=== PATIENT | male | born 1940 | race Caucasian/White ===

== ENCOUNTER 2023-06-17 12:03 | Outpatient (AMB) | payer MEDICARE, SELFPAY ==
--- NOTE | 2023-06-17 12:30 | HO.NEPHOV ---
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 He has coronary artery disease needing stenting. In the past he also had pyelonephritis, bacteremia, prostatitis and BPH. 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 He is followed up in [facility]. He had a history of extra heartbeats and was seen in [facility]. He could not tolerate beta-dominick but was on diltiazem which was discontinued due to fluctuating blood pressure. He does not have any new skin rashes, sore throat, hematuria, abdominal pain, chest pain, dizziness, edema or orthostatic symptoms. He is tolerating ALDO inhibitor well. His recent serum creatinine has been 1.2. 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 Irritable bowel syndrome Iron deficiency anemia Hyponatremia History of recurrent urinary tract infection Hearing problem Fracture of neck of femur Fibrosarcoma of connective tissue Essential (primary) hypertension Endocarditis Dyslipidemia Disorder of cardiovascular system Diplopia Renal cyst Coronary arteriosclerosis Contrast media adverse reaction Chronic sinusitis Chronic kidney disease Skin cancer BPH (benign prostatic hyperplasia) Bacteremia Aortic valve regurgitation Acute kidney injury Surgical History (Updated 06/17/23 @ 12:25 by Mirela Suero MA) Hx of tonsillectomy History of appendectomy History of coronary artery stent placement Family History (Updated 06/17/23 @ 12:26 by Mirela Suero MA) Brother Cancer Paternal Grandmother Heart disease Paternal Grandmother Heart disease Social History (Updated 06/17/23 @ 12:27 by Mirela Suero MA) Alcohol intake: never Patient Tobacco Use Status: Never used Tobacco Vital Signs 06/17/23 12:32 Height 5 ft 8 in Weight 145 lb BMI 22.0 BP 120/70 Blood Pressure Location Rt brachial Position Sitting Pulse 60 Pulse Source Pulse Oximeter Pulse Oximetry (%) 99 Oxygen Delivery Method Room Air Physical Exam Vital Signs: Last Vital Signs Pulse 60 06/17/23 12:32 BP 120/70 06/17/23 12:32 Pulse Ox 99 06/17/23 12:32 Oxygen Delivery Method Room Air 06/17/23 12:32 BMI result Body Mass Index 22.0 Const General: comfortable and no acute distress Orientation/consciousness: patient oriented x3 HEENT Head: Yes normocephalic Mouth: Normal oral and palatal mucosa present Eyes EOM: EOMs intact bilaterally Neck Neck: Yes supple Resp Auscultation: clear to auscultation bilaterally Cardio Jugular venous distension: no JVD Rate: regular rate GI Palpation (GI): Soft to palpation Auscultation: normal bowel sounds General: Yes no CVA tenderness Back/Spine/Pelvis Back: no CVA tenderness Skin General skin exam: no rashes or lesions noted Neuro General: patient oriented x3 and moves all extremities Extrem General: Yes no pedal edema Assessment & Plan Assessment & Plan (1) Proteinuria: Code(s): R80.9 - Proteinuria, unspecified Qualifiers: Proteinuria type: unspecified Qualified Code(s): R80.9 - Proteinuria, unspecified (2) Hypertension: Code(s): I10 - Essential (primary) hypertension Qualifiers: Hypertension type: primary hypertension Qualified Code(s): I10 - Essential (primary) hypertension Plan has some proteinuria for some time. He has hypertension which is well controlled. He is tolerating current dose of ALDO inhibitor. He is on 25 mg lisinopril. He is off diltiazem. His volume status is optimal. His blood pressure is at goal. He is on a low-sodium diet and is very active. I will ordered blood work and urine studies for today. I may increase his lisinopril based on evolving data. No medication changes were made during this visit. All questions were answered. Follow-up given Orders: Orders Lipid Panel Today R80.9 - Proteinuria, unspecified Hemoglobin A1c Today R80.9 - Proteinuria, unspecified PSA,Total (Free>4and<10) Today R80.9 - Proteinuria, unspecified Complete Blood Count Auto Diff Today R80.9 - Proteinuria, unspecified Electrolytes Today R80.9 - Proteinuria, unspecified Blood Urea Nitrogen Today R80.9 - Proteinuria, unspecified Creatinine Today R80.9 - Proteinuria, unspecified Calcium Today R80.9 - Proteinuria, unspecified Protein Creatinine Ratio, Ur Today R80.9 - Proteinuria, unspecified Coding Level of Care Code Est Pt Level 3 (72194) Diagnoses Proteinuria, unspecified type R80.9 Proteinuria type: unspecified Primary hypertension I10 Hypertension type: primary hypertension Results Reviewed Nephrology Results: Hgb Pending 06/17/23 WBC Pending 06/17/23 Plt Count Pending 06/17/23 Sodium Pending 06/17/23 Potassium Pending 06/17/23 Chloride Pending 06/17/23 Carbon Dioxide Pending 06/17/23 BUN Pending 06/17/23 Creatinine Pending 06/17/23 Calcium Pending 06/17/23
[2023-06-17 12:32] VITALS: BP 120/70; PULSE 60; O2SAT 99; BMI 22.0
== END 2023-06-17 13:13 | disposition home or self-care (01) ==
PROVIDERS: PCP Internal Medicine; Visit Provider Internal Medicine Nephrology
DX: R80.9 Proteinuria, unspecified (principal); I10 Essential (primary) hypertension
CPT/HCPCS: 99213

== ENCOUNTER 2023-06-17 12:03 | Outpatient (REF) | payer MEDICARE, SELFPAY ==
[2023-06-17 13:40] LABS: MANUAL DIFF FLAG NO
[2023-06-17 14:44] LABS: Basophils Absolute Auto 0.1 X10*3/uL (0.0-0.2); Basophils Percent Auto 1.8 % (0-2); Eosinophils Absolute Auto 0.2 X10*3/uL (0.0-0.4); Eosinophils Percent Auto 2.7 % (0-4); Hematocrit 35.7 % (42.0-52.0); Imm Gran Abs Auto 0.02 X10*3/uL (0.00-0.03); Imm Gran Pct Auto 0.4 % (0.0-0.4); Lymphocytes Absolute Auto 0.8 X10*3/uL (1.2-4.9); Lymphocytes Percent Auto 14.4 % (20-40); Mean Corpuscular HGB Conc 33.6 g/dl (31.0-36.0); Mean Corpuscular Hemoglobin 31.3 pg (27.0-33.0); Mean Platelet Volume 10.6 fL (9.4-12.4); Monocytes Absolute Auto 0.7 X10*3/uL (0.1-1.2); Monocytes Percent Auto 13.1 % (2-11); Neutrophils Absolute Auto 3.7 x10*3/uL (2.0-8.3); Neutrophils Percent Auto 67.6 % (45-73); Platelet Count 234 X10*3/uL (160-400); Red Blood Count 3.84 X10*6/uL (4.60-5.80); Red Cell Distribution Width 11.9 % (11.0-16.0); White Blood Count 5.5 X10*3/uL (4.8-10.8)
[2023-06-17 14:52] LABS: Estimated Average Glucose 91 mg/dL; Hemoglobin A1c % 4.8 % (<6.0)
[2023-06-17 15:11] LABS: Creatinine Urine 106.04 mg/dL; Protein/Creatinine Ratio, Ur 0.74 (<0.2); Total Protein Urine Random 78 mg/dL (<12)
[2023-06-17 15:17] LABS: Anion Gap 11 (12-20); Blood Urea Nitrogen 11 mg/dL (9-16); Calcium 9.8 mg/dL (8.4-10.2); Carbon Dioxide 28 mmol/L (22-29); Chloride 98 mmol/L (96-108); Cholesterol 155 mg/dL (<200); Estimated Glomerular Filt Rate 60; HDL Cholesterol 58 mg/dL (>40); LDL Cholesterol Calculated 72 mg/dL (<100); Potassium 4.5 mmol/L (3.3-5.1); Sodium 132 mmol/L (135-145); Triglycerides 128 mg/dL (<150)
[2023-06-17 15:33] LABS: PSA,Total (Free>4and<10) 2.51 ng/mL (0.00-4.00)
== END 2023-06-17 12:04 | disposition home or self-care (01) ==
LOC: HO.LAB 12:03
PROVIDERS: PCP Internal Medicine; Visit Provider Internal Medicine Nephrology
DX: R80.9 Proteinuria, unspecified (principal); I10 Essential (primary) hypertension; I25.10 Atherosclerotic heart disease of native coronary artery without angina pectoris; Z12.5 Encounter for screening for malignant neoplasm of prostate
CPT/HCPCS: 36415; 80051; 80061; 82310; 82565; 82570; 83036; 84153; 84156; 84520; 85025; 99212

== ENCOUNTER 2023-10-21 12:04 | Outpatient (AMB) | payer MEDICARE, SELFPAY ==
--- NOTE | 2023-10-21 12:09 | HO.NEPHOV_ITS ---
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 He has coronary artery disease needing stenting. In the past he also had pyelonephritis, bacteremia, prostatitis and BPH. 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 He is followed up in [facility]. He had a history of extra heartbeats and was seen in [facility]. He could not tolerate beta-dominick but is on diltiazem. He does not have any new skin rashes, sore throat, hematuria, abdominal pain, chest pain, dizziness, edema or orthostatic symptoms. He is tolerating ALDO inhibitor well. His recent serum creatinine has been stable but has been having fluctuating inspite of increasing ACEI. His last serum potassium has been 5. 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 breast Irritable bowel syndrome Iron deficiency anemia Hyponatremia History of recurrent urinary tract infection Hearing problem Fracture of neck of femur Fibrosarcoma of connective tissue Essential (primary) hypertension Endocarditis Dyslipidemia Disorder of cardiovascular system Diplopia Renal cyst Coronary arteriosclerosis Contrast media adverse reaction Chronic sinusitis Chronic kidney disease Skin cancer BPH (benign prostatic hyperplasia) Bacteremia Aortic valve regurgitation Acute kidney injury Surgical History Hx of tonsillectomy History of appendectomy History of coronary artery stent placement Family History Brother Cancer Paternal Grandmother Heart disease Paternal Grandmother Heart disease Social History Alcohol intake: never Patient Tobacco Use Status: Never used Tobacco Vital Signs 10/21/23 12:11 Height 5 ft 8 in Weight 142 lb 2 oz BMI 21.6 BP 142/80 H Blood Pressure Location Lt brachial Position Sitting Pulse 59 Pulse Source Pulse Oximeter Pulse Oximetry (%) 99 Oxygen Delivery Method Room Air Physical Exam Vital Signs: Last Vital Signs Pulse 59 10/21/23 12:11 BP 142/80 H 10/21/23 12:11 Pulse Ox 99 10/21/23 12:11 Oxygen Delivery Method Room Air 10/21/23 12:11 BMI result Body Mass Index 21.6 Const General: comfortable and no acute distress Orientation/consciousness: patient oriented x3 HEENT Head: Yes normocephalic Mouth: Normal oral and palatal mucosa present Eyes EOM: EOMs intact bilaterally Neck Neck: Yes supple Resp Auscultation: clear to auscultation bilaterally Cardio Jugular venous distension: no JVD Rate: regular rate GI Palpation (GI): Soft to palpation Auscultation: normal bowel sounds General: Yes no CVA tenderness Back/Spine/Pelvis Back: no CVA tenderness Skin General skin exam: no rashes or lesions noted Neuro General: patient oriented x3 and moves all extremities Extrem General: Yes no pedal edema Assessment & Plan Assessment & Plan (1) Hypertension: Code(s): I10 - Essential (primary) hypertension Qualifiers: Hypertension type: primary hypertension Qualified Code(s): I10 - Essential (primary) hypertension (2) Proteinuria: Code(s): R80.9 - Proteinuria, unspecified Qualifiers: Proteinuria type: unspecified Qualified Code(s): R80.9 - Proteinuria, unspecified Plan has some proteinuria for some time. He has H/O sarcoid. He has no active malignancies. He is tolerating current dose of ALDO inhibitor. He is on 30 mg lisinopril. He is on diltiazem 120 mg which I increased to 240 mg daily.. His volume status is optimal. He is on a low-sodium diet and is very active. I will ordered blood work and urine studies including 24 hour collection. I may consider doing a renal biopsy based on evolving data. No other medication changes were made during this visit. All questions were answered. Follow-up given Orders: Orders Proteinase 3 PR3 Antibodies Today I10 - Essential (primary) hypertension, R80.9 - Proteinuria, unspecified Myeloperoxidase Antibody Today I10 - Essential (primary) hypertension, R80.9 - Proteinuria, unspecified Anti DNA DS Antibody Today I10 - Essential (primary) hypertension, R80.9 - Proteinuria, unspecified MEMO Reflex Titer and Pattern Today I10 - Essential (primary) hypertension, R80.9 - Proteinuria, unspecified Complement C3 Today I10 - Essential (primary) hypertension, R80.9 - Proteinuria, unspecified Complement C4 Today I10 - Essential (primary) hypertension, R80.9 - Proteinuria, unspecified Phospholipase A2 Receptor Pnl Today I10 - Essential (primary) hypertension, R80.9 - Proteinuria, unspecified Prothrombin Time INR Today I10 - Essential (primary) hypertension, R80.9 - Proteinuria, unspecified Protein, 24 Hr Urine Group Today I10 - Essential (primary) hypertension, R80.9 - Proteinuria, unspecified Anti Glomerular Basement Memb Today I10 - Essential (primary) hypertension, R80.9 - Proteinuria, unspecified Immunofixation Pnl, Serum Today I10 - Essential (primary) hypertension, R80.9 - Proteinuria, unspecified Complete Blood Count Auto Diff Today I10 - Essential (primary) hypertension, R80.9 - Proteinuria, unspecified Immunofixation, Random Urine Today I10 - Essential (primary) hypertension, R80.9 - Proteinuria, unspecified Vitamin D 1,25 dihydroxy Today R80.9 - Proteinuria, unspecified Medications: New diltiazem HCl CD 240 mg (2 x 120 mg) PO DAILY 60 caps 4RF Refilled lisinopril 30 mg (3 x 10 mg) PO DAILY 270 tabs 3RF Coding Level of Care Code Est Pt Level 4 (74819) Diagnoses Primary hypertension I10 Hypertension type: primary hypertension Proteinuria, unspecified type R80.9 Proteinuria type: unspecified
[2023-10-21 12:11] VITALS: BP 142/80; PULSE 59; O2SAT 99; BMI 21.6
== END 2023-10-21 12:58 | disposition home or self-care (01) ==
PROVIDERS: PCP Internal Medicine; Visit Provider Internal Medicine Nephrology
DX: I10 Essential (primary) hypertension (principal); R80.9 Proteinuria, unspecified
CPT/HCPCS: 99214

== ENCOUNTER → 2023-10-21 12:04 | Outpatient (BNVA) | payer MEDICARE, SELFPAY | PROVIDERS: PCP Internal Medicine; Visit Provider Internal Medicine Nephrology | DX: I10 Essential (primary) hypertension (principal); R80.9 Proteinuria, unspecified | CPT/HCPCS: 99212 ==

== ENCOUNTER 2023-11-20 10:59 | Outpatient (AMB) | payer MEDICARE, SELFPAY ==
[2023-11-20 11:00] VITALS: BP 134/68; PULSE 60; O2SAT 98; BMI 21.6
--- NOTE | 2023-11-20 11:00 | HO.NEPHOV_ITS ---
Vital Signs 11/20/23 11:00 Height 5 ft 8 in Weight 142 lb BMI 21.6 BP 134/68 Blood Pressure Location Lt brachial Position Sitting Pulse 60 Pulse Source Pulse Oximeter Pulse Oximetry (%) 98 Oxygen Delivery Method Room Air Intake Visit Reasons: 1 mo fu w/ labs CKD/ Confirmed Director Of Restaurants Required: No Accompanied by: Spouse Allergies alirocumab Allergy (Verified 11/20/23 11:00) Unknown Beta-Adrenergic Agents Allergy (Verified 11/20/23 11:00) Unknown diphenhydramine Allergy (Verified 11/20/23 11:00) Unknown Iodinated Contrast Media Allergy (Verified 11/20/23 11:00) Unknown Milk Containing Products (Dairy) Allergy (Verified 11/20/23 11:00) Unknown prednisone Allergy (Verified 11/20/23 11:00) Unknown HPI Comments Details: 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 He has coronary artery disease needing stenting. In the past he also had pyelonephritis, bacteremia, prostatitis and BPH. 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 He is followed up in [facility]. He had a history of extra heartbeats and was [facility]. He could not tolerate beta-dominick but is on diltiazem. He does not have any new skin rashes, sore throat, hematuria, a bdominal pain, chest pain, dizziness, edema or orthostatic symptoms. He is tolerating ALDO inhibitor well. His recent serum creatinine has been stable but has been having fluctuating inspite of increasing ACEI. Diltiazem dosage was increased at the last office visit. He occasionally feels dizzy and tired but continues to be active. 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 breast Irritable bowel syndrome Iron deficiency anemia Hyponatremia History of recurrent urinary tract infection Hearing problem Fracture of neck of femur Fibrosarcoma of connective tissue Essential (primary) hypertension Endocarditis Dyslipidemia Disorder of cardiovascular system Diplopia Renal cyst Coronary arteriosclerosis Contrast media adverse reaction Chronic sinusitis Chronic kidney disease Skin cancer BPH (benign prostatic hyperplasia) Bacteremia Aortic valve regurgitation Acute kidney injury Surgical History Hx of tonsillectomy History of appendectomy History of coronary artery stent placement Family History Brother Cancer Paternal Grandmother Heart disease Paternal Grandmother Heart disease Social History Alcohol intake: never Patient Tobacco Use Status: Never used Tobacco Physical Exam Vital Signs: Last Vital Signs Pulse 60 11/20/23 11:00 BP 134/68 11/20/23 11:00 Pulse Ox 98 11/20/23 11:00 Oxygen Delivery Method Room Air 11/20/23 11:00 BMI result Body Mass Index 21.6 Const General: comfortable and no acute distress Orientation/consciousness: patient oriented x3 HEENT Head: Yes normocephalic Mouth: Normal oral and palatal mucosa present Eyes EOM: EOMs intact bilaterally Neck Neck: Yes supple Resp Auscultation: clear to auscultation bilaterally Cardio Jugular venous distension: no JVD Rate: regular rate GI Palpation (GI): Soft to palpation Auscultation: normal bowel sounds General: Yes no CVA tenderness Back/Spine/Pelvis Back: no CVA tenderness Skin General skin exam: no rashes or lesions noted Neuro General: patient oriented x3 and moves all extremities Extrem General: Yes no pedal edema Results Reviewed Nephrology Results: Hgb 12.0 g/dl (14.0-18.0) L 06/17/23 WBC 5.5 X10*3/uL (4.8-10.8) 06/17/23 Plt Count 234 X10*3/uL (160-400) 06/17/23 Sodium 132 mmol/L (135-145) L 06/17/23 Potassium 4.5 mmol/L (3.3-5.1) 06/17/23 Chloride 98 mmol/L (96-108) 06/17/23 Carbon Dioxide 28 mmol/L (22-29) 06/17/23 BUN 11 mg/dL (9-16) 06/17/23 Creatinine 1.17 mg/dL (0.5-1.4) 06/17/23 Calcium 9.8 mg/dL (8.4-10.2) 06/17/23 Urine Creatinine 106.04 mg/dL 06/17/23 Protein/Creatinin Ratio 0.74 (<0.2) H 06/17/23 Assessment & Plan Assessment & Plan (1) Hypertension: Code(s): I10 - Essential (primary) hypertension Category: Medical Qualifiers: Hypertension type: primary hypertension Qualified Code(s): I10 - Essential (primary) hypertension (2) Proteinuria: Code(s): R80.9 - Proteinuria, unspecified Category: Medical Qualifiers: Proteinuria type: unspecified Qualified Code(s): R80.9 - Proteinuria, unspecified Plan has some proteinuria for some time. He has H/O sarcoid. He has no active malignancies. He is tolerating current dose of ALDO inhibitor. He is on 30 mg lisinopril. He is on diltiazem 120 mg which was increased to 240 mg daily the last visit.. His volume status is optimal. He is on a low-sodium diet and is very active. Some of his blood work and urine studies including 24 hour collection were pending. I may consider doing a renal biopsy based on evolving data. No other medication changes were made during this visit. All questions were answered. Follow-up given Orders: Orders Blood Urea Nitrogen Today I10 - Essential (primary) hypertension, R80.9 - Proteinuria, unspecified Protein Creatinine Ratio, Ur Today I10 - Essential (primary) hypertension, R80.9 - Proteinuria, unspecified Creatinine Today I10 - Essential (primary) hypertension, R80.9 - Proteinuria, unspecified Electrolytes Today I10 - Essential (primary) hypertension, R80.9 - Proteinuria, unspecified Coding Level of Care Code Est Pt Level 4 (53843) Diagnoses Primary hypertension I10 Hypertension type: primary hypertension Proteinuria, unspecified type R80.9 Proteinuria type: unspecified
== END 2023-11-20 11:45 | disposition home or self-care (01) ==
PROVIDERS: PCP Internal Medicine; Visit Provider Internal Medicine Nephrology
DX: I10 Essential (primary) hypertension (principal); R80.9 Proteinuria, unspecified
CPT/HCPCS: 99214

== ENCOUNTER → 2023-11-20 10:59 | Outpatient (BNVA) | payer MEDICARE, SELFPAY | PROVIDERS: PCP Internal Medicine; Visit Provider Internal Medicine Nephrology | DX: I10 Essential (primary) hypertension (principal); R80.9 Proteinuria, unspecified | CPT/HCPCS: 99212 ==

== ENCOUNTER 2024-05-03 12:48 | Outpatient (REF) | payer MEDICARE, SELFPAY ==
[2024-05-03 13:21] LABS: MANUAL DIFF FLAG NO
[2024-05-03 13:47] LABS: Basophils Absolute Auto 0.1 X10*3/uL (0.0-0.2); Basophils Percent Auto 1.9 % (0-2); Eosinophils Absolute Auto 0.2 X10*3/uL (0.0-0.4); Eosinophils Percent Auto 4.5 % (0-4); Hematocrit 33.4 % (42.0-52.0); Hemoglobin 11.1 g/dl (14.0-18.0); INTERNATIONAL NORM RATIO 0.9 (0.9-1.1); Imm Gran Abs Auto 0.02 X10*3/uL (0.00-0.03); Imm Gran Pct Auto 0.4 % (0.0-0.4); Lymphocytes Absolute Auto 0.7 X10*3/uL (1.2-4.9); Lymphocytes Percent Auto 13.4 % (20-40); Mean Corpuscular HGB Conc 33.2 g/dl (31.0-36.0); Mean Corpuscular Hemoglobin 31.1 pg (27.0-33.0); Mean Corpuscular Volume 93.6 fL (80.0-98.0); Mean Platelet Volume 9.6 fL (9.4-12.4); Monocytes Absolute Auto 0.6 X10*3/uL (0.1-1.2); Monocytes Percent Auto 11.4 % (2-11); Neutrophils Absolute Auto 3.3 x10*3/uL (2.0-8.3); Neutrophils Percent Auto 68.4 % (45-73); Platelet Count 266 X10*3/uL (160-400); Prothrombin Time 10.4 SEC (10.9-12.4); Red Blood Count 3.57 X10*6/uL (4.60-5.80); Red Cell Distribution Width 11.9 % (11.0-16.0); White Blood Count 4.8 X10*3/uL (4.8-10.8)
[2024-05-03 14:12] LABS: Anion Gap 13 (12-20); Blood Urea Nitrogen 22 mg/dL (9-16); Carbon Dioxide 30 mmol/L (22-29); Chloride 97 mmol/L (96-108); Estimated Glomerular Filt Rate 54; Potassium 4.4 mmol/L (3.3-5.1); Sodium 136 mmol/L (135-145)
[2024-05-03 14:26] LABS: Creatinine Urine 106.96 mg/dL; Protein/Creatinine Ratio, Ur 0.44 (<0.2); Total Protein Urine Random 47 mg/dL (<12)
[2024-05-05 19:44] LABS: Anti DNA DS Antibody <1 IU/mL; Anti Glomerular Basement Memb <1.0 AI; Myeloperoxidase Antibody <1.0 AI; Proteinase 3 PR3 Antibodies <1.0 AI
[2024-05-06 11:44] LABS: Complement C3 112 mg/dL
[2024-05-06 16:43] LABS: IgA 283 mg/dL (70-320); IgG 1168 mg/dL (600-1540); IgM 126 mg/dL (50-300)
[2024-05-08 15:23] LABS: VITAMIN D (1,25 OH) D3 64 pg/mL; Vit D (1,25-Dihydroxy) Total 64 pg/mL (18-72); Vitamin D (1,25 OH) D2 <8 pg/mL
[2024-05-10 14:09] LABS: Anti Nuclear Antibody Pattern Nuclear, Speckled; Anti Nuclear Antibody Screen POSITIVE (NEGATIVE)
[2024-05-12 23:28] LABS: Phospholipase A2 IgG ELISA <4 RU/mL; Phospholipase A2 IgG IFA NEGATIVE (NEGATIVE)
== END 2024-05-03 12:49 | disposition home or self-care (01) ==
LOC: HO.LAB 12:48
PROVIDERS: PCP Internal Medicine; Visit Provider Internal Medicine Nephrology
DX: I10 Essential (primary) hypertension (principal); R80.9 Proteinuria, unspecified; Z79.01 Long term (current) use of anticoagulants
CPT/HCPCS: 36415; 80051; 82565; 82570; 82652; 82784; 83520; 84156; 84520; 85025; 85610; 86021; 86038; 86039; 86160; 86225; 86255; 86334; 86335

== ENCOUNTER 2024-05-04 13:55 | Outpatient (AMB) | payer MEDICARE, SELFPAY ==
--- NOTE | 2024-05-04 14:15 | HO.NEPHOV_ITS ---
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 He has coronary artery disease needing stenting. In the past he also had pyelonephritis, bacteremia, prostatitis and BPH. 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 He is followed up in [facility]. He had a history of extra heartbeats and was seen in [facility] and [facility]. He could not tolerate beta-dominick but is on diltiazem. He does not have any new skin rashes, sore throat, hematuria, abdominal pain, chest pain, dizziness, edema or orthostatic symptoms. He is tolerating ALDO inhibitor well. His recent serum creatinine has been stable but had it fluctuating on increasing ACEI. His proteinuria has improved & he feels well. 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 breast Irritable bowel syndrome Iron deficiency anemia Hyponatremia History of recurrent urinary tract infection Hearing problem Fracture of neck of femur Fibrosarcoma of connective tissue Essential (primary) hypertension Endocarditis Dyslipidemia Disorder of cardiovascular system Diplopia Renal cyst Coronary arteriosclerosis Contrast media adverse reaction Chronic sinusitis Chronic kidney disease Skin cancer BPH (benign prostatic hyperplasia) Bacteremia Aortic valve regurgitation Acute kidney injury Surgical History Hx of tonsillectomy History of appendectomy History of coronary artery stent placement Family History Brother Cancer Paternal Grandmother Heart disease Paternal Grandmother Heart disease Social History Alcohol intake: never Patient Tobacco Use Status: Never used Tobacco Review of Systems Const All systems reviewed & are unremarkable except as noted in HPI and below Physical Exam Vital Signs: Last Vital Signs Pulse 60 05/04/24 14:16 BP 134/70 05/04/24 14:16 Pulse Ox 98 05/04/24 14:16 Oxygen Delivery Method Room Air 05/04/24 14:16 BMI result Body Mass Index 21.9 Const General: comfortable and no acute distress Orientation/consciousness: patient oriented x3 HEENT Head: Yes normocephalic Mouth: Normal oral and palatal mucosa present Eyes EOM: EOMs intact bilaterally Neck Neck: Yes supple Resp Auscultation: clear to auscultation bilaterally Cardio Jugular venous distension: no JVD Rate: regular rate GI Palpation (GI): Soft to palpation Auscultation: normal bowel sounds General: Yes no CVA tenderness Back/Spine/Pelvis Back: no CVA tenderness Skin General skin exam: no rashes or lesions noted Neuro General: patient oriented x3 and moves all extremities Extrem General: Yes no pedal edema Results Reviewed Nephrology Results: Hgb 11.1 g/dl (14.0-18.0) L 05/03/24 WBC 4.8 X10*3/uL (4.8-10.8) 05/03/24 Plt Count 266 X10*3/uL (160-400) 05/03/24 Sodium 136 mmol/L (135-145) 05/03/24 Potassium 4.4 mmol/L (3.3-5.1) 05/03/24 Chloride 97 mmol/L (96-108) 05/03/24 Carbon Dioxide 30 mmol/L (22-29) H 05/03/24 BUN 22 mg/dL (9-16) H 05/03/24 Creatinine 1.27 mg/dL (0.5-1.4) 05/03/24 Calcium 9.8 mg/dL (8.4-10.2) 06/17/23 Urine Creatinine 106.96 mg/dL 05/03/24 Protein/Creatinin Ratio 0.44 (<0.2) H 05/03/24 Assessment & Plan Assessment & Plan (1) Hypertension: Code(s): I10 - Essential (primary) hypertension Category: Medical Qualifiers: Hypertension type: primary hypertension Qualified Code(s): I10 - Essential (primary) hypertension (2) Proteinuria: Code(s): R80.9 - Proteinuria, unspecified Category: Medical Qualifiers: Proteinuria type: unspecified Qualified Code(s): R80.9 - Proteinuria, unspecified Plan has some proteinuria for some time. He has H/O sarcoid. He has no active malignancies. He is tolerating current dose of ALDO inhibitor. He is on lisinopril & diltiazem. His volume status is optimal. He is on a low-sodium diet and is very active. His renal functions are stable and proteinuria is better. There is no need for a renal biopsy now. No other medication changes were made during this visit. All questions were answered. Follow-up given Orders: Orders Electrolytes 6 Months I10 - Essential (primary) hypertension, R80.9 - Proteinuria, unspecified Creatinine 6 Months I10 - Essential (primary) hypertension, R80.9 - Proteinuria, unspecified Blood Urea Nitrogen 6 Months I10 - Essential (primary) hypertension, R80.9 - Proteinuria, unspecified Protein Creatinine Ratio, Ur 6 Months I10 - Essential (primary) hypertension, R80.9 - Proteinuria, unspecified Coding Level of Care Code Est Pt Level 4 (15741) Diagnoses Primary hypertension I10 Hypertension type: primary hypertension Proteinuria, unspecified type R80.9 Proteinuria type: unspecified
[2024-05-04 14:16] VITALS: BP 134/70; PULSE 60; O2SAT 98; BMI 21.9
== END 2024-05-04 14:49 | disposition home or self-care (01) ==
LOC: HO.HKA 13:55
PROVIDERS: PCP Internal Medicine; Visit Provider Internal Medicine Nephrology
DX: I10 Essential (primary) hypertension (principal); R80.9 Proteinuria, unspecified
CPT/HCPCS: 99214

== ENCOUNTER → 2024-05-04 13:55 | Outpatient (BNVA) | payer MEDICARE, SELFPAY | PROVIDERS: PCP Internal Medicine; Visit Provider Internal Medicine Nephrology | DX: I10 Essential (primary) hypertension (principal); R80.9 Proteinuria, unspecified | CPT/HCPCS: 99212 ==

== ENCOUNTER 2024-05-05 10:29 | Outpatient (REF) | payer MEDICARE, SELFPAY ==
[2024-05-05 11:52] LABS: Total Volume 24 Hour Urine 1850 mL
[2024-05-05 11:59] LABS: Creatinine, mg/dL 53.59; Protein 24 Hr Urine 315 mg/Day (<150); Protein mg/dL 17 mg/dL
== END 2024-05-05 10:30 | disposition home or self-care (01) ==
LOC: HO.LNP 10:29
PROVIDERS: Visit Provider Internal Medicine Nephrology
DX: I10 Essential (primary) hypertension (principal); R80.9 Proteinuria, unspecified
CPT/HCPCS: 84156

== ENCOUNTER 2024-10-19 11:31 | Outpatient (AMB) | payer MEDICARE, SELFPAY ==
--- NOTE | 2024-10-19 11:37 | HO.NEPHOV ---
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 He has coronary artery disease needing stenting. In the past he also had pyelonephritis, bacteremia, prostatitis and BPH. 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 He is followed up in [facility]. He had a history of extra heartbeats and was [facility]. He continues to have symptoms from it and is going to see EP to decide whether ablation will help him. He could not tolerate beta-dominick but is on diltiazem. He does not have any new skin rashes, sore throat, hematuria, abdominal pain, chest pain, dizziness, edema or orthostatic symptoms. He is tolerating ALDO inhibitor well but his serum K is marginally up. His recent serum creatinine has been stable but had it fluctuating on increasing ACEI. He has high light chains in the urine. His proteinuria has improved & he feels well. [facility] Medical History (Updated 10/19/24 @ 21:55 by Steffen Taylor MD) Valvular endocarditis Sick sinus syndrome Sepsis Sarcoidosis Pyelonephritis Prostatitis Primary myxofibrosarcoma Palpitations Osteoarthritis of right knee Malignant neoplasm of right male breast Irritable bowel syndrome Iron deficiency anemia Hyponatremia History of recurrent urinary tract infection Hearing problem Fracture of neck of femur Fibrosarcoma of connective tissue Essential (primary) hypertension Endocarditis Dyslipidemia Disorder of cardiovascular system Diplopia Renal cyst Coronary arteriosclerosis Contrast media adverse reaction Chronic sinusitis Chronic kidney disease Skin cancer BPH (benign prostatic hyperplasia) Bacteremia Aortic valve regurgitation Acute kidney injury Surgical History Hx of tonsillectomy History of appendectomy History of coronary artery stent placement Family History Brother Cancer Paternal Grandmother Heart disease Paternal Grandmother Heart disease Social History Alcohol intake: never Patient Tobacco Use Status: Never used Tobacco Review of Systems Const All systems reviewed & are unremarkable except as noted in HPI and below Physical Exam Vital Signs: Last Vital Signs Pulse 52 10/19/24 11:41 BP 134/60 10/19/24 11:41 Pulse Ox 100 10/19/24 11:41 Oxygen Delivery Method Room Air 10/19/24 11:41 BMI result Body Mass Index 21.8 Const General: comfortable and no acute distress Orientation/consciousness: patient oriented x3 HEENT Head: Yes normocephalic Mouth: Normal oral and palatal mucosa present Eyes EOM: EOMs intact bilaterally Neck Neck: Yes supple Resp Auscultation: clear to auscultation bilaterally Cardio Jugular venous distension: no JVD Rate: regular rate GI Palpation (GI): Soft to palpation Auscultation: normal bowel sounds General: Yes no CVA tenderness Back/Spine/Pelvis Back: no CVA tenderness Skin General skin exam: no rashes or lesions noted Neuro General: patient oriented x3 and moves all extremities Extrem General: Yes no pedal edema Assessment & Plan Assessment & Plan (1) Proteinuria: Code(s): R80.9 - Proteinuria, unspecified Category: Medical Qualifiers: Proteinuria type: unspecified Qualified Code(s): R80.9 - Proteinuria, unspecified (2) Hypertension: Code(s): I10 - Essential (primary) hypertension Category: Medical Qualifiers: Hypertension type: primary hypertension Qualified Code(s): I10 - Essential (primary) hypertension (3) Hyperkalemia: Code(s): E87.5 - Hyperkalemia Category: Medical (4) CKD (chronic kidney disease) stage 3, GFR 30-59 ml/min: Code(s): N18.30 - Chronic kidney disease, stage 3 unspecified Category: Medical Qualifiers: Chronic kidney disease stage 3 subtype: stage 3a (GFR 45-59) Qualified Code(s): N18.31 - Chronic kidney disease, stage 3a Plan has some proteinuria for some time. He has H/O sarcoid. He has increased light chains in the urine which is going to be repeated. He may need hematology consult and a bone marrow biopsy. He has no active malignancies. He is tolerating current dose of ALDO inhibitor. He is on lisinopril & diltiazem. He is aware of his high serum K. His volume status is optimal. He is on a low-sodium diet and is very active. His renal functions are stable and proteinuria is better. There is no need for a renal biopsy now. No other medication changes were made during this visit. All questions were answered. Follow-up given Orders: Orders Amoret/Lambda Light Chain Serum 6 Months E87.5 - Hyperkalemia, I10 - Essential (primary) hypertension, R80.9 - Proteinuria, unspecified Protein Creatinine Ratio, Ur 6 Months E87.5 - Hyperkalemia, I10 - Essential (primary) hypertension, R80.9 - Proteinuria, unspecified Complete Blood Count Auto Diff 6 Months E87.5 - Hyperkalemia, I10 - Essential (primary) hypertension, R80.9 - Proteinuria, unspecified Blood Urea Nitrogen 6 Months E87.5 - Hyperkalemia, I10 - Essential (primary) hypertension, R80.9 - Proteinuria, unspecified Blood Urea Nitrogen 3 Months E87.5 - Hyperkalemia, I10 - Essential (primary) hypertension, R80.9 - Proteinuria, unspecified Immunofixation, Random Urine 6 Months E87.5 - Hyperkalemia, I10 - Essential (primary) hypertension, R80.9 - Proteinuria, unspecified Immunofixation Pnl, Serum 6 Months E87.5 - Hyperkalemia, I10 - Essential (primary) hypertension, R80.9 - Proteinuria, unspecified Creatinine 6 Months E87.5 - Hyperkalemia, I10 - Essential (primary) hypertension, R80.9 - Proteinuria, unspecified Electrolytes 6 Months E87.5 - Hyperkalemia, I10 - Essential (primary) hypertension, R80.9 - Proteinuria, unspecified Calcium 6 Months E87.5 - Hyperkalemia, I10 - Essential (primary) hypertension, R80.9 - Proteinuria, unspecified Creatinine 3 Months E87.5 - Hyperkalemia, I10 - Essential (primary) hypertension, R80.9 - Proteinuria, unspecified Electrolytes 3 Months E87.5 - Hyperkalemia, I10 - Essential (primary) hypertension, R80.9 - Proteinuria, unspecified Coding Level of Care Code Est Pt Level 4 (52982) Diagnoses Proteinuria, unspecified type R80.9 Proteinuria type: unspecified Primary hypertension I10 Hypertension type: primary hypertension Hyperkalemia E87.5 Stage 3a chronic kidney disease N18.31 Chronic kidney disease stage 3 subtype: stage 3a (GFR 45-59)
[2024-10-19 11:41] VITALS: BP 134/60; PULSE 52; O2SAT 100; BMI 21.8
--- OUTSIDE RECORDS SUMMARY | 2024-10-19 13:58 | XMS_ITS | Patient Health Record ---
Author Organization [facility] Address [address] [place] [address] Care Team Providers Care Tube Builder Airplane Name Role Phone Qamar Garcia Primary Care Provider Uriah Dukes MD MSc, [facility] Unavailable [phone] Allergies Allergen (clinical drug ingredient) Drug/Non Drug Allergy documented on EMR Reaction Allergy Type Onset Date Status alirocumab Praluent Unknown Drug Allergy Active Contrast Allergy PreMed Pack Unknown Drug Allergy Active Substance with beta adrenergic receptor antagonist mechanism of action (substance) Beta Adrenergic Blockers Unknown Drug Allergy Active Reason For Referral No Information Medications Medication SIG (Take, Route, Frequency, Duration) Notes Start Date End Date Status Pravastatin Sodium 10 MG 1 tablet Orally Once a day for 30 day(s) Active Verapamil HCl 120 MG 1 tablet Orally Thr ee times a day for 30 day(s) Active Lisinopril 10 MG 1 tablet Orally Once a day for 30 day(s) Active Social History Alcohol screen Question Answer Notes Did you have a drink containing alcohol in the p ast year? Yes How often did you have a dri nk containing alcohol in the past year? Monthly or less How many drinks did you have on a typical day when you were drinking in the past year? 1 or 2 How often did you have six o r more drinks on one occasion in the past year? Never Problems Problem Type SNOMED Code ICD Code Onset Dates Problem Status W/U Status Risk Notes Problem [id number] Primary osteoarthritis of right knee (M17.11) Active confirmed Plan Of Treatment No Information Medical (General) History Medical History History ICD Code Diagnosed: Chest Pain,Heart Disease,High Blood Pressure,Osteoarthritis,Skin Cancer, Fibrosarcoma Cancer (spring 2019) treated with radiation and surgery Anemia Surgical History Surgery Date(Month/Year) Coronary stent 2018 left femur rods 2016 left calf sarcoma excision 2019
--- OUTSIDE RECORDS SUMMARY | 2024-10-19 13:58 | XMS_ITS | Clinical Summary ---
Author Organization [facility] Address [address] [place] [address] Phone Care Team Providers Care Wedding Decorator Name Role Phone Qamar Garcia MD Primary Care Provider [phone] Allergies Active Allergy Reactions Criticality Noted Date Comments Alirocumab Other (see comments) 06/12/2021 Beta Adrenergic Blockers Other (see comments) 1 08/13/2020 Iodinated Contrast Media 12/23/2021 Milk-Related Compounds 07/14/2021 Prednisone & Diphenhydramine Other (see comments) 06/12/2021 Medications aspirin (ST TERRY) 81 MG EC tablet Take 81 mg by mouth 1 (one) time each day Active pravastatin (PRAVACHOL) 10 MG tablet Take 10 mg by mouth 1 (one) time each day Active amoxicillin (AMOXIL) 500 MG capsule Take by mouth Prior to dental procedures Active lisinopril 10 MG tablet TAKE 1.5 TABLETS (15 MG TOTAL) BY MOUTH ONCE DAILY 135 tablet 3 3 Active Active Problems Problem Noted Date Diagnosed Date Foreign body in thumb 01/10/2022 Proteinuria 09/19/2021 Pyelonephritis 09/19/2021 Anemia of chronic disease 09/16/2021 Benign essential hypertension 09/16/2021 Chronic kidney disease stage 2 09/16/2021 Hypertensive renal disease 09/16/2021 Hyponatremia 09/16/2021 Simple renal cyst 09/16/2021 Chronic kidney disease, stage 2 (mild) 0 Iron deficiency anemia Hyponatremia Essential hypertension Acute nontraumatic kidney injury Cyst of kidney Resolved Problems Problem Noted Date Diagnosed Date Resolved Date Fibrosarcoma of connective tissue 09/19/2021 12/17/2021 Insertion of arterial stent 09/19/2021 12/17/2021 Endocarditis 09/19/2021 12/17/2021 Prostatitis 09/19/2021 12/17/2021 Aortic valve regurgitation 09/16/2021 0 09/16/2021 Bacteremia 09/16/2021 09/16/2021 Benign prostatic hyperplasia 09/16/2021 09/16/2021 Coronary arteriosclerosis 09/16/2021 Fracture of neck of femur 09/16/2021 Overview (09/16/2021): [facility] Irritable bowel syndrome 09/16/2021 Palpitations 09/16/2021 09/16/2021 Valvular endocarditis 09/16/20212021 Osteoarthritis of right knee joint 03/25/2021 09/16/2021 Contrast media adverse reaction 01/13/2020 06/12/2022 Overview (06/12/2022): Last Assessment & Plan: 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 It was explained that contrast media can directly activate mast cells despite not having a allergy to contrast. It seems like this is likely what happened yesterday. It was explained that this may not happen again, but he should make sure radiologists are aware of this reaction and he should premedicate with Benadryl. He still has some erythema on his back and chest, but this seems more like a flushing related to his fever and not related to the contrast media. Primary myxofibrosarcoma 08/25/201902/2022 Overview (06/12/2022): Last Assessment & Plan: Neoadjuvant radiation 09/2019-10/2019 with resection and wound closure 11/22/2019. He continues to follow with plastic surgery every 2 weeks for debridement. Dyslipidemia 01/03/2019 06/12/2022 Overview (06/12/2022): Last Assessment & Plan: Last lipid panel available in our system is from January,. Patient reports he sees a physician named Dr Meier that specializes in lipid management. He saw this provider in October or November of this year and were told that his lipids were phenomenal. He eats a very healthy diet and does not smoke. I offered to repeat his lipid panel today, which he declined. Continue 10 mg pravastatin daily. Disorder of cardiovascular system 11/05/2018 06/12/2022 Overview (06/12/2022): 10/2018 Patient had cardiac catheterization on 10/26 and had single-vessel coronary disease with severe 95 and stenosis of the proximal LAD and severe stenosis ostium of D1. Successful PCI of the proximal LAD with one drug-eluting stent. Last Assessment & Plan: I discussed with him that we have multiple options for his chest pain. We are obviously waiting the final results of his stress test but that if it is a high risk study, I would recommend a cardiac catheterization. I noted if it is a low risk study, I would be inclined to start with medical therapy but that if he continues to have chest pain that is limiting his symptoms, I would strongly recommend cardiac catheterization. He notes he prefers to avoid a cardiac cath if possible. He also notes that he does not seem to tolerate other medications such as metoprolol well and has not tolerated verapamil at a higher dose. I offered the option of starting Imdur but given his multiple intolerances to other medications, he would like to keep on verapamil at 120 mg XL once daily and aspirin and pravastatin and based on the stress test results as well as the recurrence of chest pain, will consider a cardiac catheterization. Malignant neoplasm of right male breast 08/26/2018 06/12/2022 Diplopia 07/01/2018 06/12/2022 Sick sinus syndrome 07/01/2018 06/12/20 Chronic sinusitis 01/24/2016 06/12/2022 Sarcoidosis 09/15/2006 06/12/2022 Overview (06/12/2022): sarcoidosis; Liver 2002 Benign prostatic hyperplasia 12/17/2021 Immunizations Immunization Administration Dates Next Due Hep A / Hep B 05/12/2013,01/19/2012,12/22/2011 Influenza Split High Dose Pr eservative Free IM 05/14/2018,04/30/2017,04/24/2016 Influenza Vaccine, Quadrivalent, Adjuvanted 07/2019 Pneumococcal Conjugate 13-Valent 03/17/2016 Pneumococcal Polysaccharide 06/30/2020 Tdap 12/22/2011 Family History Medical History Relation Comments Heart disease Paternal Grandfather Heart disease Paternal Grandmother Cancer Sibling brother Relation Status Comments Father Mother Paternal Grandfather Paternal Grandmother Sibling Social History Tobacco Use Types Packs/Day Years Used Date Smoking Tobacco: Never Smokeless Tobacco: Never Tobacco Cessation:Counseling Given: Not Answered Alcohol Use Standard Drinks/Week Comments No 0 (1 standard drink = 0.6 oz pur e alcohol) Sex and Gender Information Value Date Recorded Sex Assigned at Not on file Legal Sex Male 5:07 PM EST Gender Identity Not on file Sexual Orientation Not on file Last Filed Vital Signs Vital Sign Reading Time Taken Comments Blood Pressure 130/80 12/16/2022 1:54 PM EDT Pulse 64 12/16/2022 1:54 PM EDT Temperature - - Respiratory Rate - - Oxygen Saturation 99% 12/23/2021 2:09 PM EDT Inhaled Oxygen Concentration - - Weight 65.8 kg (145 lb) 12/16/2022 1:54 PM EDT Height 177.8 cm (5' 10 ) 01/19/2019 12:00 PM EDT Body Mass Index 20.81 01/19/2019 12:00 PM EDT Plan of Treatment Health Maintenance Due Date Last Done Comments Influenza Vaccine (Season Ended) 2025 04/05/2020, 05/14/2018, 04/30/2017, Additional history exists Hepatitis B Vaccine Completed 05/12/2013, 01/19/2012, 12/22/2011 Pneumococcal Vaccine: 50+ Years Completed , 03/17/2016 Pneumococcal Vaccine: Peds ( 0 to 5 Years) and At-Risk Patients (6 to 49 Years) Discontinued 06/30/2020, 03/17/[address] [facility] Medicare Care Teams Wedding Decorator Relationship Specialty Start Date End Date Qamar Garcia MD [address] [place] [address] PCP - General Internal Medicine 09/11/21
--- OUTSIDE RECORDS SUMMARY | 2024-10-19 13:58 | XMS_ITS | Clinical Summary ---
Author Organization [facility] Address [id number] [place] [address] Care Team Providers Care Gusset Stitcher Name Role Phone Qamar Garcia MD Primary Care Provider [phone] Surgical History Surgery Date Site/Laterality Comments OTHER SURGICAL HISTORY 06/15/2018 Right PROCEDURE: BREAST TISSUE EXCISIONAL PATHOLOGY EXAM; COMMENT: ductal carcinoma in situ OTHER SURGICAL HISTORY 07/07/2018 Right PROCEDURE: BREAST TISSUE EXCISIONAL PATHOLOGY EXAM; COMMENT: single focus-ductal carcinoma in situ, grade 2; [facility] APPENDECTOMY PROCEDURE: HISTORICAL APPENDECTOMY OTHER SURGICAL HISTORY 07/03/2015 PROCEDURE: HISTORY OTHER; COMMENT: nasal septoplasty/w/right ethmoidecotmy WISDOM TOOTH EXTRACTION PROCEDURE: HISTORICAL WISDOM TEETH EXTRACTION; COMMENT: all 4 LEG SURGERY PROCEDURE: HISTORICAL LEG SURGERY; COMMENT: femur fracture treated w/iván Medical History Medical History Date Comments History of recurrent UTIs DX:His tory of recurrent UTIs History of breast cancer 12/14/2018 DX:Hist ory of breast cancer; COMMENT: 07/07/18 S/p right excisional biopsy; single focus DCIS, grade 2, [facility]; 06/2018 S/p right excisional biopsy, DCIS; 06/2018 BRCA testing negative History of endocarditis DX:Histo ry of endocarditis; COMMENT: 2017 FH: breast cancer in first d egree relative when <50 years old 12/14/2018 DX:FH: breast cancer in fi rst degree relative when <50 years old; COMMENT: Dgt-48 Hypertension DX:Hypertension Family History Medical History Relation Name Comments Breast cancer Aunt paternal Breast cancer Daughter Relation Name Status Comments Aunt paternal Alive 40s Daughter age 46 Social History Tobacco Use Types Packs/Day Years Used Date Smoking Tobacco: Never Smokeless Tobacco: Never Alcohol Use Standard Drinks/Week Comments No 0 (1 standard drink = 0.6 oz pur e alcohol) Sex and Gender Information Value Date Recorded Sex Assigned at Not on file Legal Sex Male 7:52 AM EST Gender Identity Not on file Sexual Orientation Not on file Obstetrics History Plan of Treatment Health Maintenance Due Date Last Done Comments DTaP,Tdap,and Td Vaccines (1 - Tdap) 1961 Zoster Vaccines (1 of 2) 02/14/1992 RSV Immunization Adult Patients (1 - 1-dose 75+ series) 2017 Pneumococcal Vaccine: 50+ Years (2 of 2 - PCV) 06/30/2021 06/30/2020 Cholesterol Screening (Lipid Panel) 06/08/2022 Depression Screening 06/08/2022 Falls Risk Assessment 06/08/2022 Social Influencers of Health Screening 06/08/2022 Hypertension/CHF/CAD Annual BMP Blood Test 06/21/2022 COVID-19 Vaccine ( - season) 2024 Influenza Vaccine (Season Ended) 2025 04/15/2021, 04/05/2020, 03/23/2019, Additional history exists HIB Vaccines Aged Out No longer eligi ble based on patient's age to complete this topic HPV Vaccines Aged Out No longer eligi ble based on patient's age to complete this topic Hepatitis A Vaccines Aged Out No long er eligible based on patient's age to complete this topic Hepatitis B Vaccines Aged Out No long er eligible based on patient's age to complete this topic IPV Vaccines Aged Out No longer eligi ble based on patient's age to complete this topic MMR Vaccines Aged Out No longer eligi ble based on patient's age to complete this topic Meningococcal ACWY Vaccine Aged Out N o longer eligible based on patient's age to complete this topic Meningococcal B Vaccine Aged Out No l onger eligible based on patient's age to complete this topic RSV Immunization Patients Under 20 months Aged Out No longer eligible based on patient's age to complete this topic Varicella Vaccines Aged Out No longer eligible based on patient's age to complete this topic Care Teams Gusset Stitcher Relationship Specialty Start Date End Date Qamar Garcia MD PCP - General Internal Medicine 03/02/17
--- OUTSIDE RECORDS SUMMARY | 2024-10-19 13:58 | XMS_ITS | Continuity of Care Document ---
Author Organization [facility] Address [address] [place] [address] Phone [phone] Social History Type Date Description Comments Sex Unknown Medical Devices Description No Information Available Encounters Description No Information Available Assessments Description No Information Available Plan of Treatment No Information Available Functional Status Description No Information Available Mental Status Description No Information Available Referrals Description No Information Available
--- OUTSIDE RECORDS SUMMARY | 2024-10-19 13:58 | XMS_ITS ---
Author Organization Unknown Address [address] [place] [phone] Phone Care Team Providers Care Senior Controls Analyst Name Role Phone CHRIS CALDWELL Registered Nurse Unavailable CARLOS EDUARDO Romero Attending Unavailable SYDNEY Hernandez ER Unavailable UNLISTED PROVIDER - REQUESTED Xhandoff Un available Results XR CLAVICLE COMPLETE LEFT - Completed: 07/27/2023 18:15 LOINC: [facility] [place], [place] [address] PACS VICE PRESIDENT OF RECRUITING REPORT Patient Name: MARIE WELSH MRN: Sex: : Age: [id number] M [id number] Account: Accession: Admit: StayType: [id number] 07/27/2023 E/R Ordered: Order ID: Submitted: Ordering Provider: 07/27/2023 18:15 [id number] SEF KENDY GRIMES Completed: Technologist: Resulted: 07/27/2023 18:15 KVK 07/27/2023 18:37 Study Description: XR SHOULDER 2V OR MORE LT and XR clavicle complete left Study Reason: Trauma Technique: 2D digital imaging was performed. 6 images were obtained. COMPARISON: None. FINDINGS: Bones: There is an acute fracture at the junction of the middle and lateral thirds of the left clavicle. No significant displacement is seen. The fracture does not extend into the acromioclavicular joint. No bony destructive lesion is seen. Joints: No dislocation is present. The acromioclavicular and glenohumeral joints are well-maintained. Soft tissues: The visualized lungs are clear. IMPRESSION: Left clavicular fracture as described above. Report Digitally Signed by Shine Rodriguez on 07/27/2023 06:37 PM EST XR SHOULDER 2V OR MORE LT* - Completed: 07/27/2023 18:15 LOINC: [facility] [place], [place] [address] PACS VICE PRESIDENT OF RECRUITING REPORT Patient Name: MARIE WELSH MRN: Sex: : Age: [id number] M [id number] Account: Accession: Admit: StayType: [id number] 07/27/2023 E/R Ordered: Order ID: Submitted: Ordering Provider: 07/27/2023 17:37 [id number] KENDY CHIN Completed: Technologist: Resulted: 07/27/2023 18:15 KVK 07/27/2023 18:37 Study Description: XR SHOULDER 2V OR MORE LT and XR clavicle complete left Study Reason: Trauma Technique: 2D digital imaging was performed. 6 images were obtained. COMPARISON: None. FINDINGS: Bones: There is an acute fracture at the junction of the middle and lateral thirds of the left clavicle. No significant displacement is seen. The fracture does not extend into the acromioclavicular joint. No bony destructive lesion is seen. Joints: No dislocation is present. The acromioclavicular and glenohumeral joints are well-maintained. Soft tissues: The visualized lungs are clear. IMPRESSION: Left clavicular fracture as described above. Report Digitally Signed by Shine Rodriguez on 07/27/2023 06:37 PM EST Social History Type Status Start Date End Date Code Code Syst em Sex Male Vital Signs Vital Sign Value Unit [place] Value [place] Unit Date/Time Recent/Initial? Code Code System Body Mass Index 21.29 kg/m2 07/27/2023 17:42 Initial 35672 -5 LOINC Systolic Blood Pressure 179 mm[Hg] 07/27/2023 17:42 Initial 8480- 6 LOINC Diastolic Blood Pressure 86 mm[Hg] 07/27/2023 17:42 Initial 8462- 4 LOINC Body Surface Area 1.75 m2 07/27/2023 17:42 Initial 3140- 1 LOINC Height 172.720 0 cm 68.00 in 07/27/2023 17:42 Initial 8302- 2 LOINC O2 Saturation 100 % 2023 17:42 Initial 10023 -5 LOINC Pulse 65.0 /min 07/27/2023 17:42 Initial 8867- 4 LOINC Respiration 18 /min 07/27/19 17:42 Initial 9279- 1 LOINC Temperature 36.4 Porsche 97.5 F 07/27/19 24 17:42 Initial 8310- 5 LOINC Weight 63.50 kg 140.00 lbs 07/27/2023 17:42 Initial 06836 -7 LOINC Hospital Discharge Instructions Should you have any questions prior to discharge, please contact a member of your healthcare team. If you have left the hospital and have any questions, please contact your primary care physician. Reason For Referral No Data Found Problems Problem Start Date Resolved Date Status Code Code System DISORDER OF KIDNEY 07/27/2023 resolved 54961652 SNOMED-CT HYPERTENSION 07/27/2023 resolved 10246284 SNOMED -CT Allergies and Adverse Reactions Allergy Substance Reaction Severity Start Date Concern Status Code Code System NSAID RENAL DISEASE (SNOMED-CT: null) Active 74150957 SNOMED-CT Plan of Treatment No Data Found Encounters Encounter Diagnosis Start Date Code Code Sys tem Displaced fracture of latera l end of left clavicle, initial encounter for closed fracture 07/27/2023 SN OMED-CT Personal Care Team Section Performer Name Performer Role Active Date Inactive Da te
== END 2024-10-19 12:25 | disposition home or self-care (01) ==
LOC: HO.HKA 11:31
PROVIDERS: PCP Internal Medicine; Visit Provider Internal Medicine Nephrology
DX: R80.9 Proteinuria, unspecified (principal); I10 Essential (primary) hypertension; E87.5 Hyperkalemia; N18.31 Chronic kidney disease, stage 3a
CPT/HCPCS: 99214

== ENCOUNTER → 2024-10-19 11:31 | Outpatient (BNVA) | payer MEDICARE, SELFPAY | PROVIDERS: PCP Internal Medicine; Visit Provider Internal Medicine Nephrology | DX: I12.9 Hypertensive chronic kidney disease with stage 1 through stage 4 chronic kidney disease, or unspecified chronic kidney disease (principal); N18.31 Chronic kidney disease, stage 3a; R80.9 Proteinuria, unspecified; E87.5 Hyperkalemia | CPT/HCPCS: 99212 ==

== ENCOUNTER 2025-03-30 14:54 | Outpatient (REF) | payer MEDICARE, SELFPAY ==
--- OUTSIDE RECORDS SUMMARY | 2017-02-27 | XMS_ITS | Encounter Summary ---
Author Organization [facility] Address [address] [place] [address] [place] [address] Phone Care Team Providers Care Barista Name Role Phone Unavailable Primary Care Provider Unavailabl e Reason for Visit * MRI/CAT Scan - Closed Specialty Diagnoses / Procedures Referred By Bam t Referred To Contact Procedures CT Abdomen Outside (No Interpretation) Estela Canales MD [address] [place] [address] Phone: tel: fax: mailto:[email or web address] Referral ID Status Reason Start Date Expiration Date Visits Re quested Visits Authorized [id number] Closed 11/26/2017 11/26/2018 1 1 Encounter Details Date Type Department Care Team (Late st Contact Info) Description 02/27/2017 Hospital Encounter [facility] 55 [place] [address] Estela Canales MD [address] [address] [email or web address] [place] Social History Tobacco Use Types Packs/Day [...] Author No Risk Indicated 03/18/2025 2:16 AM EDT Hollie Redmond RN * [place] Suicide Severity Rating Scale (Screener/Recent Self-Report) Question Answer Date of Assessment Author 1. Wish to be (Past 1 Month) No 03/18/2025 2:16 AM EDHollie Collazo RN 2. Non-Specific Active Suicidal Thoughts (Past 1 Month) No 03/18/2025 2:16 AM Hollie Watts RN 6. Suicidal Behavior (Lifetime) No 03/18/2025 2:16 AM EDT Hollie Redmond RN documented as of this encounter Plan of Treatment Upcoming Encounters Date Type Department Care Team (Late st Contact Info) Description 09/07/2024 Procedure Pass [facility], [place] [address] [address] 09/07/2024 Procedure Pass [facility], [facility] [address] [address] 04/05/2025 11:00 AM EDT Office Visit [facility] [address] [place] [address], [address] [place] [address] Margarito Walker MD [address] [place] [address] [email or web address] 05/10/2025 11:05 AM EST Appointment [facility], [facility] [address] [address] Mirela Barnhart MD [address] [place] [address] [email or web address] 05/10/2025 12:10 PM EST Appointment [facility] [place] [facility] [place] [place] [address] [place] [address] Mirela Barnhart MD [address] [place] [address] [email or web address] 05/10/2025 3:00 PM EST Office Visit [facility], [address], [address] [place] [address] Mirela Barnhart MD [address] [place] [address] [email or web address] documented as of this encounter Procedures Procedure Name Priority Date/Time Associated Diagnosis Comments CT ABDOMEN OUTSIDE (NO INTERPRETATION) Routine 02/27/2017 12:00 AM EDT documented in this encounter Results * CT Abdomen Outside (No Interpretation) (02/27/2017 12:00 AM EDT) Narrative [facility]G INTER[facility]ACES - 11/26/2017 1:16 PM EDT This study is for PACS storage only and not for interpretation. us Estela Canales MD IMG OUTSIDE IMAGING W/OU T INTERPRETATION Final Result [facility] INTER[facility]AC[facility] documented in this encounter Visit [...] It is not the complete legal health record.[facility]
--- OUTSIDE RECORDS SUMMARY | 2017-10-20 | XMS_ITS | Encounter Summary ---
Author Organization [facility] Address [address] [facility] [address] [place] [phone] Phone Care Team Providers Care Sales Service Rep Name Role Phone Qamar Garcia MD Unavailable [phone] Malachi Maloney MD Unavailable [phone] Sammie Govea MD Unavailable [phone] Avinash Chong MD Unavailable [phone] Qamar Garcia MD Primary Care Provider [phone] Reason for Visit * MRI/CAT Scan - Closed Specialty Diagnoses / Procedures Referred By Contac t Referred To Contact Procedures CT Abdomen Outside With Interpretation Or Consult Estela Canales MD [address] [address] Phone: tel: fax: mailto:[email or web address] Referral ID Status Reason Start Date Expiration Date Visits Re quested Visits Authorized [id number] Closed 11/26/2017 11/26/2018 1 1 Encounter Details Date Type Department Care Team ([facility] st Contact Info) Description 10/20/2017 Hospital Encounter [facility] 55 [place] [address] Estela Canales MD [address] [place] [address] [email or web address] Social History Tobacco Use Types Packs/Day [...] 03/18/2025 2:16 AM Hollie Watts RN * [place] Suicide Severity Rating Scale (Screener/Recent Self-Report) Question Answer Date of Assessment Author 1. Wish to be (Past 1 Month) No 03/18/2025 2:16 AM Hollie Watts, ADRIANNA 2. Non-Specific Active Suicidal Thoughts (Past 1 Month) No 03/18/2025 2:16 AM Hollie Watts, ADRIANNA 6. Suicidal Behavior (Lifetime) No 03/18/2025 2:16 AM Hollie aWtts, ADRIANNA documented as of this encounter Plan of Treatment Upcoming Encounters Date Type Department Care Team (Late st Contact Info) Description 09/07/2024 Procedure Pass [facility], [place] [address] [facility] [address] [place] [address] 09/07/2024 Procedure Pass [facility], [facility] [address] [facility] [address] [place] [address] 04/05/2025 11:00 AM EDT Office Visit [facility] [address] [place] [address] 3rd [facility], [address] [place] [address] Margarito Walker MD [address] [place] [address] [address] [place] [address] 05/10/2025 11:05 AM EST Appointment [facility], MRI [address] [address] Mirela Barnhart MD [address] [place] [id number] [email or web address] 05/10/2025 12:10 PM EST Appointment [facility] [place] [place] [address] [address] Mirela Barnhart MD [address] [place] [phone] [email or web address] 05/10/2025 3:00 PM EST Office Visit [facility], [address], [address] [place] [address] Mirela Barnhart MD [address] [place] [id number] [email or web address] documented as of this encounter Procedures Procedure Name Priority Date/Time Associated Diagnosis Comments CT ABDOMEN OUTSIDE WITH INTERPRETATION OR CONSULT Routine 10/20/2017 12:00 AM EDT documented in this encounter Results * CT Abdomen Outside With Interpretation Or Consult (10/20/2017 12:00 AM EDT) 11/26/2017 3:29 PM EDT Impressions [facility] - 11/26/2017 6:54 PM EDT Compared [...] appropriate Division of the Radiology Department. Narrative [facility] - 11/26/2017 6:[address] [...] pelvis. Moderate body wall edema. Procedure Note Julius Mcallister MD, PhD - 11/26/2017 CT ABDOMEN OUTSIDE [...] OUTSIDE IMAGING W/ I NTERPRETATION Final Result [facility] [address] [facility] [place] [address] documented in this encounter Visit Diagnoses Not on filedocumented in this encounter Additional Health Concerns Infection Onset Date Last Indicated Resolved Time CoV-Risk 01/13/2020 01/13/2020 01/13/2020 4:17 PM EDT CoV-Presumed 05/27/2022 05/27/2022 06/17/2022 3:51 AM EST CoV-Risk 09/22/2023 09/22/2023 09/22/2023 4:53 PM EDT COVID-19 09/22/2023 09/22/2023 10/13/2023 1:21 AM EDT documented as of this encounter Care Teams Sales Service Rep Relationship Specialty Start Date End Date Qamar Garcia MD [address] [place] [address] PCP - General Internal Medicine 10/12/17 08/23/18 Qamar Garcia MD [address] [place] [address] Primary Care Physician 05/06/17 Malachi Maloney MD [address] [place] [address], [facility] [address] [place] [address] [email or web address] Historical LMR Provider 04/23/17 07/13/21 Sammie Govea MD [address] [place] [address] Orthopedics & Sports Medicine, [facility] [place] [address] Historical LMR Provider 04/23/17 07/13/21 Avinash Chong MD [address] [place] [phone] [email or web address] Historical LMR Provider 04/23/17 documented as of this encounter Additional Source Comments The information contained in this document represents components of the legal health record. It is not the complete legal health record.[facility]
[2025-03-30 15:08] LABS: MANUAL DIFF FLAG NO
[2025-03-30 15:26] LABS: Hematocrit 34.0 % (42.0-52.0); Hemoglobin 11.5 g/dl (14.0-18.0); Imm Gran Abs Auto 0.02 X10*3/uL (0.00-0.03); Imm Gran Pct Auto 0.4 % (0.0-0.4); Lymphocytes Absolute Auto 0.6 X10*3/uL (1.2-4.9); Mean Corpuscular HGB Conc 33.8 g/dl (31.0-36.0); Mean Corpuscular Hemoglobin 30.9 pg (27.0-33.0); Mean Corpuscular Volume 91.4 fL (80.0-98.0); NRBC Abs Auto 0.000 X10*3/uL (0.0-0.012); NRBC Pct Auto 0.0 /100WBC (0.0-0.2); Platelet Count 233 X10*3/uL (160-400); Red Blood Count 3.72 X10*6/uL (4.60-5.80); White Blood Count 4.9 X10*3/uL (4.8-10.8)
[2025-03-30 15:52] LABS: Anion Gap 11 (12-20); Blood Urea Nitrogen 19 mg/dL (9-16); Calcium 10.0 mg/dL (8.4-10.2); Carbon Dioxide 30 mmol/L (22-29); Chloride 95 mmol/L (96-108); Estimated Glomerular Filt Rate > 60; Potassium 4.5 mmol/L (3.3-5.1); Sodium 131 mmol/L (135-145)
[2025-03-30 16:37] LABS: Protein/Creatinine Ratio, Ur 0.79 (<0.2); Total Protein Urine Random 54 mg/dL (<12)
--- OUTSIDE RECORDS SUMMARY | 2025-03-30 19:10 | XMS_ITS | Encounter Summary ---
Author Organization [facility] Address [address] [place] [address] Phone Care Team Providers Care Analysis Specialist Name Role Phone Qamar Garcia MD Unavailable [phone] Malachi Maloney MD Unavailable [phone] Sammie Govea MD Unavailable [phone] Avinash Chong MD Unavailable [phone] Miguelangel Reynoso MD Primary Care Provider Qamar Garcia MD Primary Care Provider Sofia Amaya MD, MPH Unavailable [phone] Karely Ansari MD Unavailable Neal Sultana MD, MS Unavailable Tere Keita Unavailable [phone] Mirela Barnhart MD Unavailable [phone] Andrei Dixon MD Unavailable [phone] Denise Black-C Unavailable [phone] Unknown, Unknown MD Primary Care Provider Unavai lable Garcia, Qamar D MD Primary Care Provider [phone] Encounter Details Date Type Department Care Team (Late st Contact Info) Description 08/25/2018 Prep for Surgery [facility] [address] [place] [address], [address] [place] [address] Carmen Horn NP [email or web address] Social History Tobacco Use Types Packs/Day Years [...] PM EST documented as of this encounter Plan of Treatment Upcoming Encounters Date Type Department Care Team (Late st Contact Info) Description 09/07/2024 Procedure Pass [facility], [place] [address] [address] 09/07/2024 Procedure Pass [facility], [facility] [address] [address] 04/05/2025 11:00 AM EDT Office Visit [facility] [address] [place] [address], [address] [place] [address] Margarito Walker MD [address] [place] [address] [email or web address] 05/10/2025 11:05 AM EST Appointment [facility], [facility] [address] [address] Mirela Barnhart MD [address] [place] [address] [email or web address] 05/10/2025 12:10 PM EST Appointment [facility] [place] [place] 300 [facility] [address] [place] [address] Mirela Barnhart MD [address] [place] [address] [email or web address] 05/10/2025 3:00 PM EST [facility], [facility] [address], [address] [place] [address] Mirela Barnhart MD [address] [place] [address] [email or web address] documented as of this encounter Visit Diagnoses Not on filedocumented in this encounter Additional Health Concerns Infection Onset Date Last Indicated Resolved Time CoV-Risk 01/13/2020 01/13/2020 01/13/2020 4:17 PM EDT CoV-Presumed 05/27/2022 05/27/2022 06/17/2022 3:51 AM EST CoV-Risk 09/22/2023 09/22/2023 09/22/2023 4:53 PM EDT COVID-19 09/22/2023 09/22/2023 10/13/2023 1:21 AM EDT documented as of this encounter Care Teams Analysis Specialist Relationship Specialty Start Date End Date Miguelangel Reynoso MD [address] [place] [address] [address] [place] [address] [email or web address] PCP - General Cardiology 08/24/18 10/13/18 Qamar Garcia MD [address] [place] [address] PCP - General Internal Medicine 10/14/18 03/26/22 Unknown, Unknown, MD PCP - General 04/08/22 07/22/22 Qamar Garcia MD [address] [place] [address] PCP - General Internal Medicine 07/23/22 Qamar Garcia MD [address] [place] [address] Primary Care Physician 05/06/17 Malachi Maloney MD [address] [place] [address], [facility] [address] [place] [address] [email or web address] Historical LMR Provider 04/23/17 07/13/21 Sammie Govea MD [address] [place] [address] Orthopedics & Sports Medicine, [place] [address] [email or web address] Historical LMR Provider 04/23/17 07/13/21 Avinash Chong MD [address] [place] [address] [email or web address] Historical LMR Provider 04/23/17 Sofia Amaya MD, MPH [address] [place] [address] [email or web address] Primary Oncologist Radiation Oncology 08/19/19 Karely Ansari MD [address] [place] [address] Primary Oncologist Medical Oncology 08/19/19 12/04/19 Neal Sultana MD, MS [address] [place] [address] [email or web address] Primary Oncologist Surgical Oncology 08/19/19 Tere Keita, [address] [address] [email or web address] [email or web address] Circuit Board Preassembler Oncology 09/19/19 03/13/25 Mirela Barnhart MD [address] [place] [address] [email or web address] Medical Oncology 12/05/19 Andrei Dixon MD [address] [place] [address], [address] [place] [address] [email or web address] Orthopedic Surgery 03/27/22 Denise Black PA-C [address] [place] [address] [email or web address] Physician Operating Room Technician 03/27/22 documented as of this encounter Additional Source Comments The information contained in this document represents components of the legal health record. It is not the complete legal health record.[facility]
--- OUTSIDE RECORDS SUMMARY | 2025-03-30 19:10 | XMS_ITS | Encounter Summary ---
Author Organization [facility] Address [address] [place] [address] Phone Care Team Providers Care Diesel Scoop Operator Name Role Phone Qamar Garcia MD Unavailable [phone] Malachi Maloney MD Unavailable [phone] Sammie Govea MD Unavailable Avinash Chong MD Unavailable [phone] Qamar Garcia MD Primary Care Provider [phone] Sofia Amaya MD, MPH Unavailable [phone] Karely Ansari MD Unavailable Neal Sultana MD, MS Unavailable Tere Keita Unavailable Mirela Barnhart MD Unavailable Andrei Dixon MD Unavailable [phone] Densie Black PA-C Unavailable [phone] Unknown, Unknown Primary Care Provider Qamar Escamilla MD Primary Care Provider [phone] Encounter Details Date Type Department Care Team (Late st Contact Info) Description 07/21/2019 Procedure Pass [facility] Endoscopy Admitting Dept Virtual Department [address] [place] [address] Social History Tobacco Use Types Packs/Day Years [...] Encounters Date Type Department Care Team (Late Contact Info) Description 09/07/2024 Procedure Pass [address] [address] 09/07/2024 Procedure Pass [facility], [address] [address] 04/05/2025 11:00 AM EDT Office Visit [facility] [address] [place] [address], [address] [place] [address] Margarito Walker MD [address] [place] [address] 05/10/2025 11:05 AM EST Appointment [facility], [address] [address] Mirela Barnhart MD [address] [place] [address] [email or web address] 05/10/2025 12:10 PM EST Appointment [address] [address] Mirela Barnhart MD [address] [place] [address] [email or web address] 05/10/2025 3:00 PM EST Office Visit [facility], [facility] [place] [address] [place] [address], [address] [place] [address] Mirela Barnhart MD [address] [place] [address] [email or web address] documented as of this encounter Visit Diagnoses Not on filedocumented in this encounter Additional Health Concerns Infection Onset Date Last Indicated Resolved Time CoV-Risk 01/13/2020 01/13/2020 01/13/2020 4:17 PM EDT CoV-Presumed 05/27/2022 05/27/2022 06/17/2022 3:51 AM EST CoV-Risk 09/22/2023 09/22/2023 09/22/2023 4:53 PM EDT COVID-19 09/22/2023 09/22/2023 10/13/2023 1:21 AM EDT documented as of this encounter Care Teams Diesel Scoop Operator Relationship Specialty Start Date End Date Qamar Garcia MD [address] [place] [address] PCP - General Internal Medicine 10/14/18 03/26/22 Unknown, Unknown, MD PCP - General 04/08/22 07/22/22 Qamar Garcia MD [address] [place] [address] PCP - General Internal Medicine 07/23/22 Qamar Garcia MD [address] [place] [address] Primary Care Physician 05/06/17 Malachi Maloney MD [address] [place] [address], [address] [place] [address] [email or web address] Historical LMR Provider 04/23/17 07/13/21 Sammie Govea MD [address] [place] [address] Orthopedics & Sports Medicine, [place] [address] [email or web address] Historical LMR Provider 04/23/17 07/13/21 Avinash Chong MD [address] [place] [address] [email or web address] Historical LMR Provider 04/23/17 Sofia Amaya MD, MPH [address] [place] [address] [email or web address] Primary Oncologist Radiation Oncology 08/19/19 Karely Ansari MD [address] [place] [address] Primary Oncologist Medical Oncology 08/19/19 12/04/19 Neal Sultana MD, MS [address] [place] [address] [email or web address] Primary Oncologist Surgical Oncology 08/19/19 Tere Keita, [address] [address] [email or web address] Bread Wrapper Oncology 09/19/19 03/13/25 Mirela Barnhart MD [address] [place] [address] [email or web address] Medical Oncology 12/05/19 Andrei Dixon MD [address] [place] [address], [address] [place] [address] [email or web address] Orthopedic Surgery 03/27/22 Denise Black PA-C [address] [place] [address] [email or web address] Physician Quality Control Lab Tech 03/27/22 documented as of this encounter Additional Source Comments The information contained in this document represents components of the legal health record. It is not the complete legal health record.[facility]
--- OUTSIDE RECORDS SUMMARY | 2025-03-30 19:10 | XMS_ITS | Continuity of Care Document ---
Author Organization [facility] Address [address] [place] [address] Phone [phone] Social History Type Date Description Comments Sex Male Sex Unknown Medical Devices Description No Information Available Encounters Description No Information Available Assessments Description No Information Available Plan of Treatment No Information Available Functional Status Description No Information Available Mental Status Description No Information Available Referrals Description No Information Available
--- OUTSIDE RECORDS SUMMARY | 2025-03-30 19:10 | XMS_ITS | Encounter Summary ---
Author Organization Located Within [facility] Address [address] [place] [address] Phone Care Team Providers Care Market Research Worker Name Role Phone Qamar Garcia MD Unavailable Malachi Maloney MD Unavailable [phone] Sammie Govea MD Unavailable [phone] Avinash Chong MD Unavailable [phone] Qamar Garcia MD Primary Care Provider [phone] Sofia Amaya MD, MPH Unavailable [phone] Neal Sultana MD, MS Unavailable Tere Keita Unavailable Mirela Barnhart MD Unavailable [phone] Andrei Dixon MD Unavailable [phone] Denise Black PA-C Unavailable [phone] Unknown, Unknown Primary Care Provider Qamar Escamilla MD Primary Care Provider + [phone] Encounter Details Date Type Department Care Team (Late st Contact Info) Description 03/19/2021 Procedure Pass [facility] [address] [place] [address] Social History Tobacco Use Types Packs/Day Years [...] st Contact Info) Description 09/07/2024 Procedure Pass [facility], [address] [address] 09/07/2024 Procedure Pass [facility], [address] [address] 04/05/2025 11:00 AM EDT Office Visit [facility] [address] [place] [address], [address] [place] [address] Margarito Walker MD [address] [place] [address] 05/10/2025 11:05 AM EST Appointment [facility], [address] [address] Mirela Barnhart MD [address] [place] [address] [email or web address] 05/10/2025 12:10 PM EST Appointment [facility], [address] [address] Mirela Barnhart MD [address] [place] [address] [email or web address] [email or web address] 05/10/2025 3:00 PM EST Office [facility], [facility] [address] [place] [address], 6th [place] [address] Mirela Barnhart MD [address] [place] [address] [email or web address] documented as of this encounter Visit Diagnoses Not on filedocumented in this encounter Additional Health Concerns Infection Onset Date Last Indicated Resolved Time CoV-Presumed 05/27/2022 05/27/2022 06/17/2022 3:51 AM EST CoV-Risk 09/22/2023 09/22/2023 09/22/2023 4:53 PM EDT COVID-19 09/22/2023 09/22/2023 10/13/2023 1:21 AM EDT documented as of this encounter Care Teams Market Research Worker Relationship Specialty Start Date End Date Qamar Garcia MD [address] [place] [address] PCP - General Internal Medicine 10/14/18 03/26/22 Unknown, Unknown, MD PCP - General 04/08/22 07/22/22 Qamar Garcia MD [address] [place] [address] PCP - General Internal Medicine 07/23/22 Qamar Garcia MD [address] [place] [address] Primary Care Physician 05/06/17 Malachi Maloney MD [address] [place] [address], [address] [place] [address] [email or web address] Historical LMR Provider 04/23/17 07/13/21 Sammie Govea MD [address] [place] [address] Orthopedics & Sports Medicine, [place] [address] [email or web address] Historical LMR Provider 04/23/17 07/13/21 Avinash Chong MD [address] [place] [address] [email or web address] Historical LMR Provider 04/23/17 Sofia Amaya MD, MPH [address] [place] [address] [email or web address] Primary Oncologist Radiation Oncology 08/19/19 Neal Sultana MD, MS [address] [place] [address] [email or web address] Primary Oncologist Surgical Oncology 08/19/19 eTre Keita, [facility] [address] [place] [address] [email or web address] Drupal Programmer Oncology 09/19/19 03/13/25 Mirela Barnhart MD [address] [place] [address] Kati@[email or web address] Medical Oncology 12/05/19 Andrei Dixon MD [address] [place] [address], [address] [place], [place] [id number] [email or web address] Orthopedic Surgery 03/27/22 Denise Black PA-C [address] [place] [address] [address] [place] [address] [email or web address] simone Physician Supervisor Elementary Education 03/27/22 documented as of this encounter Additional Source Comments The information contained in this document represents components of the legal health record. It is not the complete legal health record.[facility]
--- OUTSIDE RECORDS SUMMARY | 2025-03-30 19:10 | XMS_ITS | Encounter Summary ---
Author Organization [facility] Address [address] [place] [address] Phone Care Team Providers Care Tip Cutter Name Role Phone Qamar Garcia MD Unavailable Malachi Maloney MD Unavailable [phone] Sammie Govea MD Unavailable Avinash Chong MD Unavailable [phone] Qamar Garcia MD Primary Care Provider [phone] Miguelangel Reynoso MD Primary Care Provider Qamar Garcia MD Primary Care Provider Sofia Amaya MD, MPH Unavailable Karely Ansari MD Unavailable Neal Sultana MD, MS Unavailable Tere Keita Unavailable [phone] Mirela Barnhart MD Unavailable [phone] Andrei Dixon MD Unavailable [phone] Denise Black PA-C Unavailable Unknown, Unknown Primary Care Provider Qamar Escamilla MD Primary Care Provider [phone] Encounter Details Date Type Department Care Team (Late st Contact Info) Description 07/23/2018 Ancillary Orders [facility] [address] [facility], [address] [place] [address] Mendez Dobson MD Social History Tobacco Use Types Packs/Day Years [...] st Contact Info) Description 09/07/2024 Procedure Pass [facility], [place] [address] [address] 09/07/2024 Procedure Pass [facility], [facility] [address] [address] 04/05/2025 11:00 AM EDT Office Visit [facility] [address] [place] [address], [address] [place] [address] Margarito Walker MD [address] [place] [address] [email or web address] 05/10/2025 11:05 AM EST Appointment [facility], [facility] [address] [address] Mirela Barnhart MD [address] [place] [address] [email or web address] 05/10/2025 12:10 PM EST Appointment [facility] [place] [facility] [place] [place] [address] [facility] 3rd [place] [address] Mirela Barnhart MD [address] [place] [address] [email or web address]@jc [email or web address] 05/10/2025 3:00 PM EST Office Visit [facility], [facility] [address], 6th [place] [address] Mirela Barnhart MD [address] [place] [address] [email or web address] documented as of this encounter Visit Diagnoses Not on filedocumented in this encounter Additional Health Concerns Infection Onset Date Last Indicated Resolved Time CoV-Risk 01/13/2020 01/13/2020 01/13/2020 4:17 PM EDT CoV-Presumed 05/27/2022 05/27/2022 06/17/2022 3:51 AM EST CoV-Risk 09/22/2023 09/22/2023 09/22/2023 4:53 PM EDT COVID-19 09/22/2023 09/22/2023 10/13/2023 1:21 AM EDT documented as of this encounter Care Teams Tip Cutter Relationship Specialty Start Date End Date Qamar Garcia MD [address] [place] [address] PCP - General Internal Medicine 10/12/17 08/23/18 Miguelangel Reynoso MD [address] [place] [address] 800 [place] [address] [email or web address] PCP - General Cardiology 08/24/18 10/13/18 Qamar Garcia MD [address] [place] [address] PCP - General Internal Medicine 10/14/18 03/26/22 Unknown, Emely, PCP - General 04/08/22 07/22/22 Qamar Garcia MD [address] [place] [address] PCP - General Internal Medicine 07/23/22 Qamar Garcia MD [address] [place] [address] Primary Care Physician 05/06/17 Malachi Maloney MD [address] [place] [address] Historical LMR Provider 04/23/17 07/13/21 Sammie Govea MD [address] [place] [address] Orthopedics & Sports Medicine, [place] [address] [email or web address] Historical LMR Provider 04/23/17 07/13/21 Avinash Chong MD [address] [place] [address] [email or web address] Historical LMR Provider 04/23/17 Sofia Amaya MD, MPH [address] [place] [address] [email or web address] Primary Oncologist Radiation Oncology 08/19/19 Karely Ansari MD [address] [place] [address] Primary Oncologist Medical Oncology 08/19/19 12/04/19 Neal Sultana MD, MS [address] [place] [address] [email or web address] Primary Oncologist Surgical Oncology 08/19/19 Tere Keita, [address] [address] [email or web address] Development Expert Oncology 09/19/19 03/13/25 Mirela Barnhart MD [address] [place] [address] [email or web address] Medical Oncology 12/05/19 Andrei Dixon MD [address] [place] [address] [email or web address] Orthopedic Surgery 03/27/22 Denise Black PA-C [address] [place] [address] [email or web address] Physician Paediatric Surgeon 03/27/22 documented as of this encounter Additional Source Comments The information contained in this document represents components of the legal health record. It is not the complete legal health record.[facility]
--- OUTSIDE RECORDS SUMMARY | 2025-03-30 19:10 | XMS_ITS | Encounter Summary ---
Author Organization [facility] Address [address] [place] [address] Phone Care Team Providers Care Watershed Tender Name Role Phone Qamar Garcia MD Unavailable Malachi Maloney MD Unavailable [phone] Sammie Govea MD Unavailable [phone] Avinash Chong MD Unavailable [phone] Qamar Garcia MD Primary Care Provider [phone] Miguelangel Reynoso MD Primary Care Provider Qamar Garcia MD Primary Care Provider Sofia Aamya MD, MPH Unavailable Karely Ansari MD Unavailable [phone] Neal Sultana MD, MS Unavailable Tere Keita Unavailable [phone] Mirela Barnhart MD Unavailable [phone] Andrei Dixon MD Unavailable [phone] Denise Black PA-C Unavailable Unknown, Unknown Primary Care Provider Qamar Escamilla MD Primary Care Provider Encounter Details Date Type Department Care Team (Late Contact Info) Description 08/10/2018 Ancillary Orders [facility] [address] [facility] [address] [place] [address] System, Provider Not In, PhD Partners [address] [address] Social History Tobacco Use Types Packs/Day Years [...] st Contact Info) Description 09/07/2024 Procedure Pass [facility], [place] 300 [facility] 3rd [place] [address] 09/07/2024 Procedure Pass [facility], [facility] [address] [facility] 4th [place] [address] 04/05/2025 11:00 AM EDT Office Visit [facility] [address] [place] [address] 3rd [facility], [address] [place] [address] Margarito Walker MD [address] [place] [address] 05/10/2025 11:05 AM EST Appointment [facility], [facility] [address] [address] Mirela Barnhart MD [address] [place] [address] [email or web address] [facility] 05/10/2025 12:10 PM EST Appointment [facility] [place] 300 [facility] 3rd [place] [address] Mirela Barnhart MD [address] [place] [address] Kati@jc [facility] 05/10/2025 3:00 PM EST Office Visit [facility], [address], [address] [place] [address] Mirela Barnhart MD [address] [place] [address] [email or web address] [facility] documented as of this encounter Results * Mammogram Outside (No Interpretation) (06/15/2018 12:30 AM EST) Narrative [facility] - 08/10/2018 3:04 PM EST This study is for PACS storage only and not for interpretation. us Provider Not In System PhD IMG OUTSIDE IMAGING W /OUT INTERPRETATION Final Result Performing Organization Address [facility]/ZIP Co de Phone Number PERCIPIO_[facility] * Mammogram Outside (No Interpretation) (05/13/2018 12:15 AM EST) Narrative [facility]BERT[facility] - 08/10/2018 3:04 PM EST This study is for PACS storage only and not for interpretation. us Provider Not In System PhD IMG OUTSIDE IMAGING W /OUT INTERPRETATION Final Result Performing Organization Address [facility]/ZIP Co de Phone Number [facility] documented in this encounter Visit Diagnoses Not on filedocumented in this encounter Additional Health Concerns Infection Onset Date Last Indicated Resolved Time CoV-Risk 01/13/2020 01/13/2020 01/13/2020 4:17 PM EDT CoV-Presumed 05/27/2022 05/27/2022 06/17/2022 3:51 AM EST CoV-Risk 09/22/2023 09/22/2023 09/22/2023 4:53 PM EDT COVID-19 09/22/2023 09/22/2023 10/13/2023 1:21 AM EDT documented as of this encounter Care Teams Watershed Tender Relationship Specialty Start Date End Date Qamar Garcia MD [address] [place] [address] PCP - General Internal Medicine 10/12/17 08/23/18 Miguelangel Reynoso MD [address] [place] [address] 800 [place] [address] [email or web address] PCP - General Cardiology 08/24/18 10/13/18 Qamar Garcia MD [address] [place] [address] PCP - General Internal Medicine 10/14/18 03/26/22 Unknown, Unknown, PCP - General 04/08/22 07/22/22 Qamar Garcia MD [address] [place] [address] PCP - General Internal Medicine 07/23/22 Qamar Garcia MD [address] [place] [address] Primary Care Physician 05/06/17 Malachi Maloney MD [address] [place] [address], [facility] 301 [place] [address] [email or web address] Historical LMR Provider 04/23/17 07/13/21 Sammie Govea MD [address] [place] [address] Orthopedics & Sports Medicine, [place] [address] [email or web address] Historical LMR Provider 04/23/17 07/13/21 Avinash Chong MD [address] [place] [address] [email or web address] Historical LMR Provider 04/23/17 Sofia Amaya MD, MPH [address] [place] [address] [email or web address] Primary Oncologist Radiation Oncology 08/19/19 Karely Ansari MD [address] [place] [address] Primary Oncologist Medical Oncology 08/19/19 12/04/19 Neal Sultana MD, MS [address] [place] [address] [email or web address] Primary Oncologist Surgical Oncology 08/19/19 Tere Keita, [address] [address] [email or web address] Trouble Locater Oncology 09/19/19 03/13/25 Mirela Barnhart MD [address] [place] [address] Kati@[email or web address] .[facility] Medical Oncology 12/05/19 Andrei Dixon MD [address] [place] [address], [address] [place] [address] [email or web address] Orthopedic Surgery 03/27/22 Denise Black PA-C [address] [place] [address] [email or web address] [facility]. simone Physician Pet Resort Concierge 03/27/22 documented as of this encounter Additional Source Comments The information contained in this document represents components of the legal health record. It is not the complete legal health record.[facility]
--- OUTSIDE RECORDS SUMMARY | 2025-03-30 19:10 | XMS_ITS | Patient Health Record ---
Author Organization [facility] Address [address] [facility] [address] [place] [address] Care Team Providers Care Contestant Coordinator Name Role Phone Qamar Garcia Primary Care Provider Uriah Dukes MD MSc, [facility] Unavailable [phone] Allergies Allergen (clinical drug ingredient) Drug/Non Drug [...] 10 MG 1 tablet Orally Once a day; Duration: 30 day(s) Active Verapamil HCl 120 MG 1 tablet Orally Thr ee times a day; Duration: 30 day(s) Activ e Lisinopril 10 MG 1 tablet Orally Once a day; Duration: 30 day(s) Active Social History Alcohol screen Question Answer Notes Did you have a drink containing alcohol in the p ast year? Yes How often did you have six o r more drinks on one occasion in the past year? Never How many drinks did you have on a typical day when you were drinking in the past year? 1 or 2 How often did you have a dri nk containing alcohol in the past year? 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
--- OUTSIDE RECORDS SUMMARY | 2025-03-30 19:10 | XMS_ITS | Encounter Summary ---
Author Organization [facility] Address [address] [place] [address] Phone Care Team Providers Care Business Intelligence Consultant Name Role Phone Qamar Garcia MD Unavailable Malachi Maloney MD Unavailable [phone] Sammie Govea MD Unavailable Avinash Chong MD Unavailable [phone] Qamar Garcia MD Primary Care Provider [phone] Sofia Amaya MD, MPH Unavailable [phone] Karely Ansari MD Unavailable Neal Sultana MD, MS Unavailable Tere Keita Unavailable [phone] Mirela Barnhart MD Unavailable Andrei Dixon MD Unavailable [phone] Denise Black PA-C Unavailable [phone] Unknown, Unknown Primary Care Provider Qamar Escamilla MD Primary Care Provider Encounter Details Date Type Department Care Team (Late Contact Info) Description 09/06/2019 Procedure Pass [facility] [address] [place] [id number] Social History Tobacco Use Types Packs/Day Years [...] (Late Contact Info) Description 09/07/2024 Procedure Pass [facility], [address] [address] 09/07/2024 Procedure Pass [facility], [address] [address] 04/05/2025 11:00 AM EDT Office Visit [facility] [address] [place] [address], [address] [place] [address] Margarito Walker MD [address] [place] [address] [email or web address] 05/10/2025 11:05 AM EST Appointment [facility], [address] [address] Mirela Barnhart MD [address] [place] [address] [email or web address] 05/10/2025 12:10 PM EST Appointment [facility], [address] [address] Mirela Barnhart MD [address] [place] [address] [email or web address] 05/10/2025 3:00 PM EST [facility], [facility] [place] [address] [place] [address], 6th [place] [address] Mirela Barnhart MD [address] [place] [address] [email or web address] [email or web address] documented as of this encounter Visit Diagnoses Not on filedocumented in this encounter Additional Health Concerns Infection Onset Date Last Indicated Resolved Time CoV-Risk 01/13/2020 01/13/2020 01/13/2020 4:17 PM EDT CoV-Presumed 05/27/2022 05/27/2022 06/17/2022 3:51 AM EST CoV-Risk 09/22/2023 09/22/2023 09/22/2023 4:53 PM EDT COVID-19 09/22/2023 09/22/2023 10/13/2023 1:21 AM EDT documented as of this encounter Care Teams Business Intelligence Consultant Relationship Specialty Start Date End Date Qamar Garcia MD [address] [place] [address] PCP - General Internal Medicine 10/14/18 03/26/22 Unknown, Unknown, MD PCP - General 04/08/22 07/22/22 Qamar Garcia MD [address] [place] [address] PCP - General Internal Medicine 07/23/22 Qamar Garcia MD [address] [place] [address] Primary Care Physician 05/06/17 Malachi Maloney MD [address] [facility], [address] [place] [address] [email or web address] Historical LMR Provider 04/23/17 07/13/21 Sammie Govea MD [address] [place] [address] Orth[facility] Sports Medicine, [place] [address] [email or web address] Historical LMR Provider 04/23/17 07/13/21 Avinash Chong MD [address] [place] [address] [email or web address] Historical LMR Provider 04/23/17 Sofia Amaya MD, MPH [address] [place] [address] [email or web address] .[facility] Primary Oncologist Radiation Oncology 08/19/19 Karely Ansari MD [address] [place] [address] Primary Oncologist Medical Oncology 08/19/19 12/04/19 Neal Sultana MD, MS [address] [place] [address] [email or web address] Primary Oncologist Surgical Oncology 08/19/19 Tere Keita, [address] [address] [email or web address] Grievance And Appeals Specialist Oncology 09/19/19 03/13/25 Mirela Barnhart MD [address] [place] [address] Kati@[email or web address] .[email or web address] Medical Oncology 12/05/19 Andrei Dixon MD [address] [place] [address], [address] [place] [address] [email or web address] Orthopedic Surgery 03/27/22 Dneise Black PA-C [address] [place] [address] [email or web address] Physician Long Term Care Social Worker 03/27/22 documented as of this encounter Additional Source Comments The information contained in this document represents components of the legal health record. It is not the complete legal health record.[facility]
--- OUTSIDE RECORDS SUMMARY | 2025-03-30 19:10 | XMS_ITS | Encounter Summary ---
Author Organization [facility] Address [address] [place] [address] Phone Care Team Providers Care Nuclear Plant Construction Worker Name Role Phone Qamar Garcia MD Unavailable [phone] Malachi Maloney MD Unavailable [phone] Sammie Govea MD Unavailable [phone] Avinash Chong MD Unavailable [phone] Qamar Garcia MD Primary Care Provider [phone] Sofia Amaya MD, MPH Unavailable [phone] Karely Ansari MD Unavailable Neal Sultana MD, MS Unavailable Tere Keita Unavailable Mirela Barnhart MD Unavailable Andrei Dixon MD Unavailable [phone] Denise Black PA-C Unavailable [phone] Unknown, Unknown Primary Care Provider Qamar Escamilla MD Primary Care Provider Encounter Details Date Type Department Care Team (Late st Contact Info) Description 08/10/2019 Procedure Pass [facility] [address] [facility], 6th [place] [address] Social History Tobacco Use Types Packs/Day Years [...] (Late Contact Info) Description 09/07/2024 Procedure Pass [place] [address] [address] 09/07/2024 Procedure Pass [facility], [facility] [address] [address] 04/05/2025 11:00 AM EDT Office Visit [facility] [address] [place] [address], [address] [place] [address] Margarito Walker MD [address] [place] [address] [email or web address] 05/10/2025 11:05 AM EST Appointment [facility], [facility] [address] [address] Mirela Barnhart MD [address] [place] [address] [email or web address] 05/10/2025 12:10 PM EST Appointment [place] [address] [address] Mirela Barnhart MD [address] [place] [address] [email or web address] 05/10/2025 3:00 PM EST [facility] [address] [place] [address], 6th [place] [address] Mirela Barnhart MD [address] [place] [address] [email or web address] documented as of this encounter Visit Diagnoses Not on filedocumented in this encounter Additional Health Concerns Infection Onset Date Last Indicated Resolved Time CoV-Risk 01/13/2020 01/13/2020 01/13/2020 4:17 PM EDT CoV-Presumed 05/27/2022 05/27/2022 06/17/2022 3:51 AM EST CoV-Risk 09/22/2023 09/22/2023 09/22/2023 4:53 PM EDT COVID-19 09/22/2023 09/22/2023 10/13/2023 1:21 AM EDT documented as of this encounter Care Teams Nuclear Plant Construction Worker Relationship Specialty Start Date End Date Qamar Garcia MD [address] [place] [address] PCP - General Internal Medicine 10/14/18 03/26/22 Unknown, Unknown, PCP - General 04/08/22 07/22/22 Qamar Garcia MD [address] [place] [address] PCP - General Internal Medicine 07/23/22 Qamar Garcia MD [address] [place] [address] Primary Care Physician 05/06/17 Malachi Maloney MD 22 [facility], [address] [place] [address] [email or web address] Historical LMR Provider 04/23/17 07/13/21 Sammie Govea MD [address] [place] [address] Orthopedics & Sports Medicine, [place] [address] [email or web address] Historical LMR Provider 04/23/17 07/13/21 Avinash Chong MD [address] [place] [address] [email or web address] Historical LMR Provider 04/23/17 Sofia Amaya MD, MPH [address] [place] [address] [email or web address] Primary Oncologist Radiation Oncology 08/19/19 Karely Ansari MD [address] [place] [address] Primary Oncologist Medical Oncology 08/19/19 12/04/19 Neal Sultana MD, MS [address] [place] [address] [email or web address] Primary Oncologist Surgical Oncology 08/19/19 Tere Keiat, [address] [address] [email or web address] Report Manager Oncology 09/19/19 03/13/25 Mirela Barnhart MD [address] [place] [address] [email or web address] Medical Oncology 12/05/19 Andrei Dixon MD [address] [place] [address] [email or web address] Orthopedic Surgery 03/27/22 Denise Black PA-C [address] [place] [address] [email or web address] Physician Review Analyst 03/27/22 documented as of this encounter Additional Source Comments The information contained in this document represents components of the legal health record. It is not the complete legal health record.[facility]
--- OUTSIDE RECORDS SUMMARY | 2025-03-30 19:10 | XMS_ITS | Encounter Summary ---
Author Organization [facility] Address [address] [place] [address] Phone Care Team Providers Care Doughnut Machine Operator Helper Name Role Phone Qamar Garcia MD Unavailable Malachi Maloney MD Unavailable [phone] Sammie Govea MD Unavailable Avinash Chong MD Unavailable [phone] Qamar Garcia MD Primary Care Provider Miguelangel Reynoso MD Primary Care Provider [phone] Qamar Garcia MD Primary Care Provider Sofia Amaya MD, MPH Unavailable Karely Ansari MD Unavailable Neal Sultana MD, MS Unavailable Tere Keita Unavailable [phone] Mirela Barnhart MD Unavailable [phone] Andrei Dixon MD Unavailable [phone] Denise Black PA-C Unavailable [phone] Unknown, Unknown Primary Care Provider Qamar Escamilla MD Primary Care Provider Encounter Details Date Type Department Care Team (Latest Contact Info) Description 07/07/2018 Ancillary Orders [facility] [address] 3rd [facility], [address] [place] [address] Brayden [place] MD 22 [facility] 301 [place] [address] Palpitations; Ventricular ectopy Social History Tobacco Use Types Packs/Day Years [...] st Contact Info) Description 09/07/2024 Procedure Pass [facility], [place] [address] [address] 09/07/2024 Procedure Pass [facility], [facility] [address] [address] 04/05/2025 11:00 AM EDT Office Visit [facility] [address] [facility], [address] [place] [address] Margarito Walker MD [address] [address] 05/10/2025 11:05 AM EST Appointment [facility], [facility] [address] [address] Mirela Barnhart MD [address] [place] [address] [email or web address] 05/10/2025 12:10 PM EST Appointment [facility] 300 [facility] [address]rd [place] [address] Mirela Barnhart MD [address] [place] [address] [email or web address] 05/10/2025 3:00 PM EST Office Visit [facility], [address], [address] [place] [address] Mirela Barnhart MD [address] [place] [address] [email or web address] documented as of this encounter Results * Holter Monitor 24 Hours (07/07/2018 9:43 AM EST) Anatomical Region Laterality Modality Heart Other Narrative 07/07/2018 10:57 AM EST Holter monitor of good quality recorded for 24 hours. Baseline rhythm is sinus with an average heart rate of 70 and a range of 50 to a maximum of 120 with a higher heart rate correlating with physical exercise. There is rare supraventricular ectopy with a maximum of two 3 beat runs. There is very rare ventricular ectopy with a total of 11 isolated PVCs and 3 ventricular couplets. Patient complaints of dizziness and palpitations all occurred during sinus rhythm without change in rate or rhythm. Impression: Holter monitor demonstrating sinus rhythm with rare supraventricular and ventricular ectopy as described. Patient symptoms occurred during sinus rhythm without change in rate, rhythm or finding of ectopy. Procedure Note Avinash Chong MD - 07/07/2018 Holter monitor of good quality recorded for 24 hours. Baseline rhythm issinus with an average heart rate of 70 and a range of 50 to a maximum of120 with a higher heart rate correlating with physical exercise. There israre supraventricular ectopy with a maximum of two 3 beat runs. There isvery rare ventricular ectopy with a total of 11 isolated PVCs and 3ventricular couplets. Patient complaints of dizziness and palpitationsall occurred during sinus rhythm without change in rate or rhythm. Impression: Holter monitor demonstrating sinus rhythm with raresupraventricular and ventricular ectopy as described. Patient symptomsoccurred during sinus rhythm without change in rate, rhythm or finding ofectopy. us Brayden [place] MD [facility] Final Result documented in this encounter Visit Diagnoses Diagnosis Palpitations Ventricular ectopy Other premature beats Palpitations Ventricular ectopy Other premature beats documented in this encounter Additional Health Concerns Infection Onset Date Last Indicated Resolved Time CoV-Risk 01/13/2020 01/13/2020 01/13/2020 4:17 PM EDT CoV-Presumed 05/27/2022 05/27/2022 06/17/2022 3:51 AM EST CoV-Risk 09/22/2023 09/22/2023 09/22/2023 4:53 PM EDT COVID-19 09/22/2023 09/22/2023 10/13/2023 1:21 AM EDT documented as of this encounter Care Teams Doughnut Machine Operator Helper Relationship Specialty Start Date End Date Qamar Garcia MD [address] [place] [address] PCP - General Internal Medicine 10/12/17 08/23/18 Miguelangel Reynoso MD [address] [place] [address] [email or web address] PCP - General Cardiology 08/24/18 10/13/18 Qamar Garcia MD [address] [place] [address] PCP - General Internal Medicine 10/14/18 03/26/22 Unknown, Unknown, MD PCP - General 04/08/22 07/22/22 Qamar Garcia MD [address] [place] [address] PCP - General Internal Medicine 07/23/22 Qamar Garcia MD [address] [place] [address] Primary Care Physician 05/06/17 Malachi Maloney MD [address] [place] [address] [email or web address] Historical LMR Provider 04/23/17 07/13/21 Sammie Govea MD [address] [place] [address] Orthopedics & Sports Medicine, [place] [address] [email or web address] Historical LMR Provider 04/23/17 07/13/21 Avinash Chong MD [address] [place] [address] [email or web address] Historical LMR Provider 04/23/17 Sofia Amaya MD, MPH [address] [place] [address] [email or web address] Primary Oncologist Radiation Oncology 08/19/19 Karely Ansari MD [address] [place] [address] Primary Oncologist Medical Oncology 08/19/19 12/04/19 Neal Sultana MD, MS [address] [place] [address] [email or web address] Primary Oncologist Surgical Oncology 08/19/19 Tere Keita, [facility] [address] [place] [address] [email or web address] Lasting Machine Operator Hand Method Oncology 09/19/19 03/13/25 Mirela Barnhart MD [address] [place] [address] [email or web address] Medical Oncology 12/05/19 Andrei Dixon MD [address] [place] [address], [address] [address] [email or web address] Orthopedic Surgery 03/27/22 Denise Black PA-C [address] [place] [address] [email or web address] Physician Stummel Selector 03/27/22 documented as of this encounter Additional Source Comments The information contained in this document represents components of the legal health record. It is not the complete legal health record.[facility]
--- OUTSIDE RECORDS SUMMARY | 2025-03-30 19:10 | XMS_ITS | Encounter Summary ---
Author Organization [facility] Address [address] [place] [address] Phone Care Team Providers Care Supervisor Chlorine Liquefaction Name Role Phone Qamar Garcia MD Unavailable Malachi Maloney MD Unavailable [phone] Sammie Govea MD Unavailable Avinash Chong MD Unavailable [phone] Qamar Garcia MD Primary Care Provider [phone] Unknown, Unknown Primary Care Provider Unavai Qamar Freeman MD Primary Care Provider Miguelangel Reynoso MD Primary Care Provider Qamar Garcia MD Primary Care Provider [phone] Sofia Amaya MD, MPH Unavailable [phone] Karely Ansari MD Unavailable Neal Sultana MD, MS Unavailable Tere Keita Unavailable [phone] Mirela Barnhart MD Unavailable [phone] Andrei Dixon MD Unavailable [phone] Denise Black PA-C Unavailable [phone] Unknown, Unknown Primary Care Provider Qamar Escamilla MD Primary Care Provider [phone] Encounter Details Date Type Department Care Team (Latest Contact Info) Description 05/06/2017 Transcribe Orders [address] [place] [address] Avinash Chong MD [address] [place] [address] [email or web address] Essential hypertension, benign (Primary Dx) Social History Tobacco Use Types Packs/Day Years Used Date Smoking Tobacco: Never Assessed Sex and Gender Information Value Date Recorded Sex Assigned at Male 07/23/2018 7:24 PM EST Legal Sex Male 5:48 PM EST Gender Identity Male 07/23/2018 7:24 PM EST Sexual Orientation Choose not to disclose 2019 9:17 PM EST documented as of this encounter Plan of Treatment Upcoming Encounters Date Type Department Care Team (Late st Contact Info) Description 09/07/2024 Procedure Pass [facility], [place] [address] [address] 09/07/2024 Procedure Pass [facility], [facility] [address] [address] 04/05/2025 11:00 AM EDT Office Visit [facility] [address] [place] [address] 3rd [facility], [address] [place] [address] Margarito Walker MD 22 [facility], [facility] 301 [place] [address] 05/10/2025 11:05 AM EST Appointment [facility], [facility] [address] [address] Mirela Barnhart MD [address] [place] [address] [email or web address] 05/10/2025 12:10 PM EST Appointment [facility] [place] [place] 300 [facility] 3rd [place] [address] Mirela Barnhart MD [address] [place] [address] [email or web address] 05/10/2025 3:00 PM EST Office Visit [facility], [address] [place] [address] Mirela Barnhart MD [address] [place] [address] [email or web address] documented as of this encounter Results * (ABNORMAL) Comprehensive metabolic panel (05/06/2017 10:20 AM EDT) SODIUM 133 133 - 146 mmol/L [facility] POTASSIUM 3.8 3.3 - 5.1 mmol/L [facility] CHLORIDE 94(L) 96 - 108 mmol/L [facility] CO2 29 21 - 35 mmol/L [facility] BUN 7 6 - 19 mg/dL [facility] CREATININE 1.10 0.5 - 1.5 mg/dL [facility] GLUCOSE 112(H) 70 - 99 mg/dL [facility] ALBUMIN 4.1 3.9 - 4.8 g/dL [facility] TOTAL PROTEIN 6.7 6.5 - 8.0 g/dL [facility] CALCIUM 9.5 8.4 - 10.3 mg/dL [facility] ALKALINE PHOSPHATASE 86 39 - 117 U/L [facility] TOTAL BILIRUBIN 0.4 0 - 1.2 mg/dL [facility] AST 21 0 - 37 U/L [facility] ALT 19 0 - 40 U/L [facility] GLOBULIN 2.6 1 - 4.8 g/dL [facility] EGFR >60 mL/min/1.7 3m2 [facility] Comment:Abnormal if <60. If patient is -Samoan, multiply the result by 1.21. ANION GAP 14 10 - 20 mmol/L [facility] Blood 05/06/2017 10:2 0 AM EDT 05/06/2017 10:23 AM EDT us Avinash Chong MD LAB BLOOD ORDERABLES Final Resu lt [facility] [address] [place] [address] documented in this encounter Visit Diagnoses Diagnosis Essential hypertension, benign- Primary documented in this encounter Additional Health Concerns Infection Onset Date Last Indicated Resolved Time CoV-Risk 01/13/2020 01/13/2020 01/13/2020 4:17 PM EDT CoV-Presumed 05/27/2022 05/27/2022 06/17/2022 3:51 AM EST CoV-Risk 09/22/2023 09/22/2023 09/22/2023 4:53 PM EDT COVID-19 09/22/2023 09/22/2023 10/13/2023 1:21 AM EDT documented as of this encounter Care Teams Supervisor Chlorine Liquefaction Relationship Specialty Start Date End Date Qamar Garcia MD [address] [place] [address] PCP - General Internal Medicine 05/06/17 07/20/17 Unknown, Unknown, [address] [address] PCP - General 07/21/17 10/11/17 Qamar Garcia MD [address] [place] [address] PCP - General Internal Medicine 10/12/17 08/23/18 Miguelangel Reynoso MD [address] [place] [address] [address] [place] [address] [email or web address] PCP - General Cardiology 08/24/18 10/13/18 Qamar Garcia MD [address] [place] [address] PCP - General Internal Medicine 10/14/18 03/26/22 Unknown, mEely, PCP - General 04/08/22 07/22/22 Qamar Garcia MD [address] [place] [address] PCP - General Internal Medicine 07/23/22 Qamar Garcia MD [address] [place] [address] Primary Care Physician 05/06/17 Malachi Maloney MD [address] [place] [address] Historical LMR Provider 04/23/17 07/13/21 Sammie Govea MD [address] [place] [address] Orthopedics & Sports Medicine, [facility] [place] [address] Historical LMR Provider 04/23/17 07/13/21 Avinash Chong MD [address] [place] [address] [email or web address] Historical LMR Provider 04/23/17 Sofia Amaya MD, MPH [address] [place] [address] [email or web address] Primary Oncologist Radiation Oncology 08/19/19 Karely Ansari MD [address] [place] [address] Primary Oncologist Medical Oncology 08/19/19 12/04/19 Neal Sultana MD, MS [address] [place] [address] [email or web address] Primary Oncologist Surgical Oncology 08/19/19 Tere Keita, [address] [address] [email or web address] Hand Oncology 09/19/19 03/13/25 Mirela Barnhart MD [address] [place] [address] [email or web address] Medical Oncology 12/05/19 Andrei Dixon MD [address] [place] [address] [email or web address] Orthopedic Surgery 03/27/22 Denise Black PA-C [address] [place] [address] [email or web address] Physician Missile Control Pilot 03/27/22 documented as of this encounter Additional Source Comments The information contained in this document represents components of the legal health record. It is not the complete legal health record.[facility]
--- OUTSIDE RECORDS SUMMARY | 2025-03-30 19:10 | XMS_ITS | Encounter Summary ---
Author Organization [facility] Address [address] [place] [address] Phone Care Team Providers Care New Accounts Banking Representative Name Role Phone Qamar Garcia MD Unavailable Malachi Maloney MD Unavailable [phone] Sammie Govea MD Unavailable [phone] Avinash Chong MD Unavailable [phone] Qamar Garcia MD Primary Care Provider [phone] Unknown, Unknown Primary Care Provider Unavai Qamar Freeman MD Primary Care Provider Miguelangel Reynoso MD Primary Care Provider Qamar Garcia MD Primary Care Provider Sofia Amaya MD, MPH Unavailable + [phone] Karely Ansari MD Unavailable Neal Sultana MD, MS Unavailable Tere Keita Unavailable [phone] Mirela Barnhart MD Unavailable [phone] Andrei Dixon MD Unavailable [phone] Denise Black PA-C Unavailable [phone] Unknown, Unknown Primary Care Provider Qamar Escamilla MD Primary Care Provider + [phone] Reason for Referral * MRI/CAT Scan - Closed Specialty Diagnoses / Procedures Referred By Contac t Referred To Contact Radiology Diagnoses Frequent PVCs Procedures NC Myocardial Perfusion Stress Single NC Myocardial Perfusion Exercise Multiple Avinash Chong MD Phone: tel: fax: mailto:[email or web address] Referral ID Status Reason Start Date Expiration Date Visits Re quested Visits Authorized [id number] Closed 05/13/2017 05/13/2018 1 1 Encounter Details Date Type Department Care Team (Late Contact Info) Description 05/18/2017 Ancillary Orders [facility] [address] [facility] 3rd Floor, [address] [place] [address] Avinash Chong MD [address] [place] [address] [email or web address] [facility] Frequent PVCs Social History Tobacco Use Types Packs/Day Years [...] Contact Info) Description 09/07/2024 Procedure Pass [facility] [place] 300 [facility] 3rd [place] [address] 09/07/2024 Procedure Pass [facility], [facility] [address] [address] 04/05/2025 11:00 AM EDT Office Visit [facility] [address] [place] [address] 3rd [facility], [address] [place] [address] Margarito Walker MD [address] [facility], [address] [place] [address] 05/10/2025 11:05 AM EST Appointment [facility], [facility] [address] [address] Mirela Barnhart MD [address] [place] [address] [email or web address] 05/10/2025 12:10 PM EST Appointment [facility] [place] [address] [address] Mirela Barnhart MD [address] [place] [address] [email or web address] 05/10/2025 3:00 PM EST Office Visit [facility], [address], [address] [place] [address] Mirela Barnhart MD [address] [place] [address] [email or web address] documented as of this encounter Results * NC Myocardial Perfusion Stress Single (05/15/2017 2:48 PM EST) Anatomical Region Laterality Modality Heart Ultrasound Narrative 05/19/2017 5:10 PM EST Normal study. There is no evidence of myocardial infarction or ischemia. Normal LV size and function with nor regional wall motion abnormalities. Very low likelihood of hemodynamically significant coronary artery disease. Low risk study for myocardial events or cardiac in the next two years. Study Quality Overall image quality is good. There are no artifacts present. NC Study Impression Left ventricular perfusion is normal. Interpretation of the study indicates that it is normal. This is a low risk study. There is no prior study for comparison. Stress Test Result NUCLEAR Exercise Stress Test Report: Reason for termination: Fatigue Summary: Resting ECG:SR HR 69 Functional capacity: Above Average (>20%) Heart rate response to exercise:Appropriate Blood pressure response to exercise: Resting hypertensive-exaggerated response Chest pain:None Arrhythmias:Frequent PVC's ST-T changes:None Overall impression: Normal Stress test Conclusion: Jabier Gaspar exercised for 6:40 minutes on a standard Yaya protocol achieving 108 % MPHR and 7.00 METS. Test terminated due to fatigue. Summary: 1. EKG: No EKG changes suggestive of ischemia 2. Symptoms: No chest pain or symptoms concerning for angina 3. Exercise physiology: Normal heart rate and elevated resting blood pressure 2/2 anxiety with normal response to exercise. O2 sat 96-99% and stable during the procedure. Above average (>20%) functional capacity for age noted. 4. Arrhythmia: Frequent PVC's Conclusion: Normal EKG portion of stress test without ischemic EKG changes. No exertional symptoms concerning for angina. Vital signs stable and at baseline at time of discharge from the lab. Nuclear images to follow. EKG reviewed with Dr. Walker. Lisbeth Lara NP Nuclear Cardiology Measurements End systolic (mL): 46 End diastolic (mL): 89 Ejection Fraction (%): 49 Ejection Fraction: Mild (40-49%) The left ventrical is functioning with normal perfusion quality. Patient was injected Lt AC IV during stress with 12.1mCi Tc99m Sestamibi NC Conclusion Normal study. There is no evidence of myocardial infarction or ischemia. Normal LV size and function with nor regional wall motion abnormalities. Very low likelihood of hemodynamically significant coronary artery disease. Low risk study for myocardial events or cardiac in the next two years. Perfusion Scoring Stress Summed Score: 0 Percent Normal: 0.00% The left ventricular perfusion is normal. us Avinash Chong MD CV NM CARDIAC Final Result documented in this encounter Visit Diagnoses Diagnosis Frequent PVCs Frequent PVCs documented in this encounter Additional Health Concerns Infection Onset Date Last Indicated Resolved Time CoV-Risk 01/13/2020 01/13/2020 01/13/2020 4:17 PM EDT CoV-Presumed 05/27/2022 05/27/2022 06/17/2022 3:51 AM EST CoV-Risk 09/22/2023 09/22/2023 09/22/2023 4:53 PM EDT COVID-19 09/22/2023 09/22/2023 10/13/2023 1:21 AM EDT documented as of this encounter Care Teams New Accounts Banking Representative Relationship Specialty Start Date End Date Qamar Garcia MD [address] [place] [address] PCP - General Internal Medicine 05/06/17 07/20/17 Unknown, Unknown, [address] [place] [address] PCP - General 07/21/17 10/11/17 Qamar Garcia MD [address] [place] [address] PCP - General Internal Medicine 10/12/17 08/23/18 Miguelangel Reynoso MD [address] [place] [address] [address] [place] [address] [email or web address] PCP - General Cardiology 08/24/18 10/13/18 Qamar Garcia MD [address] [place] [address] PCP - General Internal Medicine 10/14/18 03/26/22 Unknown, MD Emely PCP - General 04/08/22 07/22/22 Qamar Garcia MD [address] [place] [address] PCP - General Internal Medicine 07/23/22 Qamar Garcia MD [address] [place] [address] Primary Care Physician 05/06/17 Malachi Maloney MD [address] [place] [address] [email or web address] Historical LMR Provider 04/23/17 07/13/21 Sammie Govea MD [address] [place] [address] Orthoped[facility] Sports Medicine, [place] [address] [email or web address] Historical LMR Provider 04/23/17 07/13/21 Avinash Chong MD [address] [place] [address] [email or web address] Historical LMR Provider 04/23/17 Sofia Amaya MD, MPH [address] [place] [address] [email or web address] Primary Oncologist Radiation Oncology 08/19/19 Karely Ansari MD [address] [place] [address] Primary Oncologist Medical Oncology 08/19/19 12/04/19 Neal Sultana MD, MS [address] [place] [address] [email or web address] Primary Oncologist Surgical Oncology 08/19/19 Tere Keita [facility] [address] [place] [address] [email or web address] Scale Tester Oncology 09/19/19 03/13/25 Mirela Barnhart MD [address] [place] [address] [email or web address] Medical Oncology 12/05/19 Andrei Dixon MD [address] [place] [address], [address] [address] [email or web address] Surgery 03/27/22 Denise Black PA-C [address] [place] [address] [email or web address] Physician [employer] Mvc Developer 03/27/22 documented as of this encounter Additional Source Comments The information contained in this document represents components of the legal health record. It is not the complete legal health record.[facility]
--- OUTSIDE RECORDS SUMMARY | 2025-03-30 19:10 | XMS_ITS | Encounter Summary ---
Author Organization [facility] Address [address] [place] [address] Phone Care Team Providers Care Lip And Gate Builder Name Role Phone Qamar Garcia MD Unavailable Malachi Maloney MD Unavailable [phone] Sammie Govea MD Unavailable [phone] Avinash Chong MD Unavailable [phone] aQmar Garcia MD Primary Care Provider + [phone] Sofia Amaya MD, MPH Unavailable [phone] Neal Sultana MD, MS Unavailable Tere Keita Unavailable Mirela Barnhart MD Unavailable [phone] Andrei Dixon MD Unavailable [phone] Denise Black PA-C Unavailable [phone] Unknown, Unknown Primary Care Provider Qamar Escamilla MD Primary Care Provider + [phone] Encounter Details Date Type Department Care Team (Late st Contact Info) Description 03/19/2021 Procedure Pass [facility], [place] [address] [place] [address] Social History Tobacco Use Types Packs/Day Years [...] st Contact Info) Description 09/07/2024 Procedure Pass [facility], [address] [address] 09/07/2024 Procedure Pass [facility], [address] [address] 04/05/2025 11:00 AM EDT Office Visit [facility] [address] [place] [address], [address] [place] [address] Margarito Walker MD [address] [place] [address] 05/10/2025 11:05 AM EST Appointment [facility], [address] [address] Mirela Barnhart MD [address] [place] [address] [email or web address] 05/10/2025 12:10 PM EST Appointment [facility], [address] [address] Mirela Barnhart MD [address] [place] [address] [email or web address] 05/10/2025 3:00 PM EST Office Visit [facility], [facility] [place] [address] [place] [address], 6th [place] [address] Mirela Barnhart MD [address] [place] [address] [email or web address] documented as of this encounter Visit Diagnoses Not on filedocumented in this encounter Additional Health Concerns Infection Onset Date Last Indicated Resolved Time CoV-Presumed 05/27/2022 05/27/2022 06/17/2022 3:51 AM EST CoV-Risk 09/22/2023 09/22/2023 09/22/2023 4:53 PM EDT COVID-19 09/22/2023 09/22/2023 10/13/2023 1:21 AM EDT documented as of this encounter Care Teams Lip And Gate Builder Relationship Specialty Start Date End Date Qamar Garcia MD [address] [place] [address] PCP - General Internal Medicine 10/14/18 03/26/22 Unknown, Unknown, MD PCP - General 04/08/22 07/22/22 Qamar Garcia MD [address] [place] [address] PCP - General Internal Medicine 07/23/22 Qamar Garcia MD [address] [place] [address] Primary Care Physician 05/06/17 Malachi Maloney MD [address] [place] [address], [address] [place] [address] [email or web address] Historical LMR Provider 04/23/17 07/13/21 Sammie Govea MD [address] [place] [address] Orthopedics & Sports Medicine, [place] [address] [email or web address] Historical LMR Provider 04/23/17 07/13/21 Avinash Chong MD [address] [place] [address] [email or web address] Historical LMR Provider 04/23/17 Sofia Amaya MD, MPH [address] [place] [address] [email or web address] Primary Oncologist Radiation Oncology 08/19/19 Neal Sultana MD, MS [address] [place] [address] [email or web address] Primary Oncologist Surgical Oncology 08/19/19 Tere Keita, [facility] 35 [place] [address] [email or web address] Foxing Closer Oncology 09/19/19 03/13/25 Mirela Barnhart MD [address] [place] [address] [email or web address] Medical Oncology 12/05/19 Andrei Dixon MD [address] [place] [address], [address] [place], [place] [id number] [email or web address] Orthopedic Surgery 03/27/22 Denise Black PA-C [address] [place] [address] [address] [place] [address] [email or web address] Physician Textile Stylist 03/27/22 documented as of this encounter Additional Source Comments The information contained in this document represents components of the legal health record. It is not the complete legal health record.[facility]
--- OUTSIDE RECORDS SUMMARY | 2025-03-30 19:10 | XMS_ITS | Encounter Summary ---
Author Organization [facility] Address [address] [place] [address] Phone Care Team Providers Care Infection Control Specialist Name Role Phone Qamar Garcia MD Unavailable Malachi Maloney MD Unavailable [phone] Sammie Govea MD Unavailable [phone] Avinash Chong MD Unavailable [phone] Qamar Garcia MD Primary Care Provider + [phone] Sofia Amaya MD, MPH Unavailable + [phone] Neal Sultana MD, MS Unavailable Tere Keita Unavailable [phone] Mirela Barnhart MD Unavailable [phone] Andrei Dixon MD Unavailable [phone] Denise Black PA-C Unavailable [phone] Unknown, Unknown Primary Care Provider Qamar Escamilla MD Primary Care Provider + [phone] Encounter Details Date Type Department Care Team (Late st Contact Info) Description 12/12/2019 Procedure Pass [facility] [address] [place] [address] Social History Tobacco Use Types Packs/Day Years [...] Upcoming Encounters Date Type Department Care Team ([facility] st Contact Info) Description 09/07/2024 Procedure Pass [facility], [address] [address] 09/07/2024 Procedure Pass [facility], [address] [address] 04/05/2025 11:00 AM EDT Office Visit [facility] [address] [place] [address], [address] [place] [address] Margarito Walker MD [address] [place] [address] 05/10/2025 11:05 AM EST Appointment [facility], [address] [address] Mirela Barnhart MD [address] [place] [address] [email or web address] 05/10/2025 12:10 PM EST Appointment [facility], [address] [address] Mirela Barnhart MD [address] [place] [address] [email or web address] 05/10/2025 3:00 PM EST Office Visit [facility], [facility] [place] [address] [place] [address], 6th [place] [address] Mirela Barnhart MD [address] [place] [address] [email or web address] documented as of this encounter Visit Diagnoses Not on filedocumented in this encounter Additional Health Concerns Infection Onset Date Last Indicated Resolved Time CoV-Risk 01/13/2020 01/13/2020 01/13/2020 4:17 PM EDT CoV-Presumed 05/27/2022 05/27/2022 06/17/2022 3:51 AM EST CoV-Risk 09/22/2023 09/22/2023 09/22/2023 4:53 PM EDT COVID-19 09/22/2023 09/22/2023 10/13/2023 1:21 AM EDT documented as of this encounter Care Teams Infection Control Specialist Relationship Specialty Start Date End Date Qamar Garcia MD [address] [place] [address] PCP - General Internal Medicine 10/14/18 03/26/22 Unknown, Unknown, MD PCP - General 04/08/22 07/22/22 Qamar Garcia MD [address] [place] [address] PCP - General Internal Medicine 07/23/22 Qamar Garcia MD [address] [place] [address] Primary Care Physician 05/06/17 Malachi Maloney MD [address] [place] [address], [address] [address] [email or web address] Historical LMR Provider 04/23/17 07/13/21 Sammie Govea MD [address] [place] [address] Orthopedics & Sports Medicine, [facility] [place] [address] [email or web address] Historical LMR Provider 04/23/17 07/13/21 Avinash Chong MD [address] [place] [address] [email or web address] Historical LMR Provider 04/23/17 Sofia Amaya MD, MPH [address] [place] [address] [email or web address] Primary Oncologist Radiation Oncology 08/19/19 Neal Sultana MD, MS [address] [place] [address] [email or web address] Primary Oncologist Surgical Oncology 08/19/19 Tere Keita, [facility] [address] [place] [address] [email or web address] Applications Support Analyst Oncology 09/19/19 03/13/25 Mirela Barnhart MD [address] [place] [address] [email or web address] Medical Oncology 12/05/19 Andrei Dixon MD [address] [place] [address], [address] [place] [address] [email or web address] Orthopedic Surgery 03/27/22 Denise Black PA-C [address] [place] [address] [address] [place] [address] [email or web address] Physician Lease Out Man 03/27/22 documented as of this encounter Additional Source Comments The information contained in this document represents components of the legal health record. It is not the complete legal health record.[facility]
--- OUTSIDE RECORDS SUMMARY | 2025-03-30 19:10 | XMS_ITS | Encounter Summary ---
Author Organization [facility] Address [address] [place] [address] Phone Care Team Providers Care Noodle Maker Name Role Phone Qamar Garcia MD Unavailable [phone] Malachi Maloney MD Unavailable [phone] Sammie Govea MD Unavailable Avinash Chong MD Unavailable [phone] Qamar Garcia MD Primary Care Provider Miguelangel Reynoso MD Primary Care Provider Qamar Garcia MD Primary Care Provider [phone] Sofia Amaya MD, MPH Unavailable Karely Ansari MD Unavailable Neal Sultana MD, MS Unavailable Tere Keita Unavailable [phone] Mirela Barnhart MD Unavailable [phone] Andrei Dixon MD Unavailable [phone] Denise Black PA-C Unavailable Unknown, Unknown Primary Care Provider Qamar Escamilla MD Primary Care Provider [phone] Encounter Details Date Type Department Care Team (Late Contact Info) Description 07/23/2018 Ancillary Orders [facility] [address] [place] [address] Mendez Dobson MD [email or web address] Malignant neoplasm of right female breast, unspecified estrogen receptor status, unspecified site of breast Social History Tobacco Use Types Packs/Day Years [...] (Late Contact Info) Description 09/07/2024 Procedure Pass [facility] [place] [address] [address] 09/07/2024 Procedure Pass [facility], [facility] [address] [address] 04/05/2025 11:00 AM EDT Office Visit [facility] [address] [place] [address], [address] [place] [address] Margarito Walker MD [address] [place] [address] 05/10/2025 11:05 AM EST Appointment [facility], [facility] [address] [address] Mirela Barnhart MD [address] [place] [address] [email or web address] 05/10/2025 12:10 PM EST Appointment [facility] [place] [place] 300 [facility] 3rd [place] [address] Mirela Barnhart MD [address] [place] [address] [email or web address] 05/10/2025 3:00 PM EST [facility], [address], 6th [place] [address] Mirela Barnhart MD [address] [place] [address] [email or web address] documented as of this encounter Results * Mammogram Outside With Interpretation Or Consult (07/23/2018 2:57 PM EST) 07/23/2018 Impressions [facility] - 07/29/2018 11:23 AM EST (1) 5-mm span of calcifications in the RIGHT breast are a known malignancy. Appropriate action is being taken. If clinically indicated, consider magnification views of the area of concern in the right breast to evaluate for residual calcifications. (2) No specific mammographic evidence of malignancy in the LEFT breast. 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 He is now status post excision with report of severe atypia within 0.1 cm of the superior margin. OUTSIDE IMAGING: The following imaging exams from an outside facility, [facility], have been provided for our review: - Bilateral Diagnostic Mammogram 2D, 05/13/2018 - Right Specimen Radiograph, 06/15/2018 BILATERAL DIAGNOSTIC MAMMOGRAM (05/13/2018): There is bilateral gyneocomastia. There are suspicious calcifications in the sub-areolar region of the right breast. The calcifications span 5 mm. No obvious mass is identified in the right breast. No suspicious masses, calcifications or other abnormalities are seen in the left breast. SPECIMEN RADIOGRAPH (06/15/2018): The specimen radiograph shows the presence of some calcifications in the specimen. PATHOLOGY (Reviewed by [facility]): FINAL PATHOLOGIC DIAGNOSIS: A. 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 - Focus of severe atypical ductal hyperplasia, located 0.1 cm from the superior margin. - Few microscopic calcifications associated with benign ducts. Procedure Note Carl Freeman MD, PhD - 07/29/2018 OUTSIDE INTERPRETATION HISTORY: 78-year-old man with a family history of breast cancer (daughter,age 46) recently diagnosed right breast cancer (DCIS) found incidentallyat an outside facility when he presented for evaluation of contralateralleft breast swelling and pain. He is now status post excision with reportof severe atypia within 0.1 cm of the superior margin. OUTSIDE IMAGING: The following imaging exams from an outside facility, [facility], have been provided for our review: - Bilateral Diagnostic Mammogram 2D, 05/13/2018 - Right Specimen Radiograph, 06/15/2018 BILATERAL DIAGNOSTIC MAMMOGRAM (05/13/2018): There is bilateral gyneocomastia. There are suspicious calcifications in the sub-areolar region of the rightbreast. The calcifications span 5 mm. No obvious mass is identified in theright breast. No suspicious masses, calcifications or other abnormalities are seen inthe left breast. SPECIMEN RADIOGRAPH (06/15/2018): The specimen radiograph shows the presence of some calcifications in thespecimen. PATHOLOGY (Reviewed by [facility]): FINAL PATHOLOGIC DIAGNOSIS: A. 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 - Focus of severe atypical ductal hyperplasia, located 0.1 cm from thesuperior margin. - Few microscopic calcifications associated with benign ducts. IMPRESSION: (1) 5-mm span of calcifications in the RIGHT breast are a knownmalignancy. Appropriate action is being taken. If clinically indicated,consider magnification views of the area of concern in the right breast toevaluate for residual calcifications. (2) No specific mammographic evidence of malignancy in the LEFT breast. BI-RADS Category 6: Known Biopsy - Proven Malignancy - Appropriate ActionShould Be Taken us Mendez Dobson MD IMG OUTSIDE IMAGING W/ IN TERPRETATION Final Result [facility] [address] [facility] [place] [address] documented in this encounter Visit Diagnoses Diagnosis Malignant neoplasm of right female breast, unspecified estrogen receptor status, unspecified site of breast Malignant neoplasm of right female breast, unspecified estrogen receptor status, unspecified site of breast documented in this encounter Additional Health Concerns Infection Onset Date Last Indicated Resolved Time CoV-Risk 01/13/2020 01/13/2020 01/13/2020 4:17 PM EDT CoV-Presumed 05/27/2022 05/27/2022 06/17/2022 3:51 AM EST CoV-Risk 09/22/2023 09/22/2023 09/22/2023 4:53 PM EDT COVID-19 09/22/2023 09/22/2023 10/13/2023 1:21 AM EDT documented as of this encounter Care Teams Noodle Maker Relationship Specialty Start Date End Date Qamar Garcia MD [address] [place] [address] PCP - General Internal Medicine 10/12/17 08/23/18 Miguelangel Reynoso MD [address] [place] [address] 800 [place] [address] [email or web address] PCP - General Cardiology 08/24/18 10/13/18 Qamar Garcia MD [address] [place] [address] PCP - General Internal Medicine 10/14/18 03/26/22 Unknown, Emely, PCP - General 04/08/22 07/22/22 Qamar Garcia MD [address] [place] [address] PCP - General Internal Medicine 07/23/22 Qamar Garcia MD [address] [place] [address] Primary Care Physician 05/06/17 Malachi Maloney MD [address] [place] [address] Historical LMR Provider 04/23/17 07/13/21 Sammie Govea MD [address] [place] [address] [facility], [place] [address] [email or web address] Historical LMR Provider 04/23/17 07/13/21 Avinash Chong MD [address] [place] [address] [email or web address] Historical LMR Provider 04/23/17 Sofia Amaya MD, MPH [address] [place] [address] [email or web address] Primary Oncologist Radiation Oncology 08/19/19 Karely Ansari MD [address] [place] [address] Primary Oncologist Medical Oncology 08/19/19 12/04/19 Neal Sultana MD, MS [address] [place] [address] [email or web address] Primary Oncologist Surgical Oncology 08/19/19 Tere Keita, [address] [address] [email or web address] Electrical Systems Engineer Oncology 09/19/19 03/13/25 Mirela Barnhart MD [address] [place] [address] [email or web address] Medical Oncology 12/05/19 Andrei Dixon MD [address] [place] [address] [email or web address] Orthopedic Surgery 03/27/22 Denise Black PA-C [address] [place] [address] [email or web address] Physician Log Buncher 03/27/22 documented as of this encounter Additional Source Comments The information contained in this document represents components of the legal health record. It is not the complete legal health record.[facility]
--- OUTSIDE RECORDS SUMMARY | 2025-03-30 19:10 | XMS_ITS | Encounter Summary ---
Author Organization [facility] Address [address] [place] [address] Phone Care Team Providers Care Fiberglass Grinder Name Role Phone Qamar Garcia MD Unavailable [phone] Avinash Chong MD Unavailable [phone] Qamar Garcia MD Primary Care Provider [phone] Sofia Amaya MD, MPH Unavailable + [phone] Neal Sultana MD, MS Unavailable Tere Keita Unavailable [phone] Mirela Barnhart MD Unavailable [phone] Andrei Dixon MD Unavailable [phone] Denise Black PA-C Unavailable [phone] Unknown, Unknown Primary Care Provider Qamar Escamilla MD Primary Care Provider [phone] Encounter Details Date Type Department Care Team (Late st Contact Info) Description 09/27/2021 Ancillary Orders [facility], X-Ray - [address] [address] Qamar Garcia MD [address] [place] [address] Fracture Social History Tobacco Use Types Packs/Day Years [...] st Contact Info) Description 09/07/2024 Procedure Pass [address] [address] 09/07/2024 Procedure Pass [address] [address] 04/05/2025 11:00 AM EDT Office Visit [facility] [address] [place] [address], [address] [place] [address] Margarito Walker MD [address] [place] [address] 05/10/2025 11:05 AM EST Appointment [facility], [address] [address] Mirela Barnhart MD [address] [place] [address] [email or web address] 05/10/2025 12:10 PM EST Appointment [address] [address] Mirela Barnhart MD [address] [place] [address] Kati@[email or web address] [facility] 05/10/2025 3:00 PM EST [facility] [address] [place] [address], 6th [place] [address] Mirela Barnhart MD [address] [place] [address] Kati@[email or web address] [facility] documented as of this encounter Results * XR RIBS 2 VIEWS (LEFT) (09/27/2021 4:04 PM EDT) Anatomical Region Laterality Modality Chest Computed Radiogr aphy 09/27/2021 5:05 PM EDT Impressions 09/27/2021 5:06 PM EDT FINDINGS/IMPRESSION: Minimally displaced fracture of the left lateral 11th rib. No evidence of pneumothorax. Coronary stent again seen. Narrative 09/27/2021 5:06 PM EDT XR RIBS 2 VIEWS (LEFT) COMPARISON: XR CHEST PORTABLE Procedure Note Roman Styles MD - 09/27/2021 XR RIBS 2 VIEWS (LEFT) COMPARISON: XR CHEST PORTABLE IMPRESSION: FINDINGS/IMPRESSION: Minimally displaced fracture of the left lateral 11th rib. No evidence ofpneumothorax. Coronary stent again seen. us Qamar Garcia MD IMG XR CHEST Final Result documented in this encounter Visit Diagnoses Diagnosis Fracture Closed fracture of unspecified bone Fracture Closed fracture of unspecified bone documented in this encounter Additional Health Concerns Infection Onset Date Last Indicated Resolved Time CoV-Presumed 05/27/2022 05/27/2022 06/17/2022 3:51 AM EST CoV-Risk 09/22/2023 09/22/2023 09/22/2023 4:53 PM EDT COVID-19 09/22/2023 09/22/2023 10/13/2023 1:21 AM EDT documented as of this encounter Care Teams Fiberglass Grinder Relationship Specialty Start Date End Date Qamar Garcia MD [address] [place] [address] PCP - General Internal Medicine 10/14/18 03/26/22 Unknown, Unknown, MD PCP - General 04/08/22 07/22/22 Qamar Garcia MD [address] [place] [address] PCP - General Internal Medicine 07/23/22 Qamar Garcia MD [address] [place] [address] Primary Care Physician 05/06/17 Avinash Chong MD [address] [place] [address] [email or web address] Historical LMR Provider 04/23/17 Sofia Amaya MD, MPH [address] [place] [address] [email or web address] Primary Oncologist Radiation Oncology 08/19/19 Neal Sultana MD, MS [address] [place] [address] [email or web address] Primary Oncologist Surgical Oncology 08/19/19 Tere Keita, [address] [address] [email or web address] Senior Category Manager Oncology 09/19/19 03/13/25 Mirela Barnhart MD [address] [place] [address] [email or web address] Medical Oncology 12/05/19 Andrei Dixon MD [address] [place] [address] [email or web address] Orthopedic Surgery 03/27/22 Denise Black PA-C [address] [place] [address] [email or web address] simone Physician Pollution Control Technician 03/27/22 documented as of this encounter Additional Source Comments The information contained in this document represents components of the legal health record. It is not the complete legal health record.[facility]
--- OUTSIDE RECORDS SUMMARY | 2025-03-30 19:10 | XMS_ITS | Encounter Summary ---
Author Organization [facility] Address [address] [place] [address] Phone Care Team Providers Care Technology Methodology Consultant Name Role Phone Qamar Garcia MD Unavailable Malachi Maloney MD Unavailable [phone] Sammie Govea MD Unavailable Avinash Chong MD Unavailable [phone] Miguelangel Reynoso MD Primary Care Provider Qamar Garcia MD Primary Care Provider Sofia Amaya MD, MPH Unavailable + [phone] Karely Ansari MD Unavailable Neal Sultana MD, MS Unavailable Tere Keita Unavailable [phone] Mirela Barnhart MD Unavailable [phone] Andrei Dixon MD Unavailable [phone] Denise Black-C Unavailable [phone] Unknown, Unknown MD Primary Care Provider Unavai lable Garcia, Qamar D MD Primary Care Provider Encounter Details Date Type Department Care Team (Late Contact Info) Description 08/26/2018 Procedure Pass [facility] [address] [place] [address] Social History Tobacco Use Types Packs/Day Years [...] (Late Contact Info) Description 09/07/2024 Procedure Pass [address] [address] 09/07/2024 Procedure Pass [facility], [address] [address] 04/05/2025 11:00 AM EDT Office Visit [facility] [address] [place] [address], [address] [place] [address] Margarito Walker MD [address] [place] [address] [email or web address] 05/10/2025 11:05 AM EST Appointment [facility], [facility] [address] [address] Mirela Barnhart MD [address] [place] [address] [email or web address] 05/10/2025 12:10 PM EST Appointment [facility], [address] [place] [address] Mirela Barnhart MD [address] [place] [address] [email or web address] 05/10/2025 3:00 PM EST [facility] Visit [facility], [facility] [address] [facility] [place] [facility], 6th [place] [address] Mirela Barnhart MD [address] [place] [address] [email or web address] documented as of this encounter Visit Diagnoses Not on filedocumented in this encounter Additional Health Concerns Infection Onset Date Last Indicated Resolved Time CoV-Risk 01/13/2020 01/13/2020 01/13/2020 4:17 PM EDT CoV-Presumed 05/27/2022 05/27/2022 06/17/2022 3:51 AM EST CoV-Risk 09/22/2023 09/22/2023 09/22/2023 4:53 PM EDT COVID-19 09/22/2023 09/22/2023 10/13/2023 1:21 AM EDT documented as of this encounter Care Teams Technology Methodology Consultant Relationship Specialty Start Date End Date Miguelangel Reynoso MD [address] [place] [address] 800 [place] [address] [email or web address] PCP - General Cardiology 08/24/18 10/13/18 Qamar Garcia MD [address] [place] [address] PCP - General Internal Medicine 10/14/18 03/26/22 Unknown, Emely, MD PCP - General 04/08/22 07/22/22 Qamar Garcia MD [address] [place] [address] PCP - General Internal Medicine 07/23/22 Qamar Garcia MD [address] [place] [address] Primary Care Physician 05/06/17 Malachi Maloney MD [address] [place] [address] 301 [place] [address] Historical LMR Provider 04/23/17 07/13/21 Sammie Govea MD [address] [place] [address] [facility] Sports Medicine, [place] [address] [email or web address] Historical LMR Provider 04/23/17 07/13/21 Avinash Chong MD [address] [place] [address] [email or web address] Historical LMR Provider 04/23/17 Sofia Amaya MD, MPH [address] [place] [address] [email or web address] .[email or web address] Primary Oncologist Radiation Oncology 08/19/19 Karely Ansari MD [address] [place] [address] Primary Oncologist Medical Oncology 08/19/19 12/04/19 Neal Sultana MD, MS [address] [place] [address] [email or web address] Primary Oncologist Surgical Oncology 08/19/19 Tere Keita, [address] [address] [email or web address] Balling Head Tender Oncology 09/19/19 03/13/25 Mirela Barnhart MD [address] [place] [address] [email or web address] .[email or web address] Medical Oncology 12/05/19 Andrei Dixon MD [address] [place] [address] [email or web address] Orthopedic Surgery 03/27/22 Denise Black PA-C [address] [place] [address] [email or web address] Physician Canvas Baster Jumpbasting 03/27/22 documented as of this encounter Additional Source Comments The information contained in this document represents components of the legal health record. It is not the complete legal health record.[facility]
--- OUTSIDE RECORDS SUMMARY | 2025-03-30 19:11 | XMS_ITS | Encounter Summary ---
Author Organization [facility] Address [address] [place] [address] Phone Care Team Providers Care Cell Phone Repair Technician Name Role Phone Qamar Garcia MD Unavailable Malachi Maloney MD Unavailable [phone] Sammie Govea MD Unavailable [phone] Avinash Chong MD Unavailable [phone] Qamar Garcia MD Primary Care Provider [phone] Sofia Amaya MD, MPH Unavailable [phone] Karely Ansari MD Unavailable Neal Sultana MD, MS Unavailable Tere Keita Unavailable Mirela Barnhart MD Unavailable Andrei Dixon MD Unavailable [phone] Denise Black PA-C Unavailable [phone] Unknown, Unknown Primary Care Provider Qamar Escamilla MD Primary Care Provider Encounter Details Date Type Department Care Team (Late st Contact Info) Description 01/31/2019 Ancillary Orders Virtual Department [address] [place] [address] Qamar Garcia MD [address] [place] [address] Social History Tobacco Use Types Packs/Day Years [...] st Contact Info) Description 09/07/2024 Procedure Pass [facility], [place] [address] [address] 09/07/2024 Procedure Pass [facility], [facility] [address] [address] 04/05/2025 11:00 AM EDT Office Visit [facility] [address] [place] [address], [address] [place] [address] Margarito Walker MD [address] [place] [address] 05/10/2025 11:05 AM EST Appointment [facility], [facility] [address] [address] Mirela Barnhart MD [address] [place] [address] [email or web address] 05/10/2025 12:10 PM EST Appointment [facility] [place] [facility] [place] [address] [facility] [address] [place] [address] Mirela Barnhart MD [address] [place] [address] [email or web address] 05/10/2025 3:00 PM EST Office Visit [facility], [facility] [address], 6th [place] [address] Mirela Barnhart MD [address] [place] [address] [email or web address] documented as of this encounter Visit Diagnoses Not on filedocumented in this encounter Additional Health Concerns Infection Onset Date Last Indicated Resolved Time CoV-Risk 01/13/2020 01/13/2020 01/13/2020 4:17 PM EDT CoV-Presumed 05/27/2022 05/27/2022 06/17/2022 3:51 AM EST CoV-Risk 09/22/2023 09/22/2023 09/22/2023 4:53 PM EDT COVID-19 09/22/2023 09/22/2023 10/13/2023 1:21 AM EDT documented as of this encounter Care Teams Cell Phone Repair Technician Relationship Specialty Start Date End Date Qamar Garcia MD [address] [place] [address] PCP - General Internal Medicine 10/14/18 03/26/22 Unknown, Unknown, MD PCP - General 04/08/22 07/22/22 Qamar Garcia MD [address] [place] [address] PCP - General Internal Medicine 07/23/22 Qamar Garcia MD [address] [place] [address] [place] [address] Primary Care Physician 05/06/17 Malachi Maloney MD [address] [place] [address], [facility] 301 [place] [address] Historical LMR Provider 04/23/17 07/13/21 Sammie Govea MD [address] [place] [address] Orthopedics & Sports Medicine, [place] [address] [email or web address] Historical LMR Provider 04/23/17 07/13/21 Avinash Chong MD [address] [place] [address] [email or web address] Historical LMR Provider 04/23/17 Sofia Amaya MD, MPH [address] [place] [address] [email or web address] .[email or web address] Primary Oncologist Radiation Oncology 08/19/19 Karely Ansari MD [address] [place] [address] Primary Oncologist Medical Oncology 08/19/19 12/04/19 Neal Sultana MD, MS [address] [place] [address] [email or web address] Primary Oncologist Surgical Oncology 08/19/19 Tere Keiat, [address] [address] [email or web address]@[email or web address] Agricultural Lender Oncology 09/19/19 03/13/25 Mirela Barnhart MD [address] [place] [address] [email or web address] .[facility] Medical Oncology 12/05/19 Andrei Dixon MD [address] [place] [address] [email or web address] Orthopedic Surgery 03/27/22 Denise Black PA-C [address] [place] [address] [email or web address] simone Physician Parachute Crown Sewer 03/27/22 documented as of this encounter Additional Source Comments The information contained in this document represents components of the legal health record. It is not the complete legal health record.[facility]
--- OUTSIDE RECORDS SUMMARY | 2025-03-30 19:11 | XMS_ITS | Encounter Summary ---
Author Organization [facility] Address [address] [place] [address] Phone Care Team Providers Care Bar Tacker Name Role Phone Qamar Garcia MD Unavailable [phone] Avinash Chong MD Unavailable [phone] Sofia Amaya MD, MPH Unavailable [phone] Neal Sultana MD, MS Unavailable Tere Keita SUSTAINABILITY EXECUTIVE DIRECTOR Unavailable [phone] Mirela Barnhart MD Unavailable [phone] Andrei Dixon MD Unavailable [phone] Denise BlackC Unavailable [phone] Qamar Garcia MD Primary Care Provider [phone] Encounter Details Date Type Department Care Team (Late st Contact Info) Description 07/23/2022 Transcribe Orders Virtual Department 30 [place] [address] Unknown, Unknown, Social History Tobacco Use Types Packs/Day Years [...] st Contact Info) Description 09/07/2024 Procedure Pass [facility], [place] [address] [address] 09/07/2024 Procedure Pass [facility], [facility] [address] [address] 04/05/2025 11:00 AM EDT Office Visit [facility] [address] [place] [address], [address] [address] Margarito Walker MD [address] [place] [address] 05/10/2025 11:05 AM EST Appointment [facility], [address] [address] Mirela Barnhart MD [address] [place] [address] [email or web address] 05/10/2025 12:10 PM EST Appointment [facility], [place] [address] [address] Mirela Barnhart MD [address] [place] [address] [email or web address] 05/10/2025 3:00 PM EST Office Visit [facility], [address] [facility], 6th [place] [address] Mirela Barnhart MD [address] [place] [address] [email or web address] [email or web address] documented as of this encounter Visit Diagnoses Not on filedocumented in this encounter Additional Health Concerns Infection Onset Date Last Indicated Resolved Time CoV-Risk 09/22/2023 09/22/2023 09/22/2023 4:53 PM EDT COVID-19 09/22/2023 09/22/2023 10/13/2023 1:21 AM EDT documented as of this encounter Care Teams Bar Tacker Relationship Specialty Start Date End Date Qamar Garcia MD [address] [place] [address] PCP - General Internal Medicine 07/23/22 Qamar Garcia MD [address] [place] [address] Primary Care Physician 05/06/17 Avinash Chong MD [address] [place] [address] [email or web address] Historical LMR Provider 04/23/17 Sofia Amaya MD, MPH [address] [place] [address] [email or web address] Primary Oncologist Radiation Oncology 08/19/19 Neal Sultana MD, MS [address] [place] [address] [email or web address] Primary Oncologist Surgical Oncology 08/19/19 Tere Keita, [facility] [address] [place] [address] [email or web address] Supervisor Rod Placing Oncology 09/19/19 03/13/25 Mirela Barnhart MD [address] [place] [address] [email or web address] Medical Oncology 12/05/19 Andrei Dixon MD [address] [place] [address], [address] [address] [email or web address] Orthopedic Surgery 03/27/22 Denise Black PA-C [address] [place] [address] [email or web address] simone Physician Financial Secretary 03/27/22 documented as of this encounter Additional Source Comments The information contained in this document represents components of the legal health record. It is not the complete legal health record.[facility]
--- OUTSIDE RECORDS SUMMARY | 2025-03-30 19:11 | XMS_ITS | Encounter Summary ---
Author Organization [facility] Address [address] [place] [address] Phone Care Team Providers Care Ram Press Operator Name Role Phone Qamar Garcia MD Unavailable [phone] Malachi Maloney MD Unavailable [phone] Sammie Govea MD Unavailable [phone] Avinash Chong MD Unavailable [phone] Qamar Garcia MD Primary Care Provider [phone] Sofia Amaya MD, MPH Unavailable [phone] Karely Ansari MD Unavailable Neal Sultana MD, MS Unavailable Tere Keita Unavailable Mirela Barnhart MD Unavailable Andrei Dixon MD Unavailable [phone] Denise Black PA-C Unavailable [phone] Unknown, Unknown Primary Care Provider Qamar Escamilla MD Primary Care Provider Encounter Details Date Type Department Care Team (Latest Contact Info) Description 01/31/2019 Transcribe Orders Virtual Department 30 [place] [address] Qamar Garcia MD [address] [place] [address] Thyroid nodule (Primary Dx) Social History Tobacco Use Types [...] st Contact Info) Description 09/07/2024 Procedure Pass [facility], [place] [address] [place] [address] [address] 09/07/2024 Procedure Pass [facility], [facility] [address] [address] 04/05/2025 11:00 AM EDT Office Visit [facility] [address] [place] [address], [address] [address] Margarito Walker MD [address] [place] [address] 05/10/2025 11:05 AM EST Appointment [facility], [facility] [address] [address] Mirela Barnhart MD [address] [place] [address] [email or web address] 05/10/2025 12:10 PM EST Appointment [facility] [place] 300 [facility] 3rd [place] [address] Mirela Barnhart MD [address] [place] [address] [email or web address] 05/10/2025 3:00 PM EST Office Visit [facility], [address], 6th [place] [address] Mirela Barnhart MD [address] [place] [address] [email or web address] documented as of this encounter Results * US Thyroid Gland (02/03/2019 11:42 AM EDT) Anatomical Region Laterality Modality Neck, Head, Chest Ultrasound 02/03/2019 12:1 0 PM EDT Impressions 02/03/2019 12:17 PM EDT Bilateral hypoechoic nodules. The largest nodule in the inferior left thyroid lobe and the slightly smaller nodule in the upper left thyroid lobe are both of sufficient size that biopsy could be considered. The hypoechoic solid thyroid nodules corresponding to a TR level 4. S/S: Palpable left thyroid nodule POS - [id number] Narrative 02/03/2019 12:17 PM EDT COMPARISON: None FINDINGS: The right thyroid lobe measures 1.7 x 3.9 x 2.8 cm in size while the left thyroid lobe measures 1.9 x 4.7 x 2.5 cm. On the right there are 2 solid nodules noted. In the upper pole there is a 6 x 5 x 5 mm mildly hypoechoic nodule and in the mid right thyroid lobe there is a 1.0 x 1.2 x 1.1 cm hypoechoic nodule. 3 small 2 to 3 mm hypoechoic nodules are also noted on the right in the lower pole. On the left there are 2 solid predominantly hypoechoic nodules. In the upper pole is 1.4 x 1.8 x 1.3 cm nodule with some cystic spaces in the lower pole there is a 2.2 x 1.8 x 1.8 cm hypoechoic nodule. A mid left thyroid 5 x 7 x 6 mm cystic nodule is also seen. Procedure Note Kobe Lay MD - 02/03/2019 COMPARISON: None FINDINGS: The right thyroid lobe measures 1.7 x 3.9 x 2.8 cm in size while the leftthyroid lobe measures 1.9 x 4.7 x 2.5 cm. On the right there are 2 solid nodules noted. In the upper pole there is a6 x 5 x 5 mm mildly hypoechoic nodule and in the mid right thyroid lobethere is a 1.0 x 1.2 x 1.1 cm hypoechoic nodule. 3 small 2 to 3 mmhypoechoic nodules are also noted on the right in the lower pole. On the left there are 2 solid predominantly hypoechoic nodules. In theupper pole is 1.4 x 1.8 x 1.3 cm nodule with some cystic spaces in thelower pole there is a 2.2 x 1.8 x 1.8 cm hypoechoic nodule. A mid leftthyroid 5 x 7 x 6 mm cystic nodule is also seen. IMPRESSION: Bilateral hypoechoic nodules. The largest nodule in the inferior leftthyroid lobe and the slightly smaller nodule in the upper left thyroidlobe are both of sufficient size that biopsy could be considered. Thehypoechoic solid thyroid nodules corresponding to a TR level 4. S/S: Palpable left thyroid nodule POS - [id number] Qamar Garcia MD [facility] THYROID Final Result documented in this encounter Visit Diagnoses Diagnosis Thyroid nodule- Primary Nontoxic uninodular goiter Thyroid nodule Nontoxic uninodular goiter documented in this encounter Additional Health Concerns Infection Onset Date Last Indicated Resolved Time CoV-Risk 01/13/2020 01/13/2020 01/13/2020 4:17 PM EDT CoV-Presumed 05/27/2022 05/27/2022 06/17/2022 3:51 AM EST CoV-Risk 09/22/2023 09/22/2023 09/22/2023 4:53 PM EDT COVID-19 09/22/2023 09/22/2023 10/13/2023 1:2 1 AM EDT documented as of this encounter Care Teams Ram Press Operator Relationship Specialty Start Date End Date Qamar Garcia MD [address] [place] [address] PCP - General Internal Medicine 10/14/18 03/26/22 Unknown, Unknown, MD PCP - General 04/08/22 07/22/22 Qamar Garcia MD [address] [place] [address] PCP - General Internal Medicine 07/23/22 Qamar Garcia MD [address] [place] [address] Primary Care Physician 05/06/17 Malachi Maloney MD [address] [place] [address], [facility] 301 [place] [address] [email or web address] Historical LMR Provider 04/23/17 07/13/21 Sammie Govea MD [address] [place] [address] Orthopedics & Sports Medicine, [facility] [place] [address] [email or web address] Historical LMR Provider 04/23/17 07/13/21 Avinash Chong MD [address] [place] [address] [email or web address] Historical LMR Provider 04/23/17 Sofia Amaya MD, MPH [address] [place] [address] [email or web address] .[facility] Primary Oncologist Radiation Oncology 08/19/19 Karely Ansari MD [address] [place] [address] Primary Oncologist Medical Oncology 08/19/19 12/04/19 Neal Sultana MD, MS [address] [place] [address] [email or web address] Primary Oncologist Surgical Oncology 08/19/19 Tere Keita, [address] [address] [email or web address] Ethnology Teacher Oncology 09/19/19 03/13/25 Mirela Barnhart MD [address] [place] [address] [email or web address] Medical Oncology 12/05/19 Andrei Dixon MD [address] [place] [address] [email or web address] Orthopedic Surgery 03/27/22 Denise Black PA-C [address] [place] [address] [email or web address] Physician Beauty Culturist Apprentice 03/27/22 documented as of this encounter Additional Source Comments The information contained in this document represents components of the legal health record. It is not the complete legal health record.[facility]
--- OUTSIDE RECORDS SUMMARY | 2025-03-30 19:11 | XMS_ITS | Encounter Summary ---
Author Organization [facility] Address [address] [place] [address] [place] [address] Phone Care Team Providers Care Bagger And Stock Handler Helper Name Role Phone Qamar Garcia MD Unavailable [phone] Avinash Chong MD Unavailable [phone] Sofia Amaya MD, MPH Unavailable [phone] Neal Sultana MD, MS Unavailable Tere Keita [facility] Unavailable [phone] Mirela Barnhart MD Unavailable [phone] Andrei Dixon MD Unavailable [phone] Denise Black-C Unavailable [phone] Qamar Garcia MD Primary Care Provider [phone] Encounter Details Date Type Department Care Team (Late st Contact Info) Description 08/06/2022 Procedure Pass [facility], [place] [address] [address] Social History Tobacco Use Types Packs/Day Years [...] st Contact Info) Description 09/07/2024 Procedure Pass [facility], [place] [address] [address] 09/07/2024 Procedure Pass [address] [address] 04/05/2025 11:00 AM EDT Office Visit [facility] [address] [place] [address], [address] [address] Margarito Walker MD [address] [place] [address] 05/10/2025 11:05 AM EST Appointment [facility], [address] [address] Mirela Barnhart MD [address] [place] [address] [email or web address] 05/10/2025 12:10 PM EST Appointment [facility], [place] [address] [address] Mirela Barnhart MD [address] [place] [address] [email or web address] 05/10/2025 3:00 PM EST Office Visit [facility], [place] [address] [facility], 6th [place] [address] Mirela Barnhart MD [address] [place] [address] [email or web address] documented as of this encounter Visit Diagnoses Not on filedocumented in this encounter Additional Health Concerns Infection Onset Date Last Indicated Resolved Time CoV-Risk 09/22/2023 09/22/2023 09/22/2023 4:53 PM EDT COVID-19 09/22/2023 09/22/2023 10/13/2023 1:21 AM EDT documented as of this encounter Care Teams Bagger And Stock Handler Helper Relationship Specialty Start Date End Date Qamar Garcia MD [address] [place] [address] PCP - General Internal Medicine 07/23/22 Qamar Garcia MD [address] [place] [address] Primary Care Physician 05/06/17 Avinash Chong MD [address] [place] [address] [email or web address] Historical LMR Provider 04/23/17 Sofia Amaya MD, MPH [address] [place] [address] [email or web address] Primary Oncologist Radiation Oncology 08/19/19 Neal Sultana MD, MS [address] [place] [address] [email or web address] Primary Oncologist Surgical Oncology 08/19/19 Tere Keita, [facility] [address] [place] [address] [email or web address]@[facility] Salesperson Men'S Furnishings Oncology 09/19/19 03/13/25 Mirela Barnhart MD [address] [place] [address] [email or web address] Medical Oncology 12/05/19 Andrei Dixon MD [address] [place] [address], [address] [place] [address] [email or web address] Orthopedic Surgery 03/27/22 Denise Black PA-C [address] [place] [address] [email or web address]. simone Physician Remote Sensing Advisor 03/27/22 documented as of this encounter Additional Source Comments The information contained in this document represents components of the legal health record. It is not the complete legal health record.[facility]
--- OUTSIDE RECORDS SUMMARY | 2025-03-30 19:11 | XMS_ITS | Encounter Summary ---
Author Organization [facility] Address [address] [place] [address] Phone Care Team Providers Care Health Information Director Name Role Phone Qamar Garcia MD Unavailable Malachi Maloney MD Unavailable [phone] Sammie Govea MD Unavailable Avinash Chong MD Unavailable [phone] Qamar Garcia MD Primary Care Provider Miguelangel Reynoso MD Primary Care Provider Qamar Garcia MD Primary Care Provider Sofia Amaya MD, MPH Unavailable Karely Ansari MD Unavailable [phone] Neal Sultana MD, MS Unavailable Tere Keita Unavailable [phone] Mirela Barnhart MD Unavailable [phone] Andrei Dixon MD Unavailable [phone] Denise Black PA-C Unavailable [phone] Unknown, Unknown Primary Care Provider Qamar Escamilla MD Primary Care Provider [phone] Encounter Details Date Type Department Care Team (Late Contact Info) Description 11/26/2017 Procedure Pass [facility] [address] [place] [address] Social History Tobacco Use Types Packs/Day Years [...] (Late Contact Info) Description 09/07/2024 Procedure Pass [facility] [place] [address] [address] 09/07/2024 Procedure Pass [facility], [facility] [address] [address] 04/05/2025 11:00 AM EDT Office Visit [facility] [address] [place] [address], [address] [place] [address] Margarito Walker MD [address] [place] [address] 05/10/2025 11:05 AM EST Appointment [facility], [facility] [address] [address] Mirela Barnhart MD [address] [place] [address] [email or web address] 05/10/2025 12:10 PM EST Appointment [facility] [place], [place] 300 [facility] 3rd [place] [address] Mirela Barnhart MD [address] [place] [address] [email or web address] 05/10/2025 3:00 PM EST Office Visit [facility], [facility] [address], 6th [place] [address] Mirela Barnhart MD [address] [place] [address] [email or web address] documented as of this encounter Visit Diagnoses Not on filedocumented in this encounter Additional Health Concerns Infection Onset Date Last Indicated Resolved Time CoV-Risk 01/13/2020 01/13/2020 01/13/2020 4:17 PM EDT CoV-Presumed 05/27/2022 05/27/2022 06/17/2022 3:51 AM EST CoV-Risk 09/22/2023 09/22/2023 09/22/2023 4:53 PM EDT COVID-19 09/22/2023 09/22/2023 10/13/2023 1:21 AM EDT documented as of this encounter Care Teams Health Information Director Relationship Specialty Start Date End Date Qamar Garcia MD [address] [place] [address] PCP - General Internal Medicine 10/12/17 08/23/18 Miguelangel Reynoso MD [address] [place] [address] 800 [place] [address] [email or web address] PCP - General Cardiology 08/24/18 10/13/18 Qamar Garcia MD [address] [place] [address] PCP - General Internal Medicine 10/14/18 03/26/22 Unknown, Unknown, MD PCP - General 04/08/22 07/22/22 Qamar Garcia MD [address] [place] [address] PCP - General Internal Medicine 07/23/22 Qamar Garcia MD [address] [place] [address] Primary Care Physician 05/06/17 Malachi Maloney MD [address] [place] [address] Historical LMR Provider 04/23/17 07/13/21 Sammie Govea MD [address] [place] [address] [facility], [place] [address] [email or web address] Historical LMR Provider 04/23/17 07/13/21 Avinash Chong MD [address] [place] [address] [email or web address] Historical LMR Provider 04/23/17 Sofia Amaya MD, MPH [address] [place] [address] [email or web address] .[email or web address] Primary Oncologist Radiation Oncology 08/19/19 Karely Ansari MD [address] [place] [address] Primary Oncologist Medical Oncology 08/19/19 12/04/19 Neal Sultana MD, MS [address] [place] [address] [email or web address] Primary Oncologist Surgical Oncology 08/19/19 Tere Keita, [address] [address] [email or web address] Retail Pos Specialist Oncology 09/19/19 03/13/25 Mirela Barnhart MD [address] [place] [address] [email or web address] .[facility] Medical Oncology 12/05/19 Andrei Dixon MD [address] [place] [address] [email or web address] Orthopedic Surgery 03/27/22 Denise Black PA-C [address] [place] [address] [email or web address] Physician Field Handyman 03/27/22 documented as of this encounter Additional Source Comments The information contained in this document represents components of the legal health record. It is not the complete legal health record.[facility]
--- OUTSIDE RECORDS SUMMARY | 2025-03-30 19:11 | XMS_ITS | Encounter Summary ---
Author Organization [facility] Address [address] [place] [address] Phone Care Team Providers Care Cook Pickled Meat Name Role Phone Qamar Garcia MD Unavailable Malachi Maloney MD Unavailable [phone] Sammie Govea MD Unavailable [phone] Avinash Chong MD Unavailable Qamar Garcia MD Primary Care Provider [phone] Miguelangel Reynoso MD Primary Care Provider Qamar Garcia MD Primary Care Provider Sofia Amaya MD, MPH Unavailable Karely Ansari MD Unavailable Neal Sultana MD, MS Unavailable Tere Keita Unavailable [phone] Mirela Barnhart MD Unavailable [phone] Andrei Dixon MD Unavailable [phone] Denise Black PA-C Unavailable [phone] Unknown, Unknown Primary Care Provider Qamar Escamilla MD Primary Care Provider [phone] Encounter Details Date Type Department Care Team (Late Contact Info) Description 08/06/2018 Ancillary Orders [facility] [address] [facility] [address] [place] [address] System, Provider Not In, PhD Partners [address] [address] Social History Tobacco Use Types Packs/Day Years [...] st Contact Info) Description 09/07/2024 Procedure Pass [facility], [place] 300 [facility] 3rd [place] [address] 09/07/2024 Procedure Pass [facility], [facility] 300 [facility] 4th [place] [address] 04/05/2025 11:00 AM EDT Office Visit [facility] [address] [place] [address] 3rd [facility], [address] [place] [address] Margarito Walker MD [address] [place] [address] 05/10/2025 11:05 AM EST Appointment [facility], [facility] [address] [address] Mirela Barnhart MD [address] [place] [address] [email or web address] 05/10/2025 12:10 PM EST Appointment [facility] [place] [place] 300 [facility] 3rd [place] [address] Mirela Barnhart MD [address] [place] [address] Kati@[email or web address] 05/10/2025 3:00 PM EST Office Visit [facility], [address], 6th [place] [address] Mirela Barnhart MD [address] [place] [address] [email or web address] documented as of this encounter Results * Mammogram Outside (No Interpretation) (06/15/2018 12:15 AM EST) 08/12/2018 4:23 PM EST Narrative [facility] - 08/06/2018 9:38 AM EST This study is for PACS storage only and not for interpretation. Procedure Note 08/06/2018 This study is for PACS storage only and not for interpretation. us Provider Not In System PhD IMG OUTSIDE IMAGING W /OUT INTERPRETATION Final Result [facility] [address] [facility] [place] [address] documented in this encounter Visit Diagnoses Not on filedocumented in this encounter Additional Health Concerns Infection Onset Date Last Indicated Resolved Time CoV-Risk 01/13/2020 01/13/2020 01/13/2020 4:17 PM EDT CoV-Presumed 05/27/2022 05/27/2022 06/17/2022 3:51 AM EST CoV-Risk 09/22/2023 09/22/2023 09/22/2023 4:53 PM EDT COVID-19 09/22/2023 09/22/2023 10/13/2023 1:21 AM EDT documented as of this encounter Care Teams Cook Pickled Meat Relationship Specialty Start Date End Date Qamar Garcia MD [address] [place] [address] PCP - General Internal Medicine 10/12/17 08/23/18 Miguelangel Reynoso MD [address] [place] [address] 800 [place] [address] [email or web address] PCP - General Cardiology 08/24/18 10/13/18 Qamar Garcia MD [address] [place] [address] PCP - General Internal Medicine 10/14/18 03/26/22 Unknown, Unknown, MD PCP - General 04/08/22 07/22/22 Qamar Garcia MD [address] [place] [address] PCP - General Internal Medicine 07/23/22 Qamar Garcia MD [address] [place] [address] Primary Care Physician 05/06/17 Malachi Maloney MD [address] [place] [address], [address] [place] [address] Historical LMR Provider 04/23/17 07/13/21 Sammie Govea MD [address] [place] [address] [facility] [place] [address] [email or web address] Historical LMR Provider 04/23/17 07/13/21 Avinash Chong MD [address] [place] [address] [email or web address] Historical LMR Provider 04/23/17 Sofia Amaya MD, MPH [address] [place] [address] [email or web address] Primary Oncologist Radiation Oncology 08/19/19 Karely Ansari MD [address] [place] [address] Primary Oncologist Medical Oncology 08/19/19 12/04/19 Neal Sultana MD, MS [address] [place] [address] [email or web address] Primary Oncologist Surgical Oncology 08/19/19 Tere Keita, [address] [address] [email or web address] Ibm Mainframe Developer Oncology 09/19/19 03/13/25 Mirela Barnhart MD [address] [place] [address] [email or web address] Medical Oncology 12/05/19 Andrei Dixon MD [address] [place] [address], [address] [place] [address] [email or web address] Orthopedic Surgery 03/27/22 Denise Black PA-C [address] [place] [address] [address] [place] [phone] [email or web address] Physician Bus Transportation Manager 03/27/22 documented as of this encounter Additional Source Comments The information contained in this document represents components of the legal health record. It is not the complete legal health record.[facility]
--- OUTSIDE RECORDS SUMMARY | 2025-03-30 19:11 | XMS_ITS | Encounter Summary ---
Author Organization [facility] Address [address] [place] [address] [place] [address] Phone Care Team Providers Care Horse Racing Analyst Name Role Phone Qamar Garcia MD Unavailable [phone] Avinash Chong MD Unavailable [phone] Sofia Amaya MD, MPH Unavailable [phone] Neal Sultana MD, MS Unavailable Tere Keita [facility] Unavailable [phone] Mirela Barnhart MD Unavailable [phone] Andrei Dixon MD Unavailable [phone] Denise Black-C Unavailable [phone] Qamar Garcia MD Primary Care Provider [phone] Encounter Details Date Type Department Care Team (Late st Contact Info) Description 08/06/2022 Procedure Pass [facility] [place] [address] [address] Social History Tobacco Use Types [...] st Contact Info) Description 09/07/2024 Procedure Pass [facility], [place] [address] [address] 09/07/2024 Procedure Pass [address] [address] 04/05/2025 11:00 AM EDT Office Visit [facility] [address] [place] [address], [address] [address] Margarito Walker MD [address] [place] [address] 05/10/2025 11:05 AM EST Appointment [facility], [address] [address] Mirela Barnhart MD [address] [place] [address] [email or web address] 05/10/2025 12:10 PM EST Appointment [facility], [place] [address] [address] Mirela Barnhart MD [address] [place] [address] [email or web address] 05/10/2025 3:00 PM EST Office Visit [facility], [place] [address] [facility], 6th [place] [address] Mirela Barnhart MD [address] [place] [address] [email or web address] documented as of this encounter Visit Diagnoses Not on filedocumented in this encounter Additional Health Concerns Infection Onset Date Last Indicated Resolved Time CoV-Risk 09/22/2023 09/22/2023 09/22/2023 4:53 PM EDT COVID-19 09/22/2023 09/22/2023 10/13/2023 1:21 AM EDT documented as of this encounter Care Teams Horse Racing Analyst Relationship Specialty Start Date End Date Qamar Garcia MD [address] [place] [address] PCP - General Internal Medicine 07/23/22 Qamar Garcia MD [address] [place] [address] Primary Care Physician 05/06/17 Avinash Chong MD [address] [place] [address] [email or web address] Historical LMR Provider 04/23/17 Sofia Amaya MD, MPH [address] [place] [address] [email or web address] Primary Oncologist Radiation Oncology 08/19/19 Neal Sultana MD, MS [address] [place] [address] [email or web address] Primary Oncologist Surgical Oncology 08/19/19 Tere Keita, [facility] 35 [place] [address] [email or web address]@[email or web address] Tailings Man Oncology 09/19/19 03/13/25 Mirela Barnhart MD [address] [place] [address] [email or web address] Medical Oncology 12/05/19 Andrei Dixon MD [address] [place] [address], [address] [place] [address] [email or web address] Orthopedic Surgery 03/27/22 Denise Black PA-C [address] [place] [address] [email or web address] Physician Loom Inspector 03/27/22 documented as of this encounter Additional Source Comments The information contained in this document represents components of the legal health record. It is not the complete legal health record.[facility]
--- OUTSIDE RECORDS SUMMARY | 2025-03-30 19:11 | XMS_ITS | Encounter Summary ---
Author Organization [facility] Address [address] [place] [address] Phone Care Team Providers Care Laboratory Helper Name Role Phone Qamar Garcia MD Unavailable Malachi Maloney MD Unavailable [phone] Sammie Govea MD Unavailable Avinash Chong MD Unavailable Qamar Garcia MD Primary Care Provider [phone] Sofia Amaya MD, MPH Unavailable [phone] Karely Ansari MD Unavailable Neal Sultana MD, MS Unavailable Tere Keita Unavailable [phone] Mirela Barnhart MD Unavailable [phone] Andrei Dixon MD Unavailable [phone] Denise Black PA-C Unavailable [phone] Unknown, Unknown Primary Care Provider Qamar Escamilla MD Primary Care Provider [phone] Encounter Details Date Type Department Care Team (Late st Contact Info) Description 12/24/2018 Transcribe Orders Virtual Department 30 [place] [address] Qamar Garcia MD [address] [place] [address] Bruit (Primary Dx) Social History Tobacco Use Types [...] (Late Contact Info) Description 09/07/2024 Procedure Pass [facility] [address] [address] 09/07/2024 Procedure Pass [facility], [facility] [address] [address] 04/05/2025 11:00 AM EDT Office Visit [facility] [address] [place] [address], [address] [address] Maragrito Walker MD [address] [place] [address] 05/10/2025 11:05 AM EST Appointment [facility], [facility] [address] [address] Mirela Barnhart MD [address] [place] [address] [email or web address] 05/10/2025 12:10 PM EST Appointment [facility] [place] [place] 300 [facility] 3rd [place] [address] Mirela Barnhart MD [address] [place] [address] [email or web address]@[email or web address] 05/10/2025 3:00 PM EST Office Visit [facility], [facility] [address] [facility], 6th [place] [address] Mirela Barnhart MD [address] [place] [address] [email or web address] documented as of this encounter Results * US Carotid Duplex (Bilateral) (12/28/2018 4:30 PM EDT) Anatomical Region Laterality Modality Heart, Thoracic Vasculature, Neck Ultrasound 12/28/2018 4:32 PM EDT Impressions 12/28/2018 4:35 PM EDT No evidence of carotid artery stenosis. Incidental thyroid nodules. Some of these are large enough to warrant formal evaluation via dedicated ultrasound. POS - [id number] Narrative 12/28/2018 4:35 PM EDT COMPARISON:None CAROTID ULTRASOUND FINDINGS: RIGHT: Peak external carotid artery: 82 cm/sec Peak vertebral: 40 cm/sec and antegrade Peak common carotid artery: 94 cm/sec Peak internal carotid artery: 87 cm/sec Carotid artery morphology: Tortuous ICAs with posterior course proximally. There may be some intimal thickening but no evidence of stenosis. Peak systolic ratio is normal LEFT: Peak external carotid artery: 87 cm/sec Peak vertebral: 56 cm/sec and antegrade Peak common carotid artery: 82 cm/sec Peak internal carotid artery: 83 cm/sec Carotid artery morphology: Posterior course. No evidence of stenosis. Peak systolic ratio is normal. Any stenosis measurement is relative to the distal ICA diameters. Note is made of a multinodular thyroid gland. No calcifications seen within the nodules. Formal thyroid ultrasound is suggested as the largest lesion here measures up to 2.3 cm. Procedure Note Elyse Strauss MD - 12/28/2018 COMPARISON:None CAROTID ULTRASOUND FINDINGS: RIGHT: Peak external carotid artery: 82 cm/sec Peak vertebral: 40 cm/sec and antegrade Peak common carotid artery: 94 cm/sec Peak internal carotid artery: 87 cm/sec Carotid artery morphology: Tortuous ICAs with posterior course proximally.There may be some intimal thickening but no evidence of stenosis. Peak systolic ratio is normal LEFT: Peak external carotid artery: 87 cm/sec Peak vertebral: 56 cm/sec and antegrade Peak common carotid artery: 82 cm/sec Peak internal carotid artery: 83 cm/sec Carotid artery morphology: Posterior course. No evidence of stenosis. Peak systolic ratio is normal. Any stenosis measurement is relative to the distal ICA diameters. Note is made of a multinodular thyroid gland. No calcifications seenwithin the nodules. Formal thyroid ultrasound is suggested as the largestlesion here measures up to 2.3 cm. IMPRESSION: No evidence of carotid artery stenosis. Incidental thyroid nodules. Someof these are large enough to warrant formal evaluation via dedicatedultrasound. POS - [id number] us Qamar Garcia MD US NEUROVASCULAR Final Re sult documented in this encounter Visit Diagnoses Diagnosis Bruit- Primary Other symptoms involving cardiovascular system Bruit Other symptoms involving cardiovascular system documented in this encounter Additional Health Concerns Infection Onset Date Last Indicated Resolved Time CoV-Risk 01/13/2020 01/13/2020 01/13/2020 4:17 PM EDT CoV-Presumed 05/27/2022 05/27/2022 06/17/2022 3:51 AM EST CoV-Risk 09/22/2023 09/22/2023 09/22/2023 4:53 PM EDT COVID-19 09/22/2023 09/22/2023 10/13/2023 1:21 AM EDT documented as of this encounter Care Teams Laboratory Helper Relationship Specialty Start Date End Date Qamar Garcia MD [address] [place] [address] PCP - General Internal Medicine 10/14/18 03/26/22 Unknown, Unknown, MD PCP - General 04/08/22 07/22/22 Qamar Garcia MD [address] [place] [address] PCP - General Internal Medicine 07/23/22 Qamar Garcia MD [address] [place] [address] Primary Care Physician 05/06/17 Malachi Maloney MD [address] [place] [address] Historical LMR Provider 04/23/17 07/13/21 Sammie Govea MD [address] [place] [address] [facility] [place], [place] [address] [email or web address] Historical LMR Provider 04/23/17 07/13/21 Avinash Chong MD [address] [place] [address] [email or web address] Historical LMR Provider 04/23/17 Sofia Amaya MD, MPH [address] [place] [address] [email or web address] .[facility] Primary Oncologist Radiation Oncology 08/19/19 Karely Anasri MD [address] [place] [address] Primary Oncologist Medical Oncology 08/19/19 12/04/19 Neal Sultana MD, MS [address] [place] [address] [email or web address] Primary Oncologist Surgical Oncology 08/19/19 Tere Keita, [address] [address] [email or web address]@[email or web address] Butter Maker Oncology 09/19/19 03/13/25 Mirela Barnhart MD [address] [place] [address] [email or web address] Medical Oncology 12/05/19 Andrei Dixon MD [address] [place] [address] [email or web address] Orthopedic Surgery 03/27/22 Denise Black PA-C [address] [place] [address] [email or web address] Physician Brake Repairer Railroad 03/27/22 documented as of this encounter Additional Source Comments The information contained in this document represents components of the legal health record. It is not the complete legal health record.[facility]
--- OUTSIDE RECORDS SUMMARY | 2025-03-30 19:11 | XMS_ITS | Encounter Summary ---
Author Organization [facility] Address [address] [place] [address] Phone Care Team Providers Care Desk Operator Name Role Phone Qamar Garcia MD Unavailable [phone] Malachi Maloney MD Unavailable [phone] Sammie Govea MD Unavailable [phone] Avinash Chong MD Unavailable [phone] Qamar Garcia MD Primary Care Provider [phone] Sofia Amaya MD, MPH Unavailable [phone] Neal Sultana MD, MS Unavailable Tere Keita Unavailable Mirela Barnhart MD Unavailable [phone] Andrei Dixon MD Unavailable [phone] Denise Black PA-C Unavailable [phone] Unknown, Unknown Primary Care Provider Qamar Escamilla MD Primary Care Provider [phone] Reason for Referral * MRI/CAT Scan - Closed Specialty Diagnoses / Procedures Referred By Bam arellano Referred To Contact Radiology Diagnoses Right knee pain, unspecified chronicity Procedures MRI Knee (Right) Qamar Garcia MD Phone: tel: fax: Referral ID Status Reason Start Date Expiration Date Visits Re quested Visits Authorized [id number] Closed 02/01/2021 02/01/2022 1 1 Encounter Details Date Type Department Care Team (Latest Contact Info) Description 02/01/2021 Transcribe Orders Virtual Department 30 [place] [address] Qamar Garcia MD [address] [place] [address] Right knee pain, unspecified chronicity (Primary Dx) Social History Tobacco Use Types [...] st Contact Info) Description 09/07/2024 Procedure Pass [facility], [place] [address] [facility] 3rd [place] [address] 09/07/2024 Procedure Pass [facility], [facility] [address] [facility] [address]th [place] [address] 04/05/2025 11:00 AM EDT Office Visit [facility] [address] [place] [address] 3rd [facility], [address] [place] [address] Margarito Walker MD [address] [place] [address] 05/10/2025 11:05 AM EST Appointment [facility], MRI [address] [facility] [address]th [place] [address] Mirela Barnhart MD [address] [place] [address] [email or web address] 05/10/2025 12:10 PM EST Appointment [facility], [place] [address] [facility] [address] [place] [address] Mirela Barnhart MD [address] [place] [address] [email or web address] 05/10/2025 3:00 PM EST [facility], [address], [address]th [place] [address] Mirela Barnhart MD [address] [place] [address] [email or web address] documented as of this encounter Results * MRI KNEE WITHOUT CONTRAST (RIGHT) (02/18/2021 5:56 PM EDT) Anatomical Region Laterality Modality Knee Right Magnetic Resonan ce 02/18/2021 6:23 PM EDT Impressions 02/18/2021 6:33 PM EDT 1. Moderate-severe degenerative changes laterally. More mild degenerative changes medially at the patellofemoral compartment. 2. Severe trifurcation of the lateral meniscus likely due to degeneration and chronic tear. Complex tear of the body of the medial meniscus extending to the posterior horn. 3. Findings consistent with a grade 1 sprain of the MCL in the correct clinical setting. POS - [id number] Narrative 02/18/2021 6:33 PM EDT HISTORY: New lateral knee pain. COMPARISON: None. TECHNIQUE: Exam performed on a 1.5 Rabia high-field MRI scanner. Axial proton density with fat suppression, coronal proton density and proton density with fat suppression, sagittal T1, oblique sagittal proton density and proton density with fat suppression parallel to the plane of the ACL sequences were obtained. FINDINGS: Ligaments: The cruciate ligaments are intact. The MCL is intact. There is edema medial and lateral to the MCL. The lateral collateral ligamentous complex is intact. Menisci: Severe trifurcation of the lateral meniscus, particularly the body. Complex tear of the body of the medial meniscus extending to the posterior horn. Tendons: The extensor tendon is intact. Cartilage: Very severe loss of articular cartilage the lateral compartment. Moderate loss of articular cartilage at the medial compartment. Mild diffuse loss of the patella cartilage. Bones: Mild T2 hyperintense signal within the subchondral bone of the lateral femoral condyle and lateral tibial plateau. No evidence of fractures. Soft tissues: No evidence of soft tissue masses. Joint: Moderate size joint effusion. Evidence of severe joint space narrowing laterally and, to a lesser degree medially. Marginal spurring, most prominent laterally. Spurring of the tibial spines. Procedure Note Estevan Carlos MD - 02/18/2021 HISTORY: New lateral knee pain. COMPARISON: None. TECHNIQUE: Exam performed on a 1.5 Rabia high-field MRI scanner. Axialproton density with fat suppression, coronal proton density and protondensity with fat suppression, sagittal T1, oblique sagittal proton densityand proton density with fat suppression parallel to the plane of the ACLsequences were obtained. FINDINGS: Ligaments: The cruciate ligaments are intact. The MCL is intact. There isedema medial and lateral to the MCL. The lateral collateral ligamentouscomplex is intact. Menisci: Severe trifurcation of the lateral meniscus, particularly thebody. Complex tear of the body of the medial meniscus extending to theposterior horn. Tendons: The extensor tendon is intact. Cartilage: Very severe loss of articular cartilage the lateralcompartment. Moderate loss of articular cartilage at the medialcompartment. Mild diffuse loss of the patella cartilage. Bones: Mild T2 hyperintense signal within the subchondral bone of thelateral femoral condyle and lateral tibial plateau. No evidence offractures. Soft tissues: No evidence of soft tissue masses. Joint: Moderate size joint effusion. Evidence of severe joint spacenarrowing laterally and, to a lesser degree medially. Marginal spurring,most prominent laterally. Spurring of the tibial spines. IMPRESSION: 1. Moderate-severe degenerative changes laterally. More mild degenerativechanges medially at the patellofemoral compartment. 2. Severe trifurcation of the lateral meniscus likely due to degenerationand chronic tear. Complex tear of the body of the medial meniscusextending to the posterior horn. 3. Findings consistent with a grade 1 sprain of the MCL in the correctclinical setting. POS - [id number] Qamar Garcia MD IMG MR EXTREMITY Final Resul t documented in this encounter Visit Diagnoses Diagnosis Right knee pain, unspecified chronicity- Primary Right knee pain, unspecified chronicity documented in this encounter Additional Health Concerns Infection Onset Date Last Indicated Resolved Time CoV-Presumed 05/27/2022 05/27/2022 06/17/2022 3:51 AM EST CoV-Risk 09/22/2023 09/22/2023 09/22/2023 4:53 PM EDT COVID-19 09/22/2023 09/22/2023 10/13/2023 1:21 AM EDT documented as of this encounter Care Teams Desk Operator Relationship Specialty Start Date End Date Qamar Garcia MD [address] [place] [address] PCP - General Internal Medicine 10/14/18 03/26/22 Unknown, Unknown, PCP - General 04/08/22 07/22/22 Qamar Garcia MD [address] [place] [address] PCP - General Internal Medicine 07/23/22 Qamar Garcia MD [address] [place] [address] Primary Care Physician 05/06/17 Malachi Maloney MD [address] [place] [address], [address] [place] [address] [email or web address] Historical LMR Provider 04/23/17 07/13/21 Sammie Govea MD [address] [place] [address] Orthopedics & Sports Medicine, [place] [address] [email or web address] Historical LMR Provider 04/23/17 07/13/21 Avinash Chong MD [address] [place] [address] [email or web address] Historical LMR Provider 04/23/17 Sofia Amaya MD, MPH [address] [place] [address] [email or web address] Primary Oncologist Radiation Oncology 08/19/19 Neal Sultana MD, MS [address] [place] [address] [email or web address] Primary Oncologist Surgical Oncology 08/19/19 Tere Keita, [facility] [address] [place] [address] [email or web address] Associate Store Leader Oncology 09/19/19 03/13/25 Mirela Barnhart MD [address] [place] [address] [email or web address] Medical Oncology 12/05/19 Andrei Dixon MD [address] [place] [address], [address] [place] [address] [email or web address] Orthopedic Surgery 03/27/22 Denise Black PA-C [address] [place] [address] [email or web address] Physician Floor Layer Helper 03/27/22 documented as of this encounter Additional Source Comments The information contained in this document represents components of the legal health record. It is not the complete legal health record.[facility]
--- OUTSIDE RECORDS SUMMARY | 2025-03-30 19:11 | XMS_ITS | Encounter Summary ---
Author Organization [facility] Address [address] [place] [address] Phone Care Team Providers Care Dry Roller Name Role Phone Qamar Garcia MD Unavailable Avinash Chong MD Unavailable [phone] Sofia Amaya MD, MPH Unavailable [phone] Neal Sultana MD, MS Unavailable Tere Keita [facility] Unavailable [phone] Mirela Barnhart MD Unavailable [phone] Andrei Dixon MD Unavailable [phone] Denise Black-C Unavailable [phone] Qamar Garcia MD Primary Care Provider [phone] Encounter Details Date Type Department Care Team (Latest Contact Info) Description 08/07/2022 Transcribe Orders Virtual Department 30 [place] [address] Carol Ramos PA [address] [place] [address] [id number] Epigastric abdominal pain (Primary Dx); RUQ abdominal pain Social History Tobacco Use Types Packs/Day Years [...] st Contact Info) Description 09/07/2024 Procedure Pass [address] [address] 09/07/2024 Procedure Pass [facility], [address] [address] 04/05/2025 11:00 AM EDT Office Visit [facility] [address] [place] [address], [address] [place] [address] Margarito Walker MD [address] [place] [address] 05/10/2025 11:05 AM EST Appointment [facility], [address] [address] Mirela Barnhart MD [address] [place] [address] [email or web address] 05/10/2025 12:10 PM EST Appointment [facility], [address] [address] Mirela Barnhart MD [address] [place] [address] [email or web address] 05/10/2025 3:00 PM EST [facility] Visit [facility], [facility] [address] [place] [address], 6th [place] [address] Mirela Barnhart MD [address] [place] [address] [email or web address] documented as of this encounter Results * US ABDOMEN LIMITED RIGHT UPPER QUADRANT (08/12/2022 8:57 AM EST) Anatomical Region Laterality Modality Abdomen Ultrasound 08/12/2022 7:01 PM EST Impressions 08/12/2022 7:04 PM EST Two small gallstones versus small amount of sludge. No gallbladder wall thickening or pericholecystic fluid. Narrative 08/12/2022 7:04 PM EST US ABDOMEN LIMITED RIGHT UPPER QUADRANT TECHNIQUE: US Abdominal limited right upper quadrant. COMPARISON: Abdominal CT dated 10/20/2017 FINDINGS: Liver: Normal. No focal lesions. Main Portal Vein: Patent with normal direction of flow. Gallbladder: Two dependent echogenic foci are noted measuring up to 5 mm, most likely representing non-shadowing calculi versus small amount of sludge. No significant gallbladder wall thickening. No pericholecystic fluid. Biliary: Normal. No intrahepatic or extrahepatic biliary ductal dilatation. The common bile duct measures 3 mm. The visualized portions of the pancreas are unremarkable. No hydronephrosis in the right kidney Procedure Note April Jiang MD - 08/12/2022 US ABDOMEN LIMITED RIGHT UPPER QUADRANT TECHNIQUE: US Abdominal limited right upper quadrant. COMPARISON: Abdominal CT dated 10/20/2017 FINDINGS: Liver: Normal. No focal lesions. Main Portal Vein: Patent with normal direction of flow. Gallbladder: Two dependent echogenic foci are noted measuring up to 5 mm,most likely representing non-shadowing calculi versus small amount ofsludge. No significant gallbladder wall thickening. No pericholecysticfluid. Biliary: Normal. No intrahepatic or extrahepatic biliary ductaldilatation. The common bile duct measures 3 mm. The visualized portions of the pancreas are unremarkable. No hydronephrosis in the right kidney IMPRESSION: Two small gallstones versus small amount of sludge. No gallbladder wallthickening or pericholecystic fluid. us Carol MOTA IMG US ABDOMEN Final Resul t documented in this encounter Visit Diagnoses Diagnosis Epigastric abdominal pain- Primary Abdominal pain, epigastric RUQ abdominal pain Abdominal pain, right upper quadrant Epigastric abdominal pain Abdominal pain, epigastric RUQ abdominal pain Abdominal pain, right upper quadrant documented in this encounter Additional Health Concerns Infection Onset Date Last Indicated Resolved Time CoV-Risk 09/22/2023 09/22/2023 09/22/2023 4:53 PM EDT COVID-19 09/22/2023 09/22/2023 10/13/2023 1:21 AM EDT documented as of this encounter Care Teams Dry Roller Relationship Specialty Start Date End Date Qamar Garcia MD [address] [place] [address] PCP - General Internal Medicine 07/23/22 Qamar Garcia MD [address] [place] [address] Primary Care Physician 05/06/17 Avinash Chong MD [address] [place] [address] [email or web address] Historical LMR Provider 04/23/17 Sofia Amaya MD, MPH [address] [place] [address] [email or web address] Primary Oncologist Radiation Oncology 08/19/19 Neal Sultana MD, MS [address] [place] [address] [email or web address] Primary Oncologist Surgical Oncology 08/19/19 Tere Keita, [address] [address] [email or web address] Exceptional Needs Teacher Oncology 09/19/19 03/13/25 Mirela Barnhart MD [address] [place] [address] [email or web address] Medical Oncology 12/05/19 Andrei Dixon MD [address] [place] [address] [email or web address] Orthopedic Surgery 03/27/22 Denise Black PA-C [address] [place] [address] [email or web address] Physician Sales Representative [employer] 03/27/22 documented as of this encounter Additional Source Comments The information contained in this document represents components of the legal health record. It is not the complete legal health record.[facility]
--- OUTSIDE RECORDS SUMMARY | 2025-03-30 19:11 | XMS_ITS | Encounter Summary ---
Author Organization [facility] Address [address] [place] [address] Phone Care Team Providers Care Java Xml Developer Name Role Phone Qamar Garcia MD Unavailable Malachi Maloney MD Unavailable [phone] Sammie Govea MD Unavailable [phone] Avinash Chong MD Unavailable [phone] Qamar Garcia MD Primary Care Provider [phone] Sofia Amaya MD, MPH Unavailable [phone] Neal Sultana MD, MS Unavailable Tere Keita Unavailable Mirela Barnhart MD Unavailable [phone] Andrei Dixon MD Unavailable [phone] Denise Black PA-C Unavailable [phone] Unknown, Unknown Primary Care Provider Qamar Escamilla MD Primary Care Provider [phone] Encounter Details Date Type Department Care Team (Late st Contact Info) Description 05/15/2020 Procedure Pass [facility], [facility], MRI [address] [address] Social History Tobacco Use Types Packs/Day Years [...] st Contact Info) Description 09/07/2024 Procedure Pass [facility], [address] [address] 09/07/2024 Procedure Pass [facility], [address] [address] 04/05/2025 11:00 AM EDT Office Visit [facility] [address] [place] [address], [address] [place] [address] Margarito Walker MD [address] [place] [address] 05/10/2025 11:05 AM EST Appointment [facility], [address] [address] Mirela Barnhart MD [address] [place] [address] [email or web address] 05/10/2025 12:10 PM EST Appointment [address] [address] Mirela Barnhart MD [address] [place] [address] [email or web address] 05/10/2025 3:00 PM EST [facility], [facility] [address] [place] [address], 6th [place] [address] Mirela Barnhart MD [address] [place] [address] [email or web address] documented as of this encounter Visit Diagnoses Not on filedocumented in this encounter Additional Health Concerns Infection Onset Date Last Indicated Resolved Time CoV-Presumed 05/27/2022 05/27/2022 06/17/2022 3:51 AM EST CoV-Risk 09/22/2023 09/22/2023 09/22/2023 4:53 PM EDT COVID-19 09/22/2023 09/22/2023 10/13/2023 1:21 AM EDT documented as of this encounter Care Teams Java Xml Developer Relationship Specialty Start Date End Date Qamar Garcia MD [address] [place] [address] PCP - General Internal Medicine 10/14/18 03/26/22 Unknown, Unknown, MD PCP - General 04/08/22 07/22/22 Qamar Garcia MD [address] [place] [address] PCP - General Internal Medicine 07/23/22 Qamar Garcia MD [address] [place] [address] Primary Care Physician 05/06/17 Malachi Maloney MD [address] [place] [address], [facility] [address] [place] [address] [email or web address] Historical LMR Provider 04/23/17 07/13/21 Sammie Govea MD [address] [place] [address] Orthopedics & Sports Medicine, [facility] [place] [address] [email or web address] Historical LMR Provider 04/23/17 07/13/21 Avinash Chong MD [address] [place] [address] [email or web address] Historical LMR Provider 04/23/17 Sofia Amaya MD, MPH [address] [place] [address] [email or web address] Primary Oncologist Radiation Oncology 08/19/19 Neal Sultana MD, MS [address] [place] [address] [email or web address] Primary Oncologist Surgical Oncology 08/19/19 Tere Keita, [address] [address] [email or web address] Battery Assembler Dry Cell Oncology 09/19/19 03/13/25 Mirela Barnhart MD [address] [place] [address] [email or web address] Medical Oncology 12/05/19 Andrei Dixon MD [address] [place] [address], [address] [place] [address] [email or web address] Orthopedic Surgery 03/27/22 Denise Black PA-C [address] [place] [address] [address] [place] [address] [email or web address] Physician Search Specialist 03/27/22 documented as of this encounter Additional Source Comments The information contained in this document represents components of the legal health record. It is not the complete legal health record.[facility]
--- OUTSIDE RECORDS SUMMARY | 2025-03-30 19:11 | XMS_ITS | Encounter Summary ---
Author Organization [facility] Address [address] [place] [address] Phone Care Team Providers Care Manager Nuclear Name Role Phone Qamar Garcia MD Unavailable Malachi Maloney MD Unavailable [phone] Sammie Govea MD Unavailable Avinash Chong MD Unavailable [phone] Qamar Garcia MD Primary Care Provider Miguelangel Reynoso MD Primary Care Provider Qamar aGrcia MD Primary Care Provider [phone] Sofia Amaya MD, MPH Unavailable Karely Ansari MD Unavailable Neal Sultana MD, MS Unavailable Tere Keita Unavailable [phone] Mirela Barnhart MD Unavailable [phone] Andrei Dixon MD Unavailable [phone] Denise Black PA-C Unavailable [phone] Unknown, Unknown Primary Care Provider Qamar Escamilla MD Primary Care Provider [phone] Encounter Details Date Type Department Care Team (Late Contact Info) Description 11/26/2017 Procedure Pass [facility] [address] [place] [address] Social History Tobacco Use Types Packs/Day Years [...] (Late Contact Info) Description 09/07/2024 Procedure Pass [facility] [place] [address] [address] 09/07/2024 Procedure Pass [facility], [facility] [address] [address] 04/05/2025 11:00 AM EDT Office Visit [facility] [address] [place] [address], [address] [place] [address] Margarito Walker MD [address] [place] [address] 05/10/2025 11:05 AM EST Appointment [facility], [facility] [address] [address] Mirela Barnhart MD [address] [place] [address] [email or web address] 05/10/2025 12:10 PM EST Appointment [facility] [place] 300 [facility] 3rd [place] [address] Mirela Barnhart MD [address] [place] [address] [email or web address]@d [email or web address] 05/10/2025 3:00 PM EST Office Visit [facility], [facility] [address], 6th [place] [address] Mirela Barnhart MD 450 [place] [address] [email or web address] documented as of this encounter Visit Diagnoses Not on filedocumented in this encounter Additional Health Concerns Infection Onset Date Last Indicated Resolved Time CoV-Risk 01/13/2020 01/13/2020 01/13/2020 4:17 PM EDT CoV-Presumed 05/27/2022 05/27/2022 06/17/2022 3:51 AM EST CoV-Risk 09/22/2023 09/22/2023 09/22/2023 4:53 PM EDT COVID-19 09/22/2023 09/22/2023 10/13/2023 1:21 AM EDT documented as of this encounter Care Teams Manager Nuclear Relationship Specialty Start Date End Date Qamar Garcia MD [address] [place] [address] PCP - General Internal Medicine 10/12/17 08/23/18 Miguelangel Reynoso MD [address] [place] [address] 800 [place] [address] [email or web address] PCP - General Cardiology 08/24/18 10/13/18 Qamar Garcia MD [address] [place] [address] PCP - General Internal Medicine 10/14/18 03/26/22 Unknown, Unknown, MD PCP - General 04/08/22 07/22/22 Qamar Garcia MD [address] [place] [address] PCP - General Internal Medicine 07/23/22 Qamar Garcia MD [address] [place] [address] Primary Care Physician 05/06/17 Malachi Maloney MD [address] [place] [address] Historical LMR Provider 04/23/17 07/13/21 Sammie Govea MD [address] [place] [address] Orthopedics & Sports Medicine, [place] [address] [email or web address] Historical LMR Provider 04/23/17 07/13/21 Avinash Chong MD [address] [place] [address] [email or web address] Historical LMR Provider 04/23/17 Sofia Amaya MD, MPH [address] [place] [address] [email or web address] .[facility] Primary Oncologist Radiation Oncology 08/19/19 Karely Ansari MD [address] [place] [address] Primary Oncologist Medical Oncology 08/19/19 12/04/19 Neal Sultana MD, MS [address] [place] [address] [email or web address] Primary Oncologist Surgical Oncology 08/19/19 Tere Keita, [address] [address] [email or web address]@[email or web address] Director Independent Oncology 09/19/19 03/13/25 Mirela Barnhart MD [address] [place] [address] [email or web address] .[email or web address] Medical Oncology 12/05/19 Andrei Dixon MD [address] [place] [address] [email or web address] Orthopedic Surgery 03/27/22 Denise Black PA-C [address] [place] [address] [email or web address]. [email or web address] Physician Cnc Machine Setter 03/27/22 documented as of this encounter Additional Source Comments The information contained in this document represents components of the legal health record. It is not the complete legal health record.[facility]
--- OUTSIDE RECORDS SUMMARY | 2025-03-30 19:11 | XMS_ITS | Encounter Summary ---
Author Organization [facility] Address [address] [place] [address] Phone Care Team Providers Care Employment Specialist Name Role Phone Qamar Garcia MD Unavailable [phone] Malachi Maloney MD Unavailable [phone] Sammie Govea MD Unavailable Avinash Chong MD Unavailable Qamar Garcia MD Primary Care Provider [phone] Sofia Amaya MD, MPH Unavailable [phone] Neal Sultana MD, MS Unavailable Tere Keita Unavailable [phone] Mirela Barnhart MD Unavailable [phone] Andrei Dixon MD Unavailable [phone] Denise Black PA-C Unavailable [phone] Unknown, Unknown Primary Care Provider Qamar Escamilla MD Primary Care Provider + [phone] Encounter Details Date Type Department Care Team (Late st Contact Info) Description 07/19/2020 Ancillary Orders Virtual Department 30 [place] [address] Qamar Garcia MD [address] [place] [address] Abdominal pain, unspecified abdominal location Social History Tobacco Use Types Packs/Day Years [...] st Contact Info) Description 09/07/2024 Procedure Pass [facility] [address] [address] 09/07/2024 Procedure Pass [facility], [facility] [address] [address] 04/05/2025 11:00 AM EDT Office Visit [facility] [address] [place] [address], [address] [place] [address] Margarito Walker MD [address] [place] [address] 05/10/2025 11:05 AM EST Appointment [facility], [facility] [address] [address] Mirela Barnhart MD [address] [place] [address] [email or web address] 05/10/2025 12:10 PM EST Appointment [facility], [place] 300 [facility] 3rd [place] [address] Mirela Barnhart MD [address] [place] [address] [email or web address] [email or web address] 05/10/2025 3:00 PM EST Office [facility] [place] 450 [facility], 6th [place] [address] Mirela Barnhart MD [address] [place] [address] [email or web address] [email or web address] documented as of this encounter Visit Diagnoses Diagnosis Abdominal pain, unspecified abdominal location documented in this encounter Additional Health Concerns Infection Onset Date Last Indicated Resolved Time CoV-Presumed 05/27/2022 05/27/2022 06/17/2022 3:51 AM EST CoV-Risk 09/22/2023 09/22/2023 09/22/2023 4:53 PM EDT COVID-19 09/22/2023 09/22/2023 10/13/2023 1:21 AM EDT documented as of this encounter Care Teams Employment Specialist Relationship Specialty Start Date End Date Qamar Garcia MD [address] [place] [address] PCP - General Internal Medicine 10/14/18 03/26/22 Unknown, Unknown, MD PCP - General 04/08/22 07/22/22 Qamar Garcia MD [address] [place] [address] PCP - General Internal Medicine 07/23/22 Qamar Garcia MD [address] [place] [address] Primary Care Physician 05/06/17 Malachi Maloney MD [address] [place] [address], [address] [place] [address] [email or web address] Historical LMR Provider 04/23/17 07/13/21 Sammie Govea MD [address] [place] [address] Orthopedics & Sports Medicine, [place] [address] [email or web address] Historical LMR Provider 04/23/17 07/13/21 Avinash Chong MD [address] [place] [address] [email or web address] Historical LMR Provider 04/23/17 Sofia Amaya MD, MPH [address] [place] [address] [email or web address] Primary Oncologist Radiation Oncology 08/19/19 Neal Sultana MD, MS [address] [place] [address] [email or web address] Primary Oncologist Surgical Oncology 08/19/19 Tere Keita, [address] [address] [email or web address]@[email or web address] Goods Layer Oncology 09/19/19 03/13/25 Mirela Barnhart MD [address] [place] [address] [email or web address] .[facility] Medical Oncology 12/05/19 Andrei Dixon MD [address] [place] [address], [address] [place] [address] [email or web address] Orthopedic Surgery 03/27/22 Denise Black PA-C [address] [place] [address] [place] [address] [email or web address] Physician Adjunct Political Science Instructor 03/27/22 documented as of this encounter Additional Source Comments The information contained in this document represents components of the legal health record. It is not the complete legal health record.[facility]
--- OUTSIDE RECORDS SUMMARY | 2025-03-30 19:11 | XMS_ITS | Encounter Summary ---
Author Organization [facility] Address [address] [place] [address] Phone Care Team Providers Care Editor Managing Director Name Role Phone Qamar Garcia MD Unavailable [phone] Avinash Chong MD Unavailable [phone] Sofia Amaya MD, MPH Unavailable + [phone] Neal Sultana MD, MS Unavailable Tere KeitaSW Unavailable [phone] Mirela Barnhart MD Unavailable [phone] Andrei Dixon MD Unavailable [phone] Denise Black PA-C Unavailable [phone] Unknown, Unknown Primary Care Provider Qamar Escamilla MD Primary Care Provider [phone] Encounter Details Date Type Department Care Team (Late st Contact Info) Description 06/26/2022 Procedure Pass [address] [id number] Social History Tobacco Use Types Packs/Day Years [...] Contact Info) Description 09/07/2024 Procedure Pass [facility] [place] [address] [address] 09/07/2024 Procedure Pass [facility], [address] [address] 04/05/2025 11:00 AM EDT Office Visit [facility] [address] [place] [address], [address] [place] [address] Margarito Walker MD [address] [place] [address] 05/10/2025 11:05 AM EST Appointment [facility], [address] [address] Mirela Barnhart MD [address] [place] [address] [email or web address] 05/10/2025 12:10 PM EST Appointment [facility], [address] [address] Mirela Barnhart MD [address] [place] [address] [email or web address] 05/10/2025 3:00 PM EST Office Visit [facility], [facility] 450 [facility], 6th [place] [address] Mirela Barnhart MD [address] [place] [address] [email or web address] [email or web address] documented as of this encounter Visit Diagnoses Not on filedocumented in this encounter Additional Health Concerns Infection Onset Date Last Indicated Resolved Time CoV-Risk 09/22/2023 09/22/2023 09/22/2023 4:53 PM EDT COVID-19 09/22/2023 09/22/2023 10/13/2023 1:21 AM EDT documented as of this encounter Care Teams Editor Managing Director Relationship Specialty Start Date End Date Unknown, Unknown, MD PCP - General 04/08/22 07/22/22 Qamar Garcia MD [address] [place] [address] PCP - General Internal Medicine 07/23/22 Qamar Garcia MD [address] [place] [address] Primary Care Physician 05/06/17 Avinash Chong MD [address] [place] [address] [email or web address] Historical LMR Provider 04/23/17 Sofia Amaya MD, MPH [address] [address] [email or web address] .[email or web address] Primary Oncologist Radiation Oncology 08/19/19 Neal Sultana MD, MS [address] [place] [address] [email or web address] Primary Oncologist Surgical Oncology 08/19/19 Tere Keita, [address] [address] [email or web address]@[email or web address] Museum Educator Oncology 09/19/19 03/13/25 Mirela Barnhart MD [address] [place] [address] [email or web address] .[email or web address] Medical Oncology 12/05/19 Andrei Dixon MD [address] [place] [address], [address] [place] [address] [email or web address] Orthopedic Surgery 03/27/22 Denise Black PA-C [address] [place] [address] [email or web address] Physician Coding Analyst 03/27/22 documented as of this encounter Additional Source Comments The information contained in this document represents components of the legal health record. It is not the complete legal health record.[facility]
--- OUTSIDE RECORDS SUMMARY | 2025-03-30 19:11 | XMS_ITS | Encounter Summary ---
Author Organization [facility] Address [address] [place] [address] Phone Care Team Providers Care Car Wrecker Name Role Phone Qamar Garcia MD Unavailable Malachi Maloney MD Unavailable [phone] Sammie Govea MD Unavailable Avinash Chong MD Unavailable [phone] Qamar Garcia MD Primary Care Provider [phone] Sofia Amaya MD, MPH Unavailable + [phone] Neal Sultana MD, MS Unavailable Tere Keita Unavailable [phone] Mirela Barnhart MD Unavailable [phone] Andrei Dixon MD Unavailable [phone] Denise Black PA-C Unavailable [phone] Unknown, Unknown Primary Care Provider Qmaar Escamilla MD Primary Care Provider + [phone] Encounter Details Date Type Department Care Team (Late st Contact Info) Description 02/01/2021 Procedure Pass [facility], [facility] 30 [place] [address] Social History Tobacco Use Types Packs/Day Years [...] st Contact Info) Description 09/07/2024 Procedure Pass [address] [address] 09/07/2024 Procedure Pass [address] [address] 04/05/2025 11:00 AM EDT Office Visit [facility] [address] [place] [address], [address] [place] [address] Margarito Walker MD [address] [place] [address] [email or web address] 05/10/2025 11:05 AM EST Appointment [facility], [address] [address] Mirela Barnhart MD [address] [place] [address] [email or web address] 05/10/2025 12:10 PM EST Appointment [address] [address] Mirela Barnhart MD [address] [place] [address] [email or web address] 05/10/2025 3:00 PM EST Office Visit [facility], [facility] 450 [facility], 6th [place] [address] Mirela Barnhart MD [address] [place] [address] [email or web address] documented as of this encounter Visit Diagnoses Not on filedocumented in this encounter Additional Health Concerns Infection Onset Date Last Indicated Resolved Time CoV-Presumed 05/27/2022 05/27/2022 06/17/2022 3:51 AM EST CoV-Risk 09/22/2023 09/22/2023 09/22/2023 4:53 PM EDT COVID-19 09/22/2023 09/22/2023 10/13/2023 1:21 AM EDT documented as of this encounter Care Teams Car Wrecker Relationship Specialty Start Date End Date Qamar Garcia MD [address] [place] [address] PCP - General Internal Medicine 10/14/18 03/26/22 Unknown, Unknown, MD PCP - General 04/08/22 07/22/22 Qamar Garcia MD [address] [place] [address] PCP - General Internal Medicine 07/23/22 Qamar Garcia MD [address] [place] [address] Primary Care Physician 05/06/17 Malachi Maloney MD [address] [place] [address], [address] [place] [address] [email or web address] Historical LMR Provider 04/23/17 07/13/21 Sammie Govea MD [address] [place] [address] Orthopedics & Sports Medicine, [facility] [place] [address] [email or web address] Historical LMR Provider 04/23/17 07/13/21 Avinash Chong MD [address] [place] [address] [email or web address] Historical LMR Provider 04/23/17 Sofia Amaya MD, MPH [address] [place] [address] [email or web address] .[facility] Primary Oncologist Radiation Oncology 08/19/19 Neal Sultana MD, MS [address] [place] [address] [email or web address]@[facility] Primary Oncologist Surgical Oncology 08/19/19 Tere Keita, [address] [address] [email or web address] Residential Child Care Counselor Oncology 09/19/19 03/13/25 Mirela Barnhart MD [address] [place] [address] [email or web address] Medical Oncology 12/05/19 Andrei Dixon MD [address] [place] [address], [address] [place] [address] [email or web address] Orthopedic Surgery 03/27/22 Denise Black PA-C [address] [place] [address] [address] [place] [phone] [email or web address] Physician Psychologist Counseling 03/27/22 documented as of this encounter Additional Source Comments The information contained in this document represents components of the legal health record. It is not the complete legal health record.[facility]
--- OUTSIDE RECORDS SUMMARY | 2025-03-30 19:11 | XMS_ITS | Encounter Summary ---
Author Organization [facility] Address [address] [place] [address] [place] [address] Phone Care Team Providers Care Truck Dispatcher Name Role Phone Qamar Garcia MD Unavailable [phone] Avinash Chong MD Unavailable [phone] Sofia Amaya MD, MPH Unavailable [phone] Neal Sultana MD, MS Unavailable Tere KeitaSW Unavailable [phone] Mirela Barnhart MD Unavailable [phone] Andrei Dixon MD Unavailable [phone] Denise Black PA-C Unavailable [phone] Qamar Garcia MD Primary Care Provider [phone] Encounter Details Date Type Department Care Team (Late st Contact Info) Description 02/25/2023 Procedure Pass [facility], [facility] [place], [place] 450 [facility], Floor [address]1 [place] [address] Social History Tobacco Use Types Packs/Day Years [...] on file 11/13/2022 No 11/13/2022 No 11/13/2022 Digital Access Answer Date Recorded No 11/26/2022 No 11/26/2022 Reliable internet access at home? Not on file 11/26/2022 Device with a working camera? Not on file Intimate Partner Violence Answer Date R ecorded Are you denied basic needs s uch as food, clothing, or medical care? No 12/02/2022 In the past 12 months have y ou been in a relationship with a person who hurts, threatens, or tries to control you? No 12/02/2022 Are you denied basic needs s uch as food, clothing, or medical care? No 12/02/2022 In the past 12 months have y ou been in a relationship with a person who hurts, threatens, or tries to control you? No 12/02/2022 Sex and Gender Information Value Date Recorded Sex Assigned at Male 07/23/2018 7:24 PM EST Legal Sex Male 5:48 PM EST Gender Identity Male 07/23/2018 7:24 PM EST Sexual Orientation Choose not to disclose 2019 9:17 PM EST documented as of this encounter Plan of Treatment Upcoming Encounters Date Type Department Care Team (Late st Contact Info) Description 09/07/2024 Procedure Pass [facility] [place] 300 [facility] 3rd [place] [address] 09/07/2024 Procedure Pass [facility], [facility] 300 [facility] 4th [place] [address] 04/05/2025 11:00 AM EDT Office Visit [facility] [address] [place] [address] 3rd Floor, [address] [place] [address] Margarito Walker MD [address] [place] [address], [address] [place] [address] [email or web address] 05/10/2025 11:05 AM EST Appointment [facility], [facility] 300 [facility] 4th [place] [address] Mirela Barnhart MD [address] [place] [address] [email or web address] 05/10/2025 12:10 PM EST Appointment [facility] [place] [address] [address] Mirela Barnhart MD [address] [place] [address] [email or web address] 05/10/2025 3:00 PM EST Office Visit [facility], [address], [address]th [place] [address] Mirela Barnhart MD [address] [place] [address] [email or web address] documented as of this encounter Visit Diagnoses Not on filedocumented in this encounter Additional Health Concerns Infection Onset Date Last Indicated Resolved Time CoV-Risk 09/22/2023 09/22/2023 09/22/2023 4:53 PM EDT COVID-19 09/22/2023 09/22/2023 10/13/2023 1:21 AM EDT documented as of this encounter Care Teams Truck Dispatcher Relationship Specialty Start Date End Date Qamar Garcia MD [address] [place] [address] PCP - General Internal Medicine 07/23/22 Qamar Garcia MD [address] [place] [address] Primary Care Physician 05/06/17 Avinash Chong MD [address] [place] [address] [email or web address] Historical LMR Provider 04/23/17 Sofia Amaya MD, MPH [address] [place] [address] [email or web address] .[facility] Primary Oncologist Radiation Oncology 08/19/19 Neal Sultana MD, MS [address] [place] [address] [email or web address] Primary Oncologist Surgical Oncology 08/19/19 Tere Keita, [address] [address] [email or web address] Billing And Quality Technician Oncology 09/19/19 03/13/25 Mirela Barnhart MD [address] [place] [address] [email or web address] Medical Oncology 12/05/19 Andrei Dixon MD [address] [place] [address], [address] [place] [address] [email or web address] Orthopedic Surgery 03/27/22 Denise Black PA-C [address] [facility] [address] [place] [address] [email or web address] Physician Associate Professor Of Church Music 03/27/22 documented as of this encounter Additional Source Comments The information contained in this document represents components of the legal health record. It is not the complete legal health record.[facility]
--- OUTSIDE RECORDS SUMMARY | 2025-03-30 19:11 | XMS_ITS | Encounter Summary ---
Author Organization [facility] Address [address] [place] [address] Phone Care Team Providers Care Warehouse Associate Driver Name Role Phone Qamar Garcia MD Unavailable [phone] Malachi Maloney MD Unavailable [phone] Sammie Govea MD Unavailable [phone] Avinash Chong MD Unavailable [phone] Qamar Garcia MD Primary Care Provider [phone] Sofia Amaya MD, MPH Unavailable [phone] Karely Ansari MD Unavailable [phone] Neal Sultana MD, MS Unavailable Tere Keita Unavailable Mirela Barnhart MD Unavailable Andrei Dixon MD Unavailable [phone] Denise Black PA-C Unavailable [phone] Unknown, Unknown Primary Care Provider Qamar Escamilla MD Primary Care Provider Encounter Details Date Type Department Care Team (Late st Contact Info) Description 11/22/2019 Procedure Pass [facility] [address] [place] [address] Social History Tobacco Use Types Packs/Day Years [...] st Contact Info) Description 09/07/2024 Procedure Pass [facility], [address] [address] 09/07/2024 Procedure Pass [facility], [address] [address] 04/05/2025 11:00 AM EDT Office Visit [facility] [address] [place] [address], [address] [place] [address] Margarito Walker MD [address] [place] [address] 05/10/2025 11:05 AM EST Appointment [facility], [address] [address] Mirela Barnhart MD [address] [place] [address] [email or web address] [email or web address] 05/10/2025 12:10 PM EST Appointment [facility], [address] [address] Mirela Barnhart MD [address] [place] [address] [email or web address] 05/10/2025 3:00 PM EST Office [facility], [facility] [address] [place] [address], 6th [place] [address] Mirela Barnhart MD [address] [place] [address] [email or web address] documented as of this encounter Visit Diagnoses Not on filedocumented in this encounter Additional Health Concerns Infection Onset Date Last Indicated Resolved Time CoV-Risk 01/13/2020 01/13/2020 01/13/2020 4:17 PM EDT CoV-Presumed 05/27/2022 05/27/2022 06/17/2022 3:51 AM EST CoV-Risk 09/22/2023 09/22/2023 09/22/2023 4:53 PM EDT COVID-19 09/22/2023 09/22/2023 10/13/2023 1:21 AM EDT documented as of this encounter Care Teams Warehouse Associate Driver Relationship Specialty Start Date End Date Qamar Garcia MD [address] [place] [address] PCP - General Internal Medicine 10/14/18 03/26/22 Unknown, Unknown, PCP - General 04/08/22 07/22/22 Qamar Garcia MD [address] [place] [address] PCP - General Internal Medicine 07/23/22 Qamar Garica MD [address] [place] [address] Primary Care Physician 05/06/17 Malachi Maloney MD [address] [facility], [address] [place] [address] [email or web address] Historical LMR Provider 04/23/17 07/13/21 Sammie Govea MD [address] [place] [address] Orthopedics & Sports Medicine, [place] [address] [email or web address] Historical LMR Provider 04/23/17 07/13/21 Avinash Chong MD [address] [place] [address] [email or web address] Historical LMR Provider 04/23/17 Sofia Amaya MD, MPH [address] [place] [address] [email or web address]@[email or web address] Primary Oncologist Radiation Oncology 08/19/19 Karely Ansari MD [address] [place] [address] Primary Oncologist Medical Oncology 08/19/19 12/04/19 Neal Sultana MD, MS [address] [place] [address] [email or web address] Primary Oncologist Surgical Oncology 08/19/19 Tere Keita, [address] [address] [email or web address] Plush Finisher Oncology 09/19/19 03/13/25 Mirela Barnhart MD [address] [place] [address] Kati@[email or web address] Medical Oncology 12/05/19 Andrei Dixon MD [address] [place] [address], [address] [place] [address] [email or web address] Orthopedic Surgery 03/27/22 Denise Black PA-C [address] [place] [address] [email or web address]. [email or web address] Physician Heart Coordinator 03/27/22 documented as of this encounter Additional Source Comments The information contained in this document represents components of the legal health record. It is not the complete legal health record.[facility]
--- OUTSIDE RECORDS SUMMARY | 2025-03-30 19:11 | XMS_ITS | Encounter Summary ---
Author Organization [facility] Address [address] [place] [address] Phone Care Team Providers Care Chimney Construction Supervisor Name Role Phone Qamar Garcia MD Unavailable Malachi Maloney MD Unavailable [phone] Sammie Govea MD Unavailable Avinash Chong MD Unavailable [phone] Qamar Garcia MD Primary Care Provider + [phone] Sofia Amaya MD, MPH Unavailable [phone] Neal Sultana MD, MS Unavailable Tere Keita Unavailable [phone] Mirela Barnhart MD Unavailable [phone] Andrei Dixon MD Unavailable [phone] Denise Black PA-C Unavailable [phone] Unknown, Unknown Primary Care Provider Qamar Escamilla MD Primary Care Provider + [phone] Encounter Details Date Type Department Care Team (Late st Contact Info) Description 10/04/2020 Procedure Pass [facility] [address] [facility] [address] [place] [address] Social History Tobacco Use Types Packs/Day Years [...] st Contact Info) Description 09/07/2024 Procedure Pass [facility], [address] [address] 09/07/2024 Procedure Pass [facility], [address] [address] 04/05/2025 11:00 AM EDT Office Visit [facility] [address] [place] [address], [address] [place] [address] Margarito Walker MD [address] [place] [address] 05/10/2025 11:05 AM EST Appointment [facility], [address] [address] Mirela Barnhart MD [address] [place] [address] [email or web address] 05/10/2025 12:10 PM EST Appointment [facility], [address] [address] Mirela Barnhart MD [address] [place] [address] Kati@[email or web address] [facility] 05/10/2025 3:00 PM EST Office Visit [facility], [facility] [address] [facility], 6th [place] [address] Mirela Barnhart MD [address] [place] [address] [email or web address]@d [email or web address] documented as of this encounter Visit Diagnoses Not on filedocumented in this encounter Additional Health Concerns Infection Onset Date Last Indicated Resolved Time CoV-Presumed 05/27/2022 05/27/2022 06/17/2022 3:51 AM EST CoV-Risk 09/22/2023 09/22/2023 09/22/2023 4:53 PM EDT COVID-19 09/22/2023 09/22/2023 10/13/2023 1:21 AM EDT documented as of this encounter Care Teams Chimney Construction Supervisor Relationship Specialty Start Date End Date Qamar Garcia MD [address] [place] [address] PCP - General Internal Medicine 10/14/18 03/26/22 Unknown, Unknown, MD PCP - General 04/08/22 07/22/22 Qamar Garcia MD [address] [place] [address] PCP - General Internal Medicine 07/23/22 Qamar Garcia MD [address] [place] [address] Primary Care Physician 05/06/17 Malachi Maloney MD [address] [place] [address], [address] [place] [address] [email or web address] Historical LMR Provider 04/23/17 07/13/21 Sammie Govea MD [address] [place] [address] Orthopedics & Sports Medicine, [facility] [place] [place] [address] [email or web address] Historical LMR Provider 04/23/17 07/13/21 Avinash Chong MD [address] [place] [address] [email or web address] Historical LMR Provider 04/23/17 Sofia Amaya MD, MPH [address] [place] [address] [email or web address] .[facility] Primary Oncologist Radiation Oncology 08/19/19 Neal Sultana MD, MS [address] [place] [address] [email or web address] Primary Oncologist Surgical Oncology 08/19/19 Tere Keita, [address] [address] [email or web address]@[email or web address] Aviation Tactical Readiness Officer Oncology 09/19/19 03/13/25 Mirela Barnhart MD [address] [place] [address] Kati@[facility] .[facility] Medical Oncology 12/05/19 Andrei Dixon MD [address] [place] [address], [address] [place] [address] [email or web address] Orthopedic Surgery 03/27/22 Denise Black PA-C [address] [place] [address] [address] [place] [phone] [email or web address]. simone Physician Label Printing Machinist 03/27/22 documented as of this encounter Additional Source Comments The information contained in this document represents components of the legal health record. It is not the complete legal health record.[facility]
--- OUTSIDE RECORDS SUMMARY | 2025-03-30 19:11 | XMS_ITS | Encounter Summary ---
Author Organization [facility] Address [address] [place] [address] Phone Care Team Providers Care Tennis Desk Team Member Name Role Phone Qamar Garcia MD Unavailable [phone] Avinash Chong MD Unavailable [phone] Sofia Amaya MD, MPH Unavailable + [phone] Neal Sultana MD, MS Unavailable Tere Keita SKEET OPERATOR Unavailable [phone] Mirela Barnhart MD Unavailable [phone] Andrei Dixon MD Unavailable [phone] Denise Black PA-C Unavailable [phone] Unknown, Unknown Primary Care Provider Qamar Escamilla MD Primary Care Provider [phone] Encounter Details Date Type Department Care Team (Latest Contact Info) Description 07/22/2022 Transcribe Orders [facility] Department [address] [place] [address] Qamar Garcia MD [address] [place] [address] Abdominal pain, unspecified abdominal location (Primary Dx) Social History Tobacco Use Types [...] st Contact Info) Description 09/07/2024 Procedure Pass [address] [address] 09/07/2024 Procedure Pass [address] [address] 04/05/2025 11:00 AM EDT Office Visit [facility] [address] [place] [address], [address] [place] [address] Margarito Walker MD [address] [place] [address] 05/10/2025 11:05 AM EST Appointment [facility], [address] [address] Mirela Barnhart MD [address] [place] [address] [email or web address] 05/10/2025 12:10 PM EST Appointment [facility], [address] [address] Mirela Barnhart MD [address] [place] [address] Kati@[email or web address] [facility] 05/10/2025 3:00 PM EST Office Visit [facility], [facility] [address] [place] [address], 6th [place] [address] Mirela Barnhart MD [address] [place] [address] [email or web address] [email or web address] documented as of this encounter Visit Diagnoses Diagnosis Abdominal pain, unspecified abdominal location- Primary documented in this encounter Additional Health Concerns Infection Onset Date Last Indicated Resolved Time CoV-Risk 09/22/2023 09/22/2023 09/22/2023 4:53 PM EDT COVID-19 09/22/2023 09/22/2023 10/13/2023 1:21 AM EDT documented as of this encounter Care Teams Tennis Desk Team Member Relationship Specialty Start Date End Date Unknown, Unknown, MD PCP - General 04/08/22 07/22/22 Qamar Garcia MD [address] [place] [address] PCP - General Internal Medicine 07/23/22 Qamar Garcia MD [address] [place] [address] Primary Care Physician 05/06/17 Avinash Chong MD [address] [place] [address] [email or web address] Historical LMR Provider 04/23/17 Sofia Amaya MD, MPH [address] [place] [address] [email or web address] .[facility] Primary Oncologist Radiation Oncology 08/19/19 Neal Sultana MD, MS [address] [place] [address] [email or web address]@[email or web address] Primary Oncologist Surgical Oncology 08/19/19 Tere Keita, [address] [address] [email or web address]@[email or web address] Monument Setter Helper Oncology 09/19/19 03/13/25 Mirela Barnhart MD [address] [place] [address] Kati@[facility] Medical Oncology 12/05/19 Andrei Dixon MD [address] [place] [address] [email or web address] Orthopedic Surgery 03/27/22 Denise Black PA-C [address] [place] [address] [email or web address]. simone Physician Attending Pathologist 03/27/22 documented as of this encounter Additional Source Comments The information contained in this document represents components of the legal health record. It is not the complete legal health record.[facility]
--- OUTSIDE RECORDS SUMMARY | 2025-03-30 19:11 | XMS_ITS | Encounter Summary ---
Author Organization [facility] Address [address] [place] [address] Phone Care Team Providers Care Time Clerk Name Role Phone Qamar Garcia MD Unavailable Malachi Maloney MD Unavailable [phone] Sammie Govea MD Unavailable [phone] Avinash Chong MD Unavailable [phone] Qamar Garcia MD Primary Care Provider + [phone] Sofia Amaya MD, MPH Unavailable + [phone] Neal Sultana MD, MS Unavailable Tere Kieta Unavailable [phone] Mirela Barnhart MD Unavailable [phone] Andrei Dixon MD Unavailable [phone] Denise Black PA-C Unavailable [phone] Unknown, Unknown Primary Care Provider Qamar Escamilla MD Primary Care Provider + [phone] Encounter Details Date Type Department Care Team (Late st Contact Info) Description 12/13/2019 Procedure Pass [facility], [facility] [place] [address] [facility], Floor [address] [place] [address] Social History Tobacco Use Types Packs/Day Years [...] Description 09/07/2024 Procedure Pass [facility], [place] [address] [address] 09/07/2024 Procedure Pass [facility], [facility] [address] [address] 04/05/2025 11:00 AM EDT Office Visit [facility] [address] [place] [address], [address] [place] [address] Margarito Walker MD [address] [place] [address] 05/10/2025 11:05 AM EST Appointment [facility], [facility] [address] [address] Mirela Barnhart MD [address] [place] [address] [email or web address] [email or web address].[email or web address].[facility] 05/10/2025 12:10 PM EST Appointment [facility], [place] [address] [address] Mirela Barnhart MD 450 [place] [address] Kati@[email or web address] [facility] 05/10/2025 3:00 PM EST Office Visit [facility], [facility] [place] [address] [place] [address], 6th [place] [address] Mirela Barnhart MD [address] [place] [address] [email or web address] [facility] documented as of this encounter Visit Diagnoses Not on filedocumented in this encounter Additional Health Concerns Infection Onset Date Last Indicated Resolved Time CoV-Risk 01/13/2020 01/13/2020 01/13/2020 4:17 PM EDT CoV-Presumed 05/27/2022 05/27/2022 06/17/2022 3:51 AM EST CoV-Risk 09/22/2023 09/22/2023 09/22/2023 4:53 PM EDT COVID-19 09/22/2023 09/22/2023 10/13/2023 1:21 AM EDT documented as of this encounter Care Teams Time Clerk Relationship Specialty Start Date End Date Qamar Garcia MD [address] [place] [address] PCP - General Internal Medicine 10/14/18 03/26/22 Unknown, Unknown, PCP - General 04/08/22 07/22/22 Qamar Garcia MD [address] [place] [address] PCP - General Internal Medicine 07/23/22 Qamar Garcia MD [address] [place] [address] Primary Care Physician 05/06/17 Malachi Maloney MD [address] [facility], [address] [place] [address] [email or web address] Historical LMR Provider 04/23/17 07/13/21 Sammie Govea MD [address] [place] [address] Orthopedics & Sports Medicine, [place] [address] [email or web address] Historical LMR Provider 04/23/17 07/13/21 Avinash Chong MD [address] [place] [address] [email or web address] Historical LMR Provider 04/23/17 Sofia Amaya MD, MPH [address] [place] [address] [email or web address] Primary Oncologist Radiation Oncology 08/19/19 Neal Sultana MD, MS [address] [place] [address] FAIZAN@[facility] Primary Oncologist Surgical Oncology 08/19/19 Tere Keita, [address] [address] [email or web address]@[email or web address] Certified Retinal Angiographer Oncology 09/19/19 03/13/25 Mirela Barnhart MD [address] [place] [address] Kati@[email or web address] .[facility] Medical Oncology 12/05/19 Andrei Dixon MD [address] [place] [address] [address] [place] [address] [email or web address] Orthopedic Surgery 03/27/22 Denise Black PA-C [address] [place] [address] [email or web address] simone Physician Child Nurse 03/27/22 documented as of this encounter Additional Source Comments The information contained in this document represents components of the legal health record. It is not the complete legal health record.[facility]
--- OUTSIDE RECORDS SUMMARY | 2025-03-30 19:11 | XMS_ITS | Encounter Summary ---
Author Organization [facility] Address [address] [place] [address] Phone Care Team Providers Care Documentation Nurse Name Role Phone Qamar Garcia MD Unavailable Malachi Maloney MD Unavailable [phone] Sammie Govea MD Unavailable Avinash Chong MD Unavailable [phone] Qamar Garcia MD Primary Care Provider + [phone] Sofia Amaya MD, MPH Unavailable + [phone] Neal Sultana MD, MS Unavailable Tere Keita Unavailable [phone] Mirela Barnhart MD Unavailable [phone] Andrei Dixon MD Unavailable [phone] Denise Black PA-C Unavailable [phone] Unknown, Unknown Primary Care Provider Qamar Escamilla MD Primary Care Provider + [phone] Encounter Details Date Type Department Care Team (Late st Contact Info) Description 12/13/2019 Procedure Pass Madalyn Trinidad Imaging Department, [facility], MRI [address] [facility], Floor [address] [place] [address] Social History Tobacco Use Types Packs/Day Years [...] st Contact Info) Description 09/07/2024 Procedure Pass [facility], [address] [address] 09/07/2024 Procedure Pass [facility], [facility] [address] [address] 04/05/2025 11:00 AM EDT Office Visit [facility] [address] [place] [address], [address] [place] [address] Margarito Walker MD [address] [place] [address] 05/10/2025 11:05 AM EST Appointment [facility], [facility] [address] [address] Mirela Barnhart MD [address] [place] [address] [email or web address].[place].[facility] 05/10/2025 12:10 PM EST Appointment [facility], [address] [address] Mirela Barnhart MD 450 [place] [address] Kati@[email or web address] 05/10/2025 3:00 PM EST Office [facility] [place] [address] [place] [address], 6th [place] [address] Mirela Barnhart MD [address] [place] [address] [email or web address] [email or web address] documented as of this encounter Visit Diagnoses Not on filedocumented in this encounter Additional Health Concerns Infection Onset Date Last Indicated Resolved Time CoV-Risk 01/13/2020 01/13/2020 01/13/2020 4:17 PM EDT CoV-Presumed 05/27/2022 05/27/2022 06/17/2022 3:51 AM EST CoV-Risk 09/22/2023 09/22/2023 09/22/2023 4:53 PM EDT COVID-19 09/22/2023 09/22/2023 10/13/2023 1:21 AM EDT documented as of this encounter Care Teams Documentation Nurse Relationship Specialty Start Date End Date Qamar Garcia MD [address] [place] [address] PCP - General Internal Medicine 10/14/18 03/26/22 Unknown, Unknown, PCP - General 04/08/22 07/22/22 Qamar Garcia MD [address] [place] [address] PCP - General Internal Medicine 07/23/22 Qamar Garcia MD [address] [place] [address] Primary Care Physician 05/06/17 Malachi Maloney MD [address] [facility], [address] [place] [address] [email or web address] Historical LMR Provider 04/23/17 07/13/21 Sammie Govea MD [address] [place] [address] Orthopedics & Sports Medicine, [place] [address] [email or web address] Historical LMR Provider 04/23/17 07/13/21 Avinash Chong MD [address] [place] [address] [email or web address] Historical LMR Provider 04/23/17 Sofia Amaya MD, MPH [address] [place] [address] [email or web address]@[email or web address] Primary Oncologist Radiation Oncology 08/19/19 Neal Sultana MD, MS [address] [place] [address] [email or web address]@[email or web address] Primary Oncologist Surgical Oncology 08/19/19 Tere Keita, [address] [address] [email or web address]@[email or web address] Water Jet Loom Fixer Oncology 09/19/19 03/13/25 Mirela Barnhart MD [address] [place] [address] Kati@[email or web address] .[email or web address] Medical Oncology 12/05/19 Andrei Dixon MD [address] [place] [address] [address] [place] [address] [email or web address] Orthopedic Surgery 03/27/22 Denise Black PA-C [address] [place] [address] [email or web address] Physician Manufacturing [employer] 03/27/22 documented as of this encounter Additional Source Comments The information contained in this document represents components of the legal health record. It is not the complete legal health record.[facility]
--- OUTSIDE RECORDS SUMMARY | 2025-03-30 19:11 | XMS_ITS | Encounter Summary ---
Author Organization [facility] Address [address] [place] [address] Phone Care Team Providers Care Rn Birthing Name Role Phone Qamar Garcia MD Unavailable [phone] Avinash Chong MD Unavailable [phone] Sofia Amaya MD, MPH Unavailable +- [phone] Neal Sultana MD, MS Unavailable Tere Keita CORN MILLER Unavailable [phone] Mirela Barnhart MD Unavailable [phone] Andrei Dixon MD Unavailable [phone] Denise BlackC Unavailable [phone] Qamar Garcia MD Primary Care Provider [phone] Encounter Details Date Type Department Care Team (Late st Contact Info) Description 12/09/2022 Procedure Pass [facility], Ct Scan - [address] [address] Social History Tobacco Use Types Packs/Day Years [...] st Contact Info) Description 09/07/2024 Procedure Pass [facility], [place] [address] [facility] 3rd [place] [address] 09/07/2024 Procedure Pass [facility], [facility] [address] [facility] [address] [place] [address] 04/05/2025 11:00 AM EDT Office Visit [facility] [address] [facility] 3rd Floor, [address] [place] [address] Margarito Walker MD [address] [facility], [address] [place] [address] [email or web address] 05/10/2025 11:05 AM EST Appointment [facility], [facility] [address] [facility] [address] [place] [address] Mirela Barnhart MD [address] [place] [address] [email or web address] 05/10/2025 12:10 PM EST Appointment [facility], [place] [address] [address] Mirela Barnhart MD [address] [place] [address] [email or web address] 05/10/2025 3:00 PM EST Office [facility], [address], [address]th [place] [address] Mirela Barnhart MD [address] [place] [address] [email or web address] documented as of this encounter Visit Diagnoses Not on filedocumented in this encounter Additional Health Concerns Infection Onset Date Last Indicated Resolved Time CoV-Risk 09/22/2023 09/22/2023 09/22/2023 4:53 PM EDT COVID-19 09/22/2023 09/22/2023 10/13/2023 1:21 AM EDT documented as of this encounter Care Teams Rn Birthing Relationship Specialty Start Date End Date Qamar Garcia MD [address] [place] [address] PCP - General Internal Medicine 07/23/22 Qamar Garcia MD [address] [place] [address] Primary Care Physician 05/06/17 Avinash Chong MD [address] [place] [address] [email or web address] Historical LMR Provider 04/23/17 Sofia Amaya MD, MPH [address] [place] [address] [email or web address] Primary Oncologist Radiation Oncology 08/19/19 Neal Sultana MD, MS [address] [place] [address] [email or web address] Primary Oncologist Surgical Oncology 08/19/19 Tere Keita, [address] [address] [email or web address] Cotton Dispatcher Oncology 09/19/19 03/13/25 Mirela Barnhart MD [address] [place] [address] [email or web address] Medical Oncology 12/05/19 Andrei Dixon MD [address] [place] [address] [email or web address] Orthopedic Surgery 03/27/22 Denise Black PA-C [address] [place] [address] [place] [address] [email or web address]. simone Physician It Support Engineer 03/27/22 documented as of this encounter Additional Source Comments The information contained in this document represents components of the legal health record. It is not the complete legal health record.[facility]
--- OUTSIDE RECORDS SUMMARY | 2025-03-30 19:11 | XMS_ITS | Encounter Summary ---
Author Organization [facility] Address [address] [place] [address] Phone Care Team Providers Care Data Center Consultant Name Role Phone Qamar Garcia MD Unavailable [phone] Malachi Maloney MD Unavailable [phone] Sammie Govea MD Unavailable Avinash Chong MD Unavailable [phone] Qamar Garcia MD Primary Care Provider [phone] Sofia Amaya MD, MPH Unavailable +- [phone] Neal Sultana MD, MS Unavailable Tere Keita Unavailable [phone] Mirela Barnhart MD Unavailable [phone] Andrei Dixon MD Unavailable [phone] Denise Black PA-C Unavailable [phone] Unknown, Unknown Primary Care Provider Qamar Escamilla MD Primary Care Provider + [phone] Encounter Details Date Type Department Care Team (Late st Contact Info) Description 05/15/2020 Procedure Pass [facility], [facility], [place] 450 [facility], Floor L1 [place] [address] Social History Tobacco Use Types Packs/Day Years [...] st Contact Info) Description 09/07/2024 Procedure Pass [facility], [place] [address] [address] 09/07/2024 Procedure Pass [facility], [facility] [address] [address] 04/05/2025 11:00 AM EDT Office Visit [facility] [address] [place] [address], [address] [place] [address] Margarito Walker MD [address] [place] [address] 05/10/2025 11:05 AM EST Appointment [facility], [facility] [address] [address] Mirela Barnhart MD [address] [place] [address] [email or web address] [email or web address] 05/10/2025 12:10 PM EST Appointment [facility], [place] [address] [address] Mirela Barnhart MD 450 [place] [address] Kati@[email or web address] 05/10/2025 3:00 PM EST Office [facility], [facility] [address] [place] [address], 6th [place] [address] Mirela Barnhart MD 450 [place] [address] [email or web address] [email or web address] documented as of this encounter Visit Diagnoses Not on filedocumented in this encounter Additional Health Concerns Infection Onset Date Last Indicated Resolved Time CoV-Presumed 05/27/2022 05/27/2022 06/17/2022 3:51 AM EST CoV-Risk 09/22/2023 09/22/2023 09/22/2023 4:53 PM EDT COVID-19 09/22/2023 09/22/2023 10/13/2023 1:21 AM EDT documented as of this encounter Care Teams Data Center Consultant Relationship Specialty Start Date End Date Qamar Garcia MD [address] [place] [address] PCP - General Internal Medicine 10/14/18 03/26/22 Unknown, Unknown, MD PCP - General 04/08/22 07/22/22 Qamar Garcia MD [address] [place] [address] PCP - General Internal Medicine 07/23/22 Qamar Garcia MD [address] [place] [address] Primary Care Physician 05/06/17 Malachi Maloney MD [address] [place] [address] Historical LMR Provider 04/23/17 07/13/21 Sammie Govea MD [address] [place] [address] Orthopedics & Sports Medicine, [facility] [place] [address] [email or web address] Historical LMR Provider 04/23/17 07/13/21 Avinash Chong MD [address] [place] [address] [email or web address] Historical LMR Provider 04/23/17 Sofia Amaya MD, MPH [address] [place] [address] [email or web address] Primary Oncologist Radiation Oncology 08/19/19 Neal Sultana MD, MS [address] [place] [address] [email or web address] Primary Oncologist Surgical Oncology 08/19/19 Tere Keita, [address] [address] [email or web address] Alternative Medicine Practitioner Oncology 09/19/19 03/13/25 Mirela Barnhart MD [address] [place] [address] Kati@[email or web address] .[email or web address] Medical Oncology 12/05/19 Andrei Dixon MD [address] [place] [address], [address] [place], [place] [phone] [email or web address] Orthopedic Surgery 03/27/22 Denise Black PA-C [address] [place] [address] [address] [place] [address] [email or web address] Physician Patient Care Specialist 03/27/22 documented as of this encounter Additional Source Comments The information contained in this document represents components of the legal health record. It is not the complete legal health record.[facility]
--- OUTSIDE RECORDS SUMMARY | 2025-03-30 19:11 | XMS_ITS | Encounter Summary ---
Author Organization [facility] Address [address] [place] [address] Phone Care Team Providers Care Crop Nutrition Scientist Name Role Phone Qamar Garcia MD Unavailable Malachi Maloney MD Unavailable [phone] Sammie Govea MD Unavailable Avinash Chong MD Unavailable [phone] Qamar Garcia MD Primary Care Provider [phone] Sofia Amaya MD, MPH Unavailable [phone]- [phone] Neal Sultana MD, MS Unavailable Tere Keita Unavailable [phone] Mirela Barnhart MD Unavailable [phone] Andrei Dixon MD Unavailable [phone] Denise Black PA-C Unavailable [phone] Unknown, Unknown Primary Care Provider Qamar Escamilla MD Primary Care Provider + [phone] Encounter Details Date Type Department Care Team (Late st Contact Info) Description 03/25/2021 Procedure Pass [facility]-Invasive Cardiology [address] [place] [address] Social History Tobacco Use Types Packs/Day Years [...] st Contact Info) Description 09/07/2024 Procedure Pass [facility], [address] [address] 09/07/2024 Procedure Pass [address] [address] 04/05/2025 11:00 AM EDT Office Visit [facility] [address] [place] [address], [address] [place] [address] Margarito Walker MD [address] [place] [address] 05/10/2025 11:05 AM EST Appointment [facility], [address] [address] Mirela Barnhart MD [address] [place] [address] [email or web address] 05/10/2025 12:10 PM EST Appointment [facility], [address] [address] Mirela Barnhart MD [address] [place] [address] [email or web address] 05/10/2025 3:00 PM EST Office Visit [facility], [facility] [address] [place] [address], 6th [place] [address] Mirela Barnhart MD [address] [place] [address] [email or web address] [email or web address] documented as of this encounter Visit Diagnoses Not on filedocumented in this encounter Additional Health Concerns Infection Onset Date Last Indicated Resolved Time CoV-Presumed 05/27/2022 05/27/2022 06/17/2022 3:51 AM EST CoV-Risk 09/22/2023 09/22/2023 09/22/2023 4:53 PM EDT COVID-19 09/22/2023 09/22/2023 10/13/2023 1:21 AM EDT documented as of this encounter Care Teams Crop Nutrition Scientist Relationship Specialty Start Date End Date Qamar Garcia MD [address] [place] [address] PCP - General Internal Medicine 10/14/18 03/26/22 Unknown, Unknown, PCP - General 04/08/22 07/22/22 Qamar Garcia MD [address] [place] [address] PCP - General Internal Medicine 07/23/22 Qamar Garcia MD [address] [place] [address] Primary Care Physician 05/06/17 Malachi Maloney MD [address] [place] [address], [address] [place] [address] [email or web address] Historical LMR Provider 04/23/17 07/13/21 Sammie Govea MD [address] [place] [address] Orthopedics & Sports Medicine, [place] [address] [email or web address] Historical LMR Provider 04/23/17 07/13/21 Avinash Chong MD [address] [place] [address] [email or web address] Historical LMR Provider 04/23/17 Sofia Amaya MD, MPH [address] [place] [address] [email or web address] Primary Oncologist Radiation Oncology 08/19/19 Neal Sultana MD, MS [address] [place] [address] [email or web address] Primary Oncologist Surgical Oncology 08/19/19 Tere Keita, [address] [address] Tanya@[facility] Servomechanism Assembler Oncology 09/19/19 03/13/25 Mirela Barnhart MD [address] [place] [address] Kati@[email or web address] .[facility] Medical Oncology 12/05/19 Andrei Dixon MD [address] [place] [address], [address] [place], [place] [id number] [email or web address] Orthopedic Surgery 03/27/22 Denise Black PA-C [address] [place] [address] [place] [address] [email or web address] simone Physician Cricket Coach 03/27/22 documented as of this encounter Additional Source Comments The information contained in this document represents components of the legal health record. It is not the complete legal health record.[facility]
--- OUTSIDE RECORDS SUMMARY | 2025-03-30 19:11 | XMS_ITS | Encounter Summary ---
Author Organization [facility] Address [address] [place] [address] Phone Care Team Providers Care Seed Cone Picker Name Role Phone Qamar Garcia MD Unavailable [phone] Avinash Chong MD Unavailable [phone] Qamar Garcia MD Primary Care Provider [phone] Sofia Amaya MD, MPH Unavailable + [phone] Neal Sultana MD, MS Unavailable Tere Keita Unavailable [phone] Mirela Barnhart MD Unavailable [phone] Andrei Dixon MD Unavailable [phone] Denise Black PA-C Unavailable [phone] Unknown, Unknown Primary Care Provider Qamar Escamilla MD Primary Care Provider + [phone] Encounter Details Date Type Department Care Team (Late st Contact Info) Description 01/22/2022 Procedure Pass [facility] [place] [facility] [place] [place] [address] [address] Social History Tobacco Use Types [...] st Contact Info) Description 09/07/2024 Procedure Pass [address] [address] 09/07/2024 Procedure Pass [facility], [address] [address] 04/05/2025 11:00 AM EDT Office Visit [facility] [address] [place] [address], [address] [address] Margarito Walker MD [address] [place] [address] 05/10/2025 11:05 AM EST Appointment [facility], [address] [address] Mirela Barnhart MD [address] [place] [address] [email or web address] 05/10/2025 12:10 PM EST Appointment [facility], [address] [address] Mirela Barnhart MD [address] [place] [address] Kati@jc [email or web address] 05/10/2025 3:00 PM EST Office Visit [facility], [facility] [place] [address] [place] [address], 6th [place] [address] Mirela Barnhart MD 450 [place] [address] [email or web address] [email or web address] documented as of this encounter Visit Diagnoses Not on filedocumented in this encounter Additional Health Concerns Infection Onset Date Last Indicated Resolved Time CoV-Presumed 05/27/2022 05/27/2022 06/17/2022 3:51 AM EST CoV-Risk 09/22/2023 09/22/2023 09/22/2023 4:53 PM EDT COVID-19 09/22/2023 09/22/2023 10/13/2023 1:21 AM EDT documented as of this encounter Care Teams Seed Cone Picker Relationship Specialty Start Date End Date Qamar Garcia MD [address] [place] [address] PCP - General Internal Medicine 10/14/18 03/26/22 Unknown, Unknown, MD PCP - General 04/08/22 07/22/22 Qamar Garcia MD [address] [place] [address] PCP - General Internal Medicine 07/23/22 Qamar Garcia MD [address] [place] [address] Primary Care Physician 05/06/17 Avinash Chong MD [address] [place] [address] [email or web address] Historical LMR Provider 04/23/17 Sofia Amaya MD, MPH [address] [place] [address] [email or web address] .[email or web address] Primary Oncologist Radiation Oncology 08/19/19 Neal Sultana MD, MS [address] [place] [address] FAIZAN@[facility] Primary Oncologist Surgical Oncology 08/19/19 Tere Keita, [address] [address] Tanya@[email or web address] Mumps Developer Oncology 09/19/19 03/13/25 Mirela Barnhart MD [address] [place] [address] [email or web address] Medical Oncology 12/05/19 Andrei Dixon MD [address] [place] [address] [email or web address] Orthopedic Surgery 03/27/22 Denise Black PA-C [address] [place] [address] [email or web address]. simone Physician Prepress Supervisor 03/27/22 documented as of this encounter Additional Source Comments The information contained in this document represents components of the legal health record. It is not the complete legal health record.[facility]
--- OUTSIDE RECORDS SUMMARY | 2025-03-30 19:11 | XMS_ITS | Encounter Summary ---
Author Organization [facility] Address [address] [place] [address] [place] [address] Phone Care Team Providers Care Processing Tech Name Role Phone Qamar Garcia MD Unavailable [phone] Avinash Chong MD Unavailable [phone] Sofia Amaya MD, MPH Unavailable +- [phone] Neal Sultana MD, MS Unavailable Tere Keita [facility] Unavailable [phone] Mirela Barnhart MD Unavailable [phone] Andrei Dixon MD Unavailable [phone] Denise BlackC Unavailable [phone] Qamar Garcia MD Primary Care Provider [phone] Encounter Details Date Type Department Care Team (Late st Contact Info) Description 09/09/2022 Procedure Pass [facility] 6th floor [address] [place] [address] Social History Tobacco Use Types Packs/Day Years [...] Date of Assessment Author No Risk Indicated 09/10/2022 10:00 AM Salud Garcia RN * [place] Suicide Severity Rating Scale (Screener/Recent Self-Report) Question Answer Date of Assessment Author 1. Wish to be (Past 1 Month) No 023 10:00 AM Salud Gracia RN 2. Non-Specific Active Suici jessy Thoughts (Past 1 Month) No 09/10/2022 10:00 AM Gina Gacria RN 6. Suicidal Behavior (Lifetime) No 10:00 AM Salud Garcia RN documented as of this encounter Plan of Treatment Upcoming Encounters Date Type Department Care Team (Late st Contact Info) Description 09/07/2024 Procedure Pass [facility], [place] [address] [address] 09/07/2024 Procedure Pass [facility], [facility] [address] [address] 04/05/2025 11:00 AM EDT Office Visit [facility] [address] [place] [address] 3rd [facility], [address] [place] [address] Margarito Walker MD [address] [place] [address] [email or web address] 05/10/2025 11:05 AM EST Appointment [facility], [facility] [address] [address] Mirela Barnhart MD [address] [place] [address] [email or web address] 05/10/2025 12:10 PM EST Appointment [facility] [place] [facility] [place] 300 [facility] 3rd [place] [address] Mirela Barnhart MD [address] [place] [address] [email or web address] 05/10/2025 3:00 PM EST Office Visit [facility], [address], [address]th [place] [address] Mirela Barnhart MD [address] [place] [address] [email or web address] documented as of this encounter Visit Diagnoses Not on filedocumented in this encounter Additional Health Concerns Infection Onset Date Last Indicated Resolved Time CoV-Risk 09/22/2023 09/22/2023 09/22/2023 4:53 PM EDT COVID-19 09/22/2023 09/22/2023 10/13/2023 1:21 AM EDT documented as of this encounter Care Teams Processing Tech Relationship Specialty Start Date End Date Qamar Garcia MD [address] [place] [address] PCP - General Internal Medicine 07/23/22 Qamar Garcia MD [address] [place] [address] Primary Care Physician 05/06/17 Avinash Chong MD [address] [place] [address] [email or web address] Historical LMR Provider 04/23/17 Sofia Amaya MD, MPH [address] [place] [address] [email or web address] Primary Oncologist Radiation Oncology 08/19/19 Neal Sultana MD, MS [address] [place] [address] FAIZAN@[facility] Primary Oncologist Surgical Oncology 08/19/[address] [address] Tanya@[facility] Speech Language Therapist Oncology 09/19/19 03/13/25 Mirela Barnhart MD [address] [place] [address] Kati@[email or web address] Medical Oncology 12/05/19 Andrei Dixon MD [address] [place] [address] [email or web address] Orthopedic Surgery 03/27/22 Denise Black PA-C [address] [place] [address] [email or web address]. [email or web address] Physician Hydraulic Press Servicer 03/27/22 documented as of this encounter Additional Source Comments The information contained in this document represents components of the legal health record. It is not the complete legal health record.[facility]
--- OUTSIDE RECORDS SUMMARY | 2025-03-30 19:11 | XMS_ITS | Encounter Summary ---
Author Organization [facility] Address [address] [place] [address] [place] [address] Phone Care Team Providers Care Cipher Expert Name Role Phone Qamar Garcia MD Unavailable [phone] Avinash Chong MD Unavailable [phone] Sofia Amaya MD, MPH Unavailable +- [phone] Neal Sultana MD, MS Unavailable Tere KeitaSW Unavailable +[phone] Mirela Barnhart MD Unavailable [phone] Andrei Dixon MD Unavailable [phone] Denise BlackC Unavailable [phone] Qamar Garcia MD Primary Care Provider [phone] Encounter Details Date Type Department Care Team (Late st Contact Info) Description 02/25/2023 Procedure Pass [facility] Imaging Department, [facility] [place], [place] 450 [facility], Floor L1 [place] [address] Social History Tobacco Use Types Packs/Day Years [...] st Contact Info) Description 09/07/2024 Procedure Pass [facility] [place] 300 [facility] 3rd [place] [address] 09/07/2024 Procedure Pass [facility], [facility] 300 [facility] [address] [place] [address] 04/05/2025 11:00 AM EDT Office Visit [facility] [address] [place] [address] 3rd Floor, [address] [place] [address] Margarito Walker MD [address] [place] [address], [address] [place] [address] [email or web address] 05/10/2025 11:05 AM EST Appointment [facility], [facility] 300 [facility] [address] [place] [address] Mirela Barnhart MD [address] [place] [address] [email or web address] [email or web address] 05/10/2025 12:10 PM EST Appointment [facility], [place] [address] [address] Mirela Barnhart MD [address] [place] [address] [email or web address] [email or web address] 05/10/2025 3:00 PM EST [facility] Visit [facility], [address], [address]th [place] [address] Mirela Barnhart MD [address] [place] [address] [email or web address] documented as of this encounter Visit Diagnoses Not on filedocumented in this encounter Additional Health Concerns Infection Onset Date Last Indicated Resolved Time CoV-Risk 09/22/2023 09/22/2023 09/22/2023 4:53 PM EDT COVID-19 09/22/2023 09/22/2023 10/13/2023 1:21 AM EDT documented as of this encounter Care Teams Cipher Expert Relationship Specialty Start Date End Date Qamar Garcia MD [address] [place] [address] PCP - General Internal Medicine 07/23/22 Qamar Garcia MD [address] [place] [address] Primary Care Physician 05/06/17 Avinash Chong MD [address] [place] [address] [email or web address] Historical LMR Provider 04/23/17 Sofia Amaya MD, MPH [address] [place] [address] [email or web address] Primary Oncologist Radiation Oncology 08/19/19 Neal Sultana MD, MS [address] [place] [address] [email or web address] Primary Oncologist Surgical Oncology 08/19/19 Tere Keita, [address] [address] [email or web address]@[email or web address] Material Control Specialist Oncology 09/19/19 03/13/25 Mirela Barnhart MD [address] [place] [address] [email or web address] .[facility] Medical Oncology 12/05/19 Andrei Dixon MD [address] [place] [address], [address] [place] [address] [email or web address] Orthopedic Surgery 03/27/22 Denise Black PA-C 850 [facility] 130 [place] [address] [email or web address]. [email or web address] Physician Emblem Maker 03/27/22 documented as of this encounter Additional Source Comments The information contained in this document represents components of the legal health record. It is not the complete legal health record.[facility]
--- OUTSIDE RECORDS SUMMARY | 2025-03-30 19:11 | XMS_ITS | Encounter Summary ---
Author Organization [facility] Address [address] [place] [address] Phone Care Team Providers Care Massage Coordinator Name Role Phone Qamar Garcia MD Unavailable [phone] Avinash Chong MD Unavailable [phone] Qamar Garcia MD Primary Care Provider + [phone] Sofia Amaya MD, MPH Unavailable + [phone] Neal Sultana MD, MS Unavailable Tere Keita Unavailable [phone] Mirela Barnhart MD Unavailable [phone] Andrei Dixon MD Unavailable [phone] Denise Black PA-C Unavailable [phone] Unknown, Unknown Primary Care Provider Qamar Escamilla MD Primary Care Provider + [phone] Encounter Details Date Type Department Care Team (Late st Contact Info) Description 01/22/2022 Procedure Pass [facility] [place] [place] [address] [address] Social History Tobacco Use Types [...] st Contact Info) Description 09/07/2024 Procedure Pass [address] [address] 09/07/2024 Procedure Pass [facility], [address] [address] 04/05/2025 11:00 AM EDT Office Visit [facility] [address] [place] [address], [address] [address] Margarito Walker MD [address] [place] [address] 05/10/2025 11:05 AM EST Appointment [facility], [address] [address] Mirela Barnhart MD [address] [place] [address] [email or web address] 05/10/2025 12:10 PM EST Appointment [facility], [address] [address] Mirela Barnhart MD [address] [place] [address] Kati@[email or web address] [facility] 05/10/2025 3:00 PM EST Office Visit [facility], [facility] [address] [place] [address], 6th [place] [address] Mirela Barnhart MD 450 [place] [address] Kati@[email or web address] [facility] documented as of this encounter Visit Diagnoses Not on filedocumented in this encounter Additional Health Concerns Infection Onset Date Last Indicated Resolved Time CoV-Presumed 05/27/2022 05/27/2022 06/17/2022 3:51 AM EST CoV-Risk 09/22/2023 09/22/2023 09/22/2023 4:53 PM EDT COVID-19 09/22/2023 09/22/2023 10/13/2023 1:21 AM EDT documented as of this encounter Care Teams Massage Coordinator Relationship Specialty Start Date End Date Qamar Garcia MD [address] [place] [address] PCP - General Internal Medicine 10/14/18 03/26/22 Unknown, Unknown, MD PCP - General 04/08/22 07/22/22 Qamar Garcia MD [address] [place] [address] PCP - General Internal Medicine 07/23/22 Qamar Garcia MD [address] [place] [address] Primary Care Physician 05/06/17 Avinash Chong MD [address] [place] [address] [email or web address] Historical LMR Provider 04/23/17 Sofia Amaya MD, MPH [address] [place] [address] [email or web address] .[facility] Primary Oncologist Radiation Oncology 08/19/19 Neal Sultana MD, MS [address] [place] [address] [email or web address] Primary Oncologist Surgical Oncology 08/19/19 Tere Keita, [address] [address] [email or web address] String Studies Director Oncology 09/19/19 03/13/25 Mirela Barnhart MD [address] [place] [address] Kati@[email or web address] Medical Oncology 12/05/19 Andrei Dixon MD [address] [place] [address] [email or web address] Orthopedic Surgery 03/27/22 Denise Black PA-C [address] [place] [address] [email or web address]. [email or web address] Physician Marketing Campaign Analyst 03/27/22 documented as of this encounter Additional Source Comments The information contained in this document represents components of the legal health record. It is not the complete legal health record.[facility]
--- OUTSIDE RECORDS SUMMARY | 2025-03-30 19:12 | XMS_ITS | Encounter Summary ---
Author Organization [facility] Address [address] [place] [address] Phone Care Team Providers Care Interventional Cardiologist Name Role Phone Qamar Garcia MD Unavailable Malachi Maloney MD Unavailable [phone] Sammie Govea MD Unavailable [phone] Avinash Chong MD Unavailable Qamar Garcia MD Primary Care Provider + [phone] Sofia Amaya MD, MPH Unavailable + [phone] Neal Sultana MD, MS Unavailable Tere Keita Unavailable [phone] Mirela Barnhart MD Unavailable [phone] Andrei Dixon MD Unavailable [phone] Denise Black PA-C Unavailable [phone] Unknown, Unknown Primary Care Provider Qamar Escamilla MD Primary Care Provider + [phone] Encounter Details Date Type Department Care Team (Late st Contact Info) Description 11/13/2020 Procedure Pass Madalyn [place] Imaging Department, [facility], [place] [address] [facility], Floor [address]1 [place] [address] Social History Tobacco Use Types Packs/Day Years [...] st Contact Info) Description 09/07/2024 Procedure Pass [facility] [place], [place] [address] [address] 09/07/2024 Procedure Pass [facility], [facility] [address] [address] 04/05/2025 11:00 AM EDT Office Visit [facility] [address] [place] [address], [address] [place] [address] Margarito Walker MD [address] [place] [address] 05/10/2025 11:05 AM EST Appointment [facility], [facility] [address] [address] Mirela Barnhart MD [address] [place] [address] [email or web address] [email or web address] 05/10/2025 12:10 PM EST Appointment [facility] [place], [place] [address] [address] Mirela Barnhart MD [facility] [place] [address] [email or web address] 05/10/2025 3:00 PM EST Office [facility], [facility] [place] [address] [place] [address], 6th [place] [address] Mirela Barnhart MD 450 [place] [address] [email or web address] documented as of this encounter Visit Diagnoses Not on filedocumented in this encounter Additional Health Concerns Infection Onset Date Last Indicated Resolved Time CoV-Presumed 05/27/2022 05/27/2022 06/17/2022 3:51 AM EST CoV-Risk 09/22/2023 09/22/2023 09/22/2023 4:53 PM EDT COVID-19 09/22/2023 09/22/2023 10/13/2023 1:21 AM EDT documented as of this encounter Care Teams Interventional Cardiologist Relationship Specialty Start Date End Date Qamar Garcia MD [address] [place] [address] PCP - General Internal Medicine 10/14/18 03/26/22 Unknown, Unknown, MD PCP - General 04/08/22 07/22/22 Qamar Garcia MD [address] [place] [address] PCP - General Internal Medicine 07/23/22 Qamar Garcia MD [address] [place] [address] Primary Care Physician 05/06/17 Malachi Maloney MD [address] [place] [address] [email or web address] Historical LMR Provider 04/23/17 07/13/21 Sammie Govea MD [address] [place] [address] Orthopedics & Sports Medicine, [facility] [place] [address] [email or web address] Historical LMR Provider 04/23/17 07/13/21 Avinash Chong MD [address] [place] [address] [email or web address] Historical LMR Provider 04/23/17 Sofia Amaya MD, MPH [address] [place] [address] [email or web address] Primary Oncologist Radiation Oncology 08/19/19 Neal Sultana MD, MS [address] [place] [address] [email or web address] Primary Oncologist Surgical Oncology 08/19/19 Tere Keita, [facility] 35 [place] [address] [email or web address]@[facility] Poultry Inspector Oncology 09/19/19 03/13/25 Mirela Barnhart MD [address] [place] [address] Kati@[email or web address] .[facility] Medical Oncology 12/05/19 Andrei Dixon MD [address] [place] [address], [address] [place] [address] [email or web address] Orthopedic Surgery 03/27/22 Denise Black PA-C [address] [place] [address] [address] [place] [address] [email or web address]. simone Physician Restaurant Inspector 03/27/22 documented as of this encounter Additional Source Comments The information contained in this document represents components of the legal health record. It is not the complete legal health record.[facility]
--- OUTSIDE RECORDS SUMMARY | 2025-03-30 19:12 | XMS_ITS | Encounter Summary ---
Author Organization [facility] Address [address] [place] [address] Phone Care Team Providers Care Laboratory Machinist Name Role Phone Qamar Garcia MD Unavailable [phone] Malachi Maloney MD Unavailable [phone] Sammie Govea MD Unavailable Avinash Chong MD Unavailable [phone] Qamar Garcia MD Primary Care Provider + [phone] Sofia Amaya MD, MPH Unavailable + [phone] Neal Sultana MD, MS Unavailable Tere Keita Unavailable [phone] Mirela Barnhart MD Unavailable [phone] Andrei Dixon MD Unavailable [phone] Denise Black PA-C Unavailable [phone] Unknown, Unknown Primary Care Provider Qamar Escamilla MD Primary Care Provider + [phone] Encounter Details Date Type Department Care Team (Late st Contact Info) Description 11/13/2020 Procedure Pass Madalyn Vivi Imaging Department, [facility], [place] [address] [address] Social History Tobacco Use Types Packs/Day Years [...] st Contact Info) Description 09/07/2024 Procedure Pass [facility], [address] [address] 09/07/2024 Procedure Pass [facility], [address] [address] 04/05/2025 11:00 AM EDT Office Visit [facility] [address] [place] [address], [address] [place] [address] Margarito Walker MD [address] [place] [address] 05/10/2025 11:05 AM EST Appointment [facility], [address] [address] Mirela Barnhart MD [address] [place] [address] [email or web address] 05/10/2025 12:10 PM EST Appointment [address] [address] Mirela Barnhart MD [address] [place] [address] [email or web address] [facility] 05/10/2025 3:00 PM EST [facility], [facility] [place] [address] [place] [address], 6th [place] [address] Mirela Barnhart MD 450 [place] [address] [email or web address] [email or web address] documented as of this encounter Visit Diagnoses Not on filedocumented in this encounter Additional Health Concerns Infection Onset Date Last Indicated Resolved Time CoV-Presumed 05/27/2022 05/27/2022 06/17/2022 3:51 AM EST CoV-Risk 09/22/2023 09/22/2023 09/22/2023 4:53 PM EDT COVID-19 09/22/2023 09/22/2023 10/13/2023 1:21 AM EDT documented as of this encounter Care Teams Laboratory Machinist Relationship Specialty Start Date End Date Qamar Garcia MD [address] [place] [address] PCP - General Internal Medicine 10/14/18 03/26/22 Unknown, Unknown, MD PCP - General 04/08/22 07/22/22 Qamar Garcia MD [address] [place] [address] PCP - General Internal Medicine 07/23/22 Qamar Garcia MD [address] [place] [address] Primary Care Physician 05/06/17 Malachi Maloney MD [address] [place] [address], [facility] 301 [place] [address] [email or web address] Historical LMR Provider 04/23/17 07/13/21 Sammie Govea MD [address] [place] [address] Orthopedics & Sports Medicine, [facility] [place] [address] [email or web address] Historical LMR Provider 04/23/17 07/13/21 Avinash Chong MD [address] [place] [address] [email or web address] Historical LMR Provider 04/23/17 Sofia Amaya MD, MPH [address] [place] [address] [email or web address] Primary Oncologist Radiation Oncology 08/19/19 Neal Sultana MD, MS [address] [place] [address] [email or web address] Primary Oncologist Surgical Oncology 08/19/19 Tere Keita, [address] [address] Tanya@[facility] County Judge Oncology 09/19/19 03/13/25 Mirela Barnhart MD [address] [place] [address] [email or web address] .[facility] Medical Oncology 12/05/19 Andrei Dixon MD [address] [place] [address], [address] [place] [address] [email or web address] Orthopedic Surgery 03/27/22 Denise Black PA-C [address] [place] [address] 130 [place] [address] [email or web address] Physician Associate Application Developer 03/27/22 documented as of this encounter Additional Source Comments The information contained in this document represents components of the legal health record. It is not the complete legal health record.[facility]
--- OUTSIDE RECORDS SUMMARY | 2025-03-30 19:12 | XMS_ITS | Encounter Summary ---
Author Organization [facility] Address [address] [place] [address] Phone Care Team Providers Care Chief Librarian Branch Name Role Phone Qamar Garcia MD Unavailable Malachi Maloney MD Unavailable [phone] Sammie Govea MD Unavailable Avinash Chong MD Unavailable [phone] Qamar Garcia MD Primary Care Provider + [phone] Sofia Amaya MD, MPH Unavailable + [phone] Neal Sultana MD, MS Unavailable Tere Keita Unavailable [phone] Mirela Barnhart MD Unavailable [phone] Andrei Dixon MD Unavailable [phone] Denise Black PA-C Unavailable [phone] Unknown, Unknown Primary Care Provider Qamar Escamilla MD Primary Care Provider + [phone] Encounter Details Date Type Department Care Team (Latest Contact Info) Description 02/20/2021 Transcribe Orders Virtual Department 30 [place] [address] Qamar Garcia MD [address] [place] [address] Right knee pain, unspecified chronicity (Primary Dx) [...] Upcoming Encounters Date Type Department Care Team ([facility] st Contact Info) Description 09/07/2024 Procedure Pass [facility] [place] [address] [address] 09/07/2024 Procedure Pass [facility], [facility] [address] [address] 04/05/2025 11:00 AM EDT Office Visit [facility] [address] [place] [address], [address] [place] [address] Margarito Walker MD [address] [place] [address] 05/10/2025 11:05 AM EST Appointment [facility], [facility] [address] [address] Mirela Barnhart MD [address] [place] [address] [email or web address] [email or web address] 05/10/2025 12:10 PM EST Appointment [facility] [place] 300 [facility] 3rd [place] [address] Mirela Barnhart MD [address] [place] [address] Kati@d [email or web address] 05/10/2025 3:00 PM EST Office Visit [facility], [facility] 450 [facility], 6th [place] [address] Mirela Barnhart MD 450 [place] [address] [email or web address] [email or web address] documented as of this encounter Results * XR KNEE 4 OR MORE VIEWS (RIGHT) (02/28/2021 10:31 AM EDT) Anatomical Region Laterality Modality Knee Right Computed Radiogr aphy 02/28/2021 10:3 9 AM EDT Impressions 02/28/2021 10:41 AM EDT Early xmfo-fj-swqd contact consistent with advanced medial compartment osteoarthritis right knee. Narrative 02/28/2021 10:41 AM EDT Weightbearing view of both knees as well as lateral, tunnel and sunrise views of the right knee. Comparison made to MRI from February 18. The weightbearing views of the knees demonstrates some early hhwx-xs-ximt contact with sclerosis and medial compartment the right knee. No chondrocalcinosis. Minor joint space loss medial compartment left knee. A few vascular clips noted over the left tibia. Right knee: No definite effusion. Minimal enthesopathy upper pole the patella. Patellofemoral joint space preserved. No bony lesions. Minor demineralization. Procedure Note Yfn Nixon MD - 02/28/2021 Weightbearing view of both knees as well as lateral, tunnel and sunriseviews of the right knee. Comparison made to MRI from February 18. The weightbearing views of the knees demonstrates some early thwc-zk-genjwfopqwy with sclerosis and medial compartment the right knee. Nochondrocalcinosis. Minor joint space loss medial compartment left knee. Afew vascular clips noted over the left tibia. Right knee: No definite effusion. Minimal enthesopathy upper pole thepatella. Patellofemoral joint space preserved. No bony lesions. Minordemineralization. IMPRESSION: Early swoj-fj-owjy contact consistent with advanced medial compartmentosteoarthritis right knee. Qamar Garcia MD IMG XR LOWER EXTREMITY Final Result documented in this encounter Visit Diagnoses Diagnosis Right knee pain, unspecified chronicity- Primary Right knee pain, unspecified chronicity documented in this encounter Additional Health Concerns Infection Onset Date Last Indicated Resolved Time CoV-Presumed 05/27/2022 05/27/2022 06/17/2022 3:51 AM EST CoV-Risk 09/22/2023 09/22/2023 09/22/2023 4:53 PM EDT COVID-19 09/22/2023 09/22/2023 10/13/2023 1:21 AM EDT documented as of this encounter Care Teams Chief Librarian Branch Relationship Specialty Start Date End Date Qamar Garcia MD [address] [place] [address] PCP - General Internal Medicine 10/14/18 03/26/22 Unknown, Unknown, MD PCP - General 04/08/22 07/22/22 Qamar Garcia MD [address] [place] [address] PCP - General Internal Medicine 07/23/22 Qamar Garcia MD [address] [place] [address] Primary Care Physician 05/06/17 Malachi Maloney MD [address] [place] [address] [place] [address] [email or web address] Historical LMR Provider 04/23/17 07/13/21 Sammie Govea MD [address] [place] [address] Orthopedics & Sports Medicine, [facility] [place] [address] [email or web address] Historical LMR Provider 04/23/17 07/13/21 Avinash Chong MD [address] [place] [address] [email or web address] Historical LMR Provider 04/23/17 Sofia Amaya MD, MPH [address] [place] [address] [email or web address] Primary Oncologist Radiation Oncology 08/19/19 Neal Sultana MD, MS [address] [place] [address] [email or web address]@[email or web address] Primary Oncologist Surgical Oncology 08/19/19 Tere Keita, [address] [address] [email or web address]@[email or web address] Accounts Receivable Associate Oncology 09/19/19 03/13/25 Mirela Barnhart MD [address] [place] [address] Kati@[email or web address] .[facility] Medical Oncology 12/05/19 Andrei Dixon MD [address] [place] [address], [address] [place] [address] [email or web address] Orthopedic Surgery 03/27/22 Denise Black PA-C [address] [place] [address] [address] [place] [address] [email or web address]. [email or web address] Physician Carbon Sequestration Plant Manager 03/27/22 documented as of this encounter Additional Source Comments The information contained in this document represents components of the legal health record. It is not the complete legal health record.[facility]
--- OUTSIDE RECORDS SUMMARY | 2025-03-30 19:13 | XMS_ITS | Encounter Summary ---
Author Organization [facility] Address [address] [place] [address] Phone Care Team Providers Care Microwave Radio Technician Name Role Phone Qamra Garcia MD Unavailable [phone] Avinash Chong MD Unavailable [phone] Sofia Amaya MD, MPH Unavailable [phone] Neal Sultana MD, MS Unavailable Tere Keita [facility] Unavailable [phone] Mirela Barnhart MD Unavailable [phone] Andrei Dixon MD Unavailable [phone] Denise Black-C Unavailable [phone] Qamar Garcia MD Primary Care Provider [phone] Reason for Referral * MRI/CAT Scan - Closed Specialty Diagnoses / Procedures Referred By Bam t Referred To Contact Radiology Diagnoses Chest pain, unspecified type Procedures NC Myocardial Perfusion Exercise Multiple NC Myocardial Perfusion Pharmacologic Stress Multiple Perfecto Cosme MD Phone: tel: fax: [email or web address] Referral ID Status Reason Start Date Expiration Date Visits Re quested Visits Authorized [id number] Closed 03/20/2023 1 1 Encounter Details Date Type Department Care Team (Latest Contact Info) Description 04/02/2023 Ancillary Orders [facility] [address] 3rd Floor, [address] [place] [address] Perfecto Cosme MD [address] [place] [address] [email or web address] Chest pain, unspecified type Social History Tobacco Use Types Packs/Day Years [...] st Contact Info) Description 09/07/2024 Procedure Pass [facility], [place] [address] [address] 09/07/2024 Procedure Pass [facility], [facility] [address] [address] 04/05/2025 11:00 AM EDT Office Visit [facility] [address] [place] [address], [address] [place] [address] Margarito Walker MD [address] [place] [address] 05/10/2025 11:05 AM EST Appointment [facility], [facility] [address] [address] Mirela Barnhart MD [address] [place] [address] [email or web address] 05/10/2025 12:10 PM EST Appointment [facility], [place] [address] [address] Mirela Barnhart MD [address] [place] [address] [email or web address] 05/10/2025 3:00 PM EST Office Visit [facility], [address], [address]th [place] [address] Mirela Barnhart MD [address] [place] [address] [email or web address] documented as of this encounter Results * NC Myocardial Perfusion Exercise Multiple (04/02/2023 10:26 AM EDT) Nuc Stress EF 55 % LV Systolic Volume 43 mL LV Diastolic Volume 95 mL EF 55 % LV Systolic Volume Index 46 mL/m2 LV Diastolic Volume Index 103 mL/m2 Anatomical Region Laterality Modality Heart, Vascular Ultrasound Narrative 04/02/2023 2:31 PM EDT Date of prior study: 04/11/2021 Myocardial perfusion stress test imaging report- normal No significant myocardial perfusion defects were seen at stress and at rest images Normal left ventricular systolic function. LV EF is 55% Conclusion; No ischemia or infarction seen Normal left ventricular systolic function. Nuclear Study Quality TYPE OF STUDY: Myocardial Perfusion Imaging after exercise utilizing a standard Yaya protocol with gated SPECT. PROTOCOL USED: One day rest- stress protocol in the supine and prone position. Images were obtained in gated tomographic technique. Images were processed in SPECT format, reconstructed tomographically and compared [id number] in short axis, horizontal long axis and vertical long axis. DOSE: Technetium 99m Sestamibi 7.4 mCi injected intravenously in the right antecubital vein at rest on 04/02/2023 with post injection scan time of 60 minutes. Technetium 99m Sestamibi 22.1 mCi injected intravenously in the right arm antecubital vein during stress on 04/02/2023 with post injection scan time of 20 minutes. Overall image quality is good. Study was gated successfully. Response to Stress REPORT: WEIGHT: 144 LB BMI: 21.90 Jabier Magana exercised for 7:00 min on a YAYA protocol achieving 8.0 METS. Test terminated due to fatigue. Baseline resting HR was 51bpm. Max heart rate achieved was 133 bpm (95% MPHR). 1. EKG - Baseline EKG showed sinus bradycardia with nonspecific ST-T wave abnormalities. During exercise there were no ischemic EKG changes that met criteria. 2. SYMPTOMS -No chest pain 3. EXERCISE PHYSIOLOGY -Good functional capacity for age. BP 134/86 at rest, BP 200/98 during exercise, BP 132/86 on discharge from stress lab. 4. ARRHYTHMIAS -Rare isolated PVCs, 1 ventricular pair, 1 ventricular triplet Conclusion -There were no EKG changes suggestive for ischemia or symptoms concerning for angina.. Nuclear images pending and will be reported separately. See attached stress report for full details. Elizabeth Mckeon NP . Perfusion Comments Stress LV cavity volume was 62 mL. Resting LV cavity volume was 54 mL. The stress/rest perfusion ratio is 1.15. There is no evidence of transient ischemic dilation (TID). The TID ratio was 1.1. Stress Function Comments Left ventricular function post-stress was normal. Post-stress ejection fraction was 55%. The stress end diastolic cavity size is normal. Stress end diastolic index: 103 mL/m2. The stress end systolic cavity size is normal. Stress end systolic index: 46 mL/m2. Nuclear Prior Study There is a prior study available for comparison that was performed on 04/11/2021. Rest Function Comments Left ventricular function at rest was normal. Resting ejection fraction was 55%. The rest end diastolic cavity size is normal. Rest end diastolic index: 95 mL. The rest end systolic cavity size is normal. Rest end systolic index: 43 mL. Perfusion Scoring Stress Summed Score: 1 Percent Normal: 1.47% Mild count reduction in the following segments: mid inferoseptal. All other segments are normal. Perfusion Scoring Resting Summed Score: 1 Percent Normal: 1.47% Mild count reduction in the following segments: mid inferoseptal. All other segments are normal. Procedure Note Saqib Rodriguez MD - 04/02/2023 Date of prior study: 04/11/2021 Myocardial perfusion stress test imaging report- normal No significant myocardial perfusion defects were seen at stress and atrest images Normal left ventricular systolic function. LV EF is 55% Conclusion; No ischemia or infarction seen Normal left ventricular systolic function. Perfecto Cosme MD CV NM CARDIAC Final Result documented in this encounter Visit Diagnoses Diagnosis Chest pain, unspecified type- Primary Chest pain, unspecified type documented in this encounter Additional Health Concerns Infection Onset Date Last Indicated Resolved Time CoV-Risk 09/22/2023 09/22/2023 09/22/2023 4:53 PM EDT COVID-19 09/22/2023 09/22/2023 10/13/2023 1:21 AM EDT documented as of this encounter Care Teams Microwave Radio Technician Relationship Specialty Start Date End Date Qamar Garcia MD [address] [place] [address] PCP - General Internal Medicine 07/23/22 Qamar Garcia MD [address] [place] [address] Primary Care Physician 05/06/17 Avinash Chong MD [address] [place] [address] [email or web address] Historical LMR Provider 04/23/17 Sofia Amaya MD, MPH [address] [place] [address] [email or web address] Primary Oncologist Radiation Oncology 08/19/19 Neal Sultana MD, MS [address] [place] [address] [email or web address] Primary Oncologist Surgical Oncology 08/19/19 Tere Keita, [address] [address] [email or web address] Silk Worker Oncology 09/19/19 03/13/25 Mirela Barnhart MD [address] [place] [address] [email or web address] Medical Oncology 12/05/19 Andrei Dixon MD [address] [place] [address] [place] [address] [email or web address] Orthopedic Surgery 03/27/22 Denise Black PA-C [address] [place] [address] [email or web address] Physician Reactor Operator 03/27/22 documented as of this encounter Additional Source Comments The information contained in this document represents components of the legal health record. It is not the complete legal health record.[facility]
--- OUTSIDE RECORDS SUMMARY | 2025-03-30 19:13 | XMS_ITS | Encounter Summary ---
Author Organization [facility] Address [address] [place] [address] Phone Care Team Providers Care Differential Tester Name Role Phone Qamar Garcia MD Unavailable Malachi Maloney MD Unavailable [phone] Sammie Govea MD Unavailable Avinash Chong MD Unavailable [phone] Qamar Garcia MD Primary Care Provider [phone] Miguelangel Reynoso MD Primary Care Provider Qamar Garcia MD Primary Care Provider Sofia Amaya MD, MPH Unavailable Karely Ansari MD Unavailable Neal Sultana MD, MS Unavailable Tere Keita Unavailable [phone] Mirela Barnhart MD Unavailable [phone] Andrei Dixon MD Unavailable [phone] Denise Black PA-C Unavailable Unknown, Unknown Primary Care Provider Qamar Escamilla MD Primary Care Provider Encounter Details Date Type Department Care Team (Late st Contact Info) Description 11/25/2017 Procedure Pass [facility], [place] [facility] [address] [facility], 2nd [place] [address] Social History Tobacco Use Types Packs/Day Years [...] st Contact Info) Description 09/07/2024 Procedure Pass [facility], [place] [address] [address] 09/07/2024 Procedure Pass [facility] [address] [address] 04/05/2025 11:00 AM EDT Office Visit [facility] [address] [place] [address], [address] [place] [address] Margarito Walker MD [address] [place] [address] [email or web address] 05/10/2025 11:05 AM EST Appointment [facility], [facility] [address] [address] Mirela Barnhart MD [address] [place] [address] [email or web address] 05/10/2025 12:10 PM EST Appointment [facility] [place] [place] 300 [facility] 3rd [place] [address] Mirela Barnhart MD [address] [place] [address] [email or web address] the [facility] 05/10/2025 3:00 PM EST Office Visit [facility], [facility] [address] [facility], 6th [place] [address] Mirela Barnhart MD [address] [place] [address] [email or web address] the [facility] [...] documented as of this encounter Care Teams Differential Tester Relationship Specialty Start Date End Date Qamar Garcia MD [address] [place] [address] PCP - General Internal Medicine 10/12/17 08/23/18 Miguelangel Reynoso MD [address] [place] [address] 800 [place] [address] [email or web address] PCP - General Cardiology 08/24/18 10/13/18 Qamar Garcia MD [address] [place] [address] PCP - General Internal Medicine 10/14/18 03/26/22 Unknown, Emely, PCP - General 04/08/22 07/22/22 Qamar Garcia MD [address] [place] [address] PCP - General Internal Medicine 07/23/22 Qamar Garcia MD [address] [place] [address] Primary Care Physician 05/06/17 Malachi Maloney MD [address] [place] [address] [email or web address] Historical LMR Provider 04/23/17 07/13/21 Sammie Govea MD [address] [place] [address] Orthopedics & Sports Medicine, [place] [address] [email or web address] Historical LMR Provider 04/23/17 07/13/21 Avinash Chong MD [address] [place] [address] [email or web address] Historical LMR Provider 04/23/17 Sofia Amaya MD, MPH [address] [place] [address] [email or web address] Primary Oncologist Radiation Oncology 08/19/19 Karely Ansari MD [address] [place] [address] Primary Oncologist Medical Oncology 08/19/19 12/04/19 Neal Sultana MD, MS [address] [place] [address] [email or web address] Primary Oncologist Surgical Oncology 08/19/19 Tere Keita, [address] [address] [email or web address] Diesel Mechanic Helper Oncology 09/19/19 03/13/25 Mirela Barnhart MD [address] [place] [address] [email or web address] Medical Oncology 12/05/19 Andrei Dixon MD [address] [place] [address] [email or web address] Orthopedic Surgery 03/27/22 Denise Black PA-C [address] [place] [address] [email or web address] Physician Professor Of Early Childhood Education 03/27/22 documented as of this encounter Additional Source Comments The information contained in this document represents components of the legal health record. It is not the complete legal health record.[facility]
--- OUTSIDE RECORDS SUMMARY | 2025-03-30 19:14 | XMS_ITS | Encounter Summary ---
Author Organization [facility] Address [address] [place] [address] [place] [address] Phone Care Team Providers Care Global Clinical Leader Name Role Phone Qamar Garcia MD Unavailable [phone] Avinash Chong MD Unavailable [phone] Sofia Amaya MD, MPH Unavailable [phone] Neal Sultana MD, MS Unavailable Tere KeitaSW Unavailable [phone] Mirela Barnhart MD Unavailable [phone] Andrei Dixon MD Unavailable [phone] Denise Black PA-C Unavailable [phone] Qamar Garcia MD Primary Care Provider [phone] Encounter Details Date Type Department Care Team (Late st Contact Info) Description 03/09/2024 Procedure Pass [facility], [facility] [place], [place] [address] [facility], Floor [address]1 [place] [address] Social History Tobacco Use Types Packs/Day Years [...] st Contact Info) Description 09/07/2024 Procedure Pass [facility], [place] 300 [facility] 3rd [place] [address] 09/07/2024 Procedure Pass [facility], [facility] 300 [facility] 4th [place] [address] 04/05/2025 11:00 AM EDT Office Visit [facility] [address] [place] [address] 3rd Floor, [address] [place] [address] Margarito Walker MD [address] [place] [address], [address] [place] [address] [email or web address] 05/10/2025 11:05 AM EST Appointment [facility], [facility] 300 [facility] 4th [place] [address] Mirela Barnhart MD [address] [place] [address] [email or web address] 05/10/2025 12:10 PM EST Appointment [facility], [place] [address] [address] Mirela Barnhart MD [address] [place] [address] [email or web address] 05/10/2025 3:00 PM EST Office Visit [facility], [address], [address]th [place] [address] Mirela Barnhart MD [address] [place] [address] [email or web address] documented as of this encounter Visit Diagnoses Not on filedocumented in this encounter Care Teams Global Clinical Leader Relationship Specialty Start Date End Date Qamar Garcia MD [address] [place] [address] PCP - General Internal Medicine 07/23/22 Qamar Garcia MD [address] [place] [address] Primary Care Physician 05/06/17 Avinash Chong MD [address] [place] [address] [email or web address] Historical LMR Provider 04/23/17 Sofia Amaya MD, MPH [address] [place] [address] [email or web address] Primary Oncologist Radiation Oncology 08/19/19 Neal Sultana MD, MS [address] [place] [address] [email or web address] Primary Oncologist Surgical Oncology 08/19/[address] [address] [email or web address] Mine Safety Director Oncology 09/19/19 03/13/25 Mirela Barnhart MD [address] [place] [address] [email or web address] Medical Oncology 12/05/19 Andrei Dixon MD [address] [place] [address] [email or web address] Orthopedic Surgery 03/27/22 Denise Black PA-C [address] [place] [address] [email or web address] Physician Well Surveying Engineer 03/27/22 documented as of this encounter Additional Source Comments The information contained in this document represents components of the legal health record. It is not the complete legal health record.[facility]
--- OUTSIDE RECORDS SUMMARY | 2025-03-30 19:14 | XMS_ITS | Encounter Summary ---
Author Organization [facility] Address [address] [place] [address] Phone Care Team Providers Care Histopathology Technician Name Role Phone Qamar Garcia MD Unavailable [phone] Malachi Maloney MD Unavailable [phone] Sammie Govea MD Unavailable Avinash Chong MD Unavailable [phone] Qamar Garcia MD Primary Care Provider Miguelangel Reynoso MD Primary Care Provider [phone] Qamar Garcia MD Primary Care Provider Sofia Amaya MD, MPH Unavailable Karely Ansari MD Unavailable Neal Sultana MD, MS Unavailable Tere Keita Unavailable [phone] Mirela Barnhart MD Unavailable [phone] Andrei Dixon MD Unavailable [phone] Denise Black PA-C Unavailable Unknown, Unknown Primary Care Provider Qamar Escamilla MD Primary Care Provider Encounter Details Date Type Department Care Team (Late Contact Info) Description 11/26/2017 Procedure Pass [facility] [address] [place] [address] Social History Tobacco Use Types Packs/Day Years [...] (Late Contact Info) Description 09/07/2024 Procedure Pass [facility] [place] [address] [address] 09/07/2024 Procedure Pass [facility], [facility] [address] [address] 04/05/2025 11:00 AM EDT Office Visit [facility] [address] [place] [address], [address] [place] [address] Margarito Walker MD [address] [place] [address] 05/10/2025 11:05 AM EST Appointment [facility], [facility] [address] [address] Mirela Barnhart MD [address] [place] [address] [email or web address] 05/10/2025 12:10 PM EST Appointment [facility] [place] [place] 300 [facility] 3rd [place] [address] Mirela Barnhart MD [address] [place] [address] [email or web address] 05/10/2025 3:00 PM EST Office Visit [facility], [facility] [address], 6th [place] [address] Mirela Barnhart MD 450 [place] [address] [email or web address] documented as of this encounter Visit Diagnoses Not on filedocumented in this encounter Additional Health Concerns Infection Onset Date Last Indicated Resolved Time CoV-Risk 01/13/2020 01/13/2020 01/13/2020 4:17 PM EDT CoV-Presumed 05/27/2022 05/27/2022 06/17/2022 3:51 AM EST CoV-Risk 09/22/2023 09/22/2023 09/22/2023 4:53 PM EDT COVID-19 09/22/2023 09/22/2023 10/13/2023 1:21 AM EDT documented as of this encounter Care Teams Histopathology Technician Relationship Specialty Start Date End Date Qamar Garcia MD [address] [place] [address] PCP - General Internal Medicine 10/12/17 08/23/18 Miguelangel Reynoso MD [address] [place] [address] 800 [place] [address] [email or web address] PCP - General Cardiology 08/24/18 10/13/18 Qamar Garcia MD [address] [place] [address] PCP - General Internal Medicine 10/14/18 03/26/22 Unknown, Unknown, MD PCP - General 04/08/22 07/22/22 Qamar Garcia MD [address] [place] [address] PCP - General Internal Medicine 07/23/22 Qamar Garcia MD [address] [place] [address] Primary Care Physician 05/06/17 Malachi Maloney MD [address] [place] [address] Historical LMR Provider 04/23/17 07/13/21 Sammie Govea MD [address] [place] [address] [facility] Sports Medicine, [place] [address] [email or web address] Historical LMR Provider 04/23/17 07/13/21 Avinash Chong MD [address] [place] [address] [email or web address] Historical LMR Provider 04/23/17 Sofia Amaya MD, MPH [address] [place] [address] [email or web address] Primary Oncologist Radiation Oncology 08/19/19 Karely Ansari MD [address] [place] [address] Primary Oncologist Medical Oncology 08/19/19 12/04/19 Neal Sultana MD, MS [address] [place] [address] [email or web address] Primary Oncologist Surgical Oncology 08/19/19 Tere Keita, [address] [address] [email or web address] [employer]ura Technical Lead Senior Developer Oncology 09/19/19 03/13/25 Mirela Barnhart MD [address] [place] [address] [email or web address] Medical Oncology 12/05/19 Andrei Dixon MD [address] [place] [address] [email or web address] Orthopedic Surgery 03/27/22 Denise Black PA-C [address] [place] [address] [email or web address] Physician Hair Spinner 03/27/22 documented as of this encounter Additional Source Comments The information contained in this document represents components of the legal health record. It is not the complete legal health record.[facility]
--- OUTSIDE RECORDS SUMMARY | 2025-03-30 19:14 | XMS_ITS | Encounter Summary ---
Author Organization [facility] Address [address] [place] [address] Phone Care Team Providers Care Loader Operator Name Role Phone Qamar Garcia MD Unavailable [phone] Avinash Chong MD Unavailable [phone] Sofia Amaya MD, MPH Unavailable + [phone] Neal Sultana MD, MS Unavailable Tere Keita SHIM PLUG CUTTER Unavailable [phone] Mirela Barnhart MD Unavailable [phone] Andrei Dixon MD Unavailable [phone] Denise Black PA-C Unavailable [phone] Qamar Garcia MD Primary Care Provider [phone] Encounter Details Date Type Department Care Team (Late st Contact Info) Description 03/05/2025 Ancillary Orders [facility], X-Ray [address] [address] Qamar Garcia MD [address] [place] [address] Buttock pain (Primary Dx) Social History Tobacco Use Types [...] st Contact Info) Description 09/07/2024 Procedure Pass [facility] [place] [address] [address] 09/07/2024 Procedure Pass [facility], [facility] [address] [address] 04/05/2025 11:00 AM EDT Office Visit [facility] [address] [place] [address] 3rd Floor, [address] [place] [address] Margarito Walker MD [address] [place] [address], [address] [place] [address] 05/10/2025 11:05 AM EST Appointment [facility], [facility] 300 [facility] 4th [place] [address] Mirela Barnhart MD [address] [place] [address] [email or web address] 05/10/2025 12:10 PM EST Appointment [facility] [place] [address] [address] Mirela Barnhart MD [address] [place] [address] [email or web address] 05/10/2025 3:00 PM EST Office Visit [facility], [address], [address]th [place] [address] Mirela Barnhart MD [address] [place] [address] [email or web address] documented as of this encounter Results * XR LUMBOSACRAL SPINE 2-3 VIEWS (03/05/2025 11:50 AM EDT) Anatomical Region Laterality Modality L-spine Computed Radiogr aphy 03/06/2025 10:1 2 AM EDT Impressions 03/06/2025 10:13 AM EDT Degenerative changes. No acute osseous abnormality. Narrative 03/06/2025 10:13 AM EDT XR LUMBOSACRAL SPINE 2-3 VIEWS Referring clinician's provided indication for this examination in Epic: Pain COMPARISON: None FINDINGS: No acute fracture or compression fracture. Right convex lumbar spinal curvature. Multilevel disc height loss greatest at L1-2. 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 Osteopenia. Procedure Note Jennifer Her MD - 03/06/2025 XR LUMBOSACRAL SPINE 2-3 VIEWS Referring clinician's provided indication for this examination in Epic:Pain COMPARISON: None FINDINGS: No acute fracture or compression fracture. Right convex lumbar spinalcurvature. Multilevel disc height loss greatest at L1-2. Facetosteoarthrosis at L4-5 and L5-S1. Osteopenia. IMPRESSION: Degenerative changes. No acute osseous abnormality. Qamar Garcia MD IMG XR SPINE Final Result documented in this encounter Visit Diagnoses Diagnosis Buttock pain- Primary Unspecified myalgia and myositis Buttock pain Unspecified myalgia and myositis documented in this encounter Care Teams Loader Operator Relationship Specialty Start Date End Date Qamar Garcia MD [address] [place] [address] PCP - General Internal Medicine 07/23/22 Qamar Garcia MD [address] [place] [address] Primary Care Physician 05/06/17 Avinash Chong MD [address] [place] [address] [email or web address] Historical LMR Provider 04/23/17 Sofia Amaya MD, MPH [address] [place] [address] [email or web address] Primary Oncologist Radiation Oncology 08/19/19 Neal Sultana MD, MS [address] [place] [address] [email or web address] Primary Oncologist Surgical Oncology 08/19/19 Tere Keita, [address] [address] [email or web address] Php Magento Developer Oncology 09/19/19 03/13/25 Mirela Barnhart MD [address] [place] [address] [email or web address] Medical Oncology 12/05/19 Andrei Dixon MD [address] [place] [address] [email or web address] Orthopedic Surgery 03/27/22 Denise Black PA-C [address] [place] [address] [email or web address] Physician Blacking Wheel Tender 03/27/22 documented as of this encounter Additional Source Comments The information contained in this document represents components of the legal health record. It is not the complete legal health record.[facility]
--- OUTSIDE RECORDS SUMMARY | 2025-03-30 19:14 | XMS_ITS | Encounter Summary ---
Author Organization [facility] Address [address] [place] [address] Phone Care Team Providers Care Ski Patrol Officer Name Role Phone Qamar Garcia MD Unavailable [phone] Avinash Chong MD Unavailable [phone] Sofia Amaya MD, MPH Unavailable + [phone] Neal Sultana MD, MS Unavailable Tere Keita MARKETING ANALYST Unavailable [phone] Mirela Barnhart MD Unavailable [phone] Andrei Dixon MD Unavailable [phone] Denise Black PA-C Unavailable [phone] Qamar Garcia MD Primary Care Provider [phone] Encounter Details Date Type Department Care Team (Late st Contact Info) Description 03/05/2025 Ancillary Orders [facility], X-Ray [address] [address] Qamar Garcia MD [address] [place] [address] Pain in buttock (Primary Dx) Social History Tobacco Use Types [...] [facility], [place] [address] [address] 09/07/2024 Procedure Pass [facility], [facility] [address] [address] 04/05/2025 11:00 AM EDT Office Visit [facility] [address] [place] [address] [address]rd Floor, [address] [place] [address] Margarito Walker MD [address] [place] [address], [address] [place] [address] 05/10/2025 11:05 AM EST Appointment [facility], [facility] 300 [facility] 4th [place] [address] Mirela Barnhart MD [address] [place] [address] [email or web address] 05/10/2025 12:10 PM EST Appointment [facility], [place] [address] [address] Mirela Barnhart MD [address] [place] [address] [email or web address] 05/10/2025 3:00 PM EST Office Visit [facility], [address], [address]th [place] [address] Mirela Barnhart MD [address] [place] [address] [email or web address] documented as of this encounter Results * XR HIP 2 VW RIGHT PLUS PELVIS (03/05/2025 11:49 AM EDT) Anatomical Region Laterality Modality Hip Right Computed Radiogr aphy 03/06/2025 10:1 0 AM EDT Impressions 03/06/2025 10:12 AM EDT Mild hip degenerative changes. Narrative 03/06/2025 10:12 AM EDT XR HIP 2 VW RIGHT PLUS PELVIS Referring clinician's provided indication for this examination in [facility]: Pain COMPARISON: XR PELVIS 1-2 VIEW FINDINGS: No acute fracture or dislocation. Mild hip degenerative changes. Frontal evaluation of the opposite hip demonstrates normal hip joint space and postoperative changes of the femur. Degenerative changes of the lower lumbar spine. Procedure Note Jennifer Her MD - 03/06/2025 XR HIP 2 VW RIGHT PLUS PELVIS Referring clinician's provided indication for this examination in [facility]:Pain COMPARISON: XR PELVIS 1-2 VIEW FINDINGS: No acute fracture or dislocation. Mild hip degenerative changes. Frontal evaluation of the opposite hip demonstrates normal hip joint spaceand postoperative changes of the femur. Degenerative changes of the lowerlumbar spine. IMPRESSION: Mild hip degenerative changes. Qamar Garcia MD IMG XR PELVIS Final Result documented in this encounter Visit Diagnoses Diagnosis Pain in buttock- Primary Unspecified myalgia and myositis Pain in buttock Unspecified myalgia and myositis documented in this encounter Care Teams Ski Patrol Officer Relationship Specialty Start Date End Date Qamar Garcia MD [address] [place] [address] PCP - General Internal Medicine 07/23/22 Qamar Garcia MD [address] [place] [address] Primary Care Physician 05/06/17 Avinash Chong MD [address] [place] [address] [email or web address] Historical LMR Provider 04/23/17 Soifa Amaya MD, MPH [address] [place] [address] [email or web address] Primary Oncologist Radiation Oncology 08/19/19 Neal Sultana MD, MS [address] [place] [address] [email or web address] Primary Oncologist Surgical Oncology 08/19/19 Tere Keita, [address] [address] [email or web address] Talent Assistant Oncology 09/19/19 03/13/25 Mirela Barnhart MD [address] [place] [address] [email or web address] Medical Oncology 12/05/19 Andrei Dixon MD [address] [place] [address] [email or web address] Orthopedic Surgery 03/27/22 Denise Black PA-C [address] [place] [address] [email or web address]. simone Physician Nursing Information Systems Coordinator 03/27/22 documented as of this encounter Additional Source Comments The information contained in this document represents components of the legal health record. It is not the complete legal health record.[facility]
--- OUTSIDE RECORDS SUMMARY | 2025-03-30 19:14 | XMS_ITS | Encounter Summary ---
Author Organization [facility] Address [address] [place] [address] Phone Care Team Providers Care Lumber Checker Name Role Phone Qamar Cook MD Unavailable [phone] Avinash Chong MD Unavailable [phone] Sofia Amaya MD, MPH Unavailable [phone] Neal Sultana MD, MS Unavailable Tere Keita AUTOMATIC BOW MAKER MACHINE TENDER Unavailable [phone] Mirela Barnhart MD Unavailable [phone] Andrei Dixon MD Unavailable [phone] Denise Black-C Unavailable [phone] Qamar Cook MD Primary Care Provider [phone] Encounter Details Date Type Department Care Team (Latest Contact Info) Description 03/24/2024 Transcribe Orders [facility] Department [address] [place] [address] Qamar Cook MD [address] [place] [address] Screening for osteoporosis (Primary Dx) Social History Tobacco Use Types [...] st Contact Info) Description 09/07/2024 Procedure Pass [facility], [place] [address] [address] 09/07/2024 Procedure Pass [facility], [facility] 300 [facility] 4th [place] [address] 04/05/2025 11:00 AM EDT Office Visit [facility] [address] [place] [address] [address]rd [facility], [address] [place] [address] Margarito Walker MD [address] [place] [address] 05/10/2025 11:05 AM EST Appointment [facility], [facility] 300 [facility] 4th [place] [address] Mirela Barnhart MD [address] [place] [address] [email or web address] 05/10/2025 12:10 PM EST Appointment [facility], [place] [address] [address] Mirela Barnhart MD [address] [place] [address] [email or web address] 05/10/2025 3:00 PM EST Office Visit [facility], [address], [address] [place] [address] Mirela Barnhart MD [address] [place] [address] [email or web address] documented as of this encounter Results * BD DXA AXIAL (SPINE) WITH HIP (09/13/2024 9:00 AM EDT) Anatomical Region Laterality Modality Bone Density Bone Density 09/13/2024 8:56 AM EDT Impressions 09/14/2024 8:17 AM EDT Interpretation: Osteoporosis. Narrative 09/14/2024 8:17 AM EDT Referred By: QAMAR COOK Indications: Osteoporosis Scanner: Hologic Horizon A with serial# of [id number] located at [facility] Bone Density Scan (DXA) 09/13/24 Details of prior DXA scans are available by clicking View Full Report BMD T- Z- Skeletal Site gm/cm2 score score BMD Change Since Prior Scan ------ ----- ----- PA Spine (L1-L4) 0.632 -4.20 -2.90 N/A Total Hip (Right) 0.507 -3.50 -2.30 N/A Femoral Neck (Right) 0.471 -3.40 -1.80 N/A ------ ----- ----- * Denotes significant change when >= 0.022 g/cm2 for the spine, 0.027 g/cm2 for the total hip, 0.029 g/cm2 for the femoral neck. Interpretation: Osteoporosis. Technical Quality: Imaging of all sites was of adequate quality. FRAX: A FRAX(r) score was not calculated because the patient indicated they had a fragility fracture of spine or hip, which is generally an indication for osteoporosis treatment. Reviewed By: Jennifer Her MD on 09/14/2024 08:17:13 Additional Information: -World Health Organization criteria classify adults based on lowest T-score at PA spine, hip or forearm: Normal (T-score >= -1.0), Osteopenia (T-score between -1 and -2.5), or Osteoporosis (T-score <= -2.5). At [facility], T-scores are compared to peak bone density of a young white gender matched reference population. - For premenopausal women and men under the age of 50, Z-scores (comparison to age, gender, and ethnicity matched reference population) are used: Above expected range for age (Z-score >= 2.0), Within expected range of age (Z-score 1.9 to -1.9), or Below expected range for age (Z-score <= -2.0). - The Bone Health and Osteoporosis Foundation recommends that treatment be considered in men aged more than 50 years and in postmenopausal women with ANY of the following: Prior hip or vertebral fractures; T-score of <= -2.5 at the PA spine or hip; or 10 year fracture probability by FRAX of >= 3% for the hip or >= 20% for major osteoporotic fracture. - The FRAX algorithm (https://www.clark.ac.uk/FRAX/tool.aspx) is designed to predict 10-year fracture risk in treatment-naive adults between the ages of 40 and 90. It is not intended to be used in those receiving pharmacologic osteoporosis treatment. - The TBS is derived from the texture of the DXA spine image and has been shown to be related to bone microarchitecture and fracture risk. This data provides information independent of BMD value. It adds to fracture risk assessment with a FRAX adjusted for TBS score. If your patient had a TBS and qualified for a FRAX score, the reported FRAX score has been adjusted for TBS. TBS Score Interpretation 1.350 and greater Normal bone microarchitecture 1.200 to 1.350 Partially degraded bone microarchitecture 1.200 and less Degraded bone microarchitecture - Including race/ethnicity in the generation of T- or Z-scores or in the FRAX calculation is complicated, and currently undergoing active review to ensure that we can give patients the best information on their risk of fracture. -Click on View Full Report to see subsequent pages with images and prior bone density results. Procedure Note Jennifer Her MD - 09/14/2024 Referred By: QAMAR COOK Indications: Osteoporosis Scanner: Barosense A with serial# of [id number] located at [facility] Bone Density Scan (DXA) 09/13/24 Details of prior DXA scans are available by clicking View Full Report BMD T- Z- Skeletal Site gm/cm2 score score BMD Change Since Prior Scan ------ ----- PA Spine (L1-L4) 0.632 -4.20 -2.90 N/A Total Hip (Right) 0.507 -3.50 -2.30 N/A Femoral Neck (Right) 0.471 -3.40 -1.80 N/A ------ ----- * Denotes significant change when >= 0.022 g/cm2 for the spine, 0.027g/cm2 for the total hip, 0.029 g/cm2 for the femoral neck. Interpretation: Osteoporosis. Technical Quality: Imaging of all sites was of adequate quality. FRAX: A FRAX(r) score was not calculated because the patient indicatedthey had a fragility fracture of spine or hip, which is generally an indication for osteoporosis treatment. Reviewed By: Jennifer Her MD on 09/14/2024 08:17:13 Additional Information: -World Health Organization criteria classify adults based on lowestT-score at PA spine, hip or forearm: Normal (T-score >= -1.0), Osteopenia (T-score between -1 and -2.5), or Osteoporosis (T-score <= -2.5). At [facility], T-scores are compared to peak bone density of a young white gender matched reference population. - For premenopausal women and men under the age of 50, Z-scores(comparison to age, gender, and ethnicity matched reference population) are used:Above expected range for age (Z-score >= 2.0), Within expected range of age (Z-score 1.9 to -1.9), or Below expected range for age (Z-score <= -2.0). - The Bone Health and Osteoporosis Foundation recommends that treatment be considered in men aged more than 50 years and in postmenopausal women with ANY of the following: Prior hip or vertebral fractures; T-score of <= -2.5 at the PA spine or hip; or 10 year fracture probability by FRAX of >= 3%for the hip or >= 20% for major osteoporotic fracture. - The FRAX algorithm (https://www.clark.ac.uk/FRAX/tool.aspx) is designed to predict 10-year fracture risk in treatment-naive adultsbetween the ages of 40 and 90. It is not intended to be used in those receiving pharmacologic osteoporosis treatment. - The TBS is derived from the texture of the DXA spine image and has been shown to be related to bone microarchitecture and fracture risk. This data provides information independent of BMD value. It adds to fracture risk assessment with a FRAX adjusted for TBS score. If your patient had a TBSand qualified for a FRAX score, the reported FRAX score has been adjusted for TBS. TBS Score Interpretation 1.350 and greater Normal bone microarchitecture 1.200 to 1.350 Partially degraded bone microarchitecture 1.200 and less Degraded bone microarchitecture - Including race/ethnicity in the generation of T- or Z-scores or in the FRAX calculation is complicated, and currently undergoing active review to ensure that we can give patients the best information on their risk of fracture. -Click on View Full Report to see subsequent pages with images and prior bone density results. IMPRESSION: Interpretation: Osteoporosis. Qamar BARNARD BD BONE DENSITY DEXA Fin al Result documented in this encounter Visit Diagnoses Diagnosis Screening for osteoporosis- Primary Special screening for osteoporosis Screening for osteoporosis Special screening for osteoporosis documented in this encounter Care Teams Lumber Checker Relationship Specialty Start Date End Date Qamar Cook MD [address] [place] [address] [phone] (work) PCP - General Internal Medicine 07/23/22 Qamar Cook MD [address] [place] [address] Primary Care Physician 05/06/17 Avinash Chong MD [address] [place] [address] [email or web address] Historical LMR Provider 04/23/17 Sofia Amaya MD, MPH [address] [place] [address] [email or web address] Primary Oncologist Radiation Oncology 08/19/19 Neal Sultana MD, MS [address] [place] [place] [address] [email or web address] Primary Oncologist Surgical Oncology 08/19/19 Tere Keita, [address] [address] [email or web address] Maintenance Technician 3Rd Shift Oncology 09/19/19 03/13/25 Mirela Barnhart MD [address] [place] [address] [email or web address] Medical Oncology 12/05/19 Andrei Dixon MD [address] [place] [address], [address] [place] [address] [email or web address] Orthopedic Surgery 03/27/22 Denise Black PA-C [address] [place] [address] [address] [place] [address] [email or web address] Physician Pinion Polisher 03/27/22 documented as of this encounter Additional Source Comments The information contained in this document represents components of the legal health record. It is not the complete legal health record.[facility]
--- OUTSIDE RECORDS SUMMARY | 2025-03-30 19:14 | XMS_ITS | Clinical Summary ---
Author Organization [facility] Address [address] [facility] [address] [place] [address] Phone Care Team Providers Care Last Waxer Name Role Phone Qamar Garcia MD Primary Care Provider Allergies Active Allergy Reactions Criticality Noted Date [...] of neck of femur 09/16/2021 Overview (09/16/2021): [facility] Irritable bowel syndrome 09/16/2021 Palpitations 09/16/2021 09/16/2021 [...] Due Date Last Done Comments Influenza Vaccine (#1) 2025 0, 05/14/2018, 04/30/2017, Additional history exists Hepatitis B Vaccine Completed 05/12/2013, 01/19/2012, 12/22/2011 Pneumococcal Vaccine: 50+ Years Completed 0, 03/17/2016 Pneumococcal Vaccine: Peds ( 0 to 5 Years) and At-Risk Patients (6 to 49 Years) Discontinued 06/30/2020, 03/17/2016 Insurance * Guarantor: Jabier Gaspar Account Type Relation to Patient Date of Phone Billing Address Personal/Family Self 1940 [phone] (Home) [address] [place] [address] Medicare [facility] Medicare Care Teams Last Waxer Relationship Specialty Start Date End Date Qamar Garcia MD [address] [place] [address] PCP - General Internal Medicine 09/11/21
--- OUTSIDE RECORDS SUMMARY | 2025-03-30 19:14 | XMS_ITS | Encounter Summary ---
Author Organization [facility] Address [address] [place] [address] Phone Care Team Providers Care Spa Manager/Esthetician Name Role Phone Qamar Garcia MD Unavailable [phone] Avinash Chong MD Unavailable [phone] Qamar Garcia MD Primary Care Provider [phone] Sofia Amaya MD, MPH Unavailable + [phone] Neal Sultana MD, MS Unavailable Tere Keita Unavailable [phone] Mirela Barnhart MD Unavailable [phone] Andrei Dixon MD Unavailable [phone] Denise Black PA-C Unavailable [phone] Unknown, Unknown Primary Care Provider Qamar Escamilla MD Primary Care Provider + [phone] Encounter Details Date Type Department Care Team (Late st Contact Info) Description 12/18/2021 Procedure Pass [facility], [address] [id number] Social History Tobacco Use Types Packs/Day Years [...] st Contact Info) Description 09/07/2024 Procedure Pass [address] [address] 09/07/2024 Procedure Pass [facility], [address] [address] 04/05/2025 11:00 AM EDT Office Visit [facility] [address] [place] [address], [address] [place] [address] Margarito Walker MD [address] [place] [address] [email or web address] 05/10/2025 11:05 AM EST Appointment [facility], [address] [address] Mirela Barnhart MD [address] [place] [address] [email or web address] 05/10/2025 12:10 PM EST Appointment [address] [address] Mirela Barnhart MD [address] [place] [phone] [email or web address] 05/10/2025 3:00 PM EST Office Visit [facility], [facility] [address] [place] [address], 6th [place] [address] Mirela Barnhart MD [address] [place] [address] [email or web address] documented as of this encounter Visit Diagnoses Not on filedocumented in this encounter Additional Health Concerns Infection Onset Date Last Indicated Resolved Time CoV-Presumed 05/27/2022 05/27/2022 06/17/2022 3:51 AM EST CoV-Risk 09/22/2023 09/22/2023 09/22/2023 4:53 PM EDT COVID-19 09/22/2023 09/22/2023 10/13/2023 1:21 AM EDT documented as of this encounter Care Teams Spa Manager/Esthetician Relationship Specialty Start Date End Date Qamar Garcia MD [address] [place] [address] PCP - General Internal Medicine 10/14/18 03/26/22 Unknown, Unknown, MD PCP - General 04/08/22 07/22/22 Qamar Garcia MD [address] [place] [address] PCP - General Internal Medicine 07/23/22 Qamar Garcia MD [address] [place] [address] Primary Care Physician 05/06/17 Avinash Chong MD [address] [place] [address] [email or web address] Historical LMR Provider 04/23/17 Sofia Amaya MD, MPH [address] [place] [address] [email or web address] Primary Oncologist Radiation Oncology 08/19/19 Neal Sultana MD, MS [address] [place] [address] [email or web address] Primary Oncologist Surgical Oncology 08/19/19 Tere Keita, [address] [address] [email or web address] Big Data Lead Oncology 09/19/19 03/13/25 Mirela Barnhart MD [address] [place] [address] [email or web address] Medical Oncology 12/05/19 Andrei Dixon MD [address] [place] [address] [email or web address] [email or web address] Surgery 03/27/22 Denise Black PA-C [address] [place] [address] [email or web address] Physician Poultry Husbandry Teacher 03/27/22 documented as of this encounter Additional Source Comments The information contained in this document represents components of the legal health record. It is not the complete legal health record.[facility]
--- OUTSIDE RECORDS SUMMARY | 2025-03-30 19:14 | XMS_ITS | Encounter Summary ---
Author Organization [facility] Address [address] [place] [address] [place] [address] Phone Care Team Providers Care Substance Abuse Counselor Name Role Phone Qamar Garcia MD Unavailable [phone] Avinash Chong MD Unavailable [phone] Sofia Amaya MD, MPH Unavailable +[phone] Neal Sultana MD, MS Unavailable Tere KeitaSW Unavailable [phone] Mirela Barnhart MD Unavailable [phone] Andrei Dixon MD Unavailable [phone] Denise BlackC Unavailable [phone] Qamar Garcia MD Primary Care Provider [phone] Encounter Details Date Type Department Care Team (Late st Contact Info) Description 03/09/2024 Procedure Pass [facility], [facility] [employer] [facility] [place], [place] [address] [facility], Floor [address] [place] [address] Social History Tobacco Use Types Packs/Day Years [...] st Contact Info) Description 09/07/2024 Procedure Pass [facility], [place] [address] [facility] [address] [place] [address] 09/07/2024 Procedure Pass [facility], [facility] [address] [facility] [address] [place] [address] 04/05/2025 11:00 AM EDT Office Visit [facility] [address] [place] [address] 3rd Floor, [address] [place] [address] Margarito Walker MD [address] [place] [address], [address] [place] [address] [email or web address] 05/10/2025 11:05 AM EST Appointment [facility], [facility] [address] [facility] [address] [place] [address] Mirela Barnhart MD [address] [place] [phone] [email or web address] 05/10/2025 12:10 PM EST Appointment [facility], [place] [address] [address] Mirela Barnhart MD [address] [place] [phone] [email or web address] 05/10/2025 3:00 PM EST Office Visit [facility], [address], [address] [place] [address] Mirela Barnhart MD [address] [place] [phone] [email or web address] documented as of this encounter Visit Diagnoses Not on filedocumented in this encounter Care Teams Substance Abuse Counselor Relationship Specialty Start Date End Date Qamar Garcia MD [address] [place] [address] PCP - General Internal Medicine 07/23/22 Qamar Garcia MD [address] [place] [address] Primary Care Physician 05/06/17 Avinash Chong MD [address] [place] [phone] [email or web address] Historical LMR Provider 04/23/17 Sofia Amaya MD, MPH [address] [place] [address] [email or web address] Primary Oncologist Radiation Oncology 08/19/19 Neal Sultana MD, MS [address] [place] [phone] [email or web address] Primary Oncologist Surgical Oncology 08/19/[address] [address] [email or web address] Employment And Claims Aide Oncology 09/19/19 03/13/25 Mirela Barnhart MD [address] [place] [address] [email or web address] Medical Oncology 12/05/19 Andrei Dixon MD [address] [place] [address] [email or web address] 03/27/22 Denise Black PA-C [address] [place] [address] [email or web address] Physician Seasonal Package Handler 03/27/22 documented as of this encounter Additional Source Comments The information contained in this document represents components of the legal health record. It is not the complete legal health record.[facility]
--- OUTSIDE RECORDS SUMMARY | 2025-03-30 19:14 | XMS_ITS | Clinical Summary ---
Author Organization [facility] Address [address] [place] [id number] Phone Care Team Providers Care Psychology Teacher Name Role Phone Qamar Garcia MD Unavailable Avinash Chong MD Unavailable [phone] Sofia Amaya MD, MPH Unavailable [phone] Neal Sultana MD, MS Unavailable Mirela Barnhart MD Unavailable [phone] Andrei Dixon MD Unavailable [phone] Denise Black PA-C Unavailable [phone] Qamar Garcia MD Primary Care Provider Allergies Active Allergy Reactions Criticality Noted Date Comments Finasteride 10/14/2018 gynecomastia Gluten Protein 07/14/2021 Iodinated Contrast Media Erythema Multiforme 01/13/2020 Metoprolol Succinate 07/21/2017 Insomnia, fog, depression Milk Containing Products (Dairy) 07/14/2021 Alirocumab Rash High 08/24/2019 Medications LORazepam (ATIVAN) 0.5 MG tablet Take 0.5 mg by mouth 2 (two) times a day as needed. 0 Active pravastatin (PRAVACHOL) 10 MG tablet Take 10 mg by mouth daily. Active ascorbic acid (VITAMIN C ORAL) Take by mouth. Activ e cholecalciferol , vitamin D3, (VITAMIN D3 ORAL) Take by mouth. Activ e LUTEIN ORAL Take by mouth daily. Active aspirin 81 MG EC tablet Take 1 tablet (81 mg total) by mouth 2 (two) times a day for 41 doses. 41 tablet 3 Active Additional Information Patient taking differently:81 mg OralDaily, Reported on 03/20/2023 lisinopril (PRINIVIL,ZESTR IL) 10 MG tablet Take 12.5 mg by mouth daily. 12.5mg in the morning and 20mg at night 3 Active coenzyme Q10 (CO Q-10) 100 mg capsule Take 100 mg by mouth daily. Active polyethylene glycol (MIRALAX) 17 gram packet Take 17 g by mouth 2 (two) times a day for 7 days. 14 packet 5 03/21/20 25 senna (SENOKOT) 8.6 mg tablet Take 1 tablet by mouth 2 (two) times a day for 7 days. 14 tablet 5 03/21/20 25 docusate sodium (COLACE) 100 MG capsule Take 1 capsule (100 mg total) by mouth 2 (two) times a day for 7 days. 14 capsule 5 03/21/20 25 Active Problems Problem Noted Date Diagnosed Date Osteoarthritis of right knee , unspecified osteoarthritis type 09/09/2022 Gastroesophageal reflux disease 08/21/2022 Overview (08/21/2022): well controlled on omeprazole Irritable bowel syndrome 08/21/2022 Arteriosclerosis of coronary artery 08/21/2022 Aortic valve regurgitation 08/21/2022 Anemia of chronic disease 09/16/2021 Hypertensive renal disease 09/16/2021 Stage 2 chronic kidney disease 09/16/2021 Hyponatremia 01/13/2020 Assessment & Plan (05/03/2021 3:33 PM EDT): Serum osmolality and BMP reordered. Assessment & Plan (01/13/2020 6:18 AM EDT): I suspect a hypovolemic hyponatremia as he looks dry clinically at this time. This is likely secondary to insensible water loss from his fever and probable poor oral intake yesterday. Iron deficiency anemia 01/13/2020 Contrast media adverse reaction 01/13/2020 Assessment & Plan (01/13/2020 6:24 AM EDT): He has a history of mast cell [...] related to the contrast media. 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 He continues to follow with plastic surgery every 2 weeks for debridement. Dyslipidemia 01/03/2019 Assessment & Plan (05/03/2021 3:33 PM EDT): Last lipid panel available in our system [...] he declined. Continue 10 mg pravastatin daily. 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 We will continue this dose. He notes he had lipids drawn recently at [facility] on 06/2020 that I reviewed that showed LDL of 94. Would continue pravastatin Assessment & Plan (04/17/2020 3:06 PM EDT): Good profile with LDL in the 70s with good renal function. No changes. Assessment & Plan (01/03/2019 3:33 PM EDT): With persistently high CK I cannot restart a statin agent. I believe he should be on a PC SK 9 and I will submit paperwork. Atherosclerotic cardiovascular disease 9 Overview (04/05/2019): 10/2018 Patient had cardiac catheterization on 10/26 and had single-vessel coronary disease with severe 95 and stenosis of the proximal LAD and severe stenosis ostium of D1. Successful PCI of the proximal LAD with one drug-eluting stent. Assessment & Plan (03/06/2022 9:22 AM EDT): Patient denies any chest pain with bike riding. We will continue on aspirin and pravastatin Assessment & Plan (01/09/2022 5:28 PM EDT): He has no chest pain with activity and has a nuclear stress test within the last year that was completely normal. We will continue on aspirin and pravastatin. I note if he has exertional chest pain, he should let me know and we can repeat the stress test Assessment & Plan (04/11/2021 1:49 PM EDT): I discussed with him that we have [...] chest pain, will consider a cardiac catheterization. Assessment & Plan (10/18/2020 9:02 AM EDT): 05-15-17 Yaya 6'40 , 7 METS, HR 108%, BP not indicated, no CP, + VPBs, no ST shift, EF nl, perf nl. 05-21-17 Holter SR 47-122, mean 70, 10 beat SVT @ 120, 7 vent couplets, palp with APBs or VPBs or nothing at all, dizziness with nothing at all. 10-26-18 cath my rev codom cors, 90 prox LAD involving S1, 80 ostial medium-sized D1, mild RCA...LAD JESSIE [uploaded to [employer]]. 03-19-20 Yaya 9'26 , 11 METS, HR 63=>160, SBP 150=>194, no CP, no RICKY, no perf defect. 04-03-20 Holter HR 47-125, men 64, 5 beat SVT @ 129, occ VPBs. Assessment & Plan (10/05/2020 2:39 PM EDT): He has been active without any discomfort. He had a negative stress test recently. We will continue aspirin Assessment & Plan (04/17/2020 3:05 PM EDT): Doing well. No symptoms. Negative nuclear stress test several weeks ago. Assessment & Plan (01/04/2020 2:36 PM EDT): Asymptomatic and now over a year out. Brilinta was appropriately discontinued. Assessment & Plan (08/31/2019 4:04 PM EST): No evidence of recurrence and he is due to stop his Brilinta at the end of September. His aspirin will need to be continued through the operative period. Assessment & Plan (04/05/2019 12:33 PM EDT): Doing well. Very active and asymptomatic. Remains on dual antiplatelet therapy. He can discontinue his Brilinta next spring. Assessment & Plan (01/03/2019 3:31 PM EDT): Fortunately doing well. I have encouraged him to remain active. He is participating in cardiac rehab and interestingly they have seen very little ventricular ectopy which she had fairly frequently before his event. Assessment & Plan (11/05/2018 11:49 AM EDT): Patient had drug-eluting stent to the LAD placed on 10/26. He will be on aspirin 81 mg indefinitely. He is on Brilinta 90 mg 3 times daily as well as atorvastatin 40 mg daily. He continues to report some chest discomfort but this sounds to be more musculoskeletal in origin, does not sound like angina. ECG in the office showing sinus rhythm at a rate of 60 bpm, no evidence of acute ischemia. I have placed a referral for him to begin cardiac rehab. Diplopia 07/01/2018 Essential hypertension 05/13/2017 Assessment & Plan (03/06/2022 9:21 AM EDT): Continue lisinopril and diltiazem Assessment & Plan (05/03/2021 3:27 PM EDT): Patient's BP slightly elevated in office today, though he reports he is currently undergoing some stress and working through in-depth self awareness sessions. He states that his blood pressure at a recent visit to PCP office was 118 systolic, and that he is normally in the 110-120 range. He has not tolerated increased doses of verapamil, or beta blockers, in the past. Will continue 120 mg daily verapamil. Assessment & Plan (04/11/2021 1:49 PM EDT): Continue lisinopril and verapamil Assessment & Plan (10/18/2020 10:45 AM EDT): 05-07-17 ELLIOT 0.5 cm AoV echodensity, mild USH, EF 0.63, no RVSP, STEVEN, ASA. Assessment & Plan (10/05/2020 2:40 PM EDT): He notes he has lightheadedness soon after eating and I suspect this is due to variation in blood pressure which is common as patients get older. His blood pressure he says at home is always in the 120s when he checks it we will continue on lisinopril and verapamil Assessment & Plan (04/17/2020 3:06 PM EDT): Well-controlled on present therapy. No changes for now. Assessment & Plan (01/13/2020 6:17 AM EDT): We will continue his home medications. He states that his blood pressure has been running on the lower end and he was considering going back on his verapamil to 90 mg nightly. Assessment & Plan (01/04/2020 2:36 PM EDT): Controlled on present therapy but that may relate to his recent surgery will continue to monitor and adjust as needed. Assessment & Plan (08/31/2019 4:05 PM EST): His blood pressure is up but only a little bit now that the lisinopril was discontinued but he is on an increased dose of verapamil that he increased to about 120. Systolic today is 138. Can is uncomfortable with this so I am going to give him losartan 25 mg to replace the lisinopril just in case it was a contributor to his rash. His Praluent obviously will need to be stopped. Assessment & Plan (01/03/2019 3:32 PM EDT): Well-controlled on present therapy. No changes. Assessment & Plan (11/05/2018 11:49 AM EDT): Blood pressure well controlled in the office. Continue lisinopril 20 mg daily. He is currently taking verapamil 120 mg mostly for suppression of his PVCs, he has mentioned possibly wanting to down titrate this in the future. Assessment & Plan (08/18/2018 3:23 PM EST): Well-controlled on present therapy. He has increase his lisinopril to 20 mg and may try to decrease his verapamil but I have told him that the verapamil is there primarily to suppress his ectopy. His underlying issue is benign so I do not see any harm if this makes him feel better. He apparently has become constipated on the verapamil. Assessment & Plan (05/11/2018 10:40 AM EST): I have suggested to cannot that I like to see his blood pressure at least a tad lower and would like to push his lisinopril to 20 and if there is no significant change I would go to 40 mg a day. We can always reinstitute the amlodipine. Can make a lot of his own decisions and he will let me know and once we have his blood pressure under better control he will have a metabolic profile drawn. Assessment & Plan (12/21/2017 4:16 PM EDT): Controlled. I've given him to consent to decrease or even stop his amlodipine and increase his lisinopril or verapamil should his pressure rise. Assessment & Plan (08/27/2017 11:23 AM EST): Controlled on present therapy. On occasion he has noted systolics in the low 100s and can get a little lightheaded so we have decided to decrease his amlodipine to 2.5. I will have a metabolic profile drawn prior to his next visit in about 3 months. Assessment & Plan (07/21/2017 3:35 PM EST): 05-15-17 Yaya 6'40 , 7 METS, HR 108%, BP not indicated, no CP, + VPBs, no ST shift, EF nl, perf nl. Assessment & Plan (06/23/2017 8:51 AM EST): Well-controlled for now. He will be on 2 calcium blockers but for different reasons and at some point we may want to discontinue his amlodipine depending on his blood pressure response. Assessment & Plan (05/27/2017 8:53 AM EST): Controlled on present therapy. He monitors this at home. Assessment & Plan (05/13/2017 12:20 PM EST): Well-controlled on present therapy. Palpitations 05/13/2017 Assessment & Plan (03/06/2022 9:21 AM EDT): I noted it does appear that his symptoms are from PACs and a very commonly are more common with exercise. I noted continuing on diltiazem 120 mg XL once daily and as needed diltiazem immediate release at either 15 mg or 30 mg as an option to give him baseline relief and then also have additional benefit on days that are especially bothersome. I noted that PACs are not harmful to the heart and we are working to really minimize symptoms. I noted we could always increase a standing dose diltiazem but given issues with side effects in the past, adding an as needed medications that may be better. 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 I noted we could increase his magnesium to 400 twice daily. I also noted that diltiazem is sometimes better tolerated than verapamil we may build to get to higher doses of diltiazem. 2 weeks after he changes the magnesium doses, he will stop the verapamil and change to diltiazem 120 mg XL once daily. If he notes consistent palpitations despite this, we can increase the dose. I will perform a Holter monitor to document that she has burden of PACs and PVCs and see if it is more PVCs than PACs as a suspect. Assessment & Plan (05/03/2021 3:35 PM EDT): Patient had a Holter monitor completed last month that revealed an approximate 1% PVC/PAC burden. Though he does feel the ectopy, his PVCs/PACs do not cause any overly problematic symptoms at this time. Continue current medications. 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 We will continue on verapamil 120 mg XL once daily Assessment & Plan (10/05/2020 2:41 PM EDT): He has PACs and PVCs that seem to be well managed on verapamil. We will continue this for now. He did not tolerate metoprolol well in the past Assessment & Plan (04/17/2020 3:06 PM EDT): Improving. Recent Holter monitor did not reveal a correlation between ectopy and palpitations. Assessment & Plan (01/04/2020 2:36 PM EDT): Largely resolved at least for now. Assessment & Plan (06/23/2017 8:50 AM EST): As above. Sinusitis, chronic 01/24/2016 Sarcoidosis 09/15/2006 Overview (08/26/2014): sarcoidosis; Liver 2002 Resolved Problems Problem Noted Date Diagnosed Date Resolved Date Bacteremia 08/21/2022 08/21/2022 Acute febrile illness 01/13/20202019 Assessment & Plan (01/13/2020 6:17 AM EDT): No clear source. He does have a slight petechial rash on his left forearm. No signs of cellulitis. I did not remove his left leg dressings, but his plastic surgeon stated that it looked beautiful yesterday and the emergency department physician indicated that it was not infected. He was empirically given IV ceftriaxone by the emergency department physician. I will not continue empiric antibiotics. I will check a DVT ultrasound as a DVT could potentially be a cause of his fever. He had significant itching after his CT chest yesterday, but an allergic reaction to contrast dye should not cause a fever. Precordial pain 10/14/2018 01/13/2020 Assessment & Plan (10/14/2018 10:42 AM EDT): ECG today reveals a sinus bradycardia at 53 and is otherwise entirely normal and unchanged. The EKG portion of his stress test in 2016 was normal so I am just going to repeat a routine treadmill exercise test to evaluate ectopy and his chest discomfort. If this is benign I do not believe that further workup is indicated. I will have him return once that has been completed. I will not hold any medications. 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 Diagnosis is now somewhat in doubt. Fortunately he is doing well. Assessment & Plan (12/21/2017 4:16 PM EDT): No evidence of recurrence. Valve is slightly thickened but no evidence for endocarditis. Assessment & Plan (07/21/2017 3:31 PM EST): Assessment & Plan (06/23/2017 8:51 AM EST): Will need predental work antibiotic prophylaxis. Assessment & Plan (05/27/2017 8:53 AM EST): No clinical evidence of recurrence. Valve continues to function as well as it did prior to his endocarditis. Left ventricular function appears normal. His nuclear scan shows no evidence for ischemia or infarction and a confirms a normal ejection fraction. Assessment & Plan (05/13/2017 12:19 PM EST): Echocardiography both transthoracic and transesophageal in March are benign without evidence of ongoing endocarditis. Left ventricular function appeared preserved. Ventricular ectopy 05/13/2017 0 Assessment & Plan (04/05/2019 12:33 PM EDT): Essentially resolved on present therapy. Assessment & Plan (01/03/2019 3:32 PM EDT): Minimal on lower dose of verapamil. Assessment & Plan (08/18/2018 3:23 PM EST): Markedly reduced and well tolerated. Assessment & Plan (12/21/2017 4:16 PM EDT): Well-tolerated and intermittent. Some response to verapamil. Assessment & Plan (08/27/2017 11:22 AM EST): I made no further changes in his verapamil which is probably primarily responsible for the decrease in his ectopy. I again emphasized the fact that the ectopy and an of itself other than it's palpitations is not of any significant consequence. He has mentioned that if this continues for several months at this level he may want to try to decrease verapamil which is okay with me as long as he lets me know what's happening. Assessment & Plan (07/21/2017 3:35 PM EST): 05-21-17 Holter SR 47-122, mean 70, 10 beat SVT @ 120, 7 vent couplets, palp with APBs or VPBs or nothing at all, dizziness with nothing at all. Assessment & Plan (06/23/2017 8:50 AM EST): Number to try him on a relatively small dose of verapamil at 180 mg of long- acting a day and discontinue his metoprolol. I've told him if this seems to be helping to let me know and I'll place a Holter monitor before his next visit in about 6-8 weeks. He will also need amoxicillin 2 g prior to dental procedures and I have arranged that as well. Assessment & Plan (05/27/2017 8:54 AM EST): He's had a decrease in the number and sensation of his PVCs. He is somewhat more fatigued when he exercises but no symptoms at rest. No underlying ischemia leading me to believe that these are benign. I've given consent to hold the medication for exercise and to increase or decrease the dose as he sees fit as long as he keeps me informed. He will return in 4 months and I will have a metabolic profile drawn then. Assessment & Plan (05/13/2017 12:21 PM EST): This is clearly the reason for his palpitations. I'm going to have him undergo a nuclear stress test to exclude underlying ischemia and to see the response of his ectopy to exercise. I'm going to start him on a small dose of beta dominick I.e. Metoprolol XL 25 and I will hold it for 48 hours before his stress. Encounters Date Type Department Care Team Description 03/18/2025 2:30 AM EDT Ancillary Procedure [address] [id number] Madyson Bloom MD 03/18/2025 2:03 AM EDT - 03/18/2025 5:56 AM EDT Emergency [facility] Emergency [address] [place] [id number] Madyson Bloom MD Discharge Disposition: Home or Self Care 03/14/2025 3:04 AM EDT - 03/14/2025 6:15 AM EDT Emergency [facility] Emergency [address] [place] [id number] Madyson Bloom MD Savage, Justin G, DO Discharge Disposition: Home or Self Care 03/07/2025 5:19 PM EDT - 03/07/2025 11:59 PM EDT Hospital Encounter [address] [address] Qamar Garcia MD Discharge Disposition: Home or Self Care 03/05/2025 11:18 AM EDT - 03/05/2025 11:59 PM EDT Hospital Encounter [address] [address] Qamar Garcia MD Discharge Disposition: Home or Self Care 03/05/2025 11:17 AM EDT Hospital Encounter [address] [address] Qamar Garcia MD Discharge Disposition: Home or Self Care 03/05/2025 Ancillary Orders [address] [address] Qamar Garcia MD Pain in buttock (Primary Dx) 03/05/2025 Ancillary Orders [address] [address] Qamar Garcia MD Buttock pain (Primary Dx) 03/03/2025 Transcribe Orders Virtual Department [address] [place] [id number] Qamar Garcia MD Right buttock pain (Primary Dx) 01/18/2025 1:[address] [facility] Plastic Surgery [address] [address] Primo Siegel PA-C Primary myxofibrosarcoma (Primary Dx) 01/10/2025 8:30 AM EDT Office Visit [facility] [address] [place] [phone] Qamar Garcia MD Sayles, Jennifer, OT Primary osteoarthritis of right hand (Primary Dx) 01/10/2025 Plan of Care Documentation [facility] [address] [place] [address] from Last 3 Months Immunizations Immunization Administration Dates Next Due COVID-19 (Pre-04/27) Moderna Vaccine, mRNA, PF 10/08/2021 Hep A-Hep B 05/12/2013,01/19/2012,12/22/2011 Influenza High-Dose Trivalen t Preservative Free IM 05/14/2018,04/30/2017,04/24/2016 Influenza Quadrivalent Adjuv anted Preservative Free IM 04/05/2020 Pneumococcal conjugate PCV13 03/17/2016 Pneumococcal polysaccharide PPSV23 06/30/2020 Tdap 12/22/2011 Family History Medical History Relation Comments Heart disease Brother Lung cancer Brother smoker Breast cancer Daughter treated Breast cancer Maternal Cousin treated Stroke Mother Breast cancer Paternal Aunt of old age around 102 not breast cancer Relation Status Comments Brother Daughter Father Maternal Cousin Mother Paternal Aunt Social History Tobacco Use Types Packs/Day Years [...] not to disclose 2019 9:17 PM EST Last Filed Vital Signs Vital Sign Reading Time Taken Comments Blood Pressure 138/73 03/18/2025 5:45 AM EDT Pulse 56 03/18/2025 5:45 AM EDT Temperature 36.7 C (98 F) 03/18/2025 5:45 AM EDT Respiratory Rate 16 03/18/2025 5:45 AM EDT Oxygen Saturation 100% 03/18/2025 5:45 AM EDT Inhaled Oxygen Concentration - - Weight 63 kg (139 lb) 03/14/2025 1:43 AM EDT Height 167.6 cm (5' 6 ) 03/14/2025 1:43 AM EDT Body Mass Index 22.44 03/14/2025 1:43 AM EDT Plan of Treatment Upcoming Encounters Date Type Department Care Team (Late st Contact Info) Description 09/07/2024 Procedure [facility] [place] [address] [address] 09/07/2024 Procedure Pass [facility], [facility] [address] [address] 04/05/2025 11:00 AM EDT Office Visit [facility] [address] [place] [address], [address] [place] [address] Margarito Walker MD [address] [place] [phone] 05/10/2025 11:05 AM EST Appointment [facility], [facility] [address] [address] Mirela Barnhart MD [address] [place] [phone] [email or web address] 05/10/2025 12:10 PM EST Appointment [facility] [place] [place] 300 [facility] 3rd [place] [address] Mirela Barnhart MD [address] [place] [id number] [email or web address] 05/10/2025 3:00 PM EST Office Visit [facility], [address] [place] [address] Mirela Barnhart MD [address] [place] [phone] [email or web address] Health Maintenance Due Date Last Done Comments RSV VACCINE (1 - 1-dose 75+ series) 2017 Adult Td,Tdap Booster 12/21/2021 12/22/2011 DEPRESSION SCREENING 08/06/2023 08/06/2022 INFLUENZA VACCINE (#1) 2025 , 03/31/2023, 04/28/2022, Additional history exists COVID-19 VACCINE ( season) 2025 03/16/2024, 03/31/2023, 11/26/2022, Additional history exists BLOOD PRESSURE 04/02/2025 09/30/2024 LIPID PANEL 10/03/2025 10/03/2024, 07/0 07/2019, 08/15/2019, Additional history exists CREATININE LEVEL 03/18/2026 03/18/2025, , 10/03/2024, Additional history exists POTASSIUM LEVEL 03/18/2026 03/18/2025, 09/05, 09/22/2023, Additional history exists HEPATITIS A VACCINES Aged Out 05/12/2013, 01/19/2012, 12/22/2011 No longer eligible based on patient's age to complete this topic PNEUMOCOCCAL VACCINES (50+ years) Completed 06/30/2020, 03/17/2016 ZOSTER VACCINES Completed 08/11/2022, 09/30/2021 HIB VACCINES Aged Out No longer eligi ble based on patient's age to complete this topic MENINGOCOCCAL VACCINES (ACWY) Aged Out No longer eligible based on patient's age to complete this topic MENINGOCOCCAL VACCINES (B) Aged Out N o longer eligible based on patient's age to complete this topic Medical Devices Implanted Type Area Transportation Inspector Device Identifier Shelf Expiration Date Model / Serial / Lot Left Hip Hardware Cardiac Stent Knee Insert Itotal Identity Cr 2pc Ipoly - [id number] Implanted:Qty: 1 on 09/09/2022 by Andrei Dixon MD at [facility] Right: Knee CONFORMIS 09/03/2023 ITCR-STD-2P C / [id number] / Palacos Mv Pro80 - [id number] Implanted:Qty: 1 on 09/09/2022 by Andrei Dixon MD at [facility] Right: Knee Hyperformix 09/02/2024 [id number] / / [id number] Knee Implant 38mmx8.5 Patella Itotal Ipoly 06 - [id number] Implanted:Qty: 1 on 09/09/2022 by Andrei Dixon MD at [facility] Right: Knee CONFORMIS 07/05/2024 [id number] / / [id number] Procedures Procedure Name Priority Date/Time Associated Diagnosis Comments OSMOLALITY (URINE, RANDOM) STAT 03/18/2025 5:00 AM EDT UREA NITROGEN, RANDOM URINE STAT 03/18/2025 5:00 AM EDT CHLORIDE, RANDOM URINE STAT 03/18/2025 5:00 AM EDT CREATININE (RANDOM URINE) STAT 03/18/2025 5:00 AM EDT SODIUM, RANDOM URINE STAT 03/18/2025 5:00 AM EDT URINALYSIS W/REFLEX URINE CULTURE STAT 03/18/2025 5:00 AM EDT TROPONIN STAT 03/18/2025 4:00 AM EDT TROPONIN STAT 03/18/2025 2:50 AM EDT BASIC METABOLIC PANEL STAT 03/18/2025 2:50 AM EDT CBC AND DIFFERENTIAL STAT 03/18/2025 2:50 AM EDT US BEDSIDE Routine 03/18/2025 2:28 AM EDT ECG 12-LEAD STAT 03/18/2025 2:12 AM EDT XR ABDOMEN 1 VIEW Routine 03/14/2025 3:0 7 AM EDT US LOWER EXTREMITY NON-VASCULAR LIMITED (RIGHT) Routine 03/07/2025 5:47 PM EDT Right buttock pain XR LUMBOSACRAL SPINE 2-3 VIEWS Routine 03/05/2025 11:50 AM EDT Buttock pain XR HIP 2 VW RIGHT PLUS PELVIS Routine 03/05/2025 11:49 AM EDT Pain in buttock LIPID PANEL Routine 10/03/2024 9:06 AM EDT Essential hypertension Palpitations Atherosclerotic cardiovascular disease from Last 3 Months or Most Recently Relevant to Health Maintenance Results * (ABNORMAL) Urinalysis w/reflex Urine Culture (03/18/2025 5:00 AM EDT) COLOR Yellow Yellow [facility] CLARITY Clear [facility] GLUCOSE Negative Negative [facility] BILI Negative Negative [facility] KETONES Negative Negative [facility] SPECIFIC GRAVITY 1.010 1.005 - 1.030 [facility] BLOOD Negative Negative [facility] PH 7.0 5.0 - 8.0 [facility] Protein-UA Trace(A) Negative [facility] NITRITE Negative Negative [facility] Leukocyte esterase, ur Negative Negative [facility] Urine (Urine) 03/18/2025 5:0 0 AM EDT 03/18/2025 5:34 AM EDT us Madyson Bloom MD URINE ORDERABLES Final Resul t Performing Organization Address City/[facility] Co de Phone Number [address] [address] * Urea nitrogen, random urine (03/18/2025 5:00 AM EDT) URINE UREA NITROGEN 268 mg/dL [facility] Urine (Urine) 03/18/2025 5:0 0 AM EDT 03/18/2025 5:35 AM EDT us Madyson Bloom MD URINE ORDERABLES Final Resul t Performing Organization Address [facility] Co de Phone Number [address] [address] * Sodium, random urine (03/18/2025 5:00 AM EDT) URINE SODIUM 34 mmol/L [facility] Urine (Urine) 03/18/2025 5:0 0 AM EDT 03/18/2025 5:35 AM EDT us Madyson Bloom MD URINE ORDERABLES Final Resul t Performing Organization Address [facility] de Phone Number [address] [address] * Osmolality, Random Urine (03/18/2025 5:00 AM EDT) URINE OSMOLALITY 261 mOsm/kg water [facility] Urine (Urine) 03/18/2025 5:0 0 AM EDT 03/18/2025 5:35 AM EDT us Madyson Bloom MD URINE ORDERABLES Final Resul t Performing Organization Address [facility] Co de Phone Number [address] [address] * Creatinine, random urine (03/18/2025 5:00 AM EDT) URINE CREATININE 36 mg/dL [facility] Urine (Urine) 03/18/2025 5:0 0 AM EDT 03/18/2025 5:35 AM EDT us Madyson Bloom MD URINE ORDERABLES Final Resul t Performing Organization Address [facility] de Phone Number [address] [address] * Chloride, random urine (03/18/2025 5:00 AM EDT) URINE CHLORIDE 34 mmol/L [facility] Urine (Urine) 03/18/2025 5:0 0 AM EDT 03/18/2025 5:35 AM EDT Madyson Bloom MD URINE ORDERABLES Final Resul t Performing Organization Address [facility] de Phone Number [address] [address] * (ABNORMAL) Troponin (03/18/2025 4:00 AM EDT) Only the most recent of2 resultswithin the time period is included. Troponin-T, HS Gen5 24(H) 0 - 14 ng/L [facility] Blood 03/18/2025 4:00 AM EDT 03/18/2025 4:04 AM EDT us Madyson Bloom MD LAB BLOOD ORDERABLES Final R esult Performing Organization Address [facility] Co de Phone Number [address] [address] * (ABNORMAL) CBC and differential (03/18/2025 2:50 AM EDT) WBC 6.18 4.00 - 11.00 K/uL [facility] RBC 3.32(L) 4.50 - 5.90 M/uL [facility] HGB 10.3(L) 13.5 - 17.5 g/dL [facility] HCT 29.6(L) 41.0 - 53.0 % [facility] PLT 266 150 - 450 K/uL [facility] MCV 89.2 80.0 - 100.0 fL [facility] MCH 31.0 27.0 - 31.0 pg [facility] MCHC 34.8 32.0 - 36.0 g/dL [facility] RDW 12.1 11.5 - 14.5 % [facility] MPV 9.3 8.4 - 12.0 fL [facility] NRBC 0.00 0.00 /100 WBCs [facility] ABSOLUTE NRBC 0.00 0.00 K/uL [facility] DIFF METHOD Auto [facility] NEUTS 64.6 48.0 - 76.0 % [facility] LYMPHS 17.6(L) 18.0 - 41.0 % [facility] MONOS 13.4(H) 4.0 - 11.0 % [facility] EOS 2.3 0.0 - 5.0 % [facility] BASOS 1.0 0.0 - 1.5 % [facility] Granulocytes, immature (%) 1.1(H) 0.0 - 0.9 % [facility] ABSOLUTE NEUTS 3.99 1.92 - 7.60 K/uL [facility] ABSOLUTE LYMPHS 1.09 0.72 - 4.10 K/uL [facility] ABSOLUTE MONOS 0.83 0.16 - 1.10 K/uL [facility] ABSOLUTE EOS 0.14 0.00 - 0.50 K/uL [facility] ABSOLUTE BASOS 0.06 0.00 - 0.15 K/uL [facility] Granulocytes, immature 0.07 0.00 - 0.09 K/uL [facility] Blood 03/18/2025 2:50 AM EDT 03/18/2025 3:02 AM EDT us Madyson Bloom MD LAB BLOOD ORDERABLES Final R esult Performing Organization Address [facility] Co de Phone Number [address] [address] * (ABNORMAL) Basic metabolic panel (03/18/2025 2:50 AM EDT) SODIUM 124(L) 133 - 146 mmol/L [facility] CHLORIDE 92(L) 96 - 108 mmol/L [facility] POTASSIUM 4.5 3.3 - 5.1 mmol/L [facility] CO2 23 21 - 35 mmol/L [facility] BUN 18 6 - 19 mg/dL [facility] CREATININE 1.20 0.5 - 1.5 mg/dL [facility] GLUCOSE 96 70 - 99 mg/dL [facility] CALCIUM 9.1 8.4 - 10.3 mg/dL [facility] EGFR 60 >59 mL/min/1.7 3m2 [facility] Comment:Estimated glomerular filtration rate calculated using the CKD-EPI refit equation. ANION GAP 14 10 - 20 mmol/L [facility] Blood 03/18/2025 2:50 AM EDT 03/18/2025 3:02 AM EDT us Madyson Bloom MD LAB BLOOD ORDERABLES Final R esult Performing Organization Address [facility] Co de Phone Number [address] [address] * US BEDSIDE (03/18/2025 2:28 AM EDT) Anatomical Region Laterality Modality Ultrasound Narrative 03/18/2025 2:28 AM EDT Madyson Bloom MD 03/18/2025 2:48 AM Bedside Ultrasound Date/Time: 03/18/2025 2:28 AM Performed by: Madyson Bloom MD Authorized by: Madyson Bloom MD Exam Type: Cardiac Transthoracic Echocardiogram and Aorta Cardiac Transthoracic Echocardiogram Exam Findings & Impression: Indications: patient with chest pain Views: parasternal long and parasternal short Pericardial Effusion: the pericardial space was visualized and was negative for a pericardial effusion LV Systolic Function: the heart was visualized with normal LV systolic function Overall Impression: negative Aorta Exam Findings & Impression: Indications: patient with back pain and risk factors for athlerosclerotic disease Aorta Diameter (cm): the entire abdominal aorta from the SMA to the distal aorta was visualized as less than 3 cm in diameter Overall Impression: negative Images: Images Saved: Yes Accession Number: [id number] us Madyson Bloom MD IMG POINT OF CARE EXAMS Vilma l Result * ECG 12-LEAD (03/18/2025 2:12 AM EDT) Ventricular Rate EKG/MIN 64 BPM [facility] Atrial Rate 64 BPM [facility] VT Interval 182 ms [facility] QRS Duration 74 ms [facility] QT Interval 426 ms [facility] QTC Interval 439 ms [facility] P [place] 62 degrees [facility] R Wave [place] 31 degrees [facility] T Wave [place] 50 degrees [facility] 03/18/2025 2:12 AM EDT 03/18/2025 11:24 AM EDT Narrative [facility] - 03/18/2025 11:24 AM EDT Sinus rhythm with Premature supraventricular complexes Septal infarct (cited on or before 22-Sep-2023) Possible Lateral infarct (cited on or before 22-Sep-2023) Abnormal ECG When compared with ECG of 22-Sep-2023 16:23, Premature supraventricular complexes are now Present Questionable change in initial forces of Anteroseptal leads Confirmed by Margarito Walker ([id number]) on 03/18/2025 11:24:33 AM us Madyson Bloom MD ECG ORDERABLES Final Result [facility] * XR ABDOMEN 1 VIEW (03/14/2025 3:07 AM EDT) Anatomical Region Laterality Modality Abdomen Computed Radiogr aphy 03/14/2025 4:43 AM EDT Impressions 03/14/2025 4:44 AM EDT 1. No acute abnormality. Narrative 03/14/2025 4:44 AM EDT XR ABDOMEN 1 VIEW Referring clinician's provided indication for this examination in Epic: Constipation COMPARISON: None FINDINGS: Tubes/Lines: Partially imaged left femoral intramedullary iván with screw construct. Bowel: Nonobstructive bowel gas pattern. Moderate volume colonic stool. No pneumoperitoneum. Procedure Note Graciela Babb MBBS - 03/14/2025 XR ABDOMEN 1 VIEW Referring clinician's provided indication for this examination in Epic:Constipation COMPARISON: None FINDINGS: Tubes/Lines: Partially imaged left femoral intramedullary iván with screwconstruct. Bowel: Nonobstructive bowel gas pattern. Moderate volume colonic stool. No pneumoperitoneum. IMPRESSION: 1. No acute abnormality. us Elida Lowe PA-C IMG XR ABDOMEN Final Resul t * US LOWER EXTREMITY NON-VASCULAR LIMITED (RIGHT) (03/07/2025 5:47 PM EDT) Anatomical Region Laterality Modality Hip Right, Thigh Right, Knee Right, Leg Right, Ankle Right, Foot Right Ultrasound 03/08/2025 1:12 PM EDT Impressions 03/08/2025 1:15 PM EDT Elongated fluid collection or less likely cystic lesion measuring 3.7 x 1.3 x 3.6 cm in the right gluteal region, which appears to extend through the muscle fibers. No demonstrable internal vascularity or discrete solid vascularized component seen. Etiology and clinical significance is uncertain. Correlate with any relevant prior trauma history or surgery within this region. Given the patient's oncological history, if the etiology is unknown, this could be further evaluated with MRI if clinically indicated. Narrative 03/08/2025 1:15 PM EDT CLINICAL HISTORY: Right buttock pain. COMPARISONS: None. FINDINGS: Targeted grayscale and color Doppler vascular sonography was performed in the region of the right buttock in the reported area of pain. There appears to be an elongated fluid collection or less likely cystic lesion extending along or within the muscle fibers in the right gluteal region, measuring about 3.6 x 1.3 x 3.7 cm. No demonstrable internal vascularity. Etiology is uncertain. Procedure Note Miguelangel Story MD - 03/08/2025 CLINICAL HISTORY: Right buttock pain. COMPARISONS: None. FINDINGS: Targeted grayscale and color Doppler vascular sonography wasperformed in the region of the right buttock in the reported area of pain.There appears to be an elongated fluid collection or less likely cysticlesion extending along or within the muscle fibers in the right glutealregion, measuring about 3.6 x 1.3 x 3.7 cm. No demonstrable internalvascularity. Etiology is uncertain. IMPRESSION: Elongated fluid collection or less likely cystic lesion measuring 3.7 x1.3 x 3.6 cm in the right gluteal region, which appears to extend throughthe muscle fibers. No demonstrable internal vascularity or discrete solidvascularized component seen. Etiology and clinical significance isuncertain. Correlate with any relevant prior trauma history or surgerywithin this region. Given the patient's oncological history, if theetiology is unknown, this could be further evaluated with MRI ifclinically indicated. Qamar Garcia MD IMG US EXTREMITY Final Resul t * XR LUMBOSACRAL SPINE 2-3 VIEWS (03/05/2025 [...] IMPRESSION: Degenerative changes. No acute osseous abnormality. us Qamar Garcia MD IMG XR SPINE Final Result * XR HIP 2 VW RIGHT PLUS PELVIS (03/05/2025 11:49 AM EDT) Anatomical Region Laterality Modality Hip Right Computed Radiogr aphy 03/06/2025 10:1 0 AM EDT Impressions 03/06/2025 10:12 AM EDT Mild hip degenerative changes. Narrative 03/06/2025 10:12 AM EDT XR HIP 2 VW RIGHT PLUS PELVIS Referring clinician's provided indication for this examination in [place]: Pain COMPARISON: XR PELVIS 1-2 VIEW FINDINGS: No acute fracture or dislocation. Mild hip degenerative changes. Frontal evaluation of the opposite hip demonstrates normal hip joint space and postoperative changes of the femur. Degenerative changes of the lower lumbar spine. Procedure Note Jennifer Her MD - 03/06/2025 XR HIP 2 VW RIGHT PLUS PELVIS Referring clinician's provided indication for this examination in [place]:Pain COMPARISON: XR PELVIS 1-2 VIEW FINDINGS: No acute fracture or dislocation. Mild hip degenerative changes. Frontal evaluation of the opposite hip demonstrates normal hip joint spaceand postoperative changes of the femur. Degenerative changes of the lowerlumbar spine. IMPRESSION: Mild hip degenerative changes. us Qamar D Garcia MD IMG XR PELVIS Final Result * (ABNORMAL) Lipid panel (10/03/2024 9:06 AM EDT) HDL 63 mg/dL [facility] Comment: Interpretation <40 mg/dL: Low HDL cholesterol (major risk factor for CHD) Greater than or equal to 60 mg/dL: High HDL cholesterol ( negative risk factor for CHD) HDL - cholesterol is affected by a number of factors, e.g. smoking, excerise, hormones, sex and age. CHOLESTEROL 162 0 - 240 mg/dL [facility] TRIGLYCERIDES 71 30 - 160 mg/dL [facility] LDL 85 50 - 129 mg/dL [facility] Comment: LDL levels in terms of risk for coronary heart disease: <100 mg/dL: Optimal 100-129 mg/dL: Near or above optimal 130-159 mg/dL: Borderline high 160-189 mg/dL: High >190 mg/dL: Very High CARDIAC RISK RATIO 2.6(L) 3.4 - 5.0 [facility] Blood 10/03/2024 9:06 AM EDT 10/03/2024 9:10 AM EDT us Margarito Walker MD LAB BLOOD ORDERABLES Final Result Performing Organization Address City/State/[facility] Co de Phone Number [facility] [address] [place] [address] from Last 3 Months or Most Recently Relevant to Health Maintenance Insurance [employer] SUPPLEMENT MEDICARE PART A & B [employer] MEDEX SUPPLEMENT MEDICARE PART A & B [employer] MEDEX SUPPLEMENT MEDICARE PART A & B [employer] MEDEX SUPPLEMENT MEDICARE PART A & B [employer] SUPPLEMENT MEDICARE PART A & B [employer] SUPPLEMENT MEDICARE PART A & B [employer] SUPPLEMENT MEDICARE PART A & B MEDICARE PART A & B [employer] SUPPLEMENT [employer] MEDEX SUPPLEMENT MEDICARE PART A & B [employer] MEDEX SUPPLEMENT MEDICARE PART A & B Advance Directives For more information, please contact: [phone] (9AM - 5PM [facility], Thursday-Thursday) Documents on File Type Date Recorded Patient Transitional Studies Instructor Expl anation Healthcare Proxy 11/22/2019 * Full Code (Confirmed) (Latest Code Status on File) Date Activated Date Inactivated Comments 01/13/2020 6:17 AM Question Answer Comments Code Status Confirmed With: Patient * Full Code (Presumed) Date Activated Date Inactivated Comments 11/22/2019 11:05 AM 01/13/2020 6:17 AM * Full Code (Presumed) Date Activated Date Inactivated Comments 11/22/2019 6:41 AM 11/22/2019 11:05 AM * Full Code (Presumed) Date Activated Date Inactivated Comments 11/22/2019 6:41 AM 11/22/2019 6:41 AM * Full Code (Presumed) Date Activated Date Inactivated Comments 08/26/2018 11:35 AM 08/26/2018 7:04 PM Healthcare Agents on File Name Relationship Healthcare Agent Relationship Communication Yolette Gaspar Spouse .Primary Health Care Agent (Proxy form on file) m Care Teams Psychology Teacher Relationship Specialty Start Date End Date Qamar Garcia MD [address] [place] [address] PCP - General Internal Medicine 07/23/22 Qamar Garcia MD [address] [place] [phone] Primary Care Physician 05/06/17 Avinash Chong MD [address] [place] [address] [email or web address] LMR Provider 04/23/17 Sofia Amaya MD, MPH [address] [place] [phone] [email or web address] Primary Oncologist Radiation Oncology 08/19/19 Neal Sultana MD, MS [address] [place] [phone] [email or web address] Primary Oncologist Surgical Oncology 08/19/19 Mirela Barnhart MD [address] [place] [address] [email or web address] Medical Oncology 12/05/19 Andrei Dixon MD [address] [place] [address], [address] [place] [address] [email or web address] 03/27/22 Denise Black PA-C [address] [place] [phone] [email or web address] Physician Cafeteria Supervisor 03/27/22 Additional Source Comments The information contained in this document represents components of the legal health record. It is not the complete legal health record.[facility]
--- OUTSIDE RECORDS SUMMARY | 2025-03-30 19:14 | XMS_ITS | Encounter Summary ---
Author Organization [facility] Address [address] [place] [address] [place] [address] Phone Care Team Providers Care Platform Man Name Role Phone Qamar Garcia MD Unavailable [phone] Avinash Chong MD Unavailable [phone] Sofia Amaya MD, MPH Unavailable [phone] Neal Sultana MD, MS Unavailable Tere Keita [facility] Unavailable [phone] Mirela Barnhart MD Unavailable [phone] Andrei Dixon MD Unavailable [phone] Denise Black-C Unavailable [phone] Qamar Garcia MD Primary Care Provider [phone] Encounter Details Date Type Department Care Team (Late st Contact Info) Description 09/01/2023 Procedure Pass [facility], MRI [address] [address] Social History Tobacco Use Types [...] st Contact Info) Description 09/07/2024 Procedure Pass [facility], [place] [address] [facility] [address] [place] [address] 09/07/2024 Procedure Pass [facility], [facility] [address] [facility] [address] [place] [address] 04/05/2025 11:00 AM EDT Office Visit [facility] [address] [facility] 3rd Floor, [address] [place] [address] Margarito Walker MD [address] [place] [address], [address] [place] [address] [email or web address] 05/10/2025 11:05 AM EST Appointment [facility], [facility] [address] [address] Mirela Barnhart MD [address] [place] [address] [email or web address] 05/10/2025 12:10 PM EST Appointment [facility], [place] [address] [address] Mirela Barnhart MD [address] [place] [address] [email or web address] 05/10/2025 3:00 PM EST Office Visit [facility], [address] [place] [address] Mirela Barnhart MD [address] [place] [phone] [email or web address] documented as of this encounter Visit Diagnoses Not on filedocumented in this encounter Additional Health Concerns Infection Onset Date Last Indicated Resolved Time CoV-Risk 09/22/2023 09/22/2023 09/22/2023 4:53 PM EDT COVID-19 09/22/2023 09/22/2023 10/13/2023 1:21 AM EDT documented as of this encounter Care Teams Platform Man Relationship Specialty Start Date End Date Qamar Garcia MD [address] [place], [place] [phone] PCP - General Internal Medicine 07/23/22 Qamar Garcia MD [address] [place] [address] Primary Care Physician 05/06/17 Avinash Chong MD [address] [place] [address] [email or web address] Historical LMR Provider 04/23/17 Sofia Amaya MD, MPH [address] [place] [address] [email or web address] Primary Oncologist Radiation Oncology 08/19/19 Neal Sultana MD, MS [address] [place] [address] [email or web address] Primary Oncologist Surgical Oncology 08/19/19 Tere Keita, [address] [address] [email or web address] Caterpillar Operator Oncology 09/19/19 03/13/25 Mirela Barnhart MD [address] [place] [address] [email or web address] Medical Oncology 12/05/19 Andrei Dixon MD [address] [place] [address] [email or web address] Orthopedic Surgery 03/27/22 Denise Black PA-C [address] [place] [address] [place] [address] [email or web address] Physician Core Cleaner 03/27/22 documented as of this encounter Additional Source Comments The information contained in this document represents components of the legal health record. It is not the complete legal health record.[facility]
--- OUTSIDE RECORDS SUMMARY | 2025-03-30 19:14 | XMS_ITS | Encounter Summary ---
Author Organization [facility] Address [address] [place] [address] Phone Care Team Providers Care Audio Video Mechanic Name Role Phone Qamar Garcia MD Unavailable [phone] Avinash Chong MD Unavailable [phone] Sofia Amaya MD, MPH Unavailable + [phone] Neal Sultana MD, MS Unavailable Tere Keita SAS PROGRAMMER Unavailable [phone] Mirela Barnhart MD Unavailable [phone] Andrei Dixon MD Unavailable [phone] Denise Black-C Unavailable [phone] Qamar Garcia MD Primary Care Provider [phone] Encounter Details Date Type Department Care Team (Latest Contact Info) Description 03/03/2025 Transcribe Orders [facility] Department [address] [place] [address] Qamar Garcia MD [address] [place] [address] Right buttock pain (Primary Dx) Social History Tobacco Use [...] st Contact Info) Description 09/07/2024 Procedure Pass [facility], [place] [address] [address] 09/07/2024 Procedure [facility], [facility] [address] [address] 04/05/2025 11:00 AM EDT Office Visit [facility] [address] [place] [address] [address] [facility], [address] [place] [address] Margarito Walker MD [address] [place] [address] 05/10/2025 11:05 AM EST Appointment [facility], [facility] [address] [facility] 4th [place] [address] Mirela Barnhart MD [address] [place] [address] [email or web address] 05/10/2025 12:10 PM EST Appointment [facility], [place] [address] [address] Mirela Barnhart MD [address] [place] [address] [email or web address] 05/10/2025 3:00 PM EST Office Visit [facility], [address], [address]th [place] [address] Mirela Barnhart MD [address] [place] [address] [email or web address] documented as of this encounter Results * US LOWER EXTREMITY NON-VASCULAR LIMITED (RIGHT) [...] further evaluated with MRI ifclinically indicated. Qamar BARNARDG US EXTREMITY Final Resul t documented in this encounter Visit Diagnoses Diagnosis Right buttock pain- Primary Unspecified myalgia and myositis Right buttock pain Unspecified myalgia and myositis documented in this encounter Care Teams Audio Video Mechanic Relationship Specialty Start Date End Date Qamar Garcia MD [address] [place] [address] PCP - General Internal Medicine 07/23/22 Qamar Garcia MD [address] [place] [address] Primary Care Physician 05/06/17 Avinash Chong MD [address] [place] [address] [email or web address] Historical LMR Provider 04/23/17 Sofia Amaya MD, MPH [address] [place] [address] [email or web address] Primary Oncologist Radiation Oncology 08/19/19 Neal Sultana MD, MS [address] [place] [address] [email or web address] Primary Oncologist Surgical Oncology 08/19/19 Tere Keita, [address] [address] [email or web address] [employer] Trader Oncology 09/19/19 03/13/25 Mirela Barnhart MD [address] [place] [address] [email or web address] Medical Oncology 12/05/19 Andrei Dixon MD [address] [place] [address], [address] [place] [address] [email or web address] Orthopedic Surgery 03/27/22 Denise Black PA-C [address] [place] [address] [email or web address] Physician Kiln Mechanic 03/27/22 documented as of this encounter Additional Source Comments The information contained in this document represents components of the legal health record. It is not the complete legal health record.[facility]
--- OUTSIDE RECORDS SUMMARY | 2025-03-30 19:14 | XMS_ITS | Encounter Summary ---
Author Organization [facility] Address [address] [place] [address] Phone Care Team Providers Care Leadership Recruiter Name Role Phone Qamar Garcia MD Unavailable [phone] Malachi Maloney MD Unavailable [phone] Sammie Govea MD Unavailable Avinash Chong MD Unavailable [phone] Qamar Garcia MD Primary Care Provider [phone] Sofia Amaya MD, MPH Unavailable [phone] Karely Ansari MD Unavailable Neal Sultana MD, MS Unavailable Tere Keita Unavailable Mirela Barnhart MD Unavailable Andrei Dixon MD Unavailable [phone] Denise Black PA-C Unavailable [phone] Unknown, Unknown Primary Care Provider Qamar Escamilla MD Primary Care Provider [phone] Encounter Details Date Type Department Care Team (Late st Contact Info) Description 03/23/2019 Ancillary Orders Virtual Department [address] [place] [address] Qamar Garcia MD [address] [place] [address] Pain Social History Tobacco Use Types Packs/Day Years [...] (Late Contact Info) Description 09/07/2024 Procedure Pass [facility], [place] [address] [address] 09/07/2024 Procedure Pass [facility], [facility] [address] [address] 04/05/2025 11:00 AM EDT Office Visit [facility] [address] [place] [address], [address] [place] [address] Margarito Walker MD [address] [place] [address] 05/10/2025 11:05 AM EST Appointment [facility], [facility] [address] [address] Mirela Barnhart MD [address] [place] [address] [email or web address] 05/10/2025 12:10 PM EST Appointment [facility] [place] [facility] [place] 300 [facility] 3rd [place] [address] Mirela Barnhart MD [address] [place] [address] [email or web address] 05/10/2025 3:00 PM EST Office Visit [facility], [address], 6th [place] [address] Mirela Barnhart MD [address] [place] [address] [email or web address] documented as of this encounter Results * BI US BREAST LIMITED (LEFT) (04/01/2019 2:49 PM EDT) Anatomical Region Laterality Modality Breast Left, Breast Bilateral Left Ul trasound 04/01/2019 2:17 PM EDT Impressions 04/01/2019 2:40 PM EDT Mammography and ultrasonography of the left breast is unremarkable. No explanation for left breast pain is seen. No findings of concern for malignancy are identified. The results were given to the patient at the time of the examination. BI-RADS CATEGORY: 1 - Negative. DENSITY: There are scattered fibroglandular densities. S/S: Pain left breast pain, history of right breast carcinoma POS [id number] Narrative 04/01/2019 2:40 PM EDT Full field digital mammography was obtained with computer-aided detection. There is scattered fibroglandular density evident in the breast. 2-D C view images obtained as well as tomosynthesis images in two projections of the left breast. Comparison with prior imaging from 05/13/2018 is made. The exam is performed because of pain in the upper outer left breast which can radiate to the nipple. There is no explanation on mammography for left breast pain. No mass lesion, architectural distortion, skin changes, or suspicious calcifications are noted. Subsequent ultrasound of the area of concern in the left breast is obtained. In the area of pain no adverse features are seen. Scanning down towards the nipple is also unremarkable. Procedure Note Kobe Lay MD - 04/01/2019 Full field digital mammography was obtained with computer-aided detection.There is scattered fibroglandular density evident in the breast. 2-D Cview images obtained as well as tomosynthesis images in two projections ofthe left breast. Comparison with prior imaging from 05/13/2018 is made. The exam is performed because of pain in the upper outer left breast whichcan radiate to the nipple. There is no explanation on mammography for leftbreast pain. No mass lesion, architectural distortion, skin changes, orsuspicious calcifications are noted. Subsequent ultrasound of the area of concern in the left breast isobtained. In the area of pain no adverse features are seen. Scanning downtowards the nipple is also unremarkable. IMPRESSION: Mammography and ultrasonography of the left breast is unremarkable. Noexplanation for left breast pain is seen. No findings of concern formalignancy are identified. The results were given to the patient at the time of the examination. BI-RADS CATEGORY: 1 - Negative. DENSITY: There are scattered fibroglandular densities. S/S: Pain left breast pain, history of right breast carcinoma POS [id number] Qamar Garcia MD [facility] US BREAST Final Result * BI MAMMOGRAM DIAGNOSTIC WITH TOMOSYNTHESIS WITH CAD (LEFT) (04/01/2019 2:11 PM EDT) Anatomical Region Laterality Modality Breast Left, Breast Bilateral Left Ma mmography 04/01/2019 2:17 PM EDT Impressions 04/01/2019 2:40 PM EDT Mammography and ultrasonography of the left breast is unremarkable. No explanation for left breast pain is seen. No findings of concern for malignancy are identified. The results were given to the patient at the time of the examination. BI-RADS CATEGORY: 1 - Negative. DENSITY: There are scattered fibroglandular densities. S/S: Pain left breast pain, history of right breast carcinoma POS [id number] Narrative 04/01/2019 2:40 PM EDT Full field digital mammography was obtained with computer-aided detection. There is scattered fibroglandular density evident in the breast. 2-D C view images obtained as well as tomosynthesis images in two projections of the left breast. Comparison with prior imaging from 05/13/2018 is made. The exam is performed because of pain in the upper outer left breast which can radiate to the nipple. There is no explanation on mammography for left breast pain. No mass lesion, architectural distortion, skin changes, or suspicious calcifications are noted. Subsequent ultrasound of the area of concern in the left breast is obtained. In the area of pain no adverse features are seen. Scanning down towards the nipple is also unremarkable. Qamar Garcia MD IMG MG EXAMS Final Result documented in this encounter Visit Diagnoses Diagnosis Pain Generalized pain Pain Generalized pain Pain Generalized pain documented in this encounter Additional Health Concerns Infection Onset Date Last Indicated Resolved Time CoV-Risk 01/13/2020 01/13/2020 01/13/2020 4:17 PM EDT CoV-Presumed 05/27/2022 05/27/2022 06/17/2022 3:51 AM EST CoV-Risk 09/22/2023 09/22/2023 09/22/2023 4:53 PM EDT COVID-19 09/22/2023 09/22/2023 10/13/2023 1:21 AM EDT documented as of this encounter Care Teams Leadership Recruiter Relationship Specialty Start Date End Date Qamar Garcia MD [address] [place] [address] PCP - General Internal Medicine 10/14/18 03/26/22 Unknown, Unknown, MD PCP - General 04/08/22 07/22/22 Qamar Garcia MD [address] [place] [address] PCP - General Internal Medicine 07/23/22 Qamar Garcia MD [address] [place] [address] Primary Care Physician 05/06/17 Malachi Maloney MD [address] [place] [address], [facility] 301 [place] [address] Historical LMR Provider 04/23/17 07/13/21 Sammie Govea MD [address] [place] [address] Orthopedics & Sports Medicine, [place] [address] [email or web address] Historical LMR Provider 04/23/17 07/13/21 Avinash Chong MD [address] [place] [address] [email or web address] Historical LMR Provider 04/23/17 Sofia Amaya MD, MPH [address] [place] [address] [email or web address] Primary Oncologist Radiation Oncology 08/19/19 Karely Ansari MD [address] [place] [address] Primary Oncologist Medical Oncology 08/19/19 12/04/19 Neal Sultana MD, MS [address] [place] [address] [email or web address] Primary Oncologist Surgical Oncology 08/19/19 Tere Keita, [address] [address] [email or web address] Military Personnel Specialist Oncology 09/19/19 03/13/25 Mirela Barnhart MD [address] [place] [address] [email or web address] .[email or web address] Medical Oncology 12/05/19 Andrei Dixon MD [address] [place] [address] [email or web address] Orthopedic Surgery 03/27/22 Denise Black PA-C [address] [place] [address] [email or web address] Physician Padded Products Finisher 03/27/22 documented as of this encounter Additional Source Comments The information contained in this document represents components of the legal health record. It is not the complete legal health record.[facility]
--- OUTSIDE RECORDS SUMMARY | 2025-03-30 19:14 | XMS_ITS | Clinical Summary ---
Author Organization [facility] Address [address] [facility] [address] [place] [address] Care Team Providers Care Vegetable Tester Name Role Phone Qamar Garcia MD Primary Care Provider Allergies Active Allergy Reactions Criticality Noted Date Comments Alirocumab Rash High 08/24/2019 Finasteride 10/14/2018 gynecomastia Metoprolol Succinate 07/21/2017 Insomnia, fog, depression Medications lisinopril 10 mg tablet 25 mg 1 (one) time each day at the same time. 12/26/2021 Active omeprazole (PriLOSEC) [address] capsule Take 20 mg by mouth in the morning. 09/06/2021 Active LORazepam (Ativan) 0.5 mg tablet Take 0.5 mg by mouth if needed in the morning and at bedtime. 09/05/2021 Active pravastatin (Pravachol) 10 mg tablet Take 10 mg by mouth in the morning. 12/25/2021 Active verapamil SR (Calan-SR) 120 mg ER tablet Take 120 mg by mouth at bedtime. 12/17/2021 Active verapamil (Calan) 120 mg tablet every 8 (eight) hours. Active dilTIAZem CD (Cardizem CD) 120 mg 24 hr capsule Take 120 mg by mouth once daily. 01/07/2023 Active aspirin 81 mg EC tablet Take 81 mg by mouth in the morning and 81 mg in the evening. 09/10/2022 Active Social History Tobacco Use Types Packs/Day Years Used Date Smoking Tobacco: Never Smokeless Tobacco: Never Tobacco Cessation:Counseling Given: Not Answered Sex and Gender Information Value Date Recorded Sex Assigned at Not on file Legal Sex Male 10:47 AM EDT Gender Identity Not on file Sexual Orientation Not on file Plan of Treatment Upcoming Encounters Date Type Department Care Team (Late st Contact Info) Description 06/06/2025 1:00 PM EST Office Visit [address] [phone] Chelsi Martell MD 800 [place] [address] Health Maintenance Due Date Last Done Comments Medicare Annual Wellness (AWV) 02/04/2008 DTaP/Tdap/Td Vaccines (2 - Td or Tdap) 12/21/2021 12/22/2011 Depression Screening 07/06/2024 COVID-19 Vaccine ( season) 2025 03/16/2024, 03/31/2023, 11/26/2022, Additional history exists Influenza Vaccine (#1) 2025 , 03/31/2023, 04/28/2022, Additional history exists Hepatitis A Vaccines Aged Out 05/12/2013, 01/19/2012, 12/22/2011 No longer eligible based on patient's age to complete this topic Hepatitis B Vaccines Completed 05/12/2013, 01/19/2012, 12/22/2011 Lipid Panel Discontinued 01/04/2020, 08/06, 03/17/2019, Additional history exists Pneumococcal Vaccine: 50+ Years Completed 06/30/2020, 03/17/2016 Zoster Vaccines Completed 08/11/2022, 09/30/2021 HIB Vaccines Aged Out No longer eligi [...] patient's age to complete this topic Meningococcal Vaccine Aged Out No jeremy raysa eligible based on patient's age to complete this topic Rotavirus Vaccines Aged Out No longer eligible based on patient's age to complete this topic Insurance MEDICARE PART A AND B BLUE CROSS MEDEX Care Teams Vegetable Tester Relationship Specialty Start Date End Date Qamar Garcia MD [address] [place] [address] PCP - General Model And Pattern Supervisor 12/30/21
--- OUTSIDE RECORDS SUMMARY | 2025-03-30 19:14 | XMS_ITS | Encounter Summary ---
Author Organization [facility] Address [address] [place] [address] Phone Care Team Providers Care Senior Licensing Manager Name Role Phone Qamar Garcia MD Unavailable [phone] Malachi Maloney MD Unavailable [phone] Sammie Govea MD Unavailable Avinash Chong MD Unavailable [phone] Qamar Garcia MD Primary Care Provider [phone] Sofia Amaya MD, MPH Unavailable [phone] Karely Ansari MD Unavailable Neal Sultana MD, MS Unavailable Tere Keita Unavailable [phone] Mirela Barnhart MD Unavailable Andrei Dixon MD Unavailable [phone] Denise Black PA-C Unavailable [phone] Unknown, Unknown Primary Care Provider Qamar Escamilla MD Primary Care Provider Encounter Details Date Type Department Care Team (Late st Contact Info) Description 03/23/2019 Ancillary Orders [facility], [address] [address] Qamar Garcia MD [address] [place] [address] Social History Tobacco Use Types Packs/Day Years [...] st Contact Info) Description 09/07/2024 Procedure Pass [facility] [place] [address] [address] 09/07/2024 Procedure Pass [facility], [facility] [address] [address] 04/05/2025 11:00 AM EDT Office Visit [facility] [address] [place] [address], [address] [place] [address] Margarito Walker MD [address] [place] [address] 05/10/2025 11:05 AM EST Appointment [facility], [facility] [address] [address] Mirela Barnhart MD [address] [place] [address] [email or web address] 05/10/2025 12:10 PM EST Appointment [facility] [place] 300 [facility] 3rd [place] [address] Mirela Banrhart MD [address] [place] [address] [email or web address] 05/10/2025 3:00 PM EST Office Visit [facility], [address], 6th [place] [address] Mirela Barnhart MD [address] [place] [address] [email or web address] documented as of this encounter Visit Diagnoses Not on filedocumented in this encounter Additional Health Concerns Infection Onset Date Last Indicated Resolved Time CoV-Risk 01/13/2020 01/13/2020 01/13/2020 4:17 PM EDT CoV-Presumed 05/27/2022 05/27/2022 06/17/2022 3:51 AM EST CoV-Risk 09/22/2023 09/22/2023 09/22/2023 4:53 PM EDT COVID-19 09/22/2023 09/22/2023 10/13/2023 1:21 AM EDT documented as of this encounter Care Teams Senior Licensing Manager Relationship Specialty Start Date End Date Qamar Garcia MD [address] [place] [address] PCP - General Internal Medicine 10/14/18 03/26/22 Unknown, Unknown, MD PCP - General 04/08/22 07/22/22 Qamar Garcia MD [address] [place] [address] PCP - General Internal Medicine 07/23/22 Qamar Garcia MD [address] [place] [address] Primary Care Physician 05/06/17 Malachi Maloney MD [address] [place] [address], [address] [place] [address] [email or web address] Historical LMR Provider 04/23/17 07/13/21 Sammie Govea MD [address] [place] [address] Orthopedics & Sports Medicine, [place] [address] [email or web address] Historical LMR Provider 04/23/17 07/13/21 Avinash Chong MD [address] [place] [address] [email or web address] Historical LMR Provider 04/23/17 Sofia Amaya MD, MPH [address] [place] [address] [email or web address] .[email or web address] Primary Oncologist Radiation Oncology 08/19/19 Karely Ansari MD [address] [place] [address] Primary Oncologist Medical Oncology 08/19/19 12/04/19 Neal Sultana MD, MS [address] [place] [address] [email or web address] Primary Oncologist Surgical Oncology 08/19/19 Tere Keita, [address] [address] [email or web address] Trombone Slide Assembler Oncology 09/19/19 03/13/25 Mirela Barnhart MD [address] [place] [address] [email or web address] Medical Oncology 12/05/19 Andrei Dixon MD [address] [place] [address] [email or web address] Orthopedic Surgery 03/27/22 Denise Black PA-C [address] [place] [address] [email or web address] Physician Manager Product 03/27/22 documented as of this encounter Additional Source Comments The information contained in this document represents components of the legal health record. It is not the complete legal health record.[facility]
--- OUTSIDE RECORDS SUMMARY | 2025-03-30 19:14 | XMS_ITS | Encounter Summary ---
Author Organization [facility] Address [address] [place] [address] Phone Care Team Providers Care Bulker Name Role Phone Qamar Garcia MD Unavailable [phone] Avinash Chong MD Unavailable [phone] Qamar Garcia MD Primary Care Provider + [phone] Sofia Amaya MD, MPH Unavailable + [phone] Neal Sultana MD, MS Unavailable Tere Keita Unavailable +[phone] Mirela Barnhart MD Unavailable [phone] Andrei Dixon MD Unavailable [phone] Denise Black PA-C Unavailable [phone] Unknown, Unknown Primary Care Provider Qamar Escamilla MD Primary Care Provider + [phone] Encounter Details Date Type Department Care Team (Late st Contact Info) Description 01/09/2022 Procedure Pass Non-Invasive Cardiology [address] [place] [address] Social History Tobacco Use Types Packs/Day Years [...] st Contact Info) Description 09/07/2024 Procedure Pass [facility], [address] [address] 09/07/2024 Procedure Pass [facility], [address] [address] 04/05/2025 11:00 AM EDT Office Visit [facility] [address] [place] [address], [address] [place] [address] Margarito Walker MD [address] [place] [address] [email or web address] 05/10/2025 11:05 AM EST Appointment [facility], [address] [address] Mirela Barnhart MD [address] [place] [address] [email or web address] 05/10/2025 12:10 PM EST Appointment [address] [address] Mirela Barnhart MD [address] [place] [address] [email or web address] 05/10/2025 3:00 PM EST Office [facility], [facility] [address] [place] [address], 6th [place] [address] Mirela Barnhart MD [address] [place] [address] [email or web address] documented as of this encounter Visit Diagnoses Not on filedocumented in this encounter Additional Health Concerns Infection Onset Date Last Indicated Resolved Time CoV-Presumed 05/27/2022 05/27/2022 06/17/2022 3:51 AM EST CoV-Risk 09/22/2023 09/22/2023 09/22/2023 4:53 PM EDT COVID-19 09/22/2023 09/22/2023 10/13/2023 1:21 AM EDT documented as of this encounter Care Teams Bulker Relationship Specialty Start Date End Date Qamar Garcia MD [address] [place] [address] PCP - General Internal Medicine 10/14/18 03/26/22 Unknown, Unknown, MD PCP - General 04/08/22 07/22/22 Qamar Garcia MD [address] [place] [address] PCP - General Internal Medicine 07/23/22 Qamar Garcia MD [address] [place] [address] Primary Care Physician 05/06/17 Avinash Chong MD [address] [place] [address] [email or web address] Historical LMR Provider 04/23/17 Sofia Amaya MD, MPH [address] [place] [address] [email or web address] Primary Oncologist Radiation Oncology 08/19/19 Neal Sultana MD, MS [address] [place] [address] [email or web address]@[email or web address] Primary Oncologist Surgical Oncology 08/19/19 Tere Keita, [address] [address] Tanya@[email or web address] Grooving Machine Operator Oncology 09/19/19 03/13/25 Mirela Barnhart MD [address] [place] [address] Kati@[facility] Medical Oncology 12/05/19 Andrei Dixon MD [address] [place] [address] [email or web address] Orthopedic Surgery 03/27/22 Denise Black PA-C [address] [place] [address] [email or web address] simone Physician Building Principal 03/27/22 documented as of this encounter Additional Source Comments The information contained in this document represents components of the legal health record. It is not the complete legal health record.[facility]
--- OUTSIDE RECORDS SUMMARY | 2025-03-30 19:14 | XMS_ITS | Encounter Summary ---
Author Organization [facility] Address [address] [place] [address] Phone Care Team Providers Care Advertising Internship Name Role Phone Qamar Garcia MD Unavailable [phone] Malachi Maloney MD Unavailable [phone] Sammie Govea MD Unavailable [phone] Avinash Chong MD Unavailable [phone] Qamar Garcia MD Primary Care Provider [phone] Sofia Amaya MD, MPH Unavailable [phone] Karely Ansari MD Unavailable [phone] Neal Sultana MD, MS Unavailable Tere Keita Unavailable Mirela Barnhart MD Unavailable Andrei Dixon MD Unavailable [phone] Denise Black PA-C Unavailable [phone] Unknown, Unknown Primary Care Provider Qamar Escamilla MD Primary Care Provider Encounter Details Date Type Department Care Team (Late st Contact Info) Description 03/28/2019 Ancillary Orders [facility],Outside Imaging [address] [place] [address] System, Provider Not In, [facility] [address] [address] Social History Tobacco Use Types Packs/Day Years [...] Description 09/07/2024 Procedure Pass [facility] [place] [address] [address] 09/07/2024 Procedure Pass [facility], [facility] [address] [address] 04/05/2025 11:00 AM EDT Office Visit [facility] [address] [place] [address], [address] [place] [address] Margarito Walker MD [address] [place] [address] 05/10/2025 11:05 AM EST Appointment [facility], [facility] [address] [address] Mirela Barnhart MD [address] [place] [address] [email or web address] 05/10/2025 12:10 PM EST Appointment [facility], [place] 300 [facility] 3rd [place] [address] Mirela Barnhart MD [address] [place] [address] [email or web address]@d [email or web address] 05/10/2025 3:00 PM EST Office Visit [facility], [facility] [address] [facility], 6th [place] [address] Mirela Barnhart MD 450 [place] [address] [email or web address] documented as of this encounter Results * Mammogram Outside (No Interpretation) (06/15/2018 12:00 AM EST) Narrative SYSTEMGENERATED, DOCUMENTATION - 03/28/2019 9:34 AM EDT This study is for PACS storage only and not for interpretation. us Provider Not In System PhD IMG OUTSIDE IMAGING W /OUT INTERPRETATION Final Result documented in this encounter Visit Diagnoses Not on filedocumented in this encounter Additional Health Concerns Infection Onset Date Last Indicated Resolved Time CoV-Risk 01/13/2020 01/13/2020 01/13/2020 4:17 PM EDT CoV-Presumed 05/27/2022 05/27/2022 06/17/2022 3:51 AM EST CoV-Risk 09/22/2023 09/22/2023 09/22/2023 4:53 PM EDT COVID-19 09/22/2023 09/22/2023 10/13/2023 1:21 AM EDT documented as of this encounter Care Teams Advertising Internship Relationship Specialty Start Date End Date Qamar Garcia MD [address] [place] [address] PCP - General Internal Medicine 10/14/18 03/26/22 Unknown, Unknown, MD PCP - General 04/08/22 07/22/22 Qamar Garcia MD [address] [place] [address] PCP - General Internal Medicine 07/23/22 Qamar Garcia MD [address] [place] [address] Primary Care Physician 05/06/17 Malachi Maloney MD [address] [place] [address], [facility] 301 [place] [address] [email or web address] Historical LMR Provider 04/23/17 07/13/21 Sammie Govea MD [address] [place] [address] Orthopedics & Sports Medicine, [place] [address] [email or web address] Historical LMR Provider 04/23/17 07/13/21 Avinash Chong MD [address] [place] [address] [email or web address] Historical LMR Provider 04/23/17 Sofia Amaya MD, MPH [address] [place] [address] [email or web address] Primary Oncologist Radiation Oncology 08/19/19 Karely Ansari MD [address] [place] [address] Primary Oncologist Medical Oncology 08/19/19 12/04/19 Neal Sultana MD, MS [address] [place] [address] [email or web address] Primary Oncologist Surgical Oncology 08/19/19 Tere Keita, [facility] [address] [place] [address] [email or web address] Research And Evaluation Analyst Oncology 09/19/19 03/13/25 Mirela Barnhart MD [address] [place] [address] Kati@[email or web address] .[email or web address] Medical Oncology 12/05/19 Andrei Dixon MD [address] [place] [address], [address] [place] [address] [email or web address] Orthopedic Surgery 03/27/22 Denise Black PA-C [address] [place] [address] [email or web address] simone Physician Jewel Stripper 03/27/22 documented as of this encounter Additional Source Comments The information contained in this document represents components of the legal health record. It is not the complete legal health record.[facility]
--- OUTSIDE RECORDS SUMMARY | 2025-03-30 19:14 | XMS_ITS | Encounter Summary ---
Author Organization [facility] Address [address] [place] [address] Phone Care Team Providers Care Pipe Smoker Machine Operator Name Role Phone Qamar Garcia MD Unavailable [phone] Avinash Chong MD Unavailable [phone] Qamar Garcia MD Primary Care Provider + [phone] Sofia Amaya MD, MPH Unavailable + [phone] Neal Sultana MD, MS Unavailable Tere Keita Unavailable [phone] Mirela Barnhart MD Unavailable [phone] Andrei Dixon MD Unavailable [phone] Denise Black PA-C Unavailable [phone] Unknown, Unknown Primary Care Provider Qamar Escamilla MD Primary Care Provider + [phone] Encounter Details Date Type Department Care Team (Late st Contact Info) Description 08/13/2021 Procedure Pass [facility] [place] [place] [address] [address] Social History Tobacco Use Types [...] st Contact Info) Description 09/07/2024 Procedure Pass [address] [address] 09/07/2024 Procedure Pass [facility], [address] [address] 04/05/2025 11:00 AM EDT Office Visit [facility] [address] [place] [address], [address] [address] Margarito Walker MD [address] [place] [address] 05/10/2025 11:05 AM EST Appointment [facility], [address] [address] Mirela Barnhart MD [address] [place] [address] [email or web address] 05/10/2025 12:10 PM EST Appointment [facility], [address] [address] Mirela Barnhart MD [address] [place] [address] [email or web address] 05/10/2025 3:00 PM EST Office Visit [facility], [facility] [address] [place] [address], 6th [place] [address] Mirela Barnhart MD 450 [place] [address] [email or web address] documented as of this encounter Visit Diagnoses Not on filedocumented in this encounter Additional Health Concerns Infection Onset Date Last Indicated Resolved Time CoV-Presumed 05/27/2022 05/27/2022 06/17/2022 3:51 AM EST CoV-Risk 09/22/2023 09/22/2023 09/22/2023 4:53 PM EDT COVID-19 09/22/2023 09/22/2023 10/13/2023 1:21 AM EDT documented as of this encounter Care Teams Pipe Smoker Machine Operator Relationship Specialty Start Date End Date Qamar Garcia MD [address] [place] [address] PCP - General Internal Medicine 10/14/18 03/26/22 Unknown, Unknown, MD PCP - General 04/08/22 07/22/22 Qamar Garcia MD [address] [place] [address] PCP - General Internal Medicine 07/23/22 Qamar Garcia MD [address] [place] [address] Primary Care Physician 05/06/17 Avinash Chong MD [address] [place] [address] [email or web address] Historical LMR Provider 04/23/17 Sofia Amaya MD, MPH [address] [place] [address] [email or web address] .[email or web address] Primary Oncologist Radiation Oncology 08/19/19 Neal Sultana MD, MS [address] [place] [address] [email or web address] Primary Oncologist Surgical Oncology 08/19/19 Tere Keita, [address] [address] [email or web address]@[facility] Storage Wharfage Clerk Oncology 09/19/19 03/13/25 Mirela Barnhart MD [address] [place] [address] Kati@[facility] Medical Oncology 12/05/19 Andrei Dixon MD [address] [place] [address] [email or web address] Orthopedic Surgery 03/27/22 Denise Black PA-C [address] [place] [address] [email or web address]. simone Physician Senior Manager Creative Services 03/27/22 documented as of this encounter Additional Source Comments The information contained in this document represents components of the legal health record. It is not the complete legal health record.[facility]
--- OUTSIDE RECORDS SUMMARY | 2025-03-30 19:14 | XMS_ITS | Encounter Summary ---
Author Organization [facility] Address [address] [place] [address] Phone Care Team Providers Care Credit Control Administrator Name Role Phone Qamar Garcia MD Unavailable [phone] Avinash Chong MD Unavailable [phone] Qamar Garcia MD Primary Care Provider + [phone] Sofia Amaya MD, MPH Unavailable + [phone] Neal Sultana MD, MS Unavailable Tere Keita Unavailable [phone] Mirela Barnhart MD Unavailable [phone] Andrei Dixon MD Unavailable [phone] Denise Black PA-C Unavailable [phone] Unknown, Unknown Primary Care Provider Qamar Escamilla MD Primary Care Provider + [phone] Encounter Details Date Type Department Care Team (Late st Contact Info) Description 08/13/2021 Procedure Pass [facility] [place] [place] [address] [address] Social History Tobacco Use Types [...] st Contact Info) Description 09/07/2024 Procedure Pass [address] [address] 09/07/2024 Procedure Pass [facility], [address] [address] 04/05/2025 11:00 AM EDT Office Visit [facility] [address] [place] [address], [address] [address] Margarito Walker MD [address] [place] [address] 05/10/2025 11:05 AM EST Appointment [facility], [address] [address] Mirela Barnhart MD [address] [place] [address] [email or web address] 05/10/2025 12:10 PM EST Appointment [facility], [address] [address] Mirela Barnhart MD [address] [place] [address] [email or web address] [facility] 05/10/2025 3:00 PM EST Office Visit [facility], [facility] [place] [address] [place] [address], 6th [place] [address] Mirela Barnhart MD 450 [place] [address] [email or web address] [facility] documented as of this encounter Visit Diagnoses Not on filedocumented in this encounter Additional Health Concerns Infection Onset Date Last Indicated Resolved Time CoV-Presumed 05/27/2022 05/27/2022 06/17/2022 3:51 AM EST CoV-Risk 09/22/2023 09/22/2023 09/22/2023 4:53 PM EDT COVID-19 09/22/2023 09/22/2023 10/13/2023 1:21 AM EDT documented as of this encounter Care Teams Credit Control Administrator Relationship Specialty Start Date End Date Qamar Garcia MD [address] [place] [address] PCP - General Internal Medicine 10/14/18 03/26/22 Unknown, Unknown, MD PCP - General 04/08/22 07/22/22 Qamar Garcia MD [address] [place] [address] PCP - General Internal Medicine 07/23/22 Qamar Garcia MD [address] [place] [address] Primary Care Physician 05/06/17 Avinash Chong MD [address] [place] [address] [email or web address] Historical LMR Provider 04/23/17 Sofia Amaya MD, MPH [address] [place] [address] [email or web address] .[facility] Primary Oncologist Radiation Oncology 08/19/19 Neal Sultana MD, MS [address] [place] [address] [email or web address]@[email or web address] Primary Oncologist Surgical Oncology 08/19/19 Tere Keita, [address] [address] Tanya@[email or web address] Second Vp Hr Assessment Oncology 09/19/19 03/13/25 Mirela Barnhart MD [address] [place] [address] [email or web address] Medical Oncology 12/05/19 Andrei Dixon MD [address] [place] [address] [email or web address] Orthopedic Surgery 03/27/22 Denise Black PA-C [address] [place] [address] [email or web address]. simone Physician Retail Sales Merchandiser Development 03/27/22 documented as of this encounter Additional Source Comments The information contained in this document represents components of the legal health record. It is not the complete legal health record.[facility]
--- OUTSIDE RECORDS SUMMARY | 2025-03-30 19:14 | XMS_ITS | Encounter Summary ---
Author Organization [facility] Address [address] [place] [address] Phone Care Team Providers Care Technology Assistant Name Role Phone Qamar Garcia MD Unavailable [phone] Avinash Chong MD Unavailable [phone] Qamar Garcia MD Primary Care Provider + [phone] Sofia Amaya MD, MPH Unavailable + [phone] Neal Sultana MD, MS Unavailable Tere Keita Unavailable +[phone] Mirela Barnhart MD Unavailable [phone] Andrei Dixon MD Unavailable [phone] Denise Black PA-C Unavailable [phone] Unknown, Unknown Primary Care Provider Qamar Escamilla MD Primary Care Provider + [phone] Encounter Details Date Type Department Care Team (Latest Contact Info) Description 12/18/2021 Transcribe Orders [facility] Department [address] [place] [address] Qamar Garcia MD [address] [place] [address] Breast screening (Primary Dx) Social History Tobacco Use Types [...] st Contact Info) Description 09/07/2024 Procedure Pass [address] [address] 09/07/2024 Procedure Pass [address] [address] 04/05/2025 11:00 AM EDT Office Visit [facility] [address] [place] [address], [address] [place] [address] Margarito Walker MD [address] [place] [address] 05/10/2025 11:05 AM EST Appointment [facility], [address] [address] Mirela Barnhart MD [address] [place] [address] [email or web address] 05/10/2025 12:10 PM EST Appointment [facility], [address] [address] Mirela Barnhart MD [address] [place] [address] [email or web address] 05/10/2025 3:00 PM EST [facility] [place] [address] [facility], 6th [place] [address] Mirela Barnhart MD 450 [place] [address] [email or web address] documented as of this encounter Results * BI MAMMOGRAM SCREENING WITH TOMOSYNTHESIS WITH CAD (LEFT) (12/27/2021 2:43 PM EDT) Anatomical Region Laterality Modality Breast Left, Breast Bilateral Left Ma mmography 12/27/2021 3:08 PM EDT Impressions 12/27/2021 4:55 PM EDT No mammographic evidence of malignancy. Recommend routine annual surveillance. BI-RADS CATEGORY: 2 - Benign finding. DENSITY: There are scattered fibroglandular densities. Narrative 12/27/2021 4:55 PM EDT 81-year-old male. 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 Comparison made to previous on 10/15/2020 as far back as 05/13/2018. Interpretation made in conjunction with computer-aided detection and tomosynthesis. There are scattered areas of fibroglandular density. Stable retroareolar breast tissue indicative of gynecomastia. There are no suspicious masses, areas of architectural distortion, or suspicious clusters of microcalcifications. Procedure Note Beto Gutierrez MD - 12/27/2021 81-year-old male. 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 Comparison made toprevious on 10/15/2020 as far back as 05/13/2018. Interpretation made inconjunction with computer-aided detection and tomosynthesis. There are scattered areas of fibroglandular density. Stable retroareolarbreast tissue indicative of gynecomastia. There are no suspicious masses, areas of architectural distortion, orsuspicious clusters of microcalcifications. IMPRESSION: No mammographic evidence of malignancy. Recommend routine annualsurveillance. BI-RADS CATEGORY: 2 - Benign finding. DENSITY: There are scattered fibroglandular densities. Qamar Garcia MD IMG MG EXAMS Final Result documented in this encounter Visit Diagnoses Diagnosis Breast screening- Primary Breast screening, unspecified Breast screening Breast screening, unspecified documented in this encounter Additional Health Concerns Infection Onset Date Last Indicated Resolved Time CoV-Presumed 05/27/2022 05/27/2022 06/17/2022 3:51 AM EST CoV-Risk 09/22/2023 09/22/2023 09/22/2023 4:53 PM EDT COVID-19 09/22/2023 09/22/2023 10/13/2023 1:21 AM EDT documented as of this encounter Care Teams Technology Assistant Relationship Specialty Start Date End Date Qamar Garcia MD [address] [place] [address] PCP - General Internal Medicine 10/14/18 03/26/22 Unknown, Unknown, MD PCP - General 04/08/22 07/22/22 Qamar Garcia MD [address] [place] [address] PCP - General Internal Medicine 07/23/22 Qamar Garcia MD [address] [place] [address] Primary Care Physician 05/06/17 Avinash Chong MD [address] [place] [address] [email or web address] Historical LMR Provider 04/23/17 Sofia Amaya MD, MPH [address] [place] [address] [email or web address] Primary Oncologist Radiation Oncology 08/19/19 Neal Sultana MD, MS [address] [place] [address] [email or web address]@[facility] Primary Oncologist Surgical Oncology 08/19/19 Tere Keita, [address] [address] [email or web address]@[facility] Automotive Electrical Helper Oncology 09/19/19 03/13/25 Mirela Barnhart MD [address] [place] [address] [email or web address] Medical Oncology 12/05/19 Andrei Dixon MD [address] [place] [address] [email or web address] Orthopedic Surgery 03/27/22 Denise Black PA-C [address] [place] [address] [email or web address]. simone Physician Bioinformatics Engineer 03/27/22 documented as of this encounter Additional Source Comments The information contained in this document represents components of the legal health record. It is not the complete legal health record.[facility]
--- OUTSIDE RECORDS SUMMARY | 2025-03-30 19:14 | XMS_ITS | Encounter Summary ---
Author Organization [facility] Address [address] [place] [address] [place] [address] Phone Care Team Providers Care Manager Agricultural Name Role Phone Qamar Garcia MD Unavailable [phone] Avinash Chong MD Unavailable [phone] Sofia Amaya MD, MPH Unavailable +- [phone] Neal Sultana MD, MS Unavailable Tere Keita MARKET RESEARCHER Unavailable [phone] Mirela Barnhart MD Unavailable [phone] Andrei Dixon MD Unavailable [phone] Denise Black-C Unavailable [phone] Qamar Garcia MD Primary Care Provider [phone] Encounter Details Date Type Department Care Team (Late st Contact Info) Description 09/01/2023 Procedure Pass [facility] [place], [place] [address] [address] Social History Tobacco Use Types [...] st Contact Info) Description 09/07/2024 Procedure Pass [facility] [place] 300 [facility] [address]rd [place] [address] 09/07/2024 Procedure Pass [facility], [facility] 300 [facility] [address] [place] [address] 04/05/2025 11:00 AM EDT Office Visit [facility] [address] [facility] 3rd Floor, [address] [place] [address] Margarito Walker MD [address] [place] [address], [address] [place] [address] [email or web address] 05/10/2025 11:05 AM EST Appointment [facility], [facility] [address] [address] Mirela Barnhart MD [address] [place] [address] [email or web address] 05/10/2025 12:10 PM EST Appointment [facility], [place] [address] [address] Mirela Barnhart MD [address] [place] [address] [email or web address] 05/10/2025 3:00 PM EST Office Visit [facility], [address], [address] [place] [address] Mirela Barnhart MD [address] [place] [address] [email or web address] documented as of this encounter Visit Diagnoses Not on filedocumented in this encounter Additional Health Concerns Infection Onset Date Last Indicated Resolved Time CoV-Risk 09/22/2023 09/22/2023 09/22/2023 4:53 PM EDT COVID-19 09/22/2023 09/22/2023 10/13/2023 1:21 AM EDT documented as of this encounter Care Teams Manager Agricultural Relationship Specialty Start Date End Date Qamar Garcia MD [address] [place], [place] [id number] PCP - General Internal Medicine 07/23/22 Qamar Garcia MD [address] [place] [address] Primary Care Physician 05/06/17 Avinash Chong MD [address] [place] [address] [email or web address] Historical LMR Provider 04/23/17 Sofia Amaya MD, MPH [address] [place] [address] [email or web address] Primary Oncologist Radiation Oncology 08/19/19 Neal Sultana MD, MS [address] [place] [address] [email or web address] Primary Oncologist Surgical Oncology 08/19/19 Tere Keita, [address] [address] [email or web address] Underwriting Clerk Oncology 09/19/19 03/13/25 Mirela Barnhart MD [address] [place] [address] [email or web address] Medical Oncology 12/05/19 Andrei Dixon MD [address] [place] [address] [email or web address] Orthopedic Surgery 03/27/22 Denise Black PA-C [address] [place] [address] [place] [address] [email or web address] Physician Racing Car Driver 03/27/22 documented as of this encounter Additional Source Comments The information contained in this document represents components of the legal health record. It is not the complete legal health record.[facility]
--- OUTSIDE RECORDS SUMMARY | 2025-03-30 19:14 | XMS_ITS | Encounter Summary ---
Author Organization [facility] Address [address] [place] [address] Phone Care Team Providers Care Resident Buyer Name Role Phone Qamar Garcia MD Unavailable [phone] Avinash Chong MD Unavailable [phone] Qamar Garcia MD Primary Care Provider [phone] Sofia Amaya MD, MPH Unavailable + [phone] Neal Sultana MD, MS Unavailable Tere Keita Unavailable [phone] Mirela Barnhart MD Unavailable [phone] Andrei Dixon MD Unavailable [phone] Denise Black PA-C Unavailable [phone] Unknown, Unknown Primary Care Provider Qamar Escamilla MD Primary Care Provider + [phone] Encounter Details Date Type Department Care Team (Late st Contact Info) Description 03/13/2022 Procedure Pass [facility] [address] [place] [address] Social History Tobacco Use Types Packs/Day Years [...] st Contact Info) Description 09/07/2024 Procedure Pass [facility], [address] [address] 09/07/2024 Procedure Pass [facility], [address] [address] 04/05/2025 11:00 AM EDT Office Visit [facility] [address] [place] [address], [address] [place] [address] Margarito Walker MD [address] [place] [address] [email or web address] 05/10/2025 11:05 AM EST Appointment [facility], [address] [address] Mirela Barnhart MD [address] [place] [address] [email or web address] 05/10/2025 12:10 PM EST Appointment [address] [address] Mirela Barnhart MD [address] [place] [address] [email or web address] 05/10/2025 3:00 PM EST Office Visit [facility], [facility] [address] [place] [address], 6th [place] [address] Mirela Barnhart MD [address] [place] [address] [email or web address] documented as of this encounter Visit Diagnoses Not on filedocumented in this encounter Additional Health Concerns Infection Onset Date Last Indicated Resolved Time CoV-Presumed 05/27/2022 05/27/2022 06/17/2022 3:51 AM EST CoV-Risk 09/22/2023 09/22/2023 09/22/2023 4:53 PM EDT COVID-19 09/22/2023 09/22/2023 10/13/2023 1:21 AM EDT documented as of this encounter Care Teams Resident Buyer Relationship Specialty Start Date End Date Qamar Garcia MD [address] [place] [address] PCP - General Internal Medicine 10/14/18 03/26/22 Unknown, Unknown, MD PCP - General 04/08/22 07/22/22 Qamar Garcia MD [address] [place] [address] PCP - General Internal Medicine 07/23/22 Qamar Garcia MD [address] [place] [address] Primary Care Physician 05/06/17 Avinash Chong MD [address] [place] [address] [email or web address] Historical LMR Provider 04/23/17 Sofia Amaya MD, MPH [address] [place] [address] [email or web address] Primary Oncologist Radiation Oncology 08/19/19 Neal Sultana MD, MS [address] [place] [address] [email or web address] Primary Oncologist Surgical Oncology 08/19/19 Tere Keita, [address] [address] [email or web address] Therapist Asst Oncology 09/19/19 03/13/25 Mirela Barnhart MD [address] [place] [address] [email or web address] Medical Oncology 12/05/19 Andrei Dixon MD [address] [place] [address] [email or web address] Orthopedic Surgery 03/27/22 Denise Black PA-C [address] [place] [address] [email or web address] Physician Link Wire Fabric Machine Tender 03/27/22 documented as of this encounter Additional Source Comments The information contained in this document represents components of the legal health record. It is not the complete legal health record.[facility]
--- OUTSIDE RECORDS SUMMARY | 2025-03-30 19:14 | XMS_ITS | Encounter Summary ---
Author Organization [facility] Address [address] [place] [address] Phone Care Team Providers Care Hat Marker Name Role Phone Qamar Garcia MD Unavailable Malachi Maloney MD Unavailable [phone] Sammie Govea MD Unavailable Avinash Chong MD Unavailable [phone] Qamar Garcia MD Primary Care Provider + [phone] Sofia Amaya MD, MPH Unavailable [phone] Neal Sultana MD, MS Unavailable Tere Keita Unavailable [phone] Mirela Barnhart MD Unavailable [phone] Andrei Dixon MD Unavailable [phone] Denise Black PA-C Unavailable [phone] Unknown, Unknown Primary Care Provider Qamar Escamilla MD Primary Care Provider + [phone] Encounter Details Date Type Department Care Team (Late st Contact Info) Description 05/02/2021 Ancillary Orders Virtual Department 30 [place] [address] Qamar Garcia MD [address] [place] [address] Thyroid nodule Social History Tobacco Use Types Packs/Day Years [...] st Contact Info) Description 09/07/2024 Procedure Pass [address] [address] 09/07/2024 Procedure Pass [facility], [address] [address] 04/05/2025 11:00 AM EDT Office Visit [facility] [address] [place] [address], [address] [place] [address] Margarito Walker MD [address] [place] [address] 05/10/2025 11:05 AM EST Appointment [facility], [address] [address] Mirela Barnhart MD [address] [place] [address] [email or web address] 05/10/2025 12:10 PM EST Appointment [address] [place] [address] Mirela Barnhart MD [address] [place] [address] [email or web address] 05/10/2025 3:00 PM EST Office Visit [facility], [facility] [place] [address] [facility], 6th [place] [address] Mirela Barnhart MD 450 [place] [address] [email or web address] documented as of this encounter Results * US Thyroid Gland (05/13/2021 3:01 PM EST) Anatomical Region Laterality Modality Neck, Head, Chest Ultrasound 05/13/2021 4:10 PM EST Impressions 05/13/2021 4:21 PM EST Multiple nodules previously seen are again noted without a worrisome change. Continued surveillance recommended in one year. Narrative 05/13/2021 4:21 PM EST US THYROID GLAND TECHNIQUE: Ultrasound of the thyroid. COMPARISON: February 03, 2019 FINDINGS: Right Thyroid: The right lobe measures 4.5 x 2.5 x 2.1 cm. . Isthmus measures 2 mm in thickness. 3 nodules measured on the right. All measure under 1.5 cm. Lesion one is isoechoic in the mid thyroid region towards the midline. The second is prominently hypoechoic, parallel, solid, well-defined and without calcification. This is a 2 TI-RADS 4 lesion measuring 1.2 cm maximally. This is unchanged in size and overall appearance since 2019. Follow-up for total 5 years recommended. The third lesion is hypoechoic with a echogenic area with ring-down suggesting small colloid nodule measuring 4 mm. No right sided adenopathy is detected. Left Thyroid: The left lobe measures 5.0 x 2.3 x 2.2 cm . 3 nodules are measured on the left. An interpolar isoechoic parallel nodule measures 1.6 x 1.1 x 1.7 cm.. This a TI-RADS 3 lesion this has not increased in size compared to prior where it measured up to 1.8 cm previously the lesion number 2 symmetric at 8 x 8 x 7 mm and appears antiparallel. There is small echogenic foci within and on one image there is suggestion of ring-down indicating this may be colloid. It appeared to be colloid on the prior study. The third nodule is isoechoic with some cystic areas in the lower pole. The solid well defined. Low nodule measures up to 2.2 cm x 2.2 x 1.7 cm. Maximum measurement is unchanged. Overall it may be slightly larger. This is a TI-RADS 3 lesion. No left sided adenopathy is detected. Parathyroid: A parathyroid adenoma is not identified. Procedure Note Yfn Nixon MD - 05/13/2021 US THYROID GLAND TECHNIQUE: Ultrasound of the thyroid. COMPARISON: February 03, 2019 FINDINGS: Right Thyroid: The right lobe measures 4.5 x 2.5 x 2.1 cm. . Isthmus measures 2 mm in thickness. 3 nodules measured on the right. All measure under 1.5 cm. Lesion one isisoechoic in the mid thyroid region towards the midline. The second isprominently hypoechoic, parallel, solid, well-defined and withoutcalcification. This is a 2 TI-RADS 4 lesion measuring 1.2 cm maximally.This is unchanged in size and overall appearance since 2019. Follow-up fortotal 5 years recommended. The third lesion is hypoechoic with a echogenicarea with ring-down suggesting small colloid nodule measuring 4 mm. No right sided adenopathy is detected. Left Thyroid: The left lobe measures 5.0 x 2.3 x 2.2 cm . 3 nodules are measured on the left. An interpolar isoechoic parallelnodule measures 1.6 x 1.1 x 1.7 cm.. This a TI-RADS 3 lesion this has notincreased in size compared to prior where it measured up to 1.8 cmpreviously the lesion number 2 symmetric at 8 x 8 x 7 mm and appearsantiparallel. There is small echogenic foci within and on one image thereis suggestion of ring-down indicating this may be colloid. It appeared minerva colloid on the prior study. The third nodule is isoechoic with somecystic areas in the lower pole. The solid well defined. Low nodulemeasures up to 2.2 cm x 2.2 x 1.7 cm. Maximum measurement is unchanged.Overall it may be slightly larger. This is a TI-RADS 3 lesion. No left sided adenopathy is detected. Parathyroid: A parathyroid adenoma is not identified. IMPRESSION: Multiple nodules previously seen are again noted without a worrisomechange. Continued surveillance recommended in one year. Qamar Garcia MD IMG US THYROID Final Result documented in this encounter Visit Diagnoses Diagnosis Thyroid nodule Nontoxic uninodular goiter Thyroid nodule Nontoxic uninodular goiter documented in this encounter Additional Health Concerns Infection Onset Date Last Indicated Resolved Time CoV-Presumed 05/27/2022 05/27/2022 06/17/2022 3:51 AM EST CoV-Risk 09/22/2023 09/22/2023 09/22/2023 4:53 PM EDT COVID-19 09/22/2023 09/22/2023 10/13/2023 1:21 AM EDT documented as of this encounter Care Teams Hat Marker Relationship Specialty Start Date End Date Qamar Garcia MD [address] [place] [address] PCP - General Internal Medicine 10/14/18 03/26/22 Unknown, Unknown, PCP - General 04/08/22 07/22/22 Qamar Garcia MD [address] [place] [address] PCP - General Internal Medicine 07/23/22 Qamar Garcia MD [address] [place] [address] Primary Care Physician 05/06/17 Malachi Maloney MD [address] [place] [address], [address] [place] [address] [email or web address] Historical LMR Provider 04/23/17 07/13/21 Sammie Govea MD [address] [place] [address] Orthopedics & Sports Medicine, [place] [address] [email or web address] Historical LMR Provider 04/23/17 07/13/21 Avinash Chong MD [address] [place] [address] [email or web address] Historical LMR Provider 04/23/17 Sofia Amaya MD, MPH [address] [place] [address] [email or web address] Primary Oncologist Radiation Oncology 08/19/19 Neal Sultana MD, MS [address] [place] [address] [email or web address] Primary Oncologist Surgical Oncology 08/19/19 Tere Keita, [address] [address] [email or web address] Painting Worker Oncology 09/19/19 03/13/25 Mirela Barnhart MD [address] [place] [address] [email or web address] Medical Oncology 12/05/19 Andrei Dixon MD [address] [place] [address], [address] [place] [address] [email or web address] Orthopedic Surgery 03/27/22 Denise Black PA-C [address] [place] [address] [email or web address] Physician Hoop Rolls Operator 03/27/22 documented as of this encounter Additional Source Comments The information contained in this document represents components of the legal health record. It is not the complete legal health record.[facility]
[2025-04-03 22:08] LABS: Anti Nuclear Antibody Screen POSITIVE (NEGATIVE); Anti Nuclear Antibody Titer 1:80 titer
[2025-04-05 15:53] LABS: Kappa, Serum 219 mg/dL (176-443); Kappa/Lambda Ratio, Serum 1.66 (1.29-2.55); Lambda, Serum 132 mg/dL (91-240)
== END 2025-03-30 14:55 | disposition home or self-care (01) ==
LOC: HO.LAB 14:54
PROVIDERS: PCP Internal Medicine; Visit Provider Internal Medicine Nephrology
DX: Z01.84 Encounter for antibody response examination (principal); E87.5 Hyperkalemia; E87.1 Hypo-osmolality and hyponatremia; I10 Essential (primary) hypertension; R80.9 Proteinuria, unspecified
CPT/HCPCS: 80051; 82310; 82533; 82565; 82570; 82784; 83883; 84156; 84443; 84520; 85025; 86038; 86039; 86334; 86335

== ENCOUNTER 2025-04-19 09:54 | Outpatient (AMB) | payer MEDICARE, SELFPAY ==
--- OUTSIDE RECORDS SUMMARY | 2017-02-26 | XMS_ITS | Encounter Summary ---
Author Organization [facility] Address [address] [place] [address] Phone Care Team Providers Care Director Of Convention Services Name Role Phone Unavailable Primary Care Provider Unavailabl e Reason for Visit * MRI/CAT Scan - Closed Specialty Diagnoses / Procedures Referred By Bam t Referred To Contact Procedures CT Abdomen Outside (No Interpretation) Estela Canales MD [address] [place] [address] Phone: tel: fax: mailto:[email or web address] Referral ID Status Reason Start Date Expiration Date Visits Re quested Visits Authorized [id number] Closed 11/26/2017 11/26/2018 1 1 Encounter Details Date Type Department Care Team (Late st Contact Info) Description 02/26/2017 Hospital Encounter [facility] 55 [place] [address] Estela Canales MD [address] [address] [email or web address] Social History Tobacco Use Types Packs/Day Years Used Date Smoking Tobacco: Never Smokeless Tobacco: Never Alcohol Use Standard Drinks/Week Comments No 0 (1 standard drink = 0.6 oz pur e alcohol) Home Health Assessment: Transportation Answer Date Recorded Lack of Transportation (Medical) No 09/22/2022 Lack of Transportation (Non-Medical) No 09/22/2022 Patient Unable or Declines to Respond No 09/22/2022 Education Answer Date Recorded Are you interested in more education? Not on alcira e 11/13/2022 Are you concerned about learning? Not on file 11/13/2022 No 11/13/2022 No 11/13/2022 Food Answer Date Recorded Within the past 6 months we worried whether our food would run out before we got money to buy more. Never True 03/18/2025 Within the past 6 months the food we bought just didn't last and we didn't have enough money to get more. Never True Residential Stability Answer Date Recor ded What is your housing situation today? I have rickey sing 03/18/2025 How many times have you move d in the past 12 months? Zero (I did not move) 03/18/2025 Paying for Meds Answer Date Recorded Do you have trouble paying for medicines? No 03/18/2025 Paying Utility Bills Answer Date Record ed Do you have trouble paying your heating or elect ricity bill? No 03/18/2025 Transportation Answer Date Recorded Has the lack of transportati on kept you from medical appointments or from getting medications? No 03/18/2025 Digital Access Answer Date Recorded No 03/18/2025 Yes 03/18/2025 Do you have reliable internet access at home? Ye s 03/18/2025 Do you have a device (e.g., phone, tablet, computer) with a working camera? Yes 03/18/2025 Intimate Partner Violence Answer Date R ecorded Are you denied basic needs s uch as food, clothing, or medical care? Deferred 03/18/2025 In the past 12 months have y ou been in a relationship with a person who hurts, threatens, or tries to control you? Deferred 03/18/2025 Are you denied basic needs s uch as food, clothing, or medical care? Deferred 03/18/2025 In the past 12 months have y ou been in a relationship with a person who hurts, threatens, or tries to control you? Deferred 03/18/2025 Sex and Gender Information Value Date Recorded Sex Assigned at Male 07/23/2018 7:24 PM EST Legal Sex Male 5:48 PM EST Gender Identity Male 07/23/2018 7:24 PM EST Sexual Orientation Choose not to disclose 2019 9:17 PM EST documented as of this encounter Functional Status * Calculated C-SSRS Risk Score (Lifetime/Recent) Answer Date of Assessment Author No Risk Indicated 03/18/2025 2:16 AM Hollie Watts RN * [place] Suicide Severity Rating Scale (Screener/Recent Self-Report) Question Answer Date of Assessment Author 1. Wish to be (Past 1 Month) No 03/18/2025 2:16 AM Hollie Watts RN 2. Non-Specific Active Suicidal Thoughts (Past 1 Month) No 03/18/2025 2:16 AM Hollie Watts RN 6. Suicidal Behavior (Lifetime) No 03/18/2025 2:16 AM Hollie Watts RN documented as of this encounter Plan of Treatment Upcoming Encounters Date Type Department Care Team (Late st Contact Info) Description 09/07/2024 Procedure Pass [facility], [address] [address] 09/07/2024 Procedure Pass [facility], [address] [address] 05/10/2025 11:05 AM EST Appointment [facility], [address] [address] Mirela Barnhart MD [address] [place] [address] [email or web address] 05/10/2025 12:10 PM EST Appointment [facility], [address] [address] Mirela Barnhart MD [address] [place] [address] [email or web address] 05/10/2025 3:00 PM EST [facility] Visit [facility], [facility] [address] [facility], 6th [place] [address] Mirela Barnhart MD 450 [place] [address] [email or web address] 12/07/2025 11:00 AM EDT Office Visit [facility] [address] [address] Arlene Hernandez MD [address] [place] [address] 7 [place] [address] [email or web address] 04/06/2026 10:20 AM EDT Office Visit [facility] [address] [place] [address] 3rd Floor, [address] [place] [address] Margarito Walker MD [address] [place] [address] [place] [address] [email or web address] documented as of this encounter Procedures Procedure Name Priority Date/Time Associated Diagnosis Comments CT ABDOMEN OUTSIDE (NO INTERPRETATION) Routine 02/26/2017 12:00 AM EDT documented in this encounter Results * CT Abdomen Outside (No Interpretation) (02/26/2017 12:00 AM EDT) Narrative [facility] - 11/26/2017 1:17 PM EDT This study is for PACS storage only and not for interpretation. us Estela Canales MD IMG OUTSIDE IMAGING W/OU T INTERPRETATION Final Result [facility] documented in this encounter Visit Diagnoses Not on filedocumented in this encounter Additional Health Concerns Infection Onset Date Last Indicated Resolved Time CoV-Risk 01/13/2020 01/13/2020 01/13/2020 4:17 PM EDT CoV-Presumed 05/27/2022 05/27/2022 06/17/2022 3:51 AM EST CoV-Risk 09/22/2023 09/22/2023 09/22/2023 4:53 PM EDT COVID-19 09/22/2023 09/22/2023 10/13/2023 1:21 AM EDT documented as of this encounter Additional Source Comments The information contained in this document represents components of the legal health record. It is not the complete legal health record.[facility]
--- OUTSIDE RECORDS SUMMARY | 2017-02-27 | XMS_ITS | Encounter Summary ---
Author Organization [facility] Address [address] [place] [address] Phone Care Team Providers Care Barrow Worker Name Role Phone Unavailable Primary Care Provider Unavailabl e Reason for Visit * MRI/CAT Scan - Closed Specialty Diagnoses / Procedures Referred By Bam t Referred To Contact Procedures CT Abdomen Outside (No Interpretation) Estela Canales MD [address] [place] [address] Phone: tel: fax: mailto:[email or web address] Referral ID Status Reason Start Date Expiration Date Visits Re quested Visits Authorized [id number] Closed 11/26/2017 11/26/2018 1 1 Encounter Details Date Type Department Care Team (Late st Contact Info) Description 02/27/2017 Hospital Encounter [facility] 55 [place] [address] Estela Canales MD [address] [address] [email or web address] [place] Social History Tobacco Use Types [...] 03/18/2025 2:16 AM Hollie Watts RN * [place] Suicide Severity Rating Scale (Screener/Recent Self-Report) Question [...] st Contact Info) Description 09/07/2024 Procedure Pass [facility], [address] [address] 09/07/2024 Procedure Pass [facility], [address] [address] 05/10/2025 11:05 AM EST Appointment [facility], [address] [address] Mirela Barnhart MD [address] [place] [address] [email or web address] 05/10/2025 12:10 PM EST Appointment [facility], [address] [address] Mirela Barnhart MD [address] [place] [address] [email or web address] 05/10/2025 3:00 PM EST Office Visit [facility], [facility] [address] [facility], 6th [place] [address] Mirela Barnhart MD 450 [place] [address] [email or web address] [email or web address] 12/07/2025 11:00 AM EDT Office Visit [facility] [address] [address] Arlene Hernandez MD [address] [place] [address] 7 [place] [address] [email or web address] 04/06/2026 10:20 AM EDT Office Visit [facility] [address] [place] [address] 3rd Floor, [address] [place] [address] Margarito Walker MD [address] [place] [address] [place] [address] [email or web address] documented as of this encounter Procedures Procedure Name Priority Date/Time Associated Diagnosis Comments CT ABDOMEN OUTSIDE (NO INTERPRETATION) Routine 02/27/2017 12:00 AM EDT documented in this encounter Results * CT Abdomen Outside (No Interpretation) (02/27/2017 12:00 AM EDT) Narrative [facility] IM[facility] INTERFACES - 11/26/2017 1:16 PM EDT [...] It is not the complete legal health record.[facility]
--- OUTSIDE RECORDS SUMMARY | 2017-10-20 | XMS_ITS | Encounter Summary ---
Author Organization [facility] Address [address] [place] [address] [place] [address] Phone Care Team Providers Care Allopathic Doctor Name Role Phone Qamar Garcia MD Unavailable Malachi Maloney MD Unavailable [phone] Sammie Govea MD Unavailable [phone] Avinash Chong MD Unavailable [phone] Qamar Garcia MD Primary Care Provider [phone] Reason for Visit * MRI/CAT Scan - Closed Specialty Diagnoses / Procedures Referred By Contac t Referred To Contact Procedures CT Abdomen Outside With Interpretation Or Consult Estela Canales MD [address] [address] Phone: tel: fax: mailto:[email or web address] Referral ID Status Reason Start Date Expiration Date Visits Re quested Visits Authorized [id number] Closed 11/26/2017 11/26/2018 1 1 Encounter Details Date Type Department Care Team ([facility] st Contact Info) Description 10/20/2017 Hospital Encounter [facility] 55 [place] [address] Estela Canales MD [address] [facility] [place] [address] [email or web address]. DU Social History Tobacco Use Types Packs/Day [...] 03/18/2025 2:16 AM Hollie Watts RN * [place] Suicide Severity Rating Scale (Screener/Recent Self-Report) Question Answer Date of Assessment Author 1. Wish to be (Past 1 Month) No 03/18/2025 2:16 AM Hollie Watts, ADRIANNA 2. Non-Specific Active Suicidal Thoughts (Past 1 Month) No 03/18/2025 2:16 AM Hollie Watts, ADRIANNA 6. Suicidal Behavior (Lifetime) No 03/18/2025 2:16 AM Hollie Watts, ADRIANNA documented as of this encounter Plan of Treatment Upcoming Encounters Date Type Department Care Team (Late st Contact Info) Description 09/07/2024 Procedure Pass [facility] [place] [address] [address] 09/07/2024 Procedure Pass [facility], [facility] [address] [address] 05/10/2025 11:05 AM EST Appointment [facility], [facility] [address] [address] Mirela Barnhart MD [address] [place] [address] [email or web address] 05/10/2025 12:10 PM EST Appointment [facility] [place] [place] 300 [facility] 3rd [place] [address] Mirela Barnhart MD [address] [place] [address] [email or web address] 05/10/2025 3:00 PM EST Office Visit [facility], [address], [address] [place] [address] Mirela Barnhart MD 450 [place] [address] [email or web address] 12/07/2025 11:00 AM EDT Office Visit [facility] [address] [address] Arlene Hernandez MD [address] [place] [address] 7 [place] [address] [email or web address] 04/06/2026 10:20 AM EDT Office Visit [facility] [address] [place] [address] [address]rd [facility], [address] [place] [address] Margarito Walker MD [address] [place] [address] [place] [address] documented as of this encounter Procedures Procedure Name Priority Date/Time Associated Diagnosis Comments CT ABDOMEN OUTSIDE WITH INTERPRETATION OR CONSULT Routine 10/20/2017 12:00 AM EDT documented in this encounter Results * CT Abdomen Outside With Interpretation Or Consult (10/20/2017 12:00 AM EDT) 11/26/2017 3:29 PM EDT Impressions [facility] - 11/26/2017 6:54 PM EDT Compared to 02/27/2017: -Bilateral pyelonephritis, but less severe than depicted previously. -Small volume ascites, slightly decreased from prior. -Prostatomegaly. -Marked interval increase in gallbladder wall edema, likely due to liver dysfunction. -Engorged intrahepatic and intrathoracic IVC with likely reflux into the hepatic veins, suggesting right heart failure. This in turn could be the cause of liver dysfunction. -Mild interstitial pulmonary edema with small bilateral effusions, decreased from prior. This report is limited to the body part and modality requested, regardless of which images were uploaded. If additional reports are required, please contact the appropriate Division of the Radiology Department. Narrative [facility] - 11/26/2017 6:[address] ABDOMEN OUTSIDE WITH INTERPRETATION OR CONSULT TECHNIQUE: Interpretation of outside CT scan CT SCANof the Abdomen and Pelvis WITH intravenous contrast. COMPARISON: Outside CT ABDOMEN OUTSIDE (NO INTERPRETATION) 02/27/2017. FINDINGS: LOWER THORAX: Right greater than left small bilateral pleural effusions, decreased from prior. Mild interlobular septal thickening. Bibasilar subsegmental atelectasis. Minimal coronary artery calcification. HEPATOBILIARY: No focal hepatic lesions. No biliary ductal dilatation. Significant symmetrical gallbladder wall thickening, markedly increased from prior. SPLEEN: No splenomegaly. PANCREAS: No focal masses or ductal dilatation. ADRENALS: No adrenal nodules. KIDNEYS: Bilateral patchy wedge-shaped regions of heterogeneous hypoenhancement. Subcentimeter bilateral hypodensities are too small to characterize, but likely cysts. No hydronephrosis, stones, or solid mass lesions. PERITONEUM / RETROPERITONEUM: Small volume free fluid, most notably in the rectovesical space and left paracolic gutter, slightly decreased from prior. No free air. LYMPH NODES: No lymphadenopathy. VESSELS: Engorged intrahepatic and intrathoracic IVC with likely reflux into the hepatic veins. GI TRACT: Visualized portions of the bowel demonstrate no distention or wall thickening. PELVIC ORGANS/BLADDER: Mild apparent symmetric bladder wall thickening, likely secondary to underdistention. Prostatomegaly measuring up to 5 cm x 3.6 cm in the axial plane.. BONES AND SOFT TISSUES: Mild degenerative changes of the thoracolumbar spine and pelvis. Moderate body wall edema. Procedure Note Mcallister, Peter [place], MD, PhD - 11/26/2017 CT ABDOMEN OUTSIDE WITH INTERPRETATION OR CONSULT TECHNIQUE: Interpretation of outside CT scan CT SCANof the Abdomen and Pelvis WITH intravenous contrast. COMPARISON: Outside CT ABDOMEN OUTSIDE (NO INTERPRETATION) 02/27/2017. FINDINGS: LOWER THORAX: Right greater than left small bilateral pleural effusions, decreased from prior. Mild interlobular septal thickening. Bibasilar subsegmental atelectasis. Minimal coronary artery calcification. HEPATOBILIARY: No focal hepatic lesions. No biliary ductal dilatation. Significant symmetrical gallbladder wall thickening, markedly increasedfrom prior. SPLEEN: No splenomegaly. PANCREAS: No focal masses or ductal dilatation. ADRENALS: No adrenal nodules. KIDNEYS: Bilateral patchy wedge-shaped regions of heterogeneoushypoenhancement. Subcentimeter bilateral hypodensities are too small to characterize, butlikely cysts. No hydronephrosis, stones, or solid mass lesions. PERITONEUM / RETROPERITONEUM: Small volume free fluid, most notably inthe rectovesical space and left paracolic gutter, slightly decreased fromprior. No free air. LYMPH NODES: No lymphadenopathy. VESSELS: Engorged intrahepatic and intrathoracic IVC with likely refluxinto the hepatic veins. GI TRACT: Visualized portions of the bowel demonstrate no distention orwall thickening. PELVIC ORGANS/BLADDER: Mild apparent symmetric bladder wall thickening,likely secondary to underdistention. Prostatomegaly measuring up to 5 cm x 3.6 cmin the axial plane.. BONES AND SOFT TISSUES: Mild degenerative changes of the thoracolumbarspine and pelvis. Moderate body wall edema. IMPRESSION: Compared to 02/27/2017: -Bilateral pyelonephritis, but less severe than depicted previously. -Small volume ascites, slightly decreased from prior. -Prostatomegaly. -Marked interval increase in gallbladder wall edema, likely due to liver dysfunction. -Engorged intrahepatic and intrathoracic IVC with likely reflux into thehepatic veins, suggesting right heart failure. This in turn could be the cause ofliver dysfunction. -Mild interstitial pulmonary edema with small bilateral effusions,decreased from prior. This report is limited to the body part and modality requested, regardlessof which images were uploaded. If additional reports are required, pleasecontact the appropriate Division of the Radiology Department. Estela Canales MD IMG OUTSIDE IMAGING W/ I NTERPRETATION Final Result [facility] [address] [place] [address] documented in this encounter Visit Diagnoses Not on filedocumented in this encounter Additional Health Concerns Infection Onset Date Last Indicated Resolved Time CoV-Risk 01/13/2020 01/13/2020 01/13/2020 4:17 PM EDT CoV-Presumed 05/27/2022 05/27/2022 06/17/2022 3:51 AM EST CoV-Risk 09/22/2023 09/22/2023 09/22/2023 4:53 PM EDT COVID-19 09/22/2023 09/22/2023 10/13/2023 1:21 AM EDT documented as of this encounter Care Teams Allopathic Doctor Relationship Specialty Start Date End Date Qamar Garcia MD [address] [place] [address] PCP - General Internal Medicine 10/12/17 08/23/18 Qamar Garcia MD [address] [place] [address] Primary Care Physician 05/06/17 Malachi Maloney MD [address] [place] [address] Historical LMR Provider 04/23/17 07/13/21 Sammie Govea MD [address] [place] [address] [facility], [place] [address] Historical LMR Provider 04/23/17 07/13/21 Avinash Chong MD [address] [place] [address] [email or web address] .[facility] Historical LMR Provider 04/23/17 documented as of this encounter Additional Source Comments The information contained in this document represents components of the legal health record. It is not the complete legal health record.[facility]
--- NOTE | 2025-04-19 10:05 | HO.NEPHOV ---
Vital Signs 04/19/25 10:08 Height 5 ft 8 in Weight 141 lb 8 oz BMI 21.5 BP 124/70 Blood Pressure Location Rt brachial Position Sitting Pulse 55 Pulse Source Pulse Oximeter Pulse Oximetry (%) 99 Oxygen Delivery Method Room Air Intake Visit Reasons: 6mon follow-up w/labs-Conf Electronic Security Technician Required: No Accompanied by: Self / Same As Patient Allergies alirocumab Allergy (Verified 04/19/25 10:08) Unknown Beta-Adrenergic Agents Allergy (Verified 04/19/25 10:08) Unknown diphenhydramine Allergy (Verified 04/19/25 10:08) Unknown Iodinated Contrast Media Allergy (Verified 04/19/25 10:08) Unknown Milk Containing Products (Dairy) Allergy (Verified 04/19/25 10:08) Unknown prednisone Allergy (Verified 04/19/25 10:08) Unknown HPI Comments Details: 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 He has coronary artery disease needing stenting. In the past he also had pyelonephritis, bacteremia, prostatitis and BPH. 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 He is followed up in [facility]. He had a history of extra heartbeats and was seen in [facility]. He continues to have symptoms from it and is going to see EP to decide whether ablation will help him. He could not tolerate beta-dominick but is on diltiazem. He does not have any new skin rashes, sore throat, hematuria, abdominal pain, chest pain, dizziness, edema or orthostatic symptoms. He is tolerating ALDO inhibitor well. He has high light chains in the urine. He had sever back pain as well as hyponatremia from excess ADH which has improved. He is going to have back surgery by Dr Aroldo tony. 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 breast Irritable bowel syndrome Iron deficiency anemia Hyponatremia History of recurrent urinary tract infection Hearing problem Fracture of neck of femur Fibrosarcoma of connective tissue Essential (primary) hypertension Endocarditis Dyslipidemia Disorder of cardiovascular system Diplopia Renal cyst Coronary arteriosclerosis Contrast media adverse reaction Chronic sinusitis Chronic kidney disease Skin cancer BPH (benign prostatic hyperplasia) Bacteremia Aortic valve regurgitation Acute kidney injury Surgical History Hx of tonsillectomy History of appendectomy History of coronary artery stent placement Family History Brother Cancer Paternal Grandmother Heart disease Paternal Grandmother Heart disease Social History Alcohol intake: never Patient Tobacco Use Status: Never used Tobacco Review of Systems Const All systems reviewed & are unremarkable except as noted in HPI and below Physical Exam Vital Signs: Last Vital Signs Pulse 55 04/19/25 10:08 BP 124/70 04/19/25 10:08 Pulse Ox 99 04/19/25 10:08 Oxygen Delivery Method Room Air 04/19/25 10:08 BMI result Body Mass Index 21.5 Const General: comfortable and no acute distress Orientation/consciousness: patient oriented x3 HEENT Head: Yes normocephalic Mouth: Normal oral and palatal mucosa present Eyes EOM: EOMs intact bilaterally Neck Neck: Yes supple Resp Auscultation: clear to auscultation bilaterally Cardio Jugular venous distension: no JVD Rate: regular rate GI Palpation (GI): Soft to palpation Auscultation: normal bowel sounds General: Yes no CVA tenderness Back/Spine/Pelvis Back: no CVA tenderness Skin General skin exam: no rashes or lesions noted Neuro General: patient oriented x3 and moves all extremities Extrem General: Yes no pedal edema Results Reviewed Nephrology Results: Hgb, (14.0-18.0) 11.5 g/dl L 03/30/25 WBC, (4.8-10.8) 4.9 X10*3/uL 03/30/25 Plt Count, (160-400) 233 X10*3/uL 03/30/25 Sodium, (135-145) 131 mmol/L L 03/30/25 Potassium, (3.3-5.1) 4.5 mmol/L 03/30/25 Chloride, (96-108) 95 mmol/L L 03/30/25 Carbon Dioxide, (22-29) 30 mmol/L H 03/30/25 BUN, (9-16) 19 mg/dL H 03/30/25 Creatinine, (0.5-1.4) 1.11 mg/dL 03/30/25 Calcium, (8.4-10.2) 10.0 mg/dL 03/30/25 Urine Creatinine 68.18 mg/dL 03/30/25 Protein/Creatinin Ratio, (<0.2) 0.79 H 03/30/25 Assessment & Plan Assessment & Plan (1) Hyponatremia: Code(s): E87.1 - Hypo-osmolality and hyponatremia Category: Medical (2) Proteinuria: Code(s): R80.9 - Proteinuria, unspecified Category: Medical Qualifiers: Proteinuria type: unspecified Qualified Code(s): R80.9 - Proteinuria, unspecified (3) Hypertension: Code(s): I10 - Essential (primary) hypertension Category: Medical Qualifiers: Hypertension type: primary hypertension Qualified Code(s): I10 - Essential (primary) hypertension (4) CKD (chronic kidney disease) stage 3, GFR 30-59 ml/min: Code(s): N18.30 - Chronic kidney disease, stage 3 unspecified Category: Medical Qualifiers: Chronic kidney disease stage 3 subtype: stage 3a (GFR 45-59) Qualified Code(s): N18.31 - Chronic kidney disease, stage 3a Plan has some proteinuria for some time. He has H/O sarcoid. He has increased light chains in the urine which is going to be repeated. He may need hematology consult and a bone marrow biopsy. He has no active malignancies. He is tolerating current dose of ALDO inhibitor. He is on lisinopril & diltiazem. His serum Na is stable. His volume status is optimal. He is on a low-sodium diet and is very active. He should maintain fluid restriction. His renal functions are stable and proteinuria is better. There is no need for a renal biopsy now. No other medication changes were made during this visit. He needs to hold ACEI for 72 hours post operatively. All questions were answered. Follow-up given Orders: Orders Electrolytes 3 Weeks E87.1 - Hypo-osmolality and hyponatremia, I10 - Essential (primary) hypertension Creatinine 3 Weeks E87.1 - Hypo-osmolality and hyponatremia, I10 - Essential (primary) hypertension Creatinine 3 Months E87.1 - Hypo-osmolality and hyponatremia, I10 - Essential (primary) hypertension, N18.31 - Chronic kidney disease, stage 3a, R80.9 - Proteinuria, unspecified Blood Urea Nitrogen 3 Months E87.1 - Hypo-osmolality and hyponatremia, I10 - Essential (primary) hypertension, N18.31 - Chronic kidney disease, stage 3a, R80.9 - Proteinuria, unspecified Electrolytes 3 Months E87.1 - Hypo-osmolality and hyponatremia, I10 - Essential (primary) hypertension, N18.31 - Chronic kidney disease, stage 3a, R80.9 - Proteinuria, unspecified Protein Creatinine Ratio, Ur 3 Months E87.1 - Hypo-osmolality and hyponatremia, I10 - Essential (primary) hypertension, N18.31 - Chronic kidney disease, stage 3a, R80.9 - Proteinuria, unspecified Blood Urea Nitrogen 3 Weeks E87.1 - Hypo-osmolality and hyponatremia, I10 - Essential (primary) hypertension Coding Level of Care Code Est Pt Level 4 (99026) Diagnoses Hyponatremia E87.1 Proteinuria, unspecified type R80.9 Proteinuria type: unspecified Primary hypertension I10 Hypertension type: primary hypertension Stage 3a chronic kidney disease N18.31 Chronic kidney disease stage 3 subtype: stage 3a (GFR 45-59)
[2025-04-19 10:08] VITALS: BP 124/70; PULSE 55; O2SAT 99; BMI 21.5
--- OUTSIDE RECORDS SUMMARY | 2025-04-19 11:30 | XMS_ITS | Encounter Summary ---
Author Organization [facility] Address [address] [place] [address] Phone Care Team Providers Care Vault Person Name Role Phone Qamar Garcia MD Unavailable Malachi Maloney MD Unavailable [phone] Sammie Govea MD Unavailable Avinash Chong MD Unavailable [phone] Qamar Garcia MD Primary Care Provider [phone] Unknown, Unknown Primary Care Provider Unavai Qamar Freeman MD Primary Care Provider Miguelangel Reynoso MD Primary Care Provider Qamar Garcia MD Primary Care Provider Sofia Amaya MD, MPH Unavailable + [phone] Karely Ansari MD Unavailable Neal Sultana MD, MS Unavailable Tere Keita Unavailable [phone] Mirela Barnhart MD Unavailable [phone] Andrei Dixon MD Unavailable [phone] Denise Black PA-C Unavailable [phone] Unknown, Unknown Primary Care Provider Qamar Escamilla MD Primary Care Provider [phone] Reason for Referral * MRI/CAT Scan - Closed Specialty Diagnoses / Procedures Referred By Contac t Referred To Contact Radiology Diagnoses Frequent PVCs Procedures NC Myocardial Perfusion Stress Single NC Myocardial Perfusion Exercise Multiple Avinash Chong MD Phone: tel: fax: mailto:[email or web address] Referral ID Status Reason Start Date Expiration Date Visits Re quested Visits Authorized [id number] Closed 05/13/2017 05/13/2018 1 1 Encounter Details Date Type Department Care Team (Late Contact Info) Description 05/18/2017 Ancillary Orders [facility] [address] [facility] 3rd Floor, [address] [place] [address] Avinash Chong MD [address] [place] [address] [email or web address] Frequent PVCs Social History Tobacco Use Types [...] st Contact Info) Description 09/07/2024 Procedure Pass [place] 300 [facility] 3rd [place] [address] 09/07/2024 Procedure Pass [facility], MRI 300 [facility] 4th [place] [address] 05/10/2025 11:05 AM EST Appointment [facility], MRI 300 [facility] 4th [place] [address] Mirela Barnhart MD [address] [place] [address] [email or web address] 05/10/2025 12:10 PM EST Appointment [facility], [place] 300 [facility] 3rd [place] [address] Mirela Barnhart MD [address] [place] [address] [email or web address] 05/10/2025 3:00 PM EST Office [facility], [address], [address]th [place] [address] Mirela Barnhart MD [address] [place] [address] [email or web address] 12/07/2025 11:00 AM EDT Office Visit [facility] [address] [address] Arlene Hernandez MD [address] [place] [address] 7 [place] [address] [email or web address] 04/06/2026 10:20 AM EDT Office Visit [facility] [address] [place] [address] 3rd Floor, [address] [place] [address] Margarito Walker MD [address] [place] [address] [address] [place], [place] [id number] [email or web address] documented as of this encounter Results * [...] documented as of this encounter Care Teams Vault Person Relationship Specialty Start Date End Date Qamar Garcia MD [address] [place] [address] PCP - General Internal Medicine 05/06/17 07/20/17 Unknown, Emely, [address] [place] [address] PCP - General 07/21/17 10/11/17 Qamar Garcia MD [address] [place] [address] PCP - General Internal Medicine 10/12/17 08/23/18 Miguelangel Reynoso MD [address] [place] [address] 800 [place] [address] [email or web address] PCP - General Cardiology 08/24/18 10/13/18 Qamar Garcia MD [address] [place] [address] PCP - General Internal Medicine 10/14/18 03/26/22 Unknown, Emely, PCP - General 04/08/22 07/22/22 Qamar Garcia MD [address] [place] [address] PCP - General Internal Medicine 07/23/22 Qamar Garcia MD [address] [place] [address] Primary Care Physician 05/06/17 Malachi Maloney MD [address] [place] [address] Historical LMR Provider 04/23/17 07/13/21 Sammie Govea MD [address] [place] [address] Orthopedics & Sports Medicine, [place] [address] [email or web address] Historical LMR Provider 04/23/17 07/13/21 Avinash Chong MD [address] [place] [address] [email or web address] Historical LMR Provider 04/23/17 Sofia Amaya MD, MPH [address] [place] [address] [email or web address] .[email or web address] Primary Oncologist Radiation Oncology 08/19/19 Karely Ansari MD [address] [place] [address] Primary Oncologist Medical Oncology 08/19/19 12/04/19 Neal Sultana MD, MS [address] [place] [address] [email or web address] Primary Oncologist Surgical Oncology 08/19/19 Tere Keita, [address] [address] [email or web address] Print Room Worker Oncology 09/19/19 03/13/25 Mirela Barnhart MD [address] [place] [address] [email or web address] Medical Oncology 12/05/19 Andrei Dixon MD [address] [place] [address] [email or web address] Orthopedic Surgery 03/27/22 Denise Black PA-C [address] [place] [address] [email or web address] Physician Numberer And Wirer 03/27/22 documented as of this encounter Additional Source Comments The information contained in this document represents components of the legal health record. It is not the complete legal health record.[facility]
--- OUTSIDE RECORDS SUMMARY | 2025-04-19 11:31 | XMS_ITS | Encounter Summary ---
Author Organization [facility] Address [address] [place] [address] Phone Care Team Providers Care Software Configuration Analyst Name Role Phone Qamar Garcia MD Unavailable [phone] Avinash Chong MD Unavailable [phone] Qamar Garcia MD Primary Care Provider [phone] Sofia Amaya MD, MPH Unavailable + [phone] Neal Sultana MD, MS Unavailable Tere Keita Unavailable [phone] Mirela Barnhart MD Unavailable [phone] Andrei Dixon MD Unavailable [phone] Denise Black PA-C Unavailable [phone] Unknown, Unknown Primary Care Provider Qamar Escamilla MD Primary Care Provider + [phone] Encounter Details Date Type Department Care Team (Late st Contact Info) Description 09/27/2021 Ancillary Orders [facility], X-Ray - [address] [address] Qamar Garcia MD [address] [place] [address] Fracture Social History Tobacco Use Types Packs/Day [...] st Contact Info) Description 09/07/2024 Procedure Pass [address] [address] 09/07/2024 Procedure Pass [facility], [address] [address] 05/10/2025 11:05 AM EST Appointment [facility], [address] [address] Mirela Barnhart MD [address] [place] [address] [email or web address] 05/10/2025 12:10 PM EST Appointment [address] [address] Mirela Barnhart MD [address] [place] [address] [email or web address] 05/10/2025 3:00 PM EST Office Visit [facility], [address], [address] [place] [address] Mirela Barnhart MD 450 [place] [address] [email or web address] 12/07/2025 11:00 AM EDT Office Visit [facility] [address] [place] [address] Arlene Hernandez MD [address] [facility] [address] [place] [address] [email or web address] 04/06/2026 10:20 AM EDT Office Visit [facility] [address] [place] [address] 3rd Floor, [address] [place] [address] Margarito Walker MD [address] [facility] [address] [place] [address] [email or web address] documented as of this encounter Results * [...] No evidence ofpneumothorax. Coronary stent again seen. Qamar Garcia MD IMG XR CHEST Final [...] documented as of this encounter Care Teams Software Configuration Analyst Relationship Specialty Start Date End Date Qamar Garcia MD [address] [place] [address] PCP - General Internal Medicine 10/14/18 03/26/22 Unknown, Unknown, MD PCP - General 04/08/22 07/22/22 Qamar Garcia MD [address] [place] [address] PCP - General Internal Medicine 07/23/22 Qamar Garcia MD [address] [place] [address] Primary Care Physician 05/06/17 Avinash Chong MD [address] [place] [address] [email or web address] Historical LMR Provider 04/23/17 Sofia Amaya MD, MPH [address] [place] [address] [email or web address] Primary Oncologist Radiation Oncology 08/19/19 Neal Sultana MD, MS [address] [place] [address] [email or web address] Primary Oncologist Surgical Oncology 08/19/19 Tere Keita, [address] [address] Tanya@[email or web address] Hair Designer Oncology 09/19/19 03/13/25 Mirela Barnhart MD [address] [place] [address] Kati@[email or web address] Medical Oncology 12/05/19 Andrei Dixon MD [address] [place] [address] [email or web address] Orthopedic Surgery 03/27/22 Denise Black PA-C [address] [place] [address] [email or web address] Physician Feller Seam Operator 03/27/22 documented as of this encounter Additional Source Comments The information contained in this document represents components of the legal health record. It is not the complete legal health record.[facility]
--- OUTSIDE RECORDS SUMMARY | 2025-04-19 11:31 | XMS_ITS | Patient Health Record ---
Author Organization [facility] Address [address] [facility] [address] [place] [address] Care Team Providers Care Medical Technician Name Role Phone Qamar Garcia Primary Care Provider Uriah Dukes MD MSc, [facility] Unavailable [phone] Allergies Allergen (clinical drug ingredient) Drug/Non Drug [...] Status Risk Notes Problem Osteoarthritis of knee (497325070) Primary osteoarthritis of right knee (M17.11) Active confirmed Plan Of Treatment No Information Medical (General) History Medical History History ICD Code Diagnosed: Chest Pain,Heart Disease,High Blood Pressure,Osteoarthritis,Skin Cancer, Fibrosarcoma 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
--- OUTSIDE RECORDS SUMMARY | 2025-04-19 11:31 | XMS_ITS | Encounter Summary ---
Author Organization [facility] Address [address] [place] [address] Phone Care Team Providers Care Button Buttonhole Marker Name Role Phone Qamar Garcia MD Unavailable [phone] Malachi Maloney MD Unavailable [phone] Sammie Govea MD Unavailable [phone] Avinash Chong MD Unavailable [phone] Qamar Garcia MD Primary Care Provider [phone] Unknown, Unknown Primary Care Provider Unavai Qamar Freeman MD Primary Care Provider Miguelangel Reynoso MD Primary Care Provider [phone] Qamar Garcia MD Primary Care Provider [phone] Sofia Amaya MD, MPH Unavailable + [phone] Karely Ansari MD Unavailable Neal Sultana MD, MS Unavailable Tere Keita Unavailable [phone] Mirela Barnhart MD Unavailable [phone] Andrei Dixon MD Unavailable [phone] Denise Black PA-C Unavailable Unknown, Unknown Primary Care Provider Qamar Escamilla MD Primary Care Provider [phone] Encounter Details Date Type Department Care Team (Latest Contact Info) Description 05/06/2017 Transcribe Orders [address] [place] [address] Avinash Chong MD [address] [place] [address] [email or web address] Essential hypertension, benign (Primary Dx) Social History [...] st Contact Info) Description 09/07/2024 Procedure Pass [facility], [address] [address] 09/07/2024 Procedure Pass [facility], [facility] [address] [address] 05/10/2025 11:05 AM EST Appointment [facility], [facility] [address] [address] Mirela Barnhart MD [address] [place] [address] [email or web address] [email or web address] 05/10/2025 12:10 PM EST Appointment [address] [address] Mirela Barnhart MD 450 [place] [address] Kati@[email or web address] [facility] 05/10/2025 3:00 PM EST Office Visit [facility], [facility] [place] 450 [facility], 6th [place] [address] Mirela Barnhart MD 450 [place] [address] [email or web address] 12/07/2025 11:00 AM EDT Office Visit [address] [address] Arelne Hernandez MD [address] [place] [address] 7 [place] [address] [email or web address]@[email or web address] 04/06/2026 10:20 AM EDT Office Visit [facility] [address] [place] [address] 3rd Floor, [address] [place] [address] Margarito Walker MD [address] [place] [address] [address] [place] [address] [email or web address] documented as of this encounter Results * (ABNORMAL) Comprehensive metabolic panel (05/06/2017 10:20 AM EDT) SODIUM 133 133 - 146 mmol/L [facility] POTASSIUM 3.8 3.3 - 5.1 mmol/L [facility] CHLORIDE 94(L) 96 - 108 mmol/L [facility] CO2 29 21 - 35 mmol/L [facility] BUN 7 6 - 19 mg/dL [facility] CREATININE 1.10 0.5 - 1.5 mg/dL [facility] GLUCOSE 112(H) 70 - 99 mg/dL [facility] ALBUMIN 4.1 3.9 - 4.8 g/dL [facility] TOTAL PROTEIN 6.7 6.5 - 8.0 g/dL [facility] CALCIUM 9.5 8.4 - 10.3 mg/dL [facility] ALKALINE PHOSPHATASE 86 39 - 117 U/L [facility] TOTAL BILIRUBIN 0.4 0 - 1.2 mg/dL [facility] AST 21 0 - 37 U/L [facility] ALT 19 0 - 40 U/L [facility] GLOBULIN 2.6 1 - 4.8 g/dL [facility] EGFR >60 mL/min/1.7 3m2 [facility] Comment:Abnormal if <60. If patient is -South African, multiply the result by 1.21. ANION GAP 14 10 - 20 mmol/L [facility] Blood 05/06/2017 10:2 0 AM EDT 05/06/2017 10:23 AM EDT us Avinash Chong MD LAB BLOOD ORDERABLES Final Resu lt Performing Organization Address City/State/[facility] Co de Phone Number [facility] [address] [place] [address] documented in this encounter Visit Diagnoses Diagnosis Essential hypertension, benign- Primary documented in this encounter Additional Health Concerns Infection Onset Date Last Indicated Resolved Time CoV-Risk 01/13/2020 01/13/2020 01/13/2020 4:17 PM EDT CoV-Presumed 05/27/2022 05/27/2022 06/17/2022 3:51 AM EST CoV-Risk 09/22/2023 09/22/2023 09/22/2023 4:53 PM EDT COVID-19 09/22/2023 09/22/2023 10/13/2023 1:21 AM EDT documented as of this encounter Care Teams Button Buttonhole Marker Relationship Specialty Start Date End Date Qamar Garcia MD [address] [place] [address] PCP - General Internal Medicine 05/06/17 07/20/17 Unknown, Unknown, [address] [place] [address] PCP - General 07/21/17 10/11/17 Qamar Garcia MD [address] [place] [address] PCP - General Internal Medicine 10/12/17 08/23/18 Miguelangel Reynoso MD [address] [place] [address] 800 [place] [address] [email or web address] PCP - General Cardiology 08/24/18 10/13/18 Qamar Garcia MD [address] [place] [address] PCP - General Internal Medicine 10/14/18 03/26/22 Unknown, Emely, MD PCP - General 04/08/22 07/22/22 Qamar Garcia MD [address] [place] [address] PCP - General Internal Medicine 07/23/22 Qamar Garcia MD [address] [place] [address] Primary Care Physician 05/06/17 Malachi Maolney MD [address] [place] [address] Historical LMR Provider 04/23/17 07/13/21 Sammie Govea MD [address] [place] [address] Orthopedics & Sports Medicine, [facility] [place] [address] Historical LMR Provider 04/23/17 07/13/21 Avinash Chong MD [address] [place] [address] [email or web address] Historical LMR Provider 04/23/17 Sofia Amaya MD, MPH [address] [place] [address] [email or web address] Primary Oncologist Radiation Oncology 08/19/19 Karely Ansari MD [address] [place] [address] Primary Oncologist Medical Oncology 08/19/19 12/04/19 Neal Sultana MD, MS [address] [place] [address] [email or web address] Primary Oncologist Surgical Oncology 08/19/19 Tere Keita, [address] [address] [email or web address]@[email or web address] Bomb Squad Officer Oncology 09/19/19 03/13/25 Mirela Barnhart MD [address] [place] [address] [email or web address] Medical Oncology 12/05/19 Andrei Dixon MD [address] [place] [address] [email or web address] Orthopedic Surgery 03/27/22 Denise Black PA-C [address] [place] [address] [email or web address]. simone Physician Helper Maintenance Cleaning 03/27/22 documented as of this encounter Additional Source Comments The information contained in this document represents components of the legal health record. It is not the complete legal health record.[facility]
--- OUTSIDE RECORDS SUMMARY | 2025-04-19 11:31 | XMS_ITS | Continuity of Care Document ---
Author Organization [facility] Address [address] [facility] [address] [place] [address] Phone [phone] Social History Type Date Description Comments Sex Male Sex Unknown Medical Devices Description No Information Available Encounters Description No Information Available Assessments Description No Information Available Plan of Treatment No Information Available Functional Status Description No Information Available Mental Status Description No Information Available Referrals Description No Information Available
--- OUTSIDE RECORDS SUMMARY | 2025-04-19 11:32 | XMS_ITS | Encounter Summary ---
Author Organization [facility] Address [address] [place] [address] Phone Care Team Providers Care Safety Glass Installer Name Role Phone Qamar Garcia MD Unavailable Malachi Maloney MD Unavailable [phone] Sammie Govea MD Unavailable [phone] Avinash Chong MD Unavailable [phone] Qamar Garcia MD Primary Care Provider Miguelangel Reynoso MD Primary Care Provider Qamar Garcia MD Primary Care Provider Sofia Amaya MD, MPH Unavailable Karely Ansari MD Unavailable Neal Sultana MD, MS Unavailable Tere Keita Unavailable [phone] Mirela Barnhart MD Unavailable [phone] Andrei Dixon MD Unavailable [phone] Denise Black PA-C Unavailable [phone] Unknown, Unknown Primary Care Provider Qamar Escamilla MD Primary Care Provider [phone] Encounter Details Date Type Department Care Team (Late st Contact Info) Description 07/23/2018 Ancillary Orders [facility] [address] [facility], [address] [place] [address] Mendez Dobson MD Social History Tobacco Use [...] Contact Info) Description 09/07/2024 Procedure Pass [facility], [place] [address] [address] 09/07/2024 Procedure Pass [facility], [address] [address] 05/10/2025 11:05 AM EST Appointment [facility], [address] [address] Mirela Barnhart MD [address] [place] [address] [email or web address] 05/10/2025 12:10 PM EST Appointment [address] [address] Mirela Barnhart MD [address] [place] [address] [email or web address] 05/10/2025 3:00 PM EST Office Visit [facility], [facility] [place] [address] [place] [address], 6th [place] [address] Mirela Barnhart MD 450 [place] [address] [email or web address] 12/07/2025 11:00 AM EDT Office Visit [address] [address] Arlene Hernandez MD [address] [place] [address] THERESA@[email or web address] 04/06/2026 10:20 AM EDT Office Visit [facility] [address] [place] [address] 3rd [facility], [address] [place] [address] Margarito Walker MD [address] [place] [address], [address] [place] [address] [email or web address] documented as of this encounter Visit Diagnoses Not on filedocumented in this encounter Additional Health Concerns Infection Onset Date Last Indicated Resolved Time CoV-Risk 01/13/2020 01/13/2020 01/13/2020 4:17 PM EDT CoV-Presumed 05/27/2022 05/27/2022 06/17/2022 3:51 AM EST CoV-Risk 09/22/2023 09/22/2023 09/22/2023 4:53 PM EDT COVID-19 09/22/2023 09/22/2023 10/13/2023 1:21 AM EDT documented as of this encounter Care Teams Safety Glass Installer Relationship Specialty Start Date End Date Qamar Garcia MD [address] [place] [address] PCP - General Internal Medicine 10/12/17 08/23/18 Miguelangel Reynoso MD [address] [place] [address] 800 [place] [address] [email or web address] PCP - General Cardiology 08/24/18 10/13/18 Qamar Garcia MD [address] [place] [address] PCP - General Internal Medicine 10/14/18 03/26/22 Unknown, Emely, MD PCP - General 04/08/22 07/22/22 Qamar Garcia MD [address] [place] [address] PCP - General Internal Medicine 07/23/22 Qamar Garcia MD [address] [place] [address] Primary Care Physician 05/06/17 Malachi Maloney MD [address] [place] [address] Historical LMR Provider 04/23/17 07/13/21 Sammie Govea MD [address] [place] [address] Orthopedics & Sports Medicine, [place] [address] Historical LMR Provider 04/23/17 07/13/21 Avinash Chong MD [address] [place] [address] [email or web address] Historical LMR Provider 04/23/17 Sofia Amaya MD, MPH [address] [place] [address] [email or web address] Primary Oncologist Radiation Oncology 08/19/19 Karely Ansari MD [address] [place] [address] Primary Oncologist Medical Oncology 08/19/19 12/04/19 Neal Slutana MD, MS [address] [place] [address] FAIZAN@[facility] Primary Oncologist Surgical Oncology 08/19/[address] [address] [email or web address]@[email or web address] Wall Washer Oncology 09/19/19 03/13/25 Mirela aBrnhart MD [address] [place] [address] Kati@[email or web address] Medical Oncology 12/05/19 Andrei Dixon MD [address] [place] [address] [email or web address] Orthopedic Surgery 03/27/22 Denise Black PA-C [address] [place] [address] [email or web address]. [email or web address] Physician Lock Operator 03/27/22 documented as of this encounter Additional Source Comments The information contained in this document represents components of the legal health record. It is not the complete legal health record.[facility]
--- OUTSIDE RECORDS SUMMARY | 2025-04-19 11:32 | XMS_ITS | Encounter Summary ---
Author Organization [facility] Address [address] [place] [address] Phone Care Team Providers Care Director Of Sustainability Programs Name Role Phone Qamar Garcia MD Unavailable [phone] Malachi Maloney MD Unavailable [phone] Sammie Govea MD Unavailable Avinash Chong MD Unavailable [phone] Qamar Garcia MD Primary Care Provider [phone] Sofia Amaya MD, MPH Unavailable [phone] Karely Ansari MD Unavailable Neal Sultana MD, MS Unavailable Tere Keita Unavailable Mirela Barnhart MD Unavailable [phone] Andrei Dixon MD Unavailable [phone] Denise Black PA-C Unavailable [phone] Unknown, Unknown Primary Care Provider Qamar Escamilla MD Primary Care Provider [phone] Encounter Details Date Type Department Care Team (Late st Contact Info) Description 08/10/2019 Procedure Pass [facility] [address] [facility], [address]th [place] [address] Social History Tobacco Use Types Packs/Day Years [...] (Late Contact Info) Description 09/07/2024 Procedure Pass [address] [address] 09/07/2024 Procedure Pass [facility], [facility] [address] [address] 05/10/2025 11:05 AM EST Appointment [facility], [address] [address] Mirela Barnhart MD [address] [place] [address] [email or web address] 05/10/2025 12:10 PM EST Appointment [place], [place] [address] [address] Mirela Barnhart MD [address] [place] [address] [email or web address] 05/10/2025 3:00 PM EST Office [facility], [address] [facility], 6th [place] [address] Mirela Barnhart MD [address] [place] [address] [email or web address] [email or web address] 12/07/2025 11:00 AM EDT Office Visit [facility] 234 [place] [address] Arlene Hernandez MD 234 [facility] 7 [place] [address] THERESA@[facility] 04/06/2026 10:20 AM EDT Office Visit [facility] [address] [place] [address] 3rd Floor, [address] [place] [address] Margarito Walker MD [address] [place] [address] [place] [address] [email or web address] documented as of this encounter Visit Diagnoses Not on filedocumented in this encounter Additional Health Concerns Infection Onset Date Last Indicated Resolved Time CoV-Risk 01/13/2020 01/13/2020 01/13/2020 4:17 PM EDT CoV-Presumed 05/27/2022 05/27/2022 06/17/2022 3:51 AM EST CoV-Risk 09/22/2023 09/22/2023 09/22/2023 4:53 PM EDT COVID-19 09/22/2023 09/22/2023 10/13/2023 1:21 AM EDT documented as of this encounter Care Teams Director Of Sustainability Programs Relationship Specialty Start Date End Date Qamar Garcia MD [address] [place] [address] PCP - General Internal Medicine 10/14/18 03/26/22 Unknown, Emely, PCP - General 04/08/22 07/22/22 Qamar Garcia MD [address] [place] [address] PCP - General Internal Medicine 07/23/22 Qamar Garcia MD [address] [place] [address] Primary Care Physician 05/06/17 Malachi Maloney MD [address] [place] [address] 301 [place] [address] [email or web address] Historical LMR Provider 04/23/17 07/13/21 Sammie Govea MD [address] [place] [address] [facility], [place] [address] [email or web address] Historical LMR Provider 04/23/17 07/13/21 Avinash Chong MD [address] [place] [address] [email or web address] Historical LMR Provider 04/23/17 Sofia Amaya MD, MPH [address] [place] [address] [email or web address] Primary Oncologist Radiation Oncology 08/19/19 Karely Ansari MD [address] [place] [address] Primary Oncologist Medical Oncology 08/19/19 12/04/19 Neal Sultana MD, MS [address] [place] [address] [email or web address] Primary Oncologist Surgical Oncology 08/19/19 Tere Keita, [address] [address] [email or web address] Senior Ui Ux Designer Oncology 09/19/19 03/13/25 Mirela Barnhart MD [address] [place] [address] [email or web address] .critical [facility] hospital Medical Oncology 12/05/19 Andrei Dixon MD [address] [place] [address], [address] [place] [address] [email or web address] Orthopedic Surgery 03/27/22 Denise Black PA-C [address] [place] [address] [email or web address] simone Physician Crop Grain Or Livestock Farm Manager 03/27/22 documented as of this encounter Additional Source Comments The information contained in this document represents components of the legal health record. It is not the complete legal health record.[facility]
--- OUTSIDE RECORDS SUMMARY | 2025-04-19 11:32 | XMS_ITS | Encounter Summary ---
Author Organization [facility] Address [address] [place] [address] Phone Care Team Providers Care Arranger Assembler Name Role Phone Qamar Garcia MD Unavailable Malachi Maloney MD Unavailable [phone] Sammie Govea MD Unavailable [phone] Avinash Chong MD Unavailable [phone] Qamar Garcia MD Primary Care Provider + [phone] Sofia Amaya MD, MPH Unavailable + [phone] Neal Sultana MD, MS Unavailable Tere Keita Unavailable [phone] Mirela Barnhart MD Unavailable [phone] Andrei Dixon MD Unavailable [phone] Denise Black PA-C Unavailable [phone] Unknown, Unknown Primary Care Provider Qamar Escamilla MD Primary Care Provider [phone] Encounter Details Date Type Department Care Team (Late st Contact Info) Description 12/12/2019 Procedure Pass [facility] 75 [place] [address] Social History Tobacco Use Types Packs/Day Years [...] st Contact Info) Description 09/07/2024 Procedure Pass [facility], [place] [address] [address] 09/07/2024 Procedure Pass [facility], [address] [address] 05/10/2025 11:05 AM EST Appointment [facility], [facility] [address] [address] Mirela Barnhart MD [address] [place] [address] [email or web address] 05/10/2025 12:10 PM EST Appointment [facility], [place] [address] [address] Mirela Barnhart MD [address] [place] [address] [email or web address] 05/10/2025 3:00 PM EST Office Visit [facility], [address], [address]th [place] [address] Mirela Barnhart MD [address] [place] [address] [email or web address] [email or web address] 12/07/2025 11:00 AM EDT Office Visit [facility] 234 [place] [address] Arlene Hernandez MD 234 [facility], [address] [place] [address] [email or web address]@[facility] 04/06/2026 10:20 AM EDT Office Visit [facility] [address] [place] [address] 3rd Floor, [address] [place] [address] Margarito Walker MD 22 [facility] [address] [place] [address] [email or web address] documented as of this encounter Visit Diagnoses Not on filedocumented in this encounter Additional Health Concerns Infection Onset Date Last Indicated Resolved Time CoV-Risk 01/13/2020 01/13/2020 01/13/2020 4:17 PM EDT CoV-Presumed 05/27/2022 05/27/2022 06/17/2022 3:51 AM EST CoV-Risk 09/22/2023 09/22/2023 09/22/2023 4:53 PM EDT COVID-19 09/22/2023 09/22/2023 10/13/2023 1:21 AM EDT documented as of this encounter Care Teams Arranger Assembler Relationship Specialty Start Date End Date Qamar Garcia MD [address] [place] [address] PCP - General Internal Medicine 10/14/18 03/26/22 Unknown, Emely, MD PCP - General 04/08/22 07/22/22 Qamar Garcia MD [address] [place] [address] PCP - General Internal Medicine 07/23/22 Qamar Garcia MD [address] [place] [address] Primary Care Physician 05/06/17 Malachi Maloney MD [address] [place] [address], [facility] 301 [place] [address] [email or web address] Historical LMR Provider 04/23/17 07/13/21 Sammie Govea MD [address] [place] [address] [facility] Medicine, [place] [address] [email or web address] Historical LMR Provider 04/23/17 07/13/21 Avinash Chong MD [address] [place] [address] [email or web address] Historical LMR Provider 04/23/17 Sofia Amaya MD, MPH [address] [place] [address] [email or web address] Primary Oncologist Radiation Oncology 08/19/19 Neal Sultana MD, MS [address] [place] [address] [email or web address]@[email or web address] Primary Oncologist Surgical Oncology 08/19/19 Tere Keita, [address] [address] Tanya@[email or web address] Resource Conservation Specialist Oncology 09/19/19 03/13/25 Mirela Barnhart MD [address] [place] [address] Kati@[email or web address] .[facility] Medical Oncology 12/05/19 Andrei Dixon MD [address] [place] [address], [address] [place] [address] [email or web address] Orthopedic Surgery 03/27/22 Denise Black PA-C [address] [place] [address] [email or web address]. [email or web address] Physician Paper Conservator 03/27/22 documented as of this encounter Additional Source Comments The information contained in this document represents components of the legal health record. It is not the complete legal health record.[facility]
--- OUTSIDE RECORDS SUMMARY | 2025-04-19 11:32 | XMS_ITS | Encounter Summary ---
Author Organization [facility] Address [address] [place] [address] Phone Care Team Providers Care Spot Washer Name Role Phone Qamar Garcia MD Unavailable [phone] Malachi Maloney MD Unavailable [phone] Sammie Govea MD Unavailable [phone] Avinash Chogn MD Unavailable [phone] Qamar Garcia MD Primary Care Provider [phone] Sofia Amaya MD, MPH Unavailable [phone] Karely Ansari MD Unavailable [phone] Neal Sultana MD, MS Unavailable Tere Keita Unavailable [phone] Mirela Barnhart MD Unavailable [phone] Andrei Dixon MD Unavailable [phone] Denise Black PA-C Unavailable [phone] Unknown, Unknown Primary Care Provider Qamar Escamilla MD Primary Care Provider Encounter Details Date Type Department Care Team (Late Contact Info) Description 09/06/2019 Procedure Pass [facility] [address] [place] [id number] Social History Tobacco Use Types Packs/Day Years [...] Upcoming Encounters Date Type Department Care Team ([facility] Contact Info) Description 09/07/2024 Procedure Pass [facility], [address] [address] 09/07/2024 Procedure Pass [facility], [address] [address] 05/10/2025 11:05 AM EST Appointment [facility], [address] [address] Mirela Barnhart MD [address] [place] [address] [email or web address] 05/10/2025 12:10 PM EST Appointment [facility], [address] [address] Mirela Barnhart MD [address] [place] [address] [email or web address] 05/10/2025 3:00 PM EST Office Visit [facility], [address] [place] [address] Mirela Barnhart MD 450 [place] [address] [email or web address] 12/07/2025 11:00 AM EDT Office Visit [facility] 234 [place] [address] Arlene Hernandez MD 234 [facility] 7 [place] [address] THERESA@[facility] 04/06/2026 10:20 AM EDT Office Visit [facility] [address] [place] [address] 3rd Floor, [address] [place] [address] Margarito Walker MD [address] [place] [address] [place] [address] [email or web address] documented as of this encounter Visit Diagnoses Not on filedocumented in this encounter Additional Health Concerns Infection Onset Date Last Indicated Resolved Time CoV-Risk 01/13/2020 01/13/2020 01/13/2020 4:17 PM EDT CoV-Presumed 05/27/2022 05/27/2022 06/17/2022 3:51 AM EST CoV-Risk 09/22/2023 09/22/2023 09/22/2023 4:53 PM EDT COVID-19 09/22/2023 09/22/2023 10/13/2023 1:21 AM EDT documented as of this encounter Care Teams Spot Washer Relationship Specialty Start Date End Date Qamar Garcia MD [address] [place] [address] PCP - General Internal Medicine 10/14/18 03/26/22 Unknown, Emely, MD PCP - General 04/08/22 07/22/22 Qamar Garcia MD [address] [place] [address] PCP - General Internal Medicine 07/23/22 Qamar Garcia MD [address] [place] [address] Primary Care Physician 05/06/17 Malachi Maloney MD [address] [place] [address] 301 [place] [address] Historical LMR Provider 04/23/17 07/13/21 Sammie Govea MD [address] [place] [address] Orthopedics [facility] Sports Medicine, [place] [address] [email or web address] Historical LMR Provider 04/23/17 07/13/21 Avinash Chong MD [address] [place] [address] [email or web address] Historical LMR Provider 04/23/17 Sofia Amaya MD, MPH [address] [place] [address] [email or web address] .COUNTS INCLUDE 234 [facility] Primary Oncologist Radiation Oncology 08/19/19 Karely Ansari MD [address] [place] [address] Primary Oncologist Medical Oncology 08/19/19 12/04/19 Neal Sultana MD, MS [address] [place] [address] [email or web address] Primary Oncologist Surgical Oncology 08/19/19 Tere Keita, [address] [address] Tanya@[email or web address] Gas Distribution Supervisor Oncology 09/19/19 03/13/25 Mirela Barnhart MD [address] [place] [address] [email or web address] .[facility] Medical Oncology 12/05/19 Andrei Dixon MD [address] [place] [address] [email or web address] Orthopedic Surgery 03/27/22 Denise Black PA-C [address] [place] [address] [email or web address]. simone Physician Bar Examiner 03/27/22 documented as of this encounter Additional Source Comments The information contained in this document represents components of the legal health record. It is not the complete legal health record.[facility]
--- OUTSIDE RECORDS SUMMARY | 2025-04-19 11:32 | XMS_ITS | Encounter Summary ---
Author Organization [facility] Address [address] [place] [address] Phone Care Team Providers Care Cardiothoracic Physiotherapist Name Role Phone Qamar Garcia MD Unavailable Malachi Maloney MD Unavailable [phone] Sammie Govea MD Unavailable Avinash Chong MD Unavailable [phone] Qamar Garcia MD Primary Care Provider [phone] Sofia Amaya MD, MPH Unavailable [phone] Neal Sultana MD, MS Unavailable Tere Keita Unavailable Mirela Barnhart MD Unavailable [phone] Andrei Dixon MD Unavailable [phone] Denise Black PA-C Unavailable [phone] Unknown, Unknown Primary Care Provider Qamar Escamilla MD Primary Care Provider [phone] Encounter Details Date Type Department Care Team (Late st Contact Info) Description 03/19/2021 Procedure Pass [facility] [address] [place] [address] Social History Tobacco Use Types Packs/Day Years [...] Upcoming Encounters Date Type Department Care Team ([facility] st Contact Info) Description 09/07/2024 Procedure Pass [facility], [address] [address] 09/07/2024 Procedure Pass [facility], [address] [address] 05/10/2025 11:05 AM EST Appointment [facility], [address] [address] Mirela Barnhart MD [address] [place] [address] [email or web address] [email or web address] 05/10/2025 12:10 PM EST Appointment [facility], [address] [address] Mirela Barnhart MD [address] [place] [address] [email or web address] 05/10/2025 3:00 PM EST Office Visit [facility], [address], [address] [place] [address] Mirela Barnhart MD [address] [place] [address] [email or web address] [email or web address] 12/07/2025 11:00 AM EDT Office Visit [facility] 234 [place] [address] Arlene Hernandez MD 234 [facility] 7 [place] [address] THERESA@[facility] 04/06/2026 10:20 AM EDT Office Visit [facility] [address] [place] [address] 3rd Floor, [address] [place] [address] Margarito Walker MD 22 [facility] [address] [place] [address] [email or web address] documented as of this encounter Visit Diagnoses Not on filedocumented in this encounter Additional Health Concerns Infection Onset Date Last Indicated Resolved Time CoV-Presumed 05/27/2022 05/27/2022 06/17/2022 3:51 AM EST CoV-Risk 09/22/2023 09/22/2023 09/22/2023 4:53 PM EDT COVID-19 09/22/2023 09/22/2023 10/13/2023 1:21 AM EDT documented as of this encounter Care Teams Cardiothoracic Physiotherapist Relationship Specialty Start Date End Date Qamar Garcia MD [address] [place] [address] PCP - General Internal Medicine 10/14/18 03/26/22 Unknown, Unknown, MD PCP - General 04/08/22 07/22/22 Qamar Garcia MD [address] [place] [address] PCP - General Internal Medicine 07/23/22 Qamar Garcia MD [address] [place] [address] Primary Care Physician 05/06/17 Malachi Maloney MD [address] [place] [address], [address] [place] [address] [email or web address] Historical LMR Provider 04/23/17 07/13/21 Sammie Govea MD [address] [place] [address] [facility] Sports Medicine, [place] [address] [email or web address] Historical LMR Provider 04/23/17 07/13/21 Avinash Chong MD [address] [place] [address] [email or web address] Historical LMR Provider 04/23/17 Sofia Amaya MD, MPH [address] [place] [address] [email or web address] .COUNT INCLUDES [facility] Primary Oncologist Radiation Oncology 08/19/19 Neal Sultana MD, MS [address] [place] [address] [email or web address]@[facility] Primary Oncologist Surgical Oncology 08/19/19 Tere Keita, [address] [address] Tanya@[email or web address] Personnel Security Specialist Oncology 09/19/19 03/13/25 Mirela Barnhart MD [address] [place] [address] Kati@[email or web address] .[facility] Medical Oncology 12/05/19 Andrei Dixon MD [address] [place] [address], [address] [place] [address] [email or web address] Orthopedic Surgery 03/27/22 Denise Black PA-C [address] [place] [address] [email or web address] Physician Flash Developer 03/27/22 documented as of this encounter Additional Source Comments The information contained in this document represents components of the legal health record. It is not the complete legal health record.[facility]
--- OUTSIDE RECORDS SUMMARY | 2025-04-19 11:32 | XMS_ITS | Encounter Summary ---
Author Organization [facility] Address [address] [place] [address] Phone Care Team Providers Care Senior Safety Support Manager Name Role Phone Qamar Garcia MD Unavailable Malachi Maloney MD Unavailable [phone] Sammie Govea MD Unavailable [phone] Avinash Chong MD Unavailable [phone] Qamar Garcia MD Primary Care Provider Miguelangel Reynoso MD Primary Care Provider Qamar Garcia MD Primary Care Provider Sofia Amaya MD, MPH Unavailable Karely Ansari MD Unavailable Neal Sultana MD, MS Unavailable Tere Keita Unavailable [phone] Mirela Barnhart MD Unavailable [phone] Andrei Dixon MD Unavailable [phone] Denise Black PA-C Unavailable Unknown, Unknown Primary Care Provider Qamar Escamilla MD Primary Care Provider Encounter Details Date Type Department Care Team (Late Contact Info) Description 07/23/2018 Ancillary Orders [facility] [address] [place] [address] Mendez Dobson MD [email or web address] Malignant neoplasm [...] (Late Contact Info) Description 09/07/2024 Procedure Pass [facility], [place] [address] [address] 09/07/2024 Procedure Pass [facility], [address] [address] 05/10/2025 11:05 AM EST Appointment [facility], [facility] [address] [address] Mirela Barnhart MD [address] [place] [address] [email or web address] [email or web address] 05/10/2025 12:10 PM EST Appointment [facility], [address] [address] Mirela Barnhart MD [address] [place] [address] Kati@jc [facility] 05/10/2025 3:00 PM EST Office [facility], [facility] [place] [address] [facility], 6th [place] [address] Mirela Barhnart MD [address] [place] [address] Kati@[email or web address] 12/07/2025 11:00 AM EDT Office Visit [address] [address] Arlene Hernandez MD [address] [place] [address] 7 [place] [address] THERESA@[facility] 04/06/2026 10:20 AM EDT Office Visit [facility] [address] [place] [address] 3rd Floor, [address] [place] [address] Margarito Walker MD 22 [facility], [address] [place] [address] [email or web address] documented as of this encounter Results * Mammogram Outside With Interpretation Or Consult (07/23/2018 2:57 PM EST) 07/23/2018 Impressions [facility] - 07/29/2018 11:23 AM EST (1) [...] - Appropriate Action Should Be Taken Narrative [facility] - 07/29/2018 11:23 AM EST OUTSIDE [...] following imaging exams from an outside facility, [facility], have been provided for our review: - [...] calcifications in the specimen. PATHOLOGY (Reviewed by [facility]): FINAL PATHOLOGIC DIAGNOSIS: A. RIGHT BREAST EXCISIONAL BIOPSY ([id number]: A1, A1-1, A1-2, A1-31, A2, A3, A4; [...] following imaging exams from an outside facility, [facility], have been provided for our review: [...] some calcifications in thespecimen. PATHOLOGY (Reviewed by [facility]): FINAL PATHOLOGIC DIAGNOSIS: A. RIGHT BREAST EXCISIONAL BIOPSY ([id number]: A1, A1-1, A1-2, A1-31, A2,A3, A4; 06/15/2018): [...] Proven Malignancy - Appropriate ActionShould Be Taken Mendez Dobson MD IMG OUTSIDE IMAGING W/ IN TERPRETATION Final Result [facility] [address] [facility] [place] [address] documented in this encounter Visit Diagnoses Diagnosis [...] as of this encounter Care Teams Senior Safety Support Manager Relationship Specialty Start Date End Date Qamar Garcia MD [address] [place] [address] PCP - General Internal Medicine 10/12/17 08/23/18 Miguelangel Reynoso MD [address] [place] [address] 800 [place] [address] [email or web address] PCP - General Cardiology 08/24/18 10/13/18 Qamar Garcia MD [address] [place] [address] PCP - General Internal Medicine 10/14/18 03/26/22 Unknown, Emely, MD PCP - General 04/08/22 07/22/22 Qamar Garcia MD [address] [place] [address] PCP - General Internal Medicine 07/23/22 Qamar Garcia MD [address] [place] [address] Primary Care Physician 05/06/17 Malachi Maloney MD [address] [place] [address] Historical LMR Provider 04/23/17 07/13/21 Sammie Govea MD [address] [place] [address] [facility], [facility] [address] Historical LMR Provider 04/23/17 07/13/21 Avinash Chong MD [address] [place] [address] [email or web address] Historical LMR Provider 04/23/17 Sofia Amaya MD, MPH [address] [place] [address] [email or web address] .[email or web address] Primary Oncologist Radiation Oncology 08/19/19 Karely Ansari MD [address] [place] [address] Primary Oncologist Medical Oncology 08/19/19 12/04/19 Neal Sultana MD, MS [address] [place] [address] [email or web address]@[email or web address] Primary Oncologist Surgical Oncology 08/19/[address] [address] Tanya@[email or web address] Certified Nurse Aide Oncology 09/19/19 03/13/25 Mirela Barnhart MD [address] [place] [address] Kati@[email or web address] .[facility] Medical Oncology 12/05/19 Andrei Dixon MD [address] [place] [address], [address] [place] [address] [email or web address] Orthopedic Surgery 03/27/22 Denise Black PA-C [address] [place] [address] [email or web address]. simone Physician Biofuels Production Manager 03/27/22 documented as of this encounter Additional Source Comments The information contained in this document represents components of the legal health record. It is not the complete legal health record.[facility]
--- OUTSIDE RECORDS SUMMARY | 2025-04-19 11:32 | XMS_ITS | Encounter Summary ---
Author Organization [facility] Address [address] [place] [address] Phone Care Team Providers Care Job Foreman Name Role Phone Qamar Garcia MD Unavailable Malachi Maloney MD Unavailable [phone] Sammie Govea MD Unavailable Avinash Chong MD Unavailable [phone] Qamar Garcia MD Primary Care Provider Miguelangel Reynoso MD Primary Care Provider [phone] Qamar Garcia MD Primary Care Provider [phone] Sofia Amaya MD, MPH Unavailable Karely Ansari MD Unavailable Neal Sultana MD, MS Unavailable Tere Keita Unavailable [phone] Mirela Barnhart MD Unavailable [phone] Andrei Dixon MD Unavailable [phone] Denise Black PA-C Unavailable [phone] Unknown, Unknown Primary Care Provider Qamar Escamilla MD Primary Care Provider Encounter Details Date Type Department Care Team (Latest Contact Info) Description 07/07/2018 Ancillary Orders [facility] 3rd Floor, [address] [place] [address] Brayden Madrid MD 22 [facility] JOSR 301 [place] [address] Palpitations; Ventricular ectopy Social History Tobacco Use [...] Contact Info) Description 09/07/2024 Procedure Pass [address] [address] 09/07/2024 Procedure Pass [facility], [address] [address] 05/10/2025 11:05 AM EST Appointment [facility], [facility] [address] [address] Mirela Barnhart MD [address] [place] [address] [email or web address] [email or web address] 05/10/2025 12:10 PM EST Appointment [address] [address] Mirela Barnhart MD 450 [place] [address] Kati@[email or web address] [facility] 05/10/2025 3:00 PM EST Office [facility] [place] 450 [facility], 6th [place] [address] Mirela Barnhart MD 450 [place] [address] Kati@d [email or web address] 12/07/2025 11:00 AM EDT Office Visit [address] [place] [address] [address] Arlene Hernandez MD [address] [place] [address] 7 [place] [address] [email or web address]@[email or web address] 04/06/2026 10:20 AM EDT Office Visit [facility] [address] [place] [address] 3rd Floor, [address] [place] [address] Margarito Walker MD 22 [facility] [address] [place] [address] [email or web address] documented as of this encounter Results * [...] change in rate, rhythm or finding ofectopy. Brayden Madrid MD [facility] [...] documented as of this encounter Care Teams Job Foreman Relationship Specialty Start Date End Date Qamar Garcia MD [address] [place] [address] PCP - General Internal Medicine 10/12/17 08/23/18 Miguelangel Reynoso MD [address] [place] [address] 800 [place] [address] [email or web address] PCP - General Cardiology 08/24/18 10/13/18 Qamar Garcia MD [address] [place] [address] PCP - General Internal Medicine 10/14/18 03/26/22 Unknown, Emely, PCP - General 04/08/22 07/22/22 Qamar Garcia MD [address] [place] [address] PCP - General Internal Medicine 07/23/22 Qamar Garcia MD [address] [place] [address] Primary Care Physician 05/06/17 Malachi Maloney MD [address] [place] [address] Historical LMR Provider 04/23/17 07/13/21 Sammie Govea MD [address] [place] [address] [facility] Sports Medicine, [place] [address] Historical LMR Provider 04/23/17 07/13/21 Avinash Chong MD [address] [place] [address] [email or web address] Historical LMR Provider 04/23/17 Sofia Amaya MD, MPH [address] [place] [address] [email or web address] Primary Oncologist Radiation Oncology 08/19/19 Karely Ansari MD [address] [place] [address] Primary Oncologist Medical Oncology 08/19/19 12/04/19 Neal Sultana MD, MS [address] [place] [address] [email or web address]@[email or web address] Primary Oncologist Surgical Oncology 08/19/[address] [address] Tanya@[facility] Circulation Crew Leader Oncology 09/19/19 03/13/25 Mirela Barnhart MD [address] [place] [address] Kati@[email or web address] .[facility] Medical Oncology 12/05/19 Andrei Dixon MD [address] [place] [address] [email or web address] Orthopedic Surgery 03/27/22 Denise Black PA-C [address] [place] [address] [email or web address] Physician Relay Associate 03/27/22 documented as of this encounter Additional Source Comments The information contained in this document represents components of the legal health record. It is not the complete legal health record.[facility]
--- OUTSIDE RECORDS SUMMARY | 2025-04-19 11:32 | XMS_ITS | Encounter Summary ---
Author Organization [facility] Address [address] [place] [address] Phone Care Team Providers Care Customer Facilities Supervisor Name Role Phone Qamar Garcia MD Unavailable [phone] Malachi Maloney MD Unavailable [phone] Sammie Govea MD Unavailable Avinash Chong MD Unavailable [phone] Qamar Garcia MD Primary Care Provider [phone] Sofia Amaya MD, MPH Unavailable [phone] Karely Ansari MD Unavailable Neal Sultana MD, MS Unavailable Tere Keita Unavailable Mirela Barnhart MD Unavailable [phone] Andrei Dixon MD Unavailable [phone] Denise Black PA-C Unavailable [phone] Unknown, Unknown Primary Care Provider Qamar Escamilla MD Primary Care Provider Encounter Details Date Type Department Care Team (Late st Contact Info) Description 07/21/2019 Procedure Pass [facility] Admitting Dept Virtual Department [address] [place] [address] Social History Tobacco Use Types Packs/Day Years [...] (Late Contact Info) Description 09/07/2024 Procedure Pass [facility], [address] [address] 09/07/2024 Procedure Pass [facility], [facility] [address] [address] 05/10/2025 11:05 AM EST Appointment [facility], [facility] [address] [address] Mirela Barnhart MD [address] [place] [address] [email or web address] 05/10/2025 12:10 PM EST Appointment [facility], [place] [address] [address] Mirela Barnhart MD [address] [place] [address] Kati@[email or web address] 05/10/2025 3:00 PM EST Office Visit [facility], [address], 6th [place] [address] Mirela Barnhart MD 450 [place] [address] [email or web address] [email or web address] 12/07/2025 11:00 AM EDT Office Visit [facility] [address] [place] [address] Arlene Hernandez MD 234 [facility] 7 [place] [address] [email or web address] 04/06/2026 10:20 AM EDT Office Visit [facility] [address] [place] [address] 3rd Floor, [address] [place] [address] Margarito Walker MD [address] [place] [address] [place] [address] [email or web address] documented as of this encounter Visit Diagnoses Not on filedocumented in this encounter Additional Health Concerns Infection Onset Date Last Indicated Resolved Time CoV-Risk 01/13/2020 01/13/2020 01/13/2020 4:17 PM EDT CoV-Presumed 05/27/2022 05/27/2022 06/17/2022 3:51 AM EST CoV-Risk 09/22/2023 09/22/2023 09/22/2023 4:53 PM EDT COVID-19 09/22/2023 09/22/2023 10/13/2023 1:21 AM EDT documented as of this encounter Care Teams Customer Facilities Supervisor Relationship Specialty Start Date End Date Qamar Garcia MD [address] [place] [address] PCP - General Internal Medicine 10/14/18 03/26/22 Unknown, Emely, MD PCP - General 04/08/22 07/22/22 Qamar Garcia MD [address] [place] [address] PCP - General Internal Medicine 07/23/22 Qamar Garcia MD [address] [place] [address] Primary Care Physician 05/06/17 Malachi Maloney MD [address] [place] [address] [email or web address] Historical LMR Provider 04/23/17 07/13/21 Sammie Govea MD [address] [place] [address] [facility] Sports Medicine, [place] [address] [email or web address] Historical LMR Provider 04/23/17 07/13/21 Avinash Chong MD [address] [place] [address] [email or web address] Historical LMR Provider 04/23/17 Sofia Amaya MD, MPH [address] [place] [address] [email or web address] .[facility] Primary Oncologist Radiation Oncology 08/19/19 Karely Ansari MD [address] [place] [address] Primary Oncologist Medical Oncology 08/19/19 12/04/19 Neal Sultana MD, MS [address] [place] [address] [email or web address]@[email or web address] Primary Oncologist Surgical Oncology 08/19/19 Tere Keita, [address] [address] Tanya@[email or web address] Arborist Oncology 09/19/19 03/13/25 Mirela Barnhart MD [address] [place] [address] Kati@[email or web address] .[facility] Medical Oncology 12/05/19 Andrei Dixon MD [address] [place] [address], [address] [place] [address] [email or web address] Orthopedic Surgery 03/27/22 Denise Black PA-C [address] [place] [address] [email or web address]. simone Physician Trust Accounts Supervisor 03/27/22 documented as of this encounter Additional Source Comments The information contained in this document represents components of the legal health record. It is not the complete legal health record.[facility]
--- OUTSIDE RECORDS SUMMARY | 2025-04-19 11:32 | XMS_ITS | Encounter Summary ---
Author Organization [facility] Address [address] [place] [address] Phone Care Team Providers Care Colliery Clerk Name Role Phone Qamar Garcia MD Unavailable [phone] Malachi Maloney MD Unavailable [phone] Sammie Govea MD Unavailable Avinash Chong MD Unavailable [phone] Qamar Garcia MD Primary Care Provider [phone] Sofia Amaya MD, MPH Unavailable [phone] Neal Sultana MD, MS Unavailable Tere Keita Unavailable Mirela Barnhart MD Unavailable [phone] Andrei Dixon MD Unavailable [phone] Denise Black PA-C Unavailable [phone] Unknown, Unknown Primary Care Provider Qamar Escamilla MD Primary Care Provider [phone] Encounter Details Date Type Department Care Team (Late st Contact Info) Description 03/19/2021 Procedure Pass [facility] MR Imaging, [place] [address] [place] [address] Social History Tobacco Use Types Packs/Day Years [...] st Contact Info) Description 09/07/2024 Procedure Pass [facility], [place] [address] [address] 09/07/2024 Procedure Pass [facility], [facility] [address] [address] 05/10/2025 11:05 AM EST Appointment [facility], [address] [address] Mirela Barnhart MD [address] [place] [address] [email or web address] [email or web address] 05/10/2025 12:10 PM EST Appointment [facility], [place] [address] [address] Mirela Barnhart MD [address] [place] [address] [email or web address] 05/10/2025 3:00 PM EST Office Visit [facility], [address], [address] [place] [address] Mirela Barnhart MD [address] [place] [address] [email or web address] [email or web address] 12/07/2025 11:00 AM EDT Office Visit [facility] 234 [place] [address] Arlene Hernandez MD 234 [facility] 7 [place] [address] THERESA@[facility] 04/06/2026 10:20 AM EDT Office Visit [facility] [address] [place] [address] 3rd Floor, [address] [place] [address] Margarito Walker MD 22 [facility] [address] [place] [address] [email or web address] documented as of this encounter Visit Diagnoses Not on filedocumented in this encounter Additional Health Concerns Infection Onset Date Last Indicated Resolved Time CoV-Presumed 05/27/2022 05/27/2022 06/17/2022 3:51 AM EST CoV-Risk 09/22/2023 09/22/2023 09/22/2023 4:53 PM EDT COVID-19 09/22/2023 09/22/2023 10/13/2023 1:21 AM EDT documented as of this encounter Care Teams Colliery Clerk Relationship Specialty Start Date End Date Qamar Garcia MD [address] [place] [address] PCP - General Internal Medicine 10/14/18 03/26/22 Unknown, Unknown, MD PCP - General 04/08/22 07/22/22 Qamar Garcia MD [address] [place] [address] PCP - General Internal Medicine 07/23/22 Qamar Garcia MD [address] [place] [address] Primary Care Physician 05/06/17 Malachi Maloney MD [address] [place] [address], [address] [place] [address] [email or web address] Historical LMR Provider 04/23/17 07/13/21 Sammie Govea MD [address] [place] [address] Orth[facility] Sports Medicine, [place] [address] [email or web address] Historical LMR Provider 04/23/17 07/13/21 Avinash Chong MD [address] [place] [address] [email or web address] Historical LMR Provider 04/23/17 Sofia Amaya MD, MPH [address] [place] [address] [email or web address] Primary Oncologist Radiation Oncology 08/19/19 Neal Sultana MD, MS [address] [place] [address] [email or web address]@[email or web address] Primary Oncologist Surgical Oncology 08/19/19 Tere Keita, [address] [address] Tanya@[email or web address] Game Producer Oncology 09/19/19 03/13/25 Mirela Barnhart MD [address] [place] [address] [email or web address] Medical Oncology 12/05/19 Andrei Dixon MD [address] [place] [address], [address] [place] [address] [email or web address] Orthopedic Surgery 03/27/22 Denise Black PA-C [address] [place] [address] [email or web address] Physician Batch Still Operator 03/27/22 documented as of this encounter Additional Source Comments The information contained in this document represents components of the legal health record. It is not the complete legal health record.[facility]
--- OUTSIDE RECORDS SUMMARY | 2025-04-19 11:33 | XMS_ITS | Encounter Summary ---
Author Organization [facility] Address [address] [place] [address] Phone Care Team Providers Care Entry Level Management Name Role Phone Qamar Garcia MD Unavailable [phone] Malachi Maloney MD Unavailable [phone] Smamie Govea MD Unavailable [phone] Avinash Chong MD Unavailable [phone] Qamar Garcia MD Primary Care Provider Miguelangel Reynoso MD Primary Care Provider Qamar Garcia MD Primary Care Provider Sofia Amaya MD, MPH Unavailable Karely Ansari MD Unavailable Neal Sultana MD, MS Unavailable Tere Keita Unavailable [phone] Mirela Barnhart MD Unavailable [phone] Andrei Dixon MD Unavailable [phone] Denise Black PA-C Unavailable Unknown, Unknown Primary Care Provider Qamar Escamilla MD Primary Care Provider [phone] Encounter Details Date Type Department Care Team (Late Contact Info) Description 11/26/2017 Procedure Pass [facility] [address] [place] [address] Social History Tobacco Use Types Packs/Day Years [...] (Late Contact Info) Description 09/07/2024 Procedure Pass [facility], [address] [address] 09/07/2024 Procedure Pass [facility], [address] [address] 05/10/2025 11:05 AM EST Appointment [facility], [address] [address] Mirela Barnhart MD [address] [place] [address] [email or web address] 05/10/2025 12:10 PM EST Appointment [address] [address] Mirela Barnhart MD [address] [place] [address] [email or web address] 05/10/2025 3:00 PM EST Office [facility], [facility] 450 [facility], 6th [place] [address] Mirela Barnhart MD 450 [place] [address] [email or web address] 12/07/2025 11:00 AM EDT Office Visit [facility] [address] [place] [address] Arlene Hernandez MD [address] [place] [address] 7 [place] [address] [email or web address]@[email or web address] 04/06/2026 10:20 AM EDT Office Visit [facility] [address] [place] [address] 3rd Floor, [address] [place] [address] Margarito Walker MD [address] [place] [address], [address] [place] [address] [email or web address] documented as of this encounter Visit Diagnoses Not on filedocumented in this encounter Additional Health Concerns Infection Onset Date Last Indicated Resolved Time CoV-Risk 01/13/2020 01/13/2020 01/13/2020 4:17 PM EDT CoV-Presumed 05/27/2022 05/27/2022 06/17/2022 3:51 AM EST CoV-Risk 09/22/2023 09/22/2023 09/22/2023 4:53 PM EDT COVID-19 09/22/2023 09/22/2023 10/13/2023 1:21 AM EDT documented as of this encounter Care Teams Entry Level Management Relationship Specialty Start Date End Date Qamar Garcia MD [address] [place] [address] PCP - General Internal Medicine 10/12/17 08/23/18 Miguelangel Reynoso MD [address] [place] [address] 800 [place] [address] [email or web address] PCP - General Cardiology 08/24/18 10/13/18 Qamar Garcia MD [address] [place] [address] PCP - General Internal Medicine 10/14/18 03/26/22 Unknown, Unknown, MD PCP - General 04/08/22 07/22/22 Qamar Garcia MD [address] [place] [address] PCP - General Internal Medicine 07/23/22 Qamar Garcia MD [address] [place] [address] Primary Care Physician 05/06/17 Malachi Maloney MD [address] [place] [address] [email or web address] Historical LMR Provider 04/23/17 07/13/21 Sammie Govea MD [address] [place] [address] [facility] [place] [address] [email or web address] Historical LMR Provider 04/23/17 07/13/21 Avinash Chong MD [address] [place] [address] [email or web address] Historical LMR Provider 04/23/17 Sofia Amaya MD, MPH [address] [place] [address] [email or web address] Primary Oncologist Radiation Oncology 08/19/19 Karely Ansari MD [address] [place] [address] Primary Oncologist Medical Oncology 08/19/19 12/04/19 Neal Sultana MD, MS [address] [place] [address] [email or web address] Primary Oncologist Surgical Oncology 08/19/19 Tere Keita, [address] [address] Tanya@[email or web address] Radio/Tv Technician Oncology 09/19/19 03/13/25 Mirela Barnhart MD [address] [place] [address] [email or web address] .[facility] Medical Oncology 12/05/19 Andrei Dixon MD [address] [place] [address] [email or web address] Orthopedic Surgery 03/27/22 Denise Black PA-C [address] [place] [address] [email or web address] simone Physician Ciso 03/27/22 documented as of this encounter Additional Source Comments The information contained in this document represents components of the legal health record. It is not the complete legal health record.[facility]
--- OUTSIDE RECORDS SUMMARY | 2025-04-19 11:33 | XMS_ITS | Encounter Summary ---
Author Organization [facility] Address [address] [place] [address] Phone Care Team Providers Care Miner Helper Name Role Phone Qamar Garcia MD Unavailable [phone] Malachi Maloney MD Unavailable [phone] Sammie Govea MD Unavailable Avinash Chong MD Unavailable [phone] Miguelangel Reynoso MD Primary Care Provider Qamar Garcia MD Primary Care Provider Sofia Amaya MD, MPH Unavailable + [phone] Karely Ansari MD Unavailable Neal Sultana MD, MS Unavailable Tere Keita Unavailable [phone] Mirela Barnhart MD Unavailable [phone] Andrei Dixon MD Unavailable [phone] Denise Black-C Unavailable [phone] Unknown, Unknown MD Primary Care Provider Unavai lable Garcia, Qamar D MD Primary Care Provider Encounter Details Date Type Department Care Team (Late Contact Info) Description 08/26/2018 Procedure Pass [facility] PERIOPERATIVE DEPT [address] [place] [address] Social History Tobacco Use Types Packs/Day Years [...] (Late Contact Info) Description 09/07/2024 Procedure Pass [facility], [address] [address] 09/07/2024 Procedure Pass [facility], [address] [address] 05/10/2025 11:05 AM EST Appointment [facility], [address] [address] Mirela Barnhart MD [address] [place] [address] [email or web address] [email or web address] 05/10/2025 12:10 PM EST Appointment [facility], [address] [address] Mirela Barnhart MD [address] [place] [address] [email or web address] [facility] 05/10/2025 3:00 PM EST Office [facility], [facility] [place] 450 [facility], 6th [place] [address] Mirela Barnhart MD 450 [place] [address] Kati@d [email or web address] 12/07/2025 11:00 AM EDT Office Visit [address] [address] Arlene Hernandez MD [address] [place] [address] 7 [place] [address] [email or web address]@[email or web address] 04/06/2026 10:20 AM EDT Office Visit [facility] [address] [place] [address] 3rd Floor, [address] [place] [address] Margarito Walker MD [address] [place] [address] [place] [address] [email or web address] documented as of this encounter Visit Diagnoses Not on filedocumented in this encounter Additional Health Concerns Infection Onset Date Last Indicated Resolved Time CoV-Risk 01/13/2020 01/13/2020 01/13/2020 4:17 PM EDT CoV-Presumed 05/27/2022 05/27/2022 06/17/2022 3:51 AM EST CoV-Risk 09/22/2023 09/22/2023 09/22/2023 4:53 PM EDT COVID-19 09/22/2023 09/22/2023 10/13/2023 1:21 AM EDT documented as of this encounter Care Teams Miner Helper Relationship Specialty Start Date End Date Miguelangel Reynoso MD 55 [facility] 800 [place] [address] [email or web address] PCP - General Cardiology 08/24/18 10/13/18 Qamar Garcia MD [address] [place] [address] PCP - General Internal Medicine 10/14/18 03/26/22 Unknown, Emely, PCP - General 04/08/22 07/22/22 Qamar Garcia MD [address] [place] [address] PCP - General Internal Medicine 07/23/22 Qamar Garcia MD [address] [place] [address] Primary Care Physician 05/06/17 Malachi Maolney MD [address] [place] [address] Historical LMR Provider 04/23/17 07/13/21 Sammie Govea MD [address] [place] [address] [facility], [place] [address] [email or web address] Historical LMR Provider 04/23/17 07/13/21 Avinash Chong MD [address] [place] [address] [email or web address] Historical LMR Provider 04/23/17 Sofia Amaya MD, MPH [address] [place] [address] [email or web address] .[email or web address].[email or web address] Primary Oncologist Radiation Oncology 08/19/19 Karely Ansari MD [address] [place] [address] Primary Oncologist Medical Oncology 08/19/19 12/04/19 Neal Sultana MD, MS [address] [place] [address] [email or web address] Primary Oncologist Surgical Oncology 08/19/19 Tere Keita, [address] [address] [email or web address] Time Study Analyst Oncology 09/19/19 03/13/25 Mirela Barnhart MD [address] [place] [address] [email or web address] .[facility] Medical Oncology 12/05/19 Andrei Dixon MD [address] [place] [address] [email or web address] Orthopedic Surgery 03/27/22 Denise Black PA-C [address] [place] [address] [email or web address] Physician Letterer 03/27/22 documented as of this encounter Additional Source Comments The information contained in this document represents components of the legal health record. It is not the complete legal health record.[facility]
--- OUTSIDE RECORDS SUMMARY | 2025-04-19 11:33 | XMS_ITS | Encounter Summary ---
Author Organization [facility] Address [address] [place] [address] Phone Care Team Providers Care Jet Dyeing Machine Operator Name Role Phone Qamar Garcia MD Unavailable [phone] Avinash Chong MD Unavailable [phone] Sofia Amaya MD, MPH Unavailable [phone] Neal Sultana MD, MS Unavailable Tere Keita MANAGER CODE Unavailable [phone] Mirela Barnhart MD Unavailable [phone] Andrei Dixon MD Unavailable [phone] Denise BlackC Unavailable [phone] Qamar Garcia MD Primary Care Provider [phone] Encounter Details Date Type Department Care Team (Late st Contact Info) Description 07/23/2022 Transcribe Orders Virtual Department [address] [place] [address] Unknown, Unknown, Social History Tobacco Use Types [...] st Contact Info) Description 09/07/2024 Procedure Pass [facility] [place] [address] [address] 09/07/2024 Procedure Pass [facility], [facility] [address] [address] 05/10/2025 11:05 AM EST Appointment [facility], [address] [address] Mirela Barnhart MD [address] [place] [address] [email or web address] 05/10/2025 12:10 PM EST Appointment [facility], [address] [address] Mirela Barnhart MD [address] [place] [address] [email or web address] 05/10/2025 3:00 PM EST Office Visit [facility], [address], [address]th [place] [address] Mirela Barnhart MD [address] [place] [address] [email or web address] 12/07/2025 11:00 AM EDT Office Visit [facility] [address] [place] [address] Arlene Hernandez MD 234 [facility], [address] [place] [address] [email or web address]. [email or web address].[facility] 04/06/2026 10:20 AM EDT Office Visit [facility] [address] [facility] 3rd Floor, [address] [place] [address] Margarito Walker MD 22 [facility], [address] [place] [address] [email or web address] documented as of this encounter Visit Diagnoses Not on filedocumented in this encounter Additional Health Concerns Infection Onset Date Last Indicated Resolved Time CoV-Risk 09/22/2023 09/22/2023 09/22/2023 4:53 PM EDT COVID-19 09/22/2023 09/22/2023 10/13/2023 1:21 AM EDT documented as of this encounter Care Teams Jet Dyeing Machine Operator Relationship Specialty Start Date End Date Qamar Garcia MD [address] [place] [address] PCP - General Internal Medicine 07/23/22 Qamar Garcia MD [address] [place] [address] Primary Care Physician 05/06/17 Avinash Chong MD [address] [address] [email or web address] Historical LMR Provider 04/23/17 Sofia Amaya MD, MPH [address] [place] [address] [email or web address] .[facility] Primary Oncologist Radiation Oncology 08/19/19 Neal Sultana MD, MS [address] [place] [address] [email or web address] Primary Oncologist Surgical Oncology 08/19/19 Tere Keita, [address] [address] [email or web address] Trimmer Hand Oncology 09/19/19 03/13/25 Mirela Barnhart MD [address] [place] [address] [email or web address] .[facility] Medical Oncology 12/05/19 Andrei Dixon MD [address] [place] [address] [email or web address] Orthopedic Surgery 03/27/22 Denise Black PA-C [address] [place] [address] [email or web address]. simone Physician Psychiatric Orderly 03/27/22 documented as of this encounter Additional Source Comments The information contained in this document represents components of the legal health record. It is not the complete legal health record.[facility]
--- OUTSIDE RECORDS SUMMARY | 2025-04-19 11:33 | XMS_ITS | Encounter Summary ---
Author Organization [facility] Address [address] [place] [address] Phone Care Team Providers Care Dinkey Engine Operator Name Role Phone Qamar Garcia MD Unavailable [phone] Avinash Chong MD Unavailable [phone] Sofia Amaya MD, MPH Unavailable + [phone] Neal Sultana MD, MS Unavailable Tere Keita HEAT TREATING OPERATOR Unavailable [phone] Mirela Barnhart MD Unavailable [phone] Andrei Dixon MD Unavailable [phone] Denise Black PA-C Unavailable [phone] Unknown, Unknown Primary Care Provider Qamar Escamilla MD Primary Care Provider [phone] Encounter Details Date Type Department Care Team (Latest Contact Info) Description 07/22/2022 Transcribe Orders [facility] Department [address] [place] [address] Qamar Garcia MD [address] [place] [address] Abdominal pain, unspecified abdominal location (Primary Dx) [...] st Contact Info) Description 09/07/2024 Procedure Pass [facility], [address] [address] 09/07/2024 Procedure Pass [facility], [address] [address] 05/10/2025 11:05 AM EST Appointment [facility], [facility] [address] [address] Mirela Barnhart MD [address] [place] [address] [email or web address] [email or web address] 05/10/2025 12:10 PM EST Appointment [facility], [address] [address] Mirela Barnhart MD [address] [place] [address] [email or web address] [email or web address] 05/10/2025 3:00 PM EST Office Visit [facility], [address], [address] [place] [address] Mirela Barnhart MD [address] [place] [address] [email or web address] [email or web address] 12/07/2025 11:00 AM EDT Office Visit [facility] [address] [place] [address] Arlene Hernandez MD 234 [facility], [address] [place] [address] [email or web address]@[facility] 04/06/2026 10:20 AM EDT Office Visit [facility] 22 [facility] 3rd Floor, [address] [place] [address] Margarito Walker MD 22 [facility] [address] [place] [address] [email or web address] documented as of this encounter Visit Diagnoses Diagnosis Abdominal pain, unspecified abdominal location- Primary documented in this encounter Additional Health Concerns Infection Onset Date Last Indicated Resolved Time CoV-Risk 09/22/2023 09/22/2023 09/22/2023 4:53 PM EDT COVID-19 09/22/2023 09/22/2023 10/13/2023 1:21 AM EDT documented as of this encounter Care Teams Dinkey Engine Operator Relationship Specialty Start Date End Date Unknown, Unknown, MD PCP - General 04/08/22 07/22/22 Qamar Garcia MD [address] [place] [address] PCP - General Internal Medicine 07/23/22 Qamar Garcia MD [address] [place] [address] Primary Care Physician 05/06/17 Avinash Chong MD [address] [place] [address] [email or web address] Historical LMR Provider 04/23/17 Sofia Amaya MD, MPH [address] [place] [address] [email or web address]@[email or web address] Primary Oncologist Radiation Oncology 08/19/19 Neal Sultana MD, MS [address] [place] [address] [email or web address]@[email or web address] Primary Oncologist Surgical Oncology 08/19/19 Tere Keita, [address] [address] [email or web address] Dining Services Manager Oncology 09/19/19 03/13/25 Mirela Barnhart MD [address] [place] [address] Kati@[email or web address] .[facility] Medical Oncology 12/05/19 Andrei Dixon MD [address] [place] [address] [email or web address] Orthopedic Surgery 03/27/22 Denise Black PA-C [address] [place] [address] [email or web address]. simone Physician Complex Human Resources Manager 03/27/22 documented as of this encounter Additional Source Comments The information contained in this document represents components of the legal health record. It is not the complete legal health record.[facility]
--- OUTSIDE RECORDS SUMMARY | 2025-04-19 11:33 | XMS_ITS | Encounter Summary ---
Author Organization [facility] Address [address] [place] [address] Phone Care Team Providers Care Forming Department Supervisor Name Role Phone Qamar Garcia MD Unavailable [phone] Malachi Maloney MD Unavailable [phone] Sammie Govea MD Unavailable Avinash Chong MD Unavailable [phone] Qamar Garcia MD Primary Care Provider [phone] Miguelangel Reynoso MD Primary Care Provider [phone] Qamar Garcia MD Primary Care Provider Sofia Amaya MD, MPH Unavailable Karely Ansari MD Unavailable Neal Sultana MD, MS Unavailable Tere Keita Unavailable [phone] Mirela Barnhart MD Unavailable [phone] Andrei Dixon MD Unavailable [phone] Denise Black PA-C Unavailable Unknown, Unknown Primary Care Provider Qamar Escamilla MD Primary Care Provider Encounter Details Date Type Department Care Team (Late Contact Info) Description 08/10/2018 Ancillary Orders [facility] [address] [facility] 5[address] [place] [address] System, Provider Not In, PhD Partners [address] [address] Social History Tobacco Use Types Packs/Day Years [...] st Contact Info) Description 09/07/2024 Procedure Pass [facility], [place] [address] [address] 09/07/2024 Procedure Pass [facility], [address] [address] 05/10/2025 11:05 AM EST Appointment [facility], [facility] [address] [address] Mirela Barnhart MD [address] [place] [address] [email or web address] 05/10/2025 12:10 PM EST Appointment [facility], [address] [address] Mirela Barnhart MD [address] [place] [address] [email or web address] 05/10/2025 3:00 PM EST Office [facility], [facility] [address] [facility], 6th [place] [address] Mirela Barnhart MD [address] [place] [address] [email or web address] 12/07/2025 11:00 AM EDT Office Visit [address] [address] Arlene Hernandez MD [address] [place] [address] 7 [place] [address] [email or web address]@[email or web address] 04/06/2026 10:20 AM EDT Office Visit [facility] [address] [place] [address] 3rd Floor, [address] [place] [address] Margarito Walker MD [address] [place] [address] [place] [address] [email or web address] documented as of this encounter Results * Mammogram Outside (No Interpretation) (06/15/2018 12:30 AM EST) Narrative MARIO ALBERTO_SERGIO[facility] - 08/10/2018 3:04 PM EST This study is for PACS storage only and not for interpretation. us Provider Not In System PhD IMG OUTSIDE IMAGING W /OUT INTERPRETATION Final Result [facility] * Mammogram Outside (No Interpretation) (05/13/2018 12:15 AM EST) Narrative NAYELIFH - 08/10/2018 3:04 PM EST This study is for PACS storage only and not for interpretation. us Provider Not In System PhD IMG OUTSIDE IMAGING W /OUT INTERPRETATION Final Result [facility] documented in this encounter Visit Diagnoses Not on filedocumented in this encounter Additional Health Concerns Infection Onset Date Last Indicated Resolved Time CoV-Risk 01/13/2020 01/13/2020 01/13/2020 4:17 PM EDT CoV-Presumed 05/27/2022 05/27/2022 06/17/2022 3:51 AM EST CoV-Risk 09/22/2023 09/22/2023 09/22/2023 4:53 PM EDT COVID-19 09/22/2023 09/22/2023 10/13/2023 1:21 AM EDT documented as of this encounter Care Teams Forming Department Supervisor Relationship Specialty Start Date End Date Qamar Garcia MD [address] [place] [address] PCP - General Internal Medicine 10/12/17 08/23/18 Miguelangel Reynoso MD [address] [place] [address] [email or web address] PCP - General Cardiology 08/24/18 10/13/18 Qamar Garcia MD [address] [place] [address] PCP - General Internal Medicine 10/14/18 03/26/22 Unknown, Unknown, PCP - General 04/08/22 07/22/22 Qamar Garcia MD [address] [place] [address] PCP - General Internal Medicine 07/23/22 Qamar Garcia MD [address] [place] [address] Primary Care Physician 05/06/17 Malachi Maloney MD [address] [place] [address] 301 [place] [address] [email or web address] Historical LMR Provider 04/23/17 07/13/21 Sammie Govea MD [address] [place] [address] Orthopedics & Sports Medicine, [place] [address] [email or web address] Historical LMR Provider 04/23/17 07/13/21 Avinash Chong MD [address] [place] [address] [email or web address] Historical LMR Provider 04/23/17 Sofia Amaya MD, MPH [address] [place] [address] [email or web address] Primary Oncologist Radiation Oncology 08/19/19 Karely Ansari MD [address] [place] [address] Primary Oncologist Medical Oncology 08/19/19 12/04/19 Neal Sultana MD, MS [address] [place] [address] [email or web address] Primary Oncologist Surgical Oncology 08/19/19 Tere Keita, [address] [address] [email or web address] Social Welfare Clerk Oncology 09/19/19 03/13/25 Mirela Barnhart MD [address] [place] [address] [email or web address] Medical Oncology 12/05/19 Andrei Dixon MD [address] [place] [address] [email or web address] Orthopedic Surgery 03/27/22 Denise Black PA-C [address] [place] [address] [email or web address] Physician Developing Machine Operator 03/27/22 documented as of this encounter Additional Source Comments The information contained in this document represents components of the legal health record. It is not the complete legal health record.[facility]
--- OUTSIDE RECORDS SUMMARY | 2025-04-19 11:33 | XMS_ITS | Encounter Summary ---
Author Organization [facility] Address [address] [place] [address] Phone Care Team Providers Care Permanent Mold Supervisor Name Role Phone Qamar Garcia MD Unavailable [phone] Avinsah Chong MD Unavailable [phone] Sofia Amaya MD, MPH Unavailable [phone] Neal Sultana MD, MS Unavailable Tere KeitaSW Unavailable [phone] Mirela Barnhart MD Unavailable [phone] Andrei Dixon MD Unavailable [phone] Denise Black PA-C Unavailable [phone] Unknown, Unknown Primary Care Provider Qamar Escamilla MD Primary Care Provider [phone] Encounter Details Date Type Department Care Team (Late st Contact Info) Description 06/26/2022 Procedure Pass [address] [id number] Social History Tobacco Use Types Packs/Day Years [...] Contact Info) Description 09/07/2024 Procedure Pass [facility], [place] [address] [address] 09/07/2024 Procedure Pass [facility], [address] [address] 05/10/2025 11:05 AM EST Appointment [facility], [address] [address] Mirela Barnhart MD [address] [place] [address] [email or web address] 05/10/2025 12:10 PM EST Appointment [address] [address] Mirela Barnhart MD [address] [place] [address] [email or web address] [email or web address] 05/10/2025 3:00 PM EST Office [facility], [address], [address] [place] [address] Mirela Barnhart MD [address] [place] [address] [email or web address] 12/07/2025 11:00 AM EDT Office Visit [facility] [address] [place] [address] Arlene Hernandez MD [address] [facility], [address] [place] [address] [email or web address]@[email or web address] 04/06/2026 10:20 AM EDT Office Visit [facility] [address] [facility] 3rd Floor, [address] [place] [address] Margarito Walker MD [address] [facility], [address] [place] [address] [email or web address] documented as of this encounter Visit Diagnoses Not on filedocumented in this encounter Additional Health Concerns Infection Onset Date Last Indicated Resolved Time CoV-Risk 09/22/2023 09/22/2023 09/22/2023 4:53 PM EDT COVID-19 09/22/2023 09/22/2023 10/13/2023 1:21 AM EDT documented as of this encounter Care Teams Permanent Mold Supervisor Relationship Specialty Start Date End Date Unknown, Unknown, MD PCP - General 04/08/22 07/22/22 Qamar Garcia MD [address] [place] [address] PCP - General Internal Medicine 07/23/22 Qamar Garcia MD [address] [place] [address] Primary Care Physician 05/06/17 Avinash Chong MD [address] [place] [address] [email or web address] Historical LMR Provider 04/23/17 Sofia Amaya MD, MPH [address] [place] [address] [email or web address] Primary Oncologist Radiation Oncology 08/19/19 Neal Sultana MD, MS [address] [place] [address] [email or web address] Primary Oncologist Surgical Oncology 08/19/19 Tere Keita, [address] [address] [email or web address] Teletype Technician Oncology 09/19/19 03/13/25 Mirela Barnhart MD [address] [place] [address] [email or web address] Medical Oncology 12/05/19 Andrei Dixon MD [address] [place] [address] [email or web address] Orthopedic Surgery 03/27/22 Denise Black PA-C [address] [place] [address] [email or web address] Physician Roto Mixer Operator 03/27/22 documented as of this encounter Additional Source Comments The information contained in this document represents components of the legal health record. It is not the complete legal health record.[facility]
--- OUTSIDE RECORDS SUMMARY | 2025-04-19 11:33 | XMS_ITS | Encounter Summary ---
Author Organization [facility] Address [address] [place] [address] Phone Care Team Providers Care Medical Technician Name Role Phone Qamar Garcia MD Unavailable Malachi Maloney MD Unavailable [phone] Sammie Govea MD Unavailable [phone] Avinash Chong MD Unavailable [phone] Qamar Garcia MD Primary Care Provider Miguelangel Reynoso MD Primary Care Provider Qamar Garcia MD Primary Care Provider Sofia Amaya MD, MPH Unavailable Karely Ansari MD Unavailable Neal Sultana MD, MS Unavailable Tere Keita Unavailable [phone] Mirela Barnhart MD Unavailable [phone] Andrei Dixon MD Unavailable [phone] Denise Black PA-C Unavailable Unknown, Unknown Primary Care Provider Qamar Escamilla MD Primary Care Provider Encounter Details Date Type Department Care Team (Late Contact Info) Description 08/06/2018 Ancillary Orders [facility] [address] [facility] 5A [place] [address] System, Provider Not In, PhD Partners [address] [address] Social History Tobacco Use Types Packs/Day Years [...] st Contact Info) Description 09/07/2024 Procedure Pass [facility], [place] [address] [address] 09/07/2024 Procedure Pass [facility], [address] [address] 05/10/2025 11:05 AM EST Appointment [facility], [facility] [address] [address] Mirela Barnhart MD [address] [place] [address] [email or web address] 05/10/2025 12:10 PM EST Appointment [facility], [address] [address] Mirela Barnhart MD [address] [place] [address] [email or web address] 05/10/2025 3:00 PM EST Office Visit [facility], [facility] [address] [facility], 6th [place] [address] Mirela Barnhart MD 450 [place] [address] [email or web address] 12/07/2025 11:00 AM EDT Office Visit [address] [address] Arlene Hernandez MD [address] [place] [address] 7 [place] [address] [email or web address]@[email or web address] 04/06/2026 10:20 AM EDT Office Visit [facility] [address] [place] [address] 3rd Floor, [address] [place] [address] Margarito Walker MD [address] [facility] [address] [place] [phone] [email or web address] documented as of this encounter Results * Mammogram Outside (No Interpretation) (06/15/2018 12:15 AM EST) 08/12/2018 4:23 PM EST Narrative [facility] - 08/06/2018 9:38 AM EST This study is for PACS storage only and not for interpretation. Procedure Note 08/06/2018 This study is for PACS storage only and not for interpretation. us Provider Not In System PhD IMG OUTSIDE IMAGING W /OUT INTERPRETATION Final Result [facility] [address] [place] [address] documented in this encounter Visit Diagnoses Not on filedocumented in this encounter Additional Health Concerns Infection Onset Date Last Indicated Resolved Time CoV-Risk 01/13/2020 01/13/2020 01/13/2020 4:17 PM EDT CoV-Presumed 05/27/2022 05/27/2022 06/17/2022 3:51 AM EST CoV-Risk 09/22/2023 09/22/2023 09/22/2023 4:53 PM EDT COVID-19 09/22/2023 09/22/2023 10/13/2023 1:21 AM EDT documented as of this encounter Care Teams Medical Technician Relationship Specialty Start Date End Date Qamar Garcia MD [address] [place] [address] PCP - General Internal Medicine 10/12/17 08/23/18 Miguelangel Reynoso MD [address] [place] [address] 800 [place] [address] [email or web address] PCP - General Cardiology 08/24/18 10/13/18 Qamar Garcia MD [address] [place] [address] PCP - General Internal Medicine 10/14/18 03/26/22 Unknown, Unknown, PCP - General 04/08/22 07/22/22 Qamar Garcia MD [address] [place] [address] PCP - General Internal Medicine 07/23/22 Qamar Garcia MD [address] [place] [address] Primary Care Physician 05/06/17 Malachi Maloney MD [address] [place] [address] 301 [place] [address] [email or web address] Historical LMR Provider 04/23/17 07/13/21 Sammie Govea MD [address] [place] [address] Orthopedics & Sports Medicine, [place] [address] [email or web address] Historical LMR Provider 04/23/17 07/13/21 Avinash Chong MD [address] [place] [address] [email or web address] Historical LMR Provider 04/23/17 Sofia Amaya MD, MPH [address] [place] [address] [email or web address] Primary Oncologist Radiation Oncology 08/19/19 Karely Ansari MD [address] [place] [address] Primary Oncologist Medical Oncology 08/19/19 12/04/19 Neal Sultana MD, MS [address] [place] [address] [email or web address] Primary Oncologist Surgical Oncology 08/19/19 Tere Keita, [address] [address] [email or web address] Nurse Clinician Oncology 09/19/19 03/13/25 Mirela Barnhart MD [address] [place] [address] [email or web address] Medical Oncology 12/05/19 Andrei Dixon MD [address] [place] [address] [email or web address] Orthopedic Surgery 03/27/22 Denise Black PA-C [address] [place] [address] [email or web address] Physician Refining Supervisor 03/27/22 documented as of this encounter Additional Source Comments The information contained in this document represents components of the legal health record. It is not the complete legal health record.[facility]
--- OUTSIDE RECORDS SUMMARY | 2025-04-19 11:33 | XMS_ITS | Encounter Summary ---
Author Organization [facility] Address [address] [place] [address] Phone Care Team Providers Care Home Health Care Respiratory Therapist Name Role Phone Qamar Garcia MD Unavailable Malachi Maloney MD Unavailable [phone] Sammie Govea MD Unavailable Avinash Chong MD Unavailable [phone] Miguelangel Reynoso MD Primary Care Provider Qamar Garcia MD Primary Care Provider Sofia Amaya MD, MPH Unavailable [phone] Karely Ansari MD Unavailable [phone] Neal Sultana MD, MS Unavailable Tere Keita Unavailable [phone] Mirela Barnhart MD Unavailable [phone] Andrei Dixon MD Unavailable [phone] Denise Black-C Unavailable [phone] Unknown, Unknown MD Primary Care Provider Unavai lable Garcia, Qamar D MD Primary Care Provider Encounter Details Date Type Department Care Team (Late st Contact Info) Description 08/25/2018 Prep for Surgery [facility] [address] [place] [address], [address] [place] [address] Carmen Horn NP [email or web address] Social History Tobacco Use Types Packs/Day [...] Description 09/07/2024 Procedure Pass [facility], [address] [address] 09/07/2024 Procedure Pass [facility], [address] [address] 05/10/2025 11:05 AM EST Appointment [facility], [address] [address] Mirela Barnhart MD [address] [place] [address] [email or web address] [email or web address] 05/10/2025 12:10 PM EST Appointment [address] [address] Mirela Barnhart MD [address] [place] [address] [email or web address] 05/10/2025 3:00 PM EST Office Visit [facility], [facility] [address] [facility], 6th [place] [address] Mirela Barnhart MD 450 [place] [address] [email or web address] 12/07/2025 11:00 AM EDT Office Visit [facility] 234 [place] [address] Arlene Hernandez MD [address] [place] [address] 7 [place] [address] [email or web address] 04/06/2026 10:20 AM EDT Office Visit [facility] [address] [place] [address] 3rd Floor, [address] [place] [address] Margarito Walker MD [address] [facility] [address] [place] [address] [email or web address] documented as of this encounter Visit Diagnoses Not on filedocumented in this encounter Additional Health Concerns Infection Onset Date Last Indicated Resolved Time CoV-Risk 01/13/2020 01/13/2020 01/13/2020 4:17 PM EDT CoV-Presumed 05/27/2022 05/27/2022 06/17/2022 3:51 AM EST CoV-Risk 09/22/2023 09/22/2023 09/22/2023 4:53 PM EDT COVID-19 09/22/2023 09/22/2023 10/13/2023 1:21 AM EDT documented as of this encounter Care Teams Home Health Care Respiratory Therapist Relationship Specialty Start Date End Date Miguelangel Reynoso MD [address] [place] [address] 800 [place] [address] [email or web address] PCP - General Cardiology 08/24/18 10/13/18 Qamar Garcia MD [address] [place] [address] PCP - General Internal Medicine 10/14/18 03/26/22 Unknown, Emely, PCP - General 04/08/22 07/22/22 Qamar Garcia MD [address] [place] [address] PCP - General Internal Medicine 07/23/22 Qamar Garcia MD [address] [place] [address] Primary Care Physician 05/06/17 Malachi Maloney MD [address] [place] [address] Historical LMR Provider 04/23/17 07/13/21 Sammie Govea MD [address] [place] [address] Orthopedics & Sports Medicine, [facility] [place] [address] Historical LMR Provider 04/23/17 07/13/21 Avinash Chong MD [address] [place] [address] [email or web address] Historical LMR Provider 04/23/17 Sofia Amaya MD, MPH [address] [place] [address] [email or web address] Primary Oncologist Radiation Oncology 2/14/20 Karely Ansari MD [address] [place] [address] Primary Oncologist Medical Oncology 08/19/19 12/04/19 Neal Sultana MD, MS [address] [place] [address] [email or web address] Primary Oncologist Surgical Oncology 08/19/19 Tere Keita, [address] [address] [email or web address] Adult Care Manager Oncology 09/19/19 03/13/25 Mirela Barnhart MD [address] [place] [address] [email or web address] Medical Oncology 12/05/19 Andrei Dixon MD [address] [place] [address] [email or web address] Orthopedic Surgery 03/27/22 Denise Black PA-C [address] [place] [address] [email or web address] Physician Electronics System Mechanic 03/27/22 documented as of this encounter Additional Source Comments The information contained in this document represents components of the legal health record. It is not the complete legal health record.[facility]
--- OUTSIDE RECORDS SUMMARY | 2025-04-19 11:33 | XMS_ITS | Encounter Summary ---
Author Organization [facility] Address [address] [place] [address] Phone Care Team Providers Care Field Radio Technician Name Role Phone Qamar Garcia MD Unavailable [phone] Malachi Maloney MD Unavailable [phone] Sammie Govea MD Unavailable Avinash Chong MD Unavailable [phone] Qamar Garcia MD Primary Care Provider Miguelangel Reynoso MD Primary Care Provider [phone] Qamar Garcia MD Primary Care Provider Sofia Amaya MD, MPH Unavailable Karely Ansari MD Unavailable Neal Sultana MD, MS Unavailable Tere Keita Unavailable [phone] Mirela Barnhart MD Unavailable [phone] Andrei Dixon MD Unavailable [phone] Denise Black PA-C Unavailable [phone] Unknown, Unknown Primary Care Provider Qamar Escamilla MD Primary Care Provider Encounter Details Date Type Department Care Team (Late Contact Info) Description 11/26/2017 Procedure Pass [facility] [address] [place] [address] Social History Tobacco Use Types Packs/Day Years [...] (Late Contact Info) Description 09/07/2024 Procedure Pass [facility], [address] [address] 09/07/2024 Procedure Pass [facility], [address] [address] 05/10/2025 11:05 AM EST Appointment [facility], [address] [address] Mirela Barnhart MD [address] [place] [address] [email or web address] 05/10/2025 12:10 PM EST Appointment [address] [address] Mirela Barnhart MD [address] [place] [address] [email or web address] 05/10/2025 3:00 PM EST Office [facility], [facility] [address] [facility], 6th [place] [address] Mirela Barnhart MD [address] [place] [address] [email or web address] 12/07/2025 11:00 AM EDT Office Visit [facility] [place] [address] [place] [address] Arlene Hernandez MD [address] [place] [address] 7 [place] [address] [email or web address]@[email or web address] 04/06/2026 10:20 AM EDT Office Visit [facility] [address] [place] [address] 3rd Floor, [address] [place] [address] Margarito Walker MD [address] [place] [address], [address] [place] [address] [email or web address] documented as of this encounter Visit Diagnoses Not on filedocumented in this encounter Additional Health Concerns Infection Onset Date Last Indicated Resolved Time CoV-Risk 01/13/2020 01/13/2020 01/13/2020 4:17 PM EDT CoV-Presumed 05/27/2022 05/27/2022 06/17/2022 3:51 AM EST CoV-Risk 09/22/2023 09/22/2023 09/22/2023 4:53 PM EDT COVID-19 09/22/2023 09/22/2023 10/13/2023 1:21 AM EDT documented as of this encounter Care Teams Field Radio Technician Relationship Specialty Start Date End Date Qamar Garcia MD [address] [place] [address] PCP - General Internal Medicine 10/12/17 08/23/18 Miguelangel Reynoso MD [address] [place] [address] 800 [place] [address] [email or web address] PCP - General Cardiology 08/24/18 10/13/18 Qamar Garcia MD [address] [place] [address] PCP - General Internal Medicine 10/14/18 03/26/22 Unknown, Unknown, MD PCP - General 04/08/22 07/22/22 Qamar Garcia MD [address] [place] [address] PCP - General Internal Medicine 07/23/22 Qamar Garcia MD [address] [place] [address] Primary Care Physician 05/06/17 Malachi Maloney MD [address] [place] [address] [email or web address] Historical LMR Provider 04/23/17 07/13/21 Sammie Govea MD [address] [place] [address] [facility] [address] [email or web address] Historical LMR Provider 04/23/17 07/13/21 Avinash Chong MD [address] [place] [address] [email or web address] Historical LMR Provider 04/23/17 Sofia Amaya MD, MPH [address] [place] [address] [email or web address] Primary Oncologist Radiation Oncology 08/19/19 Karely Ansari MD [address] [place] [address] Primary Oncologist Medical Oncology 08/19/19 12/04/19 Neal Sultana MD, MS [address] [place] [address] [email or web address] Primary Oncologist Surgical Oncology 08/19/19 Tere Keita, [address] [address] [email or web address]@[email or web address] Photoengraving Printer Oncology 09/19/19 03/13/25 Mirela Barnhart MD [address] [place] [address] [email or web address] Medical Oncology 12/05/19 Andrei Dixon MD [address] [place] [address] [email or web address] Orthopedic Surgery 03/27/22 Denise Black PA-C [address] [place] [address] [email or web address] simone Physician Last Model Department Supervisor 03/27/22 documented as of this encounter Additional Source Comments The information contained in this document represents components of the legal health record. It is not the complete legal health record.[facility]
--- OUTSIDE RECORDS SUMMARY | 2025-04-19 11:33 | XMS_ITS | Clinical Summary ---
Author Organization [facility] Address [id number] [place] [id number] Care Team Providers Care Door Patcher Name Role Phone Qamar Garcia MD Primary Care Provider [phone] Surgical History Surgery Date Site/Laterality Comments OTHER SURGICAL HISTORY 06/15/2018 Right PROCEDURE: BREAST TISSUE EXCISIONAL PATHOLOGY EXAM; COMMENT: ductal carcinoma in situ OTHER SURGICAL HISTORY 07/07/2018 Right PROCEDURE: BREAST TISSUE EXCISIONAL PATHOLOGY EXAM; COMMENT: single focus-ductal carcinoma in situ, grade 2; [facility] APPENDECTOMY PROCEDURE: HISTORICAL APPENDECTOMY OTHER SURGICAL HISTORY [...] excisional biopsy; single focus DCIS, grade 2, [facility]; 06/2018 S/p right excisional biopsy, DCIS; 06/2018 [...] Health Maintenance Due Date Last Done Comments Zoster Vaccines (1 of 2) 02/14/1992 RSV Immunization Adult Patients (1 - 1-dose 75+ series) 2017 DTaP,Tdap,and Td Vaccines (2 - Td or Tdap) 12/21/2021 12/22/2011 Depression Screening 07/06/2024 COVID-19 Vaccine (2 - 2024- season) 2025 10/08/2021 Influenza Vaccine (#1) 2025 , 04/05/2020, 03/23/2019, Additional history exists Hepatitis A Vaccines Aged Out 05/12/2013, 01/19/2012, 12/22/2011 No longer eligible based on patient's age to complete this topic Hepatitis B Vaccines Completed 05/12/2013, 01/19/2012, 12/22/2011 Pneumococcal Vaccine: 50+ Years Completed 06/30/2020, 03/17/2016 HIB Vaccines Aged Out No longer eligi [...] age to complete this topic Care Teams Door Patcher Relationship Specialty Start Date End Date Qamar Garcia MD PCP - General Internal Medicine 03/02/17
--- OUTSIDE RECORDS SUMMARY | 2025-04-19 11:34 | XMS_ITS | Encounter Summary ---
Author Organization [facility] Address [address] [place] [address] Phone Care Team Providers Care Control Systems Drafting Officer Name Role Phone Qamar Garcia MD Unavailable [phone] Avinash Chong MD Unavailable [phone] Qamar Garcia MD Primary Care Provider [phone] Sofia Amaya MD, MPH Unavailable + [phone] Neal Sultana MD, MS Unavailable Tere Keita Unavailable [phone] Mirela Barnhart MD Unavailable [phone] Andrei Dixon MD Unavailable [phone] Denise Black PA-C Unavailable [phone] Unknown, Unknown Primary Care Provider Qamar Escamilla MD Primary Care Provider [phone] Encounter Details Date Type Department Care Team (Late st Contact Info) Description 01/22/2022 Procedure Pass [facility] [place] [facility] [place] [place] [address] [place] [address] [address] Social History Tobacco Use Types [...] Description 09/07/2024 Procedure Pass [facility], [place] [address] [place] [address] [address] 09/07/2024 Procedure Pass [facility], [address] [address] 05/10/2025 11:05 AM EST Appointment [facility], [facility] [address] [address] Mirela Barnhart MD [address] [place] [address] [email or web address] 05/10/2025 12:10 PM EST Appointment [facility], [place] [address] [place] [address] [address] Mirela Barnhart MD [address] [place] [address] [email or web address]@d [email or web address] 05/10/2025 3:00 PM EST Office Visit [facility], [address], [address] [place] [address] Mirela Barnhart MD [address] [place] [address] [email or web address] [email or web address] 12/07/2025 11:00 AM EDT Office Visit [facility] [address] [address] Arlene Hernandez MD [address] [facility], [address] [place] [address] [email or web address]@[email or web address] 04/06/2026 10:20 AM EDT Office Visit [facility] [address] [place] [address] 3rd Floor, [address] [place] [address] Margarito Walker MD [address] [facility] [address] [place] [address] [email or web address] documented as of this encounter Visit Diagnoses Not on filedocumented in this encounter Additional Health Concerns Infection Onset Date Last Indicated Resolved Time CoV-Presumed 05/27/2022 05/27/2022 06/17/2022 3:51 AM EST CoV-Risk 09/22/2023 09/22/2023 09/22/2023 4:53 PM EDT COVID-19 09/22/2023 09/22/2023 10/13/2023 1:21 AM EDT documented as of this encounter Care Teams Control Systems Drafting Officer Relationship Specialty Start Date End Date Qamar Garcia MD [address] [place] [address] PCP - General Internal Medicine 10/14/18 03/26/22 Unknown, Unknown, MD PCP - General 04/08/22 07/22/22 Qamar Garcia MD [address] [place] [address] PCP - General Internal Medicine 07/23/22 Qamar Garcia MD [address] [place] [address] Primary Care Physician 05/06/17 Avinash Chong MD [address] [place] [address] [email or web address] Historical LMR Provider 04/23/17 Sofia Amaya MD, MPH [address] [place] [address] [email or web address] Primary Oncologist Radiation Oncology 08/19/19 Neal Sultana MD, MS [address] [place] [address] [email or web address] Primary Oncologist Surgical Oncology 08/19/19 Tere Keita, [address] [address] [email or web address]@[email or web address] Clinical Biochemist Oncology 09/19/19 03/13/25 Mirela Barnhart MD [address] [place] [address] Kati@[email or web address] .[facility] Medical Oncology 12/05/19 Andrei Dixon MD [address] [place] [address] [email or web address] Orthopedic Surgery 03/27/22 Denise Black PA-C [address] [place] [address] [email or web address] Physician Consulting Project Director 03/27/22 documented as of this encounter Additional Source Comments The information contained in this document represents components of the legal health record. It is not the complete legal health record.[facility]
--- OUTSIDE RECORDS SUMMARY | 2025-04-19 11:34 | XMS_ITS | Encounter Summary ---
Author Organization [facility] Address [address] [place] [address] Phone Care Team Providers Care Mine Captain Name Role Phone Qamar Garcia MD Unavailable [phone] Avinash Chong MD Unavailable [phone] Qamar Garcia MD Primary Care Provider [phone] Sofia Amaya MD, MPH Unavailable + [phone] Neal Sultana MD, MS Unavailable Tere Keita Unavailable [phone] Mirela Barnhart MD Unavailable [phone] Andrei Dixon MD Unavailable [phone] Denise Black PA-C Unavailable [phone] Unknown, Unknown Primary Care Provider Qamar Escamilla MD Primary Care Provider + [phone] Encounter Details Date Type Department Care Team (Late st Contact Info) Description 01/22/2022 Procedure Pass [facility] [place] [facility] [place] [place] [address] [address] Social History Tobacco Use Types [...] Info) Description 09/07/2024 Procedure Pass [facility] [place] [address] [address] 09/07/2024 Procedure Pass [facility], [address] [address] 05/10/2025 11:05 AM EST Appointment [facility], [facility] [address] [address] Mirela Barnhart MD [address] [place] [address] [email or web address] 05/10/2025 12:10 PM EST Appointment [facility], [place] [address] [address] Mirela Barnhart MD [address] [place] [address] [email or web address] [email or web address] 05/10/2025 3:00 PM EST Office Visit [facility], [address], [address] [place] [address] Mirela Barnhart MD [address] [place] [address] [email or web address] [email or web address] 12/07/2025 11:00 AM EDT Office Visit [facility] [address] [address] Arlene Hernandez MD [address] [facility], [address] [place] [address] [email or web address]@[facility] 04/06/2026 10:20 AM EDT Office Visit [facility] [address] [place] [address] 3rd Floor, [address] [place] [address] Margarito Walker MD 22 [facility] [address] [place] [address] [email or web address] documented as of this encounter Visit Diagnoses Not on filedocumented in this encounter Additional Health Concerns Infection Onset Date Last Indicated Resolved Time CoV-Presumed 05/27/2022 05/27/2022 06/17/2022 3:51 AM EST CoV-Risk 09/22/2023 09/22/2023 09/22/2023 4:53 PM EDT COVID-19 09/22/2023 09/22/2023 10/13/2023 1:21 AM EDT documented as of this encounter Care Teams Mine Captain Relationship Specialty Start Date End Date Qamar Garcia MD [address] [place] [address] PCP - General Internal Medicine 10/14/18 03/26/22 Unknown, Unknown, MD PCP - General 04/08/22 07/22/22 Qamar Garcia MD [address] [place] [address] PCP - General Internal Medicine 07/23/22 Qamar Garcia MD [address] [place] [address] Primary Care Physician 05/06/17 Avinash Chong MD [address] [place] [address] [email or web address] Historical LMR Provider 04/23/17 Sofia Amaay MD, MPH [address] [place] [address] [email or web address] Primary Oncologist Radiation Oncology 08/19/19 Neal Sultana MD, MS [address] [place] [address] [email or web address]@[email or web address] Primary Oncologist Surgical Oncology 08/19/19 Tere Keita, [address] [address] [email or web address]@[email or web address] Family Welfare Social Work Professor Oncology 09/19/19 03/13/25 Mirela Barnhart MD [address] [place] [address] Kati@[email or web address] .[facility] Medical Oncology 12/05/19 Andrei Dixon MD [address] [place] [address] [email or web address] Orthopedic Surgery 03/27/22 Denise Black PA-C [address] [place] [address] [email or web address] simone Physician Hat Model 03/27/22 documented as of this encounter Additional Source Comments The information contained in this document represents components of the legal health record. It is not the complete legal health record.[facility]
--- OUTSIDE RECORDS SUMMARY | 2025-04-19 11:35 | XMS_ITS | Encounter Summary ---
Author Organization [facility] Address [address] [place] [address] Phone Care Team Providers Care Lieutenant Firefighter Name Role Phone Qamar Garcia MD Unavailable Malachi Maloney MD Unavailable [phone] Sammie Govea MD Unavailable Avinash Chong MD Unavailable Qamar Garcia MD Primary Care Provider [phone] Sofia Amaya MD, MPH Unavailable [phone] Karely Ansari MD Unavailable Neal Sultana MD, MS Unavailable Tere Keita Unavailable Mirela Barnhart MD Unavailable [phone] Andrei Dixon MD Unavailable [phone] Denise Black PA-C Unavailable [phone] Unknown, Unknown Primary Care Provider Qamar Escamilla MD Primary Care Provider Encounter Details Date Type Department Care Team (Late st Contact Info) Description 12/24/2018 Transcribe Orders Virtual Department [address] [place] [address] Qamar Garcia MD [address] [place] [address] Bruit (Primary Dx) Social History Tobacco Use [...] (Late Contact Info) Description 09/07/2024 Procedure Pass [address] [address] 09/07/2024 Procedure Pass [facility], [address] [address] 05/10/2025 11:05 AM EST Appointment [facility], [address] [address] Mirela Barnhart MD [address] [place] [address] [email or web address] 05/10/2025 12:10 PM EST Appointment [address] [address] Mirela Barnhart MD [address] [place] [address] [email or web address] [facility] 05/10/2025 3:00 PM EST Office Visit [facility], [facility] [place] [address] [facility], 6th [place] [address] Mirela Barnhart MD 450 [place] [address] Kati@[email or web address] [facility] 12/07/2025 11:00 AM EDT Office Visit [facility] [address] [place] [address] Arlene Hernandez MD [address] [place] [address] 7 [place] [address] THERESA@[email or web address] 04/06/2026 10:20 AM EDT Office Visit [facility] [address] [facility] 3rd Floor, [address] [place] [address] Margarito Walker MD [address] [facility], [address] [place] [address] [email or web address] documented as of this encounter Results * [...] documented as of this encounter Care Teams Lieutenant Firefighter Relationship Specialty Start Date End Date Qamar Garcia MD [address] [place] [address] PCP - General Internal Medicine 10/14/18 03/26/22 Unknown, Unknown, MD PCP - General 04/08/22 07/22/22 Qamar Garcia MD [address] [place] [address] PCP - General Internal Medicine 07/23/22 Qamar Garcia MD [address] [place] [address] Primary Care Physician 05/06/17 Malachi Maloney MD [address] [place] [address] [email or web address] Historical LMR Provider 04/23/17 07/13/21 Sammie Govea MD [address] [place] [address] Orthopedics & Sports Medicine, [facility] [place] [address] [email or web address] Historical LMR Provider 04/23/17 07/13/21 Avinash Chong MD [address] [place] [address] [email or web address] Historical LMR Provider 04/23/17 Sofia Amaya MD, MPH [address] [place] [address] [email or web address] .[facility] Primary Oncologist Radiation Oncology 08/19/19 Karely Ansari MD [address] [place] [address] Primary Oncologist Medical Oncology 08/19/19 12/04/19 Neal Sultana MD, MS [address] [place] [address] [email or web address] Primary Oncologist Surgical Oncology 08/19/19 Tere Keita, [address] [address] [email or web address]@[facility] Supervisor [place] Oncology 09/19/19 03/13/25 Mirela Barnhart MD [address] [place] [address] [email or web address] Medical Oncology 12/05/19 Andrei Dixon MD [address] [place] [address] [email or web address] Orthopedic Surgery 03/27/22 Denise Black PA-C [address] [place] [address] [email or web address] Physician Ict Managers 03/27/22 documented as of this encounter Additional Source Comments The information contained in this document represents components of the legal health record. It is not the complete legal health record.[facility]
--- OUTSIDE RECORDS SUMMARY | 2025-04-19 11:35 | XMS_ITS | Encounter Summary ---
Author Organization [facility] Address [address] [place] [address] Phone Care Team Providers Care Director Of Events Name Role Phone Qamar Garcia MD Unavailable [phone] Malachi Maloney MD Unavailable [phone] Sammie Govea MD Unavailable Avinash Chong MD Unavailable Qamar Garcia MD Primary Care Provider + [phone] Sofia Amaya MD, MPH Unavailable + [phone] Neal Sultana MD, MS Unavailable Tere Keita Unavailable +[phone] Mirela Barnhart MD Unavailable [phone] Andrei Dixon MD Unavailable [phone] Denise Black PA-C Unavailable [phone] Unknown, Unknown Primary Care Provider Qamar Escamilla MD Primary Care Provider + [phone] Encounter Details Date Type Department Care Team (Late st Contact Info) Description 12/13/2019 Procedure Pass [facility], [facility], [place] 450 [facility], Floor L1 [place] [address] Social History Tobacco Use Types Packs/Day Years [...] Upcoming Encounters Date Type Department Care Team ([facility] st Contact Info) Description 09/07/2024 Procedure Pass [facility], [place] [address] [address] 09/07/2024 Procedure Pass [facility], [facility] [address] [address] 05/10/2025 11:05 AM EST Appointment [facility], [facility] [address] [address] Mirela Barnhart MD [address] [place] [address] [email or web address] 05/10/2025 12:10 PM EST Appointment [facility], [place] [address] [address] Mirela Barnhart MD [address] [place] [address] Kati@[email or web address] 05/10/2025 3:00 PM EST Office Visit [facility], [address], [address]th [place] [address] Mirela Barnhart MD 450 [place] [address] [email or web address] [email or web address] 12/07/2025 11:00 AM EDT Office Visit [facility] 234 [place] [address] Arlene Hernandez MD 234 [facility] 7 [place] [address] [email or web address]@[email or web address] 04/06/2026 10:20 AM EDT Office Visit [facility] [address] [place] [address] 3rd Floor, [address] [place] [address] Margarito Walker MD 22 [facility] [address] [place] [address] [email or web address] documented as of this encounter Visit Diagnoses Not on filedocumented in this encounter Additional Health Concerns Infection Onset Date Last Indicated Resolved Time CoV-Risk 01/13/2020 01/13/2020 01/13/2020 4:17 PM EDT CoV-Presumed 05/27/2022 05/27/2022 06/17/2022 3:51 AM EST CoV-Risk 09/22/2023 09/22/2023 09/22/2023 4:53 PM EDT COVID-19 09/22/2023 09/22/2023 10/13/2023 1:21 AM EDT documented as of this encounter Care Teams Director Of Events Relationship Specialty Start Date End Date Qamar Garcia MD [address] [place] [address] PCP - General Internal Medicine 10/14/18 03/26/22 Unknown, Emely, MD PCP - General 04/08/22 07/22/22 Qamar Garcia MD [address] [place] [address] PCP - General Internal Medicine 07/23/22 Qamar Garcia MD 701 [place] [address] Primary Care Physician 05/06/17 Malachi Maloney MD [address] [place] [address] 301 [place] [address] [email or web address] Historical LMR Provider 04/23/17 07/13/21 Sammie Govea MD [address] [place] [address] Orthopedics & Sports Medicine, [place] [address] [email or web address] Historical LMR Provider 04/23/17 07/13/21 Avinash Chong MD [address] [place] [address] [email or web address] Historical LMR Provider 04/23/17 Sofia Amaya MD, MPH [address] [place] [address] [email or web address] Primary Oncologist Radiation Oncology 08/19/19 Neal Sultana MD, MS [address] [place] [address] [email or web address]@[email or web address] Primary Oncologist Surgical Oncology 08/19/19 Tere Keita, [facility] 35 [place] [address] [email or web address] Textile Coating Machine Operator Oncology 09/19/19 03/13/25 Mirela Barnhart MD [address] [place] [address] Kati@[email or web address] .[facility] Medical Oncology 12/05/19 Andrei Dixon MD [address] [place] [address] [email or web address] Orthopedic Surgery 03/27/22 Denise Black PA-C [address] [place] [address] [email or web address]. simone Physician Transition Specialist 03/27/22 documented as of this encounter Additional Source Comments The information contained in this document represents components of the legal health record. It is not the complete legal health record.[facility]
--- OUTSIDE RECORDS SUMMARY | 2025-04-19 11:35 | XMS_ITS | Encounter Summary ---
Author Organization [facility] Address [address] [place] [address] [place] [address] Phone Care Team Providers Care Water Safety Teacher Name Role Phone Qamar Garcia MD Unavailable [phone] Avinash Chong MD Unavailable [phone] Sofia Amaya MD, MPH Unavailable +- [phone] Neal Sultana MD, MS Unavailable Tere Keita [facility] Unavailable +[phone] iMrela Barnhart MD Unavailable [phone] Andrei Dixon MD Unavailable [phone] Denise BlackC Unavailable [phone] Qamar Garcia MD Primary Care Provider [phone] Encounter Details Date Type Department Care Team (Late st Contact Info) Description 09/09/2022 Procedure Pass [facility] 6th floor [address] [place] [address] Social History Tobacco Use Types [...] 09/10/2022 10:00 AM Salud Garcia RN * [employer] Suicide Severity Rating Scale (Screener/Recent Self-Report) Question Answer Date of Assessment Author 1. Wish to be (Past 1 Month) No 023 10:00 AM Salud Garcia RN 2. Non-Specific Active Suici jessy Thoughts (Past 1 Month) No 09/10/2022 10:00 AM Gina Garcia RN 6. Suicidal Behavior (Lifetime) No 10:00 AM Salud Garcia RN documented as of this encounter Plan of Treatment Upcoming Encounters Date Type Department Care Team (Late st Contact Info) Description 09/07/2024 Procedure Pass [address] [address] 09/07/2024 Procedure Pass [facility], [address] [address] 05/10/2025 11:05 AM EST Appointment [facility], [address] [address] Mirela Barnhart MD [address] [place] [address] [email or web address] 05/10/2025 12:10 PM EST Appointment [address] [address] Mirela Barnhart MD [address] [place] [phone] [email or web address] 05/10/2025 3:00 PM EST Office Visit [facility], [facility] 450 [facility], 6th [place] [address] Mirela Barnhart MD 450 [place] [address] Kati@[email or web address] 12/07/2025 11:00 AM EDT Office Visit [facility] [address] [address] Arlene Hernandez MD [address] [place] [address] THERESA@[facility] 04/06/2026 10:20 AM EDT Office Visit [facility] [address] [place] [address] 3rd Floor, [address] [place] [address] Margarito Walker MD [address] [place] [address] [email or web address] documented as of this encounter Visit Diagnoses Not on filedocumented in this encounter Additional Health Concerns Infection Onset Date Last Indicated Resolved Time CoV-Risk 09/22/2023 09/22/2023 09/22/2023 4:53 PM EDT COVID-19 09/22/2023 09/22/2023 10/13/2023 1:21 AM EDT documented as of this encounter Care Teams Water Safety Teacher Relationship Specialty Start Date End Date Qamar Garcia MD [address] [place] [address] PCP - General Internal Medicine 07/23/22 Qamar Garcia MD [address] [place] [address] Primary Care Physician 05/06/17 Avinash Chong MD [address] [place] [address] [email or web address] Historical LMR Provider 04/23/17 Sofia Amaya MD, MPH [address] [place] [address] [email or web address] Primary Oncologist Radiation Oncology 08/19/19 Neal Sultana MD, MS [address] [place] [address] [email or web address] Primary Oncologist Surgical Oncology 08/19/19 Tere Keita, [address] [address] Tanya@[email or web address] Farm Crew Member Oncology 09/19/19 03/13/25 Mirela Barnhart MD [address] [place] [address] Kati@[email or web address] .[facility] Medical Oncology 12/05/19 Andrei Dixon MD [address] [place] [address], [address] [address] [email or web address] Orthopedic Surgery 03/27/22 Denise Black PA-C [address] [place] [address] [email or web address] Physician Cardiovascular Tech 03/27/22 documented as of this encounter Additional Source Comments The information contained in this document represents components of the legal health record. It is not the complete legal health record.[facility]
--- OUTSIDE RECORDS SUMMARY | 2025-04-19 11:35 | XMS_ITS | Encounter Summary ---
Author Organization [facility] Address [address] [place] [address] Phone Care Team Providers Care Inspector Quality Assurance Name Role Phone Qamar Garcia MD Unavailable [phone] Malachi Maloney MD Unavailable [phone] Sammie Govea MD Unavailable Avinash Chong MD Unavailable [phone] Qamar Garcia MD Primary Care Provider + [phone] Sofia Amaya MD, MPH Unavailable [phone] Neal Sultana MD, MS Unavailable Tere Keita Unavailable [phone] Mirela Barnhart MD Unavailable [phone] Andrei Dixon MD Unavailable [phone] Denise Black PA-C Unavailable [phone] Unknown, Unknown Primary Care Provider Qamar Escamilla MD Primary Care Provider + [phone] Encounter Details Date Type Department Care Team (Late st Contact Info) Description 10/04/[address] [facility] [address] [facility] [address] [place] [address] Social History Tobacco Use Types Packs/Day Years [...] Description 09/07/2024 Procedure Pass [facility], [place] [address] [address] 09/07/2024 Procedure Pass [facility], [facility] [address] [address] 05/10/2025 11:05 AM EST Appointment [facility], [address] [address] Mirela Barnhart MD [address] [place] [address] [email or web address] 05/10/2025 12:10 PM EST Appointment [facility] [place], [place] [address] [address] Mirela Barnhart MD [address] [place] [address] [email or web address] 05/10/2025 3:00 PM EST Office Visit [facility], [address], [address]th [place] [address] Mirela Barnhart MD [address] [place] [address] [email or web address] [email or web address] 12/07/2025 11:00 AM EDT Office Visit [facility] 234 [place] [address] Arlene Hernandez MD 234 [facility] [address] [place] [address] THERESA@[email or web address] 04/06/2026 10:20 AM EDT Office Visit [facility] [address] [place] [address] 3rd Floor, [address] [place] [address] Margarito Walker MD 22 [facility] [address] [place] [address] [email or web address] documented as of this encounter Visit Diagnoses Not on filedocumented in this encounter Additional Health Concerns Infection Onset Date Last Indicated Resolved Time CoV-Presumed 05/27/2022 05/27/2022 06/17/2022 3:51 AM EST CoV-Risk 09/22/2023 09/22/2023 09/22/2023 4:53 PM EDT COVID-19 09/22/2023 09/22/2023 10/13/2023 1:21 AM EDT documented as of this encounter Care Teams Inspector Quality Assurance Relationship Specialty Start Date End Date Qamar Garcia MD [address] [place] [address] PCP - General Internal Medicine 10/14/18 03/26/22 Unknown, Unknown, MD PCP - General 04/08/22 07/22/22 Qamar Garcia MD [address] [place] [address] PCP - General Internal Medicine 07/23/22 Qamar Garcia MD [address] [place] [address] Primary Care Physician 05/06/17 Malachi Maloney MD [address] [place] [address], [address] [place] [address] [email or web address] Historical LMR Provider 04/23/17 07/13/21 Sammie Govea MD [address] [place] [address] Orthopedics & Sports Medicine, [place] [address] [email or web address] Historical LMR Provider 04/23/17 07/13/21 Avinash Chong MD [address] [place] [address] [email or web address] Historical LMR Provider 04/23/17 Sofia Amaya MD, MPH [address] [place] [address] [email or web address] Primary Oncologist Radiation Oncology 08/19/19 Neal Sultana MD, MS [address] [place] [address] [email or web address]@[email or web address] Primary Oncologist Surgical Oncology 08/19/19 Tere Keita, [address] [address] Tanya@[facility] Harness Inspector Oncology 09/19/19 03/13/25 Mierla Barnhart MD [address] [place] [address] Kati@[email or web address] .[facility] Medical Oncology 12/05/19 Andrei Dixon MD [address] [place] [address], [address] [place] [address] [email or web address] Orthopedic Surgery 03/27/22 Denise Black PA-C [address] [place] [address] [email or web address] Physician Cassandra Consultant 03/27/22 documented as of this encounter Additional Source Comments The information contained in this document represents components of the legal health record. It is not the complete legal health record.[facility]
--- OUTSIDE RECORDS SUMMARY | 2025-04-19 11:35 | XMS_ITS | Encounter Summary ---
Author Organization [facility] Address [address] [place] [address] Phone Care Team Providers Care Boathouse Keeper Name Role Phone Qamar Garcia MD Unavailable Malachi Maloney MD Unavailable [phone] Sammie Govea MD Unavailable [phone] Avinash Chong MD Unavailable [phone] Qamar Garcia MD Primary Care Provider + [phone] Sofia Amaya MD, MPH Unavailable + [phone] Neal Sultana MD, MS Unavailable Tere Keita Unavailable [phone] Mirela Barnhart MD Unavailable [phone] Andrei Dixon MD Unavailable [phone] Denise Black PA-C Unavailable [phone] Unknown, Unknown Primary Care Provider Qamar Escamilla MD Primary Care Provider + [phone] Encounter Details Date Type Department Care Team (Late st Contact Info) Description 02/01/2021 Procedure Pass [facility], [facility] 30 [place] [address] Social History Tobacco Use Types Packs/Day Years [...] st Contact Info) Description 09/07/2024 Procedure Pass [address] [address] 09/07/2024 Procedure Pass [address] [address] 05/10/2025 11:05 AM EST Appointment [facility], [address] [address] Mirela Barnhart MD [address] [place] [address] [email or web address] 05/10/2025 12:10 PM EST Appointment [address] [address] Mirela Barnhart MD [address] [place] [address] [email or web address] 05/10/2025 3:00 PM EST Office Visit [facility], [address], [address] [place] [address] Mirela Barnhart MD [address] [place] [address] [email or web address] [email or web address] 12/07/2025 11:00 AM EDT Office Visit [facility] 234 [place] [address] Arlene Hernandez MD 234 [facility] [address] [place] [address] [email or web address]@[email or web address] 04/06/2026 10:20 AM EDT Office Visit [facility] [address] [place] [address] 3rd Floor, [address] [place] [address] Margarito Walker MD 22 [facility] [address] [place] [address] [email or web address] documented as of this encounter Visit Diagnoses Not on filedocumented in this encounter Additional Health Concerns Infection Onset Date Last Indicated Resolved Time CoV-Presumed 05/27/2022 05/27/2022 06/17/2022 3:51 AM EST CoV-Risk 09/22/2023 09/22/2023 09/22/2023 4:53 PM EDT COVID-19 09/22/2023 09/22/2023 10/13/2023 1:21 AM EDT documented as of this encounter Care Teams Boathouse Keeper Relationship Specialty Start Date End Date Qamar Garcia MD [address] [place] [address] PCP - General Internal Medicine 10/14/18 03/26/22 Unknown, Unknown, MD PCP - General 04/08/22 07/22/22 Qamar Garcia MD [address] [place] [address] PCP - General Internal Medicine 07/23/22 Qamar Garcia MD [address] [place] [address] Primary Care Physician 05/06/17 Malachi Maloney MD [address] [place] [address], [address] [place] [address] [email or web address] Historical LMR Provider 04/23/17 07/13/21 Sammie Govea MD [address] [place] [address] Orthopedics & Sports Medicine, [place] [address] [email or web address] Historical LMR Provider 04/23/17 07/13/21 Avinash Chong MD [address] [place] [address] [email or web address] Historical LMR Provider 04/23/17 Sofia Amaya MD, MPH [address] [place] [address] [email or web address] Primary Oncologist Radiation Oncology 08/19/19 Neal Sultana MD, MS [address] [place] [address] [email or web address] Primary Oncologist Surgical Oncology 08/19/19 Tere Keita, [address] [address] Tanya@[facility] Video Game Developer Oncology 09/19/19 03/13/25 Mirela Barnhart MD [address] [place] [address] [email or web address] Medical Oncology 12/05/19 Andrei Dixon MD [address] [place] [address], [address] [place] [address] [email or web address] Orthopedic Surgery 03/27/22 Denise Black PA-C [address] [place] [address] [email or web address]. simone Physician Trigonometry Teacher 03/27/22 documented as of this encounter Additional Source Comments The information contained in this document represents components of the legal health record. It is not the complete legal health record.[facility]
--- OUTSIDE RECORDS SUMMARY | 2025-04-19 11:35 | XMS_ITS | Encounter Summary ---
Author Organization [facility] Address [address] [place] [address] Phone Care Team Providers Care Cigar Head Perforator Name Role Phone Qamar Garcia MD Unavailable [phone] Malachi Maloney MD Unavailable [phone] Sammie Govea MD Unavailable [phone] Avinash Chong MD Unavailable [phone] Qamar Garcia MD Primary Care Provider + [phone] Sofia Amaya MD, MPH Unavailable + [phone] Neal Sultana MD, MS Unavailable Tere Keita Unavailable +[phone] Mirela Barnhart MD Unavailable [phone] Andrei Dixon MD Unavailable [phone] Denise Black PA-C Unavailable [phone] Unknown, Unknown Primary Care Provider Qamar Escamilla MD Primary Care Provider + [phone] Encounter Details Date Type Department Care Team (Late st Contact Info) Description 12/13/2019 Procedure Pass [facility] Imaging [facility], [facility], MRI [address] [facility], Floor L1 [place] [address] Social History Tobacco Use Types Packs/Day Years [...] Upcoming Encounters Date Type Department Care Team ([facility] st Contact Info) Description 09/07/2024 Procedure Pass [facility], [place] [address] [address] 09/07/2024 Procedure Pass [facility], [facility] [address] [address] 05/10/2025 11:05 AM EST Appointment [facility], [address] [address] Mirela Barnhart MD [address] [place] [address] [email or web address] 05/10/2025 12:10 PM EST Appointment [facility], [place] [address] [address] Mirela Barnhart MD [address] [place] [address] [email or web address] 05/10/2025 3:00 PM EST Office Visit [facility], [address], [address]th [place] [address] Mirela Barnhart MD 450 [place] [address] [email or web address] 12/07/2025 11:00 AM EDT Office Visit [facility] 234 [place] [address] Arlene Hernandez MD 234 [facility] 7 [place] [address] [email or web address] 04/06/2026 10:20 AM EDT Office Visit [facility] [address] [place] [address] 3rd Floor, [address] [place] [address] Margarito Walker MD 22 [facility] [address] [place] [address] [email or web address] documented as of this encounter Visit Diagnoses Not on filedocumented in this encounter Additional Health Concerns Infection Onset Date Last Indicated Resolved Time CoV-Risk 01/13/2020 01/13/2020 01/13/2020 4:17 PM EDT CoV-Presumed 05/27/2022 05/27/2022 06/17/2022 3:51 AM EST CoV-Risk 09/22/2023 09/22/2023 09/22/2023 4:53 PM EDT COVID-19 09/22/2023 09/22/2023 10/13/2023 1:21 AM EDT documented as of this encounter Care Teams Cigar Head Perforator Relationship Specialty Start Date End Date Qamar Garcia MD [address] [place] [address] PCP - General Internal Medicine 10/14/18 03/26/22 Unknown, Emely, MD PCP - General 04/08/22 07/22/22 Qamar Garcia MD [address] [place] [address] PCP - General Internal Medicine 07/23/22 Qamar Garcia MD 701 [place] [address] Primary Care Physician 05/06/17 Malachi Maloney MD [address] [place] [address] 301 [place] [address] [email or web address] Historical LMR Provider 04/23/17 07/13/21 Sammie Govea MD [address] [place] [address] Orthopedics & Sports Medicine, [place] [address] [email or web address] Historical LMR Provider 04/23/17 07/13/21 Avinash Chong MD [address] [place] [address] [email or web address] Historical LMR Provider 04/23/17 Sofia Amaya MD, MPH [address] [place] [address] [email or web address] Primary Oncologist Radiation Oncology 08/19/19 Neal Sultana MD, MS [address] [place] [address] [email or web address] Primary Oncologist Surgical Oncology 08/19/19 Tere Keita, [facility] 35 [place] [address] [email or web address] Analyst Oncology 09/19/19 03/13/25 Mirela Barnhart MD [address] [place] [address] [email or web address] .[facility] Medical Oncology 12/05/19 Andrei Dixon MD [address] [place] [address] [email or web address] Orthopedic Surgery 03/27/22 Denise Black PA-C [address] [place] [address] [email or web address] Physician Post Graduate Intern 03/27/22 documented as of this encounter Additional Source Comments The information contained in this document represents components of the legal health record. It is not the complete legal health record.[facility]
--- OUTSIDE RECORDS SUMMARY | 2025-04-19 11:35 | XMS_ITS | Encounter Summary ---
Author Organization [facility] Address [address] [place] [address] Phone Care Team Providers Care Multiple Effect Evaporator Operator Name Role Phone Qamar Garcia MD Unavailable Malachi Maloney MD Unavailable [phone] Sammie Govea MD Unavailable Avinash Chong MD Unavailable [phone] Qamar Garcia MD Primary Care Provider + [phone] Sofia Amaya MD, MPH Unavailable +[phone] Neal Sultana MD, MS Unavailable Tere Keita Unavailable Mirela Barnhart MD Unavailable [phone] Andrei Dixon MD Unavailable [phone] Denise Blakc PA-C Unavailable [phone] Unknown, Unknown Primary Care Provider Qamar Escamilla MD Primary Care Provider + [phone] Encounter Details Date Type Department Care Team (Late st Contact Info) Description 07/19/2020 Ancillary Orders Virtual Department 30 [place] [address] Qamar Garcia MD [address] [place] [address] Abdominal pain, unspecified abdominal location Social History [...] Info) Description 09/07/2024 Procedure Pass [facility], [address] [address] 09/07/2024 Procedure Pass [facility], [address] [address] 05/10/2025 11:05 AM EST Appointment [facility], [address] [address] Mirela Barnhart MD [address] [place] [address] [email or web address] 05/10/2025 12:10 PM EST Appointment [address] [address] Mirela Barnhart MD [address] [place] [address] Kati@[email or web address] 05/10/2025 3:00 PM EST Office Visit [facility], [facility] 450 [facility], 6th [place] [address] Mirela Barnhart MD 450 [place] [address] [email or web address]_[email or web address] 12/07/2025 11:00 AM EDT Office Visit [address] [address] Arlene Hernandez MD 234 [facility] 7 [place] [address] THERESA@[email or web address] 04/06/2026 10:20 AM EDT Office Visit [facility] [address] [place] [address] 3rd Floor, [address] [place] [address] Margarito Walker MD [address] [place] [address] [address] [place] [address] [email or web address] documented as of this encounter Visit Diagnoses Diagnosis Abdominal pain, unspecified abdominal location documented in this encounter Additional Health Concerns Infection Onset Date Last Indicated Resolved Time CoV-Presumed 05/27/2022 05/27/2022 06/17/2022 3:51 AM EST CoV-Risk 09/22/2023 09/22/2023 09/22/2023 4:53 PM EDT COVID-19 09/22/2023 09/22/2023 10/13/2023 1:21 AM EDT documented as of this encounter Care Teams Multiple Effect Evaporator Operator Relationship Specialty Start Date End Date Qamar Garcia MD [address] [place] [address] PCP - General Internal Medicine 10/14/18 03/26/22 Unknown, Unknown, MD PCP - General 04/08/22 07/22/22 Qamar Garcia MD [address] [place] [address] PCP - General Internal Medicine 07/23/22 Qamar Garcia MD [address] [place] [address] Primary Care Physician 05/06/17 Malachi Maloney MD [address] [place] [address], [address] [place] [address] [email or web address] Historical LMR Provider 04/23/17 07/13/21 Sammie Govea MD [address] [place] [address] Orthopedics & Sports Medicine, [place] [address] [email or web address] Historical LMR Provider 04/23/17 07/13/21 Avinash Chong MD [address] [place] [address] [email or web address] Historical LMR Provider 04/23/17 Sofia Amaya MD, MPH [address] [place] [address] [email or web address] Primary Oncologist Radiation Oncology 08/19/19 Neal Sultana MD, MS [address] [place] [address] [email or web address] Primary Oncologist Surgical Oncology 08/19/19 Tere Keita, [address] [address] [email or web address] Call Center Team Leader Oncology 09/19/19 03/13/25 Mirela Barnhart MD [address] [place] [address] [email or web address] Medical Oncology 12/05/19 Andrei Dixon MD [address] [place] [address] [email or web address] Orthopedic Surgery 03/27/22 Denise Black PA-C [address] [place] [address] [email or web address]. simone Physician Engine Turner 03/27/22 documented as of this encounter Additional Source Comments The information contained in this document represents components of the legal health record. It is not the complete legal health record.[facility]
--- OUTSIDE RECORDS SUMMARY | 2025-04-19 11:35 | XMS_ITS | Encounter Summary ---
Author Organization [facility] Address [address] [place] [address] Phone Care Team Providers Care Distribution Coordinator Name Role Phone Qamar Garcia MD Unavailable [phone] Avinash Chong MD Unavailable [phone] Sofia Amaya MD, MPH Unavailable +- [phone] Neal Sultana MD, MS Unavailable Tere Keita LOCK PLATER Unavailable [phone] Mirela Barnhart MD Unavailable [phone] Andrei Dixon MD Unavailable [phone] Denise BlackC Unavailable [phone] Qamar Garcia MD Primary Care Provider [phone] Encounter Details Date Type Department Care Team (Late st Contact Info) Description 12/09/2022 Procedure Pass [facility], Ct Scan - [address] [address] Social History Tobacco Use Types Packs/Day Years [...] st Contact Info) Description 09/07/2024 Procedure Pass [facility] [place] 300 [facility] 3rd [place] [address] 09/07/2024 Procedure Pass [facility], [facility] [address] [address] 05/10/2025 11:05 AM EST Appointment [facility], [facility] [address] [address] Mirela Barnhart MD [address] [place] [address] [email or web address] 05/10/2025 12:10 PM EST Appointment [facility] [place] 300 [facility] [address] [place] [address] Mirela Barnhart MD [address] [place] [address] Kati@[facility] 05/10/2025 3:00 PM EST Office Visit [facility], [address], 6th [place] [address] Mirela Barnhart MD [address] [place] [address] [email or web address]@[facility] 12/07/2025 11:00 AM EDT Office Visit [facility] [address] [address] Arlene Hernandez MD [address] [place] [address] THERESA@[facility] 04/06/2026 10:20 AM EDT Office Visit [facility] [address] [place] [address] 3rd Floor, [address] [place] [address] Margarito Walker MD [address] [place] [address], [address] [place] [address] [email or web address] documented as of this encounter Visit Diagnoses Not on filedocumented in this encounter Additional Health Concerns Infection Onset Date Last Indicated Resolved Time CoV-Risk 09/22/2023 09/22/2023 09/22/2023 4:53 PM EDT COVID-19 09/22/2023 09/22/2023 10/13/2023 1:21 AM EDT documented as of this encounter Care Teams Distribution Coordinator Relationship Specialty Start Date End Date Qamar Garcia MD [address] [place] [address] PCP - General Internal Medicine 07/23/22 Qamar Garcia MD [address] [place] [address] Primary Care Physician 05/06/17 Avinash Chong MD [address] [place] [address] [email or web address] Historical LMR Provider 04/23/17 Sofia Amaya MD, MPH [address] [place] [address] [email or web address] Primary Oncologist Radiation Oncology 08/19/19 Neal Sultana MD, MS [address] [place] [address] FAIZAN@[facility] Primary Oncologist Surgical Oncology 08/19/19 Tere Keita, [address] [address] Tanya@[email or web address] Drafter Civil Engineering Oncology 09/19/19 03/13/25 Mirela Barnhart MD [address] [place] [address] Kati@[email or web address] .[email or web address] Medical Oncology 12/05/19 Andrei Dixon MD [address] [place] [address], [address] [place] [address] [email or web address] Orthopedic Surgery 03/27/22 Denise Black PA-C [address] [place] [address] [place] [address] [email or web address] Physician Clinical Information Systems Director 03/27/22 documented as of this encounter Additional Source Comments The information contained in this document represents components of the legal health record. It is not the complete legal health record.[facility]
--- OUTSIDE RECORDS SUMMARY | 2025-04-19 11:35 | XMS_ITS | Encounter Summary ---
Author Organization [facility] Address [address] [place] [address] Phone Care Team Providers Care Scoop Filler Name Role Phone Qamar Garcia MD Unavailable Malachi Maloney MD Unavailable [phone] Sammie Govea MD Unavailable Avinash Chong MD Unavailable [phone] Qamar Garcia MD Primary Care Provider [phone] Sofia Amaya MD, MPH Unavailable [phone] Karely Ansari MD Unavailable Neal Sultana MD, MS Unavailable Tere Keita Unavailable [phone] Mirela Barnhart MD Unavailable [phone] Andrei Dixon MD Unavailable [phone] Denise Black PA-C Unavailable [phone] Unknown, Unknown Primary Care Provider Qamar Escamilla MD Primary Care Provider Encounter Details Date Type Department Care Team (Late st Contact Info) Description 11/22/2019 Procedure Pass [facility] Periop [address] [place] [address] Social History Tobacco Use Types Packs/Day Years [...] st Contact Info) Description 09/07/2024 Procedure Pass [facility], [address] [address] 09/07/2024 Procedure Pass [facility], [address] [address] 05/10/2025 11:05 AM EST Appointment [facility], [address] [address] Mirela Barnhart MD [address] [place] [address] Kati@[email or web address] 05/10/2025 12:10 PM EST Appointment [facility], [address] [address] Mirela Barnhart MD [address] [place] [address] Kati@[email or web address] 05/10/2025 3:00 PM EST Office Visit [facility], [address], [address] [place] [address] Mirela Barnhart MD 450 [place] [address] [email or web address] [email or web address] 12/07/2025 11:00 AM EDT Office Visit [facility] 234 [place] [address] Arlene Hernandez MD 234 [facility] 7 [place] [address] THERESA@[email or web address] 04/06/2026 10:20 AM EDT Office Visit [facility] [address] [place] [address] 3rd Floor, [address] [place] [address] Margarito Walker MD [address] [place] [address] [address] [place] [address] [email or web address] documented as of this encounter Visit Diagnoses Not on filedocumented in this encounter Additional Health Concerns Infection Onset Date Last Indicated Resolved Time CoV-Risk 01/13/2020 01/13/2020 01/13/2020 4:17 PM EDT CoV-Presumed 05/27/2022 05/27/2022 06/17/2022 3:51 AM EST CoV-Risk 09/22/2023 09/22/2023 09/22/2023 4:53 PM EDT COVID-19 09/22/2023 09/22/2023 10/13/2023 1:21 AM EDT documented as of this encounter Care Teams Scoop Filler Relationship Specialty Start Date End Date Qamar Garcia MD [address] [place] [address] PCP - General Internal Medicine 10/14/18 03/26/22 Unknown, Emely, MD PCP - General 04/08/22 07/22/22 Qamar Garcia MD [address] [place] [address] PCP - General Internal Medicine 07/23/22 Qamar Garcia MD [address] [place] [address] Primary Care Physician 05/06/17 Malachi Maloney MD [address] [place] [address], [facility] [[email or web address] 301 [place] [address] [email or web address] Historical LMR Provider 04/23/17 07/13/21 Sammie Govea MD [address] [place] [address] Orthopedics [facility] Sports Medicine, [place] [address] [email or web address] Historical LMR Provider 04/23/17 07/13/21 Avinash Chong MD [address] [place] [address] [email or web address] Historical LMR Provider 04/23/17 Sofia Amaya MD, MPH [address] [place] [address] [email or web address] .[facility] Primary Oncologist Radiation Oncology 08/19/19 Karely Ansari MD [address] [place] [address] Primary Oncologist Medical Oncology 08/19/19 12/04/19 Neal Sultana MD, MS [address] [place] [address] [email or web address] Primary Oncologist Surgical Oncology 08/19/19 Tere Keita, [address] [address] Tanya@[facility] Training Specialist Oncology 09/19/19 03/13/25 Mirela Barnhart MD [address] [place] [address] Kati@[facility] .[facility] Medical Oncology 12/05/19 Andrei Dixon MD [address] [place] [address] [email or web address] Orthopedic Surgery 03/27/22 Denise Black PA-C [address] [place] [address] [email or web address] Physician Flamer Sealer 03/27/22 documented as of this encounter Additional Source Comments The information contained in this document represents components of the legal health record. It is not the complete legal health record.[facility]
--- OUTSIDE RECORDS SUMMARY | 2025-04-19 11:36 | XMS_ITS | Encounter Summary ---
Author Organization [facility] Address [address] [place] [address] [place] [address] Phone Care Team Providers Care Substation Electrician Supervisor Name Role Phone Qamar Garcia MD Unavailable [phone] Avinash Chong MD Unavailable [phone] Sofia Amaya MD, MPH Unavailable +- [phone] Neal Sultana MD, MS Unavailable Tere KeitaSW Unavailable [phone] Mirela Barnhart MD Unavailable [phone] Andrei Dixon MD Unavailable [phone] Denise BlackC Unavailable [phone] Qamar Garcia MD Primary Care Provider [phone] Encounter Details Date Type Department Care Team (Late st Contact Info) Description 02/25/2023 Procedure Pass [facility] Imaging [facility], [facility] [place], [place] 450 [facility], Floor L1 [place] [address] Social History Tobacco Use Types Packs/Day Years [...] Info) Description 09/07/2024 Procedure Pass [facility], [place] [address] [address] 09/07/2024 Procedure Pass [facility], [facility] [address] [address] 05/10/2025 11:05 AM EST Appointment [facility], [facility] [address] [address] Mirela Barnhart MD [address] [place] [address] [email or web address] [email or web address] 05/10/2025 12:10 PM EST Appointment [place], [place] 300 [facility] 3rd [place] [address] Mirela Barnhart MD [address] [place] [address] Kati@d [email or web address] 05/10/2025 3:00 PM EST Office Visit [facility], [address], [address]th [place] [address] Mirela Barnhart MD [address] [place] [address] Kati@d [facility] 12/07/2025 11:00 AM EDT Office Visit [facility] [address] [address] Arlene Hernandez MD [address] [place] [address] THERESA@[email or web address] 04/06/2026 10:20 AM EDT Office Visit [facility] [address] [place] [address] 3rd [facility], [address] [place] [address] Margarito Walker MD [address] [place] [address] [email or web address] documented as of this encounter Visit Diagnoses Not on filedocumented in this encounter Additional Health Concerns Infection Onset Date Last Indicated Resolved Time CoV-Risk 09/22/2023 09/22/2023 09/22/2023 4:53 PM EDT COVID-19 09/22/2023 09/22/2023 10/13/2023 1:21 AM EDT documented as of this encounter Care Teams Substation Electrician Supervisor Relationship Specialty Start Date End Date Qamar Garcia MD [address] [place] [address] PCP - General Internal Medicine 07/23/22 Qamar Garcia MD [address] [place] [address] Primary Care Physician 05/06/17 Avinash Chong MD [address] [place] [address] [email or web address] Historical LMR Provider 04/23/17 Sofia Amaya MD, MPH [address] [place] [address] [email or web address] Primary Oncologist Radiation Oncology 08/19/19 Neal Sultana MD, MS [address] [place] [address] [email or web address]@[email or web address] Primary Oncologist Surgical Oncology 08/19/19 Tere Keita, [address] [address] Tanya@[facility] Hand Flatwork Finisher Oncology 09/19/19 03/13/25 Mirela Barnhart MD [address] [place] [address] Kati@[email or web address] Medical Oncology 12/05/19 Andrei Dixon MD [address] [place] [address] [email or web address] Orthopedic Surgery 03/27/22 Denise Black PA-C [address] [place] [address] [email or web address]. simone Physician Semiconductor Packages Tester 03/27/22 documented as of this encounter Additional Source Comments The information contained in this document represents components of the legal health record. It is not the complete legal health record.[facility]
--- OUTSIDE RECORDS SUMMARY | 2025-04-19 11:36 | XMS_ITS | Encounter Summary ---
Author Organization [facility] Address [address] [place] [address] Phone Care Team Providers Care Hand Stitcher Name Role Phone Qamar Garcia MD Unavailable Malachi Maloney MD Unavailable [phone] Sammie Govea MD Unavailable Avinash Chong MD Unavailable [phone] Qamar Garcia MD Primary Care Provider [phone] Sofia Amaya MD, MPH Unavailable +- [phone] Neal Sultana MD, MS Unavailable Tere Keita Unavailable [phone] Mirela Barnhart MD Unavailable [phone] Andrei Dixon MD Unavailable [phone] Denise Black PA-C Unavailable [phone] Unknown, Unknown Primary Care Provider Qamar Escamilla MD Primary Care Provider + [phone] Encounter Details Date Type Department Care Team (Late st Contact Info) Description 05/15/2020 Procedure Pass [facility], [facility] [place] 450 [facility], Floor L1 [place] [address] Social History Tobacco Use Types Packs/Day Years [...] st Contact Info) Description 09/07/2024 Procedure Pass [facility], [place] [address] [address] 09/07/2024 Procedure Pass [facility], [facility] [address] [address] 05/10/2025 11:05 AM EST Appointment [facility], [facility] [address] [address] Mirela Barnhart MD [address] [place] [address] [email or web address] 05/10/2025 12:10 PM EST Appointment [facility], [place] [address] [address] Mirela Barnhart MD [address] [place] [address] Kati@[email or web address] 05/10/2025 3:00 PM EST Office [facility], [address], [address] [place] [address] Mirela Barnhart MD 450 [place] [address] [email or web address] [email or web address] 12/07/2025 11:00 AM EDT Office Visit [facility] 234 [place] [address] Arlene Hernandez MD 234 [facility] 7 [place] [address] THERESA@[facility] 04/06/2026 10:20 AM EDT Office Visit [facility] [address] [place] [address] 3rd Floor, [address] [place] [address] Margarito Walker MD 22 [facility] [address] [place] [address] [email or web address] documented as of this encounter Visit Diagnoses Not on filedocumented in this encounter Additional Health Concerns Infection Onset Date Last Indicated Resolved Time CoV-Presumed 05/27/2022 05/27/2022 06/17/2022 3:51 AM EST CoV-Risk 09/22/2023 09/22/2023 09/22/2023 4:53 PM EDT COVID-19 09/22/2023 09/22/2023 10/13/2023 1:21 AM EDT documented as of this encounter Care Teams Hand Stitcher Relationship Specialty Start Date End Date Qamar Garcia MD [address] [place] [address] PCP - General Internal Medicine 10/14/18 03/26/22 Unknown, Unknown, MD PCP - General 04/08/22 07/22/22 Qamar Garcia MD [address] [place] [address] PCP - General Internal Medicine 07/23/22 Qamar Garcia MD [address] [place] [address] Primary Care Physician 05/06/17 Malachi Maloney MD [address] [place] [address], [facility] 301 [place] [address] [email or web address] Historical LMR Provider 04/23/17 07/13/21 Sammie Govea MD [address] [place] [address] Orth[facility] Sports Medicine, [place] [address] [email or web address] Historical LMR Provider 04/23/17 07/13/21 Avinash Chong MD [address] [place] [address] [email or web address] Historical LMR Provider 04/23/17 Sofia Amaya MD, MPH [address] [place] [address] [email or web address] Primary Oncologist Radiation Oncology 08/19/19 Neal Sultana MD, MS [address] [place] [address] FAIZAN@[email or web address] Primary Oncologist Surgical Oncology 08/19/19 Tere Keita, [address] [address] Tanya@[email or web address] Sales And Marketing Administrator Oncology 09/19/19 03/13/25 Mirela Barnhart MD [address] [place] [address] Kati@[email or web address] .[email or web address] Medical Oncology 12/05/19 Andrei Dixon MD [address] [place] [address], [address] [place] [address] [email or web address] Orthopedic Surgery 03/27/22 Denise Black PA-C [address] [place] [address] [email or web address]. simone Physician Camp Head Counselor 03/27/22 documented as of this encounter Additional Source Comments The information contained in this document represents components of the legal health record. It is not the complete legal health record.[facility]
--- OUTSIDE RECORDS SUMMARY | 2025-04-19 11:36 | XMS_ITS | Encounter Summary ---
Author Organization [facility] Address [address] [place] [address] Phone Care Team Providers Care Language And Literature Division Chair Name Role Phone Qamar Garcia MD Unavailable Malachi Maloney MD Unavailable [phone] Sammie Govea MD Unavailable [phone] Avinash Chong MD Unavailable [phone] Qamar Garcia MD Primary Care Provider [phone] Sofia Amaya MD, MPH Unavailable [phone] Karely Ansari MD Unavailable Neal Sultana MD, MS Unavailable Tere Keita Unavailable [phone] Mirela Barnhart MD Unavailable [phone] Andrei Dixon MD Unavailable [phone] Denise Black PA-C Unavailable [phone] Unknown, Unknown Primary Care Provider Qamar Escamilla MD Primary Care Provider Encounter Details Date Type Department Care Team (Late st Contact Info) Description 01/31/2019 Ancillary Orders Virtual Department [address] [place] [address] Qamar Garcia MD [address] [place] [address] Social History Tobacco Use Types Packs/Day Years [...] st Contact Info) Description 09/07/2024 Procedure Pass [facility], [address] [address] 09/07/2024 Procedure Pass [facility], [address] [address] 05/10/2025 11:05 AM EST Appointment [facility], [address] [address] Mirela Barnhart MD [address] [place] [address] Kati@[email or web address] [facility] 05/10/2025 12:10 PM EST Appointment [address] [address] Mirela Barnhart MD [address] [place] [address] Kati@jc [facility] 05/10/2025 3:00 PM EST Office Visit [facility], [facility] 450 [facility], 6th [place] [address] Mirela Barnhart MD 450 [place] [address] Kati@d [email or web address] 12/07/2025 11:00 AM EDT Office Visit [address] [address] Arlene Hernandez MD [address] [place] [address] 7 [place] [address] THERESA@[facility] 04/06/2026 10:20 AM EDT Office Visit [facility] [address] [place] [address] 3rd Floor, [address] [place] [address] Margarito Walker MD [address] [place] [address] [address] [place] [address] [email or web address] documented as of this encounter Visit Diagnoses Not on filedocumented in this encounter Additional Health Concerns Infection Onset Date Last Indicated Resolved Time CoV-Risk 01/13/2020 01/13/2020 01/13/2020 4:17 PM EDT CoV-Presumed 05/27/2022 05/27/2022 06/17/2022 3:51 AM EST CoV-Risk 09/22/2023 09/22/2023 09/22/2023 4:53 PM EDT COVID-19 09/22/2023 09/22/2023 10/13/2023 1:21 AM EDT documented as of this encounter Care Teams Language And Literature Division Chair Relationship Specialty Start Date End Date Qamar Garcia MD [address] [place] [address] PCP - General Internal Medicine 10/14/18 03/26/22 Unknown, Unknown, MD PCP - General 04/08/22 07/22/22 Qamar Garcia MD [address] [place] [address] PCP - General Internal Medicine 07/23/22 Qamar Garcia MD [address] [place] [address] Primary Care Physician 05/06/17 Malachi Maloney MD [address] [place] [address], [address] [address] [email or web address] Historical LMR Provider 04/23/17 07/13/21 Sammie Govea MD [address] [place] [address] Orthopedics & Sports Medicine, [place] [address] [email or web address] Historical LMR Provider 04/23/17 07/13/21 Avinash Chong MD [address] [place] [address] [email or web address] Historical LMR Provider 04/23/17 Sofia Amaya MD, MPH [address] [place] [address] [email or web address] Primary Oncologist Radiation Oncology 08/19/19 Karely Ansari MD [address] [place] [address] Primary Oncologist Medical Oncology 08/19/19 12/04/19 Neal Sultana MD, MS [address] [place] [address] FAIZAN@[email or web address] Primary Oncologist Surgical Oncology 08/19/19 Tere Keita, [address] [address] Tanya@[facility] Diesel Engine Specialist Oncology 09/19/19 03/13/25 Mirela Barnhart MD [address] [place] [address] Kati@[email or web address] Medical Oncology 12/05/19 Andrei Dixon MD [address] [place] [address] [email or web address] Orthopedic Surgery 03/27/22 Denise Black PA-C [address] [place] [address] [email or web address]. simone Physician Medical Insurance Collector 03/27/22 documented as of this encounter Additional Source Comments The information contained in this document represents components of the legal health record. It is not the complete legal health record.[facility]
--- OUTSIDE RECORDS SUMMARY | 2025-04-19 11:36 | XMS_ITS | Encounter Summary ---
Author Organization [facility] Address [address] [place] [address] Phone Care Team Providers Care Dye Weigher Name Role Phone Qamar Garcia MD Unavailable [phone] Malachi Maloney MD Unavailable [phone] Sammie Govea MD Unavailable [phone] Avinash Chong MD Unavailable [phone] Qamar Garcia MD Primary Care Provider + [phone] Sofia Amaya MD, MPH Unavailable + [phone] Neal Sultana MD, MS Unavailable Tere Keita Unavailable [phone] Mirela Barnhart MD Unavailable [phone] Andrei Dixon MD Unavailable [phone] Denise Black PA-C Unavailable [phone] Unknown, Unknown Primary Care Provider Qamar Escamilla MD Primary Care Provider + [phone] Encounter Details Date Type Department Care Team (Late st Contact Info) Description 03/25/2021 Procedure Pass [facility] [address] [place] [address] Social History Tobacco Use Types Packs/Day Years [...] st Contact Info) Description 09/07/2024 Procedure Pass [facility], [address] [address] 09/07/2024 Procedure Pass [facility], [address] [address] 05/10/2025 11:05 AM EST Appointment [facility], [address] [address] Mirela Barnhart MD [address] [place] [address] [email or web address] 05/10/2025 12:10 PM EST Appointment [facility], [address] [address] Mirela Barnhart MD [address] [place] [address] Kati@[email or web address] 05/10/2025 3:00 PM EST Office [facility], [address], [address] [place] [address] Mirela Barnhart MD 450 [place] [address] [email or web address] 12/07/2025 11:00 AM EDT Office Visit [facility] 234 [place] [address] Arlene Hernandez MD 234 [facility] 7 [place] [address] THERESA@[facility] 04/06/2026 10:20 AM EDT Office Visit [facility] [address] [place] [address] 3rd Floor, [address] [place] [address] Margarito Walker MD 22 [facility] [address] [place] [address] [email or web address] documented as of this encounter Visit Diagnoses Not on filedocumented in this encounter Additional Health Concerns Infection Onset Date Last Indicated Resolved Time CoV-Presumed 05/27/2022 05/27/2022 06/17/2022 3:51 AM EST CoV-Risk 09/22/2023 09/22/2023 09/22/2023 4:53 PM EDT COVID-19 09/22/2023 09/22/2023 10/13/2023 1:21 AM EDT documented as of this encounter Care Teams Dye Weigher Relationship Specialty Start Date End Date Qamar Garcia MD [address] [place] [address] PCP - General Internal Medicine 10/14/18 03/26/22 Unknown, Unknown, MD PCP - General 04/08/22 07/22/22 Qamar Garcia MD [address] [place] [address] PCP - General Internal Medicine 07/23/22 Qamar Garcia MD [address] [place] [address] Primary Care Physician 05/06/17 Malachi Maloney MD [address] [place] [address], [facility] 301 [place] [address] [email or web address] Historical LMR Provider 04/23/17 07/13/21 Sammie Govea MD [address] [place] [address] Orthopedics & Sports Medicine, [place] [address] [email or web address] Historical LMR Provider 04/23/17 07/13/21 Avinash Chong MD [address] [place] [address] [email or web address] Historical LMR Provider 04/23/17 Sofia Amaya MD, MPH [address] [place] [address] [email or web address] .[facility] Primary Oncologist Radiation Oncology 08/19/19 Neal Sultana MD, MS [address] [place] [address] FAIZAN@[facility] Primary Oncologist Surgical Oncology 08/19/19 Tere Keita, [address] [address] [email or web address] Supervisor Sound Technician Oncology 09/19/19 03/13/25 Mirela Barnhart MD [address] [place] [address] [email or web address] Medical Oncology 12/05/19 Andrei Dixon MD [address] [place] [address], [address] [address] [email or web address] Orthopedic Surgery 03/27/22 Denise Black PA-C [address] [place] [address] [email or web address] Physician Dye Weigher 03/27/22 documented as of this encounter Additional Source Comments The information contained in this document represents components of the legal health record. It is not the complete legal health record.[facility]
--- OUTSIDE RECORDS SUMMARY | 2025-04-19 11:36 | XMS_ITS | Encounter Summary ---
Author Organization [facility] Address [address] [place] [address] [place] [address] Phone Care Team Providers Care Training Officer Name Role Phone Qamar Garcia MD Unavailable [phone] Avinash Chong MD Unavailable [phone] Sofia Amaya MD, MPH Unavailable +[phone] Neal Sultana MD, MS Unavailable Tere KeitaSW Unavailable [phone] Mirela Barnhart MD Unavailable [phone] Andrei Dixon MD Unavailable [phone] Denise Black PA-C Unavailable [phone] Qamar Garcia MD Primary Care Provider [phone] Encounter Details Date Type Department Care Team (Late st Contact Info) Description 02/25/2023 Procedure Pass Madalyn Lank Imaging Department, [facility], [place] 450 [facility], Floor L1 [place] [address] Social History Tobacco Use Types Packs/Day Years [...] st Contact Info) Description 09/07/2024 Procedure Pass [facility], [place] [address] [address] 09/07/2024 Procedure Pass [facility], [facility] [address] [address] 05/10/2025 11:05 AM EST Appointment [facility], [facility] [address] [address] Mirela Barnhart MD [address] [place] [address] Kati@[email or web address] 05/10/2025 12:10 PM EST Appointment [place] 300 [facility] 3rd [place] [address] Mirela Barnhart MD [address] [place] [address] Kati@[email or web address] 05/10/2025 3:00 PM EST Office [facility], [address], [address] [place] [address] Mirela Barnhart MD [address] [place] [address] Kati@[email or web address] 12/07/2025 11:00 AM EDT Office Visit [facility] [address] [address] Arlene Hernandez MD [address] [place] [address] THERESA@[facility] 04/06/2026 10:20 AM EDT Office Visit [facility] [address] [place] [address] 3rd [facility], [address] [place] [address] Margarito Walker MD [address] [place] [address] [email or web address] documented as of this encounter Visit Diagnoses Not on filedocumented in this encounter Additional Health Concerns Infection Onset Date Last Indicated Resolved Time CoV-Risk 09/22/2023 09/22/2023 09/22/2023 4:53 PM EDT COVID-19 09/22/2023 09/22/2023 10/13/2023 1:21 AM EDT documented as of this encounter Care Teams Training Officer Relationship Specialty Start Date End Date Qamar Garcia MD [address] [place] [address] PCP - General Internal Medicine 07/23/22 Qamar Garcia MD [address] [place] [address] Primary Care Physician 05/06/17 Avinash Chong MD [address] [place] [address] [email or web address] Historical LMR Provider 04/23/17 Sofia mAaya MD, MPH [address] [place] [address] [email or web address] Primary Oncologist Radiation Oncology 08/19/19 Neal Sultana MD, MS [address] [place] [address] FAIZAN@[facility] Primary Oncologist Surgical Oncology 08/19/19 Tere Keita, [address] [address] Tanya@[facility] Propeller Driven Airplane Mechanic Oncology 09/19/19 03/13/25 Mirela Barnhart MD [address] [place] [address] Kati@[email or web address] Medical Oncology 12/05/19 Andrei Dixon MD [address] [place] [address] [email or web address] Orthopedic Surgery 03/27/22 Denise Black PA-C [address] [place] [address] [email or web address]. simone Physician Waste Recycler 03/27/22 documented as of this encounter Additional Source Comments The information contained in this document represents components of the legal health record. It is not the complete legal health record.[facility]
--- OUTSIDE RECORDS SUMMARY | 2025-04-19 11:36 | XMS_ITS | Encounter Summary ---
Author Organization [facility] Address [address] [place] [address] [place] [address] Phone Care Team Providers Care Can Worker Name Role Phone Qamar Garcia MD Unavailable [phone] Avinash Chong MD Unavailable [phone] Sofia Amaya MD, MPH Unavailable +- [phone] Neal Sultana MD, MS Unavailable Tere Keita [facility] Unavailable [phone] Mirela Barnhart MD Unavailable [phone] Andrei Dixon MD Unavailable [phone] Denise Black-C Unavailable [phone] Qamar Garcia MD Primary Care Provider [phone] Encounter Details Date Type Department Care Team (Late st Contact Info) Description 08/06/2022 Procedure Pass [facility] [place] [address] [address] Social History Tobacco Use [...] st Contact Info) Description 09/07/2024 Procedure Pass [facility] [place] [address] [address] 09/07/2024 Procedure Pass [facility], [address] [address] 05/10/2025 11:05 AM EST Appointment [facility], [address] [address] Mirela Barnhart MD [address] [place] [address] [email or web address]@d [email or web address] 05/10/2025 12:10 PM EST Appointment [facility], [address] [address] Mirela Barnhart MD [address] [place] [address] [email or web address] 05/10/2025 3:00 PM EST Office Visit [facility], [address], [address]th [place] [address] Mirela Barnhart MD [address] [place] [address] Kati@[facility] 12/07/2025 11:00 AM EDT Office Visit [facility] 234 [place] [address] Arlene Hernandez MD 234 [facility], [address] [place] [address] THERESA@[email or web address] [place] 04/06/2026 10:20 AM EDT Office Visit [facility] 22 [facility] 3rd Floor, [address] [place] [address] Margarito Walker MD 22 [facility], [address] [place] [address] [email or web address] documented as of this encounter Visit Diagnoses Not on filedocumented in this encounter Additional Health Concerns Infection Onset Date Last Indicated Resolved Time CoV-Risk 09/22/2023 09/22/2023 09/22/2023 4:53 PM EDT COVID-19 09/22/2023 09/22/2023 10/13/2023 1:21 AM EDT documented as of this encounter Care Teams Can Worker Relationship Specialty Start Date End Date Qamar Garcia MD [address] [place] [address] PCP - General Internal Medicine 07/23/22 Qamar Garcia MD [address] [place] [address] Primary Care Physician 05/06/17 Avinash Chong MD [address] [address] [email or web address] Historical LMR Provider 04/23/17 Sofia Amaya MD, MPH [address] [place] [address] [email or web address]@[facility] .[facility] Primary Oncologist Radiation Oncology 08/19/19 Neal Sultana MD, MS [address] [place] [address] FAIZAN@[facility] Primary Oncologist Surgical Oncology 08/19/19 Tere Keita, [address] [address] [email or web address]@[email or web address] Internet Sourcer Oncology 09/19/19 03/13/25 Mirela Barnhart MD [address] [place] [address] Kati@[facility] .[facility] Medical Oncology 12/05/19 Andrei Dixon MD [address] [place] [address] [email or web address]@[email or web address] Orthopedic Surgery 03/27/22 Denise Black PA-C [address] [place] [address] [email or web address] Physician Development Lead 03/27/22 documented as of this encounter Additional Source Comments The information contained in this document represents components of the legal health record. It is not the complete legal health record[facility]
--- OUTSIDE RECORDS SUMMARY | 2025-04-19 11:36 | XMS_ITS | Encounter Summary ---
Author Organization [facility] Address [address] [place] [address] Phone Care Team Providers Care Cotton Jammer Name Role Phone Qamar Garcia MD Unavailable Malachi Maloney MD Unavailable [phone] Sammie Govea MD Unavailable Avinash Chong MD Unavailable [phone] Qamar Garcia MD Primary Care Provider [phone] Sofia Amaya MD, MPH Unavailable [phone] Neal Sultana MD, MS Unavailable Tere Keita Unavailable Mirela Barnhart MD Unavailable [phone] Andrei Dixon MD Unavailable [phone] Denise Black PA-C Unavailable [phone] Unknown, Unknown Primary Care Provider Qamar Escamilla MD Primary Care Provider + [phone] Reason for Referral * MRI/CAT Scan - Closed Specialty Diagnoses / Procedures Referred By Bam arellano Referred To Contact Radiology Diagnoses Right knee pain, unspecified chronicity Procedures MRI Knee (Right) Qamar Garcia MD Phone: tel: fax: Referral ID Status Reason Start Date Expiration Date Visits Re quested Visits Authorized [id number] Closed 02/01/2021 02/01/2022 1 1 Encounter Details Date Type Department Care Team (Latest Contact Info) Description 02/01/2021 Transcribe Orders Virtual Department 30 [place] [address] Qamar Garcia MD [address] [place] [address] Right knee pain, unspecified chronicity (Primary Dx) [...] st Contact Info) Description 09/07/2024 Procedure Pass [facility], [place] [address] [address] 09/07/2024 Procedure Pass [facility], [facility] [address] [address] 05/10/2025 11:05 AM EST Appointment [facility], [facility] [address] [address] Mirela Barnhart MD [address] [place] [address] Kati@[email or web address] 05/10/2025 12:10 PM EST Appointment [facility] [place] [place] 300 [facility] 3rd [place] [address] Mirela Barnhart MD [address] [place] [address] Kati@[email or web address] 05/10/2025 3:00 PM EST Office [facility], [address], 6th [place] [address] Mirela Barnhart MD 450 [place] [address] [email or web address] 12/07/2025 11:00 AM EDT Office Visit [address] [address] Arlene Hernandez MD [address] [place] [address] [email or web address]@[email or web address] 04/06/2026 10:20 AM EDT Office Visit [facility] [address] [place] [address] 3rd [facility], [address] [place] [address] Margarito Walker MD [address] [place] [address] [email or web address] documented as of this encounter Results * [...] documented as of this encounter Care Teams Cotton Jammer Relationship Specialty Start Date End Date Qamar Garcia MD [address] [place] [address] PCP - General Internal Medicine 10/14/18 03/26/22 Unknown, Unknown, PCP - General 04/08/22 07/22/22 Qamar Garcia MD [address] [place] [address] PCP - General Internal Medicine 07/23/22 Qamar Garcia MD [address] [place] [address] Primary Care Physician 05/06/17 Malachi Maloney MD [address] [place] [address] 301 [place] [address] [email or web address] Historical LMR Provider 04/23/17 07/13/21 Sammie Govea MD [address] [place] [address] Orthopedics [facility] Sports Medicine, [place] [address] [email or web address] Historical LMR Provider 04/23/17 07/13/21 Avinash Chong MD [address] [place] [address] [email or web address] Historical LMR Provider 04/23/17 Sofia Amaya MD, MPH [address] [place] [address] [email or web address] .[facility] Primary Oncologist Radiation Oncology 08/19/19 Neal Sultana MD, MS [address] [place] [address] [email or web address] Primary Oncologist Surgical Oncology 08/19/19 Tere Keita, [address] [address] [email or web address] Balance Clerk Oncology 09/19/19 03/13/25 Mirela Barnhart MD [address] [place] [address] Kati@[facility] Medical Oncology 12/05/19 Andrei Dixon MD [address] [place] [address] [email or web address] Orthopedic Surgery 03/27/22 Denise Black PA-C [address] [place] [address] [email or web address]. simone Physician Lunch Truck Operator 03/27/22 documented as of this encounter Additional Source Comments The information contained in this document represents components of the legal health record. It is not the complete legal health record.[facility]
--- OUTSIDE RECORDS SUMMARY | 2025-04-19 11:36 | XMS_ITS | Encounter Summary ---
Author Organization [facility] Address [address] [place] [address] [place] [address] Phone Care Team Providers Care Hand I Thermal Cutter Name Role Phone Qamar Garcia MD Unavailable [phone] Avinash Chong MD Unavailable [phone] Sofia Amaya MD, MPH Unavailable [phone] Neal Sultana MD, MS Unavailable Tere Keita [facility] Unavailable [phone] Mirela Barnhart MD Unavailable [phone] Andrei Dixon MD Unavailable [phone] Denise Black-C Unavailable [phone] Qamar Garcia MD Primary Care Provider [phone] Encounter Details Date Type Department Care Team (Late st Contact Info) Description 08/06/2022 Procedure Pass [facility] [place] [address] [address] Social History Tobacco Use Types [...] st Contact Info) Description 09/07/2024 Procedure Pass [facility], [place] [address] [address] 09/07/2024 Procedure Pass [facility], [address] [address] 05/10/2025 11:05 AM EST Appointment [facility], [address] [address] Mirela Barnhart MD [address] [place] [address] [email or web address]@d [email or web address] 05/10/2025 12:10 PM EST Appointment [facility], [address] [address] Mirela Barnhart MD [address] [place] [address] Kati@[email or web address] [email or web address] 05/10/2025 3:00 PM EST Office Visit [facility], [address], 6th [place] [address] Mirela Barnhart MD [address] [place] [address] [email or web address] 12/07/2025 11:00 AM EDT Office Visit [facility] [address] [place] [address] Arlene Hernandez MD [address] [facility], [address] [place] [address] THERESA@[facility] [place].[facility] 04/06/2026 10:20 AM EDT Office Visit [facility] [address] [facility] 3rd Floor, [address] [place] [address] Margarito Walker MD [address] [facility], [address] [place] [address] [email or web address] documented as of this encounter Visit Diagnoses Not on filedocumented in this encounter Additional Health Concerns Infection Onset Date Last Indicated Resolved Time CoV-Risk 09/22/2023 09/22/2023 09/22/2023 4:53 PM EDT COVID-19 09/22/2023 09/22/2023 10/13/2023 1:21 AM EDT documented as of this encounter Care Teams Hand I Thermal Cutter Relationship Specialty Start Date End Date Qamar Garcia MD [address] [place] [address] PCP - General Internal Medicine 07/23/22 Qamar Garcia MD [address] [place] [address] Primary Care Physician 05/06/17 Avinash Chong MD [address] [address] [email or web address] Historical LMR Provider 04/23/17 Sofia Amaya MD, MPH [address] [place] [address] [email or web address] .[email or web address] Primary Oncologist Radiation Oncology 08/19/19 Neal Sultana MD, MS [address] [place] [address] [email or web address]@[facility] Primary Oncologist Surgical Oncology 08/19/19 Tere Keita, [address] [address] [email or web address] Authorization Specialist Oncology 09/19/19 03/13/25 Mirela Barnhart MD [address] [place] [address] Kati@[facility] .[facility] Medical Oncology 12/05/19 Andrei Dixon MD [address] [place] [address] [email or web address] Orthopedic Surgery 03/27/22 Denise Black PA-C [address] [place] [address] [email or web address]. simone Physician Student Affairs Dean 03/27/22 documented as of this encounter Additional Source Comments The information contained in this document represents components of the legal health record. It is not the complete legal health record.[facility]
--- OUTSIDE RECORDS SUMMARY | 2025-04-19 11:36 | XMS_ITS | Encounter Summary ---
Author Organization [facility] Address [address] [place] [address] Phone Care Team Providers Care Criminal Records Technician Name Role Phone Qamar Garcia MD Unavailable [phone] Malachi Maloney MD Unavailable [phone] Sammie Govea MD Unavailable Avinash Chong MD Unavailable [phone] Qamar Garcia MD Primary Care Provider [phone] Sofia Amaya MD, MPH Unavailable [phone] Neal Sultana MD, MS Unavailable Tere Keita Unavailable [phone] Mirela Barnhart MD Unavailable [phone] Andrei Dixon MD Unavailable [phone] Denise Black PA-C Unavailable [phone] Unknown, Unknown Primary Care Provider Qamar Escamilla MD Primary Care Provider + [phone] Encounter Details Date Type Department Care Team (Late st Contact Info) Description 05/15/2020 Procedure Pass [facility], [facility], MRI [address] [address] Social History Tobacco Use Types Packs/Day Years [...] st Contact Info) Description 09/07/2024 Procedure Pass [facility], [place] [address] [address] 09/07/2024 Procedure Pass [facility], [facility] [address] [address] 05/10/2025 11:05 AM EST Appointment [facility], [facility] [address] [address] Mirela Barnhart MD [address] [place] [address] Kati@[email or web address] 05/10/2025 12:10 PM EST Appointment [facility], [place] [address] [address] Mirela Barnhart MD [address] [place] [address] Kati@[email or web address] 05/10/2025 3:00 PM EST Office Visit [facility], [address], 6th [place] [address] Mirela Banrhart MD 450 [place] [address] Kati@[email or web address] 12/07/2025 11:00 AM EDT Office Visit [facility] 234 [place] [address] Arlene Hernandez MD 234 [facility] 7 [place] [address] THERESA@[facility] 04/06/2026 10:20 AM EDT Office Visit [facility] [address] [place] [address] 3rd Floor, [address] [place] [address] Margarito Walker MD [address] [facility] [address] [place] [address] [email or web address] documented as of this encounter Visit Diagnoses Not on filedocumented in this encounter Additional Health Concerns Infection Onset Date Last Indicated Resolved Time CoV-Presumed 05/27/2022 05/27/2022 06/17/2022 3:51 AM EST CoV-Risk 09/22/2023 09/22/2023 09/22/2023 4:53 PM EDT COVID-19 09/22/2023 09/22/2023 10/13/2023 1:21 AM EDT documented as of this encounter Care Teams Criminal Records Technician Relationship Specialty Start Date End Date Qamar Garcia MD [address] [place] [address] PCP - General Internal Medicine 10/14/18 03/26/22 Unknown, Unknown, PCP - General 04/08/22 07/22/22 Qamar Garcia MD [address] [place] [address] PCP - General Internal Medicine 07/23/22 Qamar Garcia MD [address] [place] [address] Primary Care Physician 05/06/17 Malachi Maloney MD [address] [place] [address], [address] [place] [address] [email or web address] Historical LMR Provider 04/23/17 07/13/21 Sammie Govea MD [address] [place] [address] Orthopedics & Sports Medicine, [place] [address] [email or web address] Historical LMR Provider 04/23/17 07/13/21 Avinash Chong MD [address] [place] [address] [email or web address] Historical LMR Provider 04/23/17 Sofia Amaya MD, MPH [address] [place] [address] [email or web address] Primary Oncologist Radiation Oncology 08/19/19 Neal Sultana MD, MS [address] [place] [address] [email or web address]@[facility] Primary Oncologist Surgical Oncology 08/19/19 Tere Keita, [address] [address] Tanya@[facility] Cop Winder Oncology 09/19/19 03/13/25 Mirela Barnhart MD [address] [place] [address] [email or web address] .[facility] Medical Oncology 12/05/19 Andrei Dixon MD [address] [place] [address], [address] [place] [address] [email or web address] Orthopedic Surgery 03/27/22 Denise Black PA-C [address] [place] [address] [place] [address] [email or web address]. simone Physician Safety Counselor 03/27/22 documented as of this encounter Additional Source Comments The information contained in this document represents components of the legal health record. It is not the complete legal health record.[facility]
--- OUTSIDE RECORDS SUMMARY | 2025-04-19 11:37 | XMS_ITS | Encounter Summary ---
Author Organization [facility] Address [address] [place] [address] Phone Care Team Providers Care Die Equipment Operator Name Role Phone Qamar Garcia MD Unavailable [phone] Avinash Chong MD Unavailable [phone] Sofia Amaya MD, MPH Unavailable [phone] Neal Sultana MD, MS Unavailable Tere Keita [facility] Unavailable [phone] Mirela Barnhart MD Unavailable [phone] Andrei Dixon MD Unavailable [phone] Densie Black-C Unavailable [phone] Qamar Garcia MD Primary Care Provider [phone] Reason for Referral * MRI/CAT Scan - Closed Specialty Diagnoses / Procedures Referred By Bam t Referred To Contact Radiology Diagnoses Chest pain, unspecified type Procedures NC Myocardial Perfusion Exercise Multiple NC Myocardial Perfusion Pharmacologic Stress Multiple Perfecto Cosme MD Phone: tel: fax: mailto:[email or web address] Referral ID Status Reason Start Date Expiration Date Visits Re quested Visits Authorized [id number] Closed 03/20/2023 1 1 Encounter Details Date Type Department Care Team (Latest Contact Info) Description 04/02/2023 Ancillary Orders [facility] [address] 3rd Floor, [address] [place] [address] Perfecto Cosme MD [address] [place] [address] [email or web address] Chest pain, unspecified type Social [...] Info) Description 09/07/2024 Procedure Pass [facility], [place] [address] [address] 09/07/2024 Procedure Pass [facility], [facility] [address] [address] 05/10/2025 11:05 AM EST Appointment [facility], [facility] [address] [address] Mirela Barnhart MD [address] [place] [address] Kati@jc [facility] 05/10/2025 12:10 PM EST Appointment [facility], [place] [address] [address] Mirela Barnhart MD [address] [place] [address] Kati@[email or web address] 05/10/2025 3:00 PM EST Office Visit [facility], [address]th [place] [address] Mirela Barnhart MD [address] [place] [address] Kati@jc [facility] 12/07/2025 11:00 AM EDT Office Visit [address] [address] Arlene Hernandez MD [address] [place] [address], [address] [place] [address] THERESA@[facility] [place] 04/06/2026 10:20 AM EDT Office Visit [facility] [address] [facility] 3rd Floor, [address] [place] [address] Margarito Walker MD [address] [facility], [address] [place] [address] [email or web address] documented as of this encounter Results [...] in SPECT format, reconstructed tomographically and compared porh-[id number] in short axis, horizontal long axis and [...] infarction seen Normal left ventricular systolic function. us Perfecto Cosme MD CV NM CARDIAC Final Result documented in this encounter Visit Diagnoses Diagnosis Chest pain, unspecified type- Primary Chest pain, unspecified type documented in this encounter Additional Health Concerns Infection Onset Date Last Indicated Resolved Time CoV-Risk 09/22/2023 09/22/2023 09/22/2023 4:53 PM EDT COVID-19 09/22/2023 09/22/2023 10/13/2023 1:21 AM EDT documented as of this encounter Care Teams Die Equipment Operator Relationship Specialty Start Date End Date Qamar Garcia MD [address] [place] [address] PCP - General Internal Medicine 07/23/22 Qamar Garcia MD [address] [place] [address] Primary Care Physician 05/06/17 Avinash Chong MD [address] [place] [address] [email or web address] Historical LMR Provider 04/23/17 Sofia Amaya MD, MPH [address] [place] [address] [email or web address]@[email or web address] Primary Oncologist Radiation Oncology 08/19/19 Neal Sultana MD, MS [address] [place] [address] [email or web address]@[email or web address] LICENSE [facility] Primary Oncologist Surgical Oncology 08/19/19 Tere Keita, [address] [address] Tanya@[facility] Electronic Equipment Repairer Oncology 09/19/19 03/13/25 Mirela Barnhart MD [address] [place] [address] Kati@[email or web address] .[facility] Medical Oncology 12/05/19 Andrei Dixon MD [address] [place] [address] [email or web address] Orthopedic Surgery 03/27/22 Denise Black PA-C [address] [place] [address] [email or web address]. simone Physician Merchandise Execution Leader 03/27/22 documented as of this encounter Additional Source Comments The information contained in this document represents components of the legal health record. It is not the complete legal health record.[facility]
--- OUTSIDE RECORDS SUMMARY | 2025-04-19 11:37 | XMS_ITS | Encounter Summary ---
Author Organization [facility] Address [address] [place] [address] Phone Care Team Providers Care Strategic Procurement Manager Name Role Phone Qamar Garcia MD Unavailable [phone] Malachi Maloney MD Unavailable [phone] Sammie Govea MD Unavailable Avinash Chong MD Unavailable [phone] Qamar Garcia MD Primary Care Provider [phone] Sofia Amaya MD, MPH Unavailable + [phone] Neal Sultana MD, MS Unavailable Tere Keita Unavailable [phone] Mirela Barnhart MD Unavailable [phone] Andrei Dixon MD Unavailable [phone] Denise Black PA-C Unavailable [phone] Unknown, Unknown Primary Care Provider Qamar Escamilla MD Primary Care Provider [phone] Encounter Details Date Type Department Care Team (Late st Contact Info) Description 11/13/2020 Procedure Pass [facility] Imaging Department, [facility], [place] 450 [facility], Floor L1 [place] [address] Social History Tobacco Use Types Packs/Day Years [...] Contact Info) Description 09/07/2024 Procedure Pass [facility] [place] [address] [address] 09/07/2024 Procedure Pass [facility], [facility] [address] [address] 05/10/2025 11:05 AM EST Appointment [facility], [facility] [address] [address] Mirela Barnhart MD [address] [place] [address] Kati@jc [email or web address] 05/10/2025 12:10 PM EST Appointment [facility], [place] [address] [address] Mirela Barnhart MD [address] [place] [address] Kati@[email or web address] 05/10/2025 3:00 PM EST Office Visit [facility], [address], [address] [place] [address] Mirela Barnhart MD 450 [place] [address] [email or web address] [email or web address] 12/07/2025 11:00 AM EDT Office Visit [facility] 234 [place] [address] Arlene Hernandez MD 234 [facility] 7 [place] [address] THERESA@[facility] 04/06/2026 10:20 AM EDT Office Visit [facility] [address] [place] [address] 3rd Floor, [address] [place] [address] Margarito Walker MD 22 [facility] [address] [place] [address] [email or web address] documented as of this encounter Visit Diagnoses Not on filedocumented in this encounter Additional Health Concerns Infection Onset Date Last Indicated Resolved Time CoV-Presumed 05/27/2022 05/27/2022 06/17/2022 3:51 AM EST CoV-Risk 09/22/2023 09/22/2023 09/22/2023 4:53 PM EDT COVID-19 09/22/2023 09/22/2023 10/13/2023 1:21 AM EDT documented as of this encounter Care Teams Strategic Procurement Manager Relationship Specialty Start Date End Date Qamar Garcia MD [address] [place] [address] PCP - General Internal Medicine 10/14/18 03/26/22 Unknown, Emely, MD PCP - General 04/08/22 07/22/22 Qamar Garcia MD [address] [place] [address] PCP - General Internal Medicine 07/23/22 Qamar Garcia MD [address] [place] [address] Primary Care Physician 05/06/17 Malachi Maloney MD [address] [place] [address], [facility] 301 [place] [address] [email or web address] Historical LMR Provider 04/23/17 07/13/21 Sammie Govea MD [address] [place] [address] Orthopedics & Sports Medicine, [place] [address] [email or web address] Historical LMR Provider 04/23/17 07/13/21 Avinash Chong MD [address] [place] [address] [email or web address] Historical LMR Provider 04/23/17 Sofia Amaya MD, MPH [address] [place] [address] Jasmyn@[facility] Primary Oncologist Radiation Oncology 08/19/19 Neal Sultana MD, MS [address] [place] [address] FAIZAN@[facility] Primary Oncologist Surgical Oncology 08/19/19 Tere Keita, [address] [address] Tanya@[facility] Dye House Supervisor Oncology 09/19/19 03/13/25 Mirela Barnhart MD [address] [place] [address] Kati@[email or web address] Medical Oncology 12/05/19 Andrei Dixon MD [address] [place] [address], [address] [place] [address] [email or web address] Orthopedic Surgery 03/27/22 Denise Black PA-C [address] [place] [address] [email or web address]. simone Physician Cinder Pit Worker 03/27/22 documented as of this encounter Additional Source Comments The information contained in this document represents components of the legal health record. It is not the complete legal health record.[facility]
--- OUTSIDE RECORDS SUMMARY | 2025-04-19 11:37 | XMS_ITS | Encounter Summary ---
Author Organization [facility] Address [address] [place] [address] Phone Care Team Providers Care Insulation Applicator Name Role Phone Qamar Garcia MD Unavailable [phone] Malachi Maloney MD Unavailable [phone] Sammie Govea MD Unavailable Avinash Chong MD Unavailable [phone] Qamar Garcia MD Primary Care Provider + [phone] Sofia Amaya MD, MPH Unavailable + [phone] Neal Sultana MD, MS Unavailable Tere Keita Unavailable [phone] Mirela Barnhart MD Unavailable [phone] Andrei Dixon MD Unavailable [phone] Denise Black PA-C Unavailable [phone] Unknown, Unknown Primary Care Provider Qamar Escamilla MD Primary Care Provider + [phone] Encounter Details Date Type Department Care Team (Latest Contact Info) Description 02/20/2021 Transcribe Orders Virtual Department 30 [place] [address] Qamar Garcia MD [address] [place] [address] Right knee pain, unspecified chronicity (Primary Dx) [...] Upcoming Encounters Date Type Department Care Team ([facility] st Contact Info) Description 09/07/2024 Procedure Pass [address] [address] 09/07/2024 Procedure Pass [facility], [address] [address] 05/10/2025 11:05 AM EST Appointment [facility], [address] [address] Mirela Barnhart MD [address] [place] [address] [email or web address] 05/10/2025 12:10 PM EST Appointment [address] [address] Mirela Barnhart MD [address] [place] [address] [email or web address] 05/10/2025 3:00 PM EST Office [facility], [facility] [address] [facility], 6th [place] [address] Mirela Barnhart MD 450 [place] [address] [email or web address] [email or web address] 12/07/2025 11:00 AM EDT Office Visit [address] [address] Arlene Hernandez MD 234 [facility] 7 [place] [address] THERESA@[email or web address] 04/06/2026 10:20 AM EDT Office Visit [facility] [address] [place] [address] 3rd Floor, [address] [place] [address] Margarito Walker MD 22 [facility] [address] [place] [address] [email or web address] documented as of this encounter Results * XR KNEE 4 OR MORE VIEWS (RIGHT) (02/28/2021 10:31 AM EDT) Anatomical Region Laterality Modality Knee Right Computed Radiogr aphy 02/28/2021 10:3 9 AM EDT Impressions 02/28/2021 10:41 AM EDT Early mxdf-qk-dnpu contact consistent with advanced medial compartment osteoarthritis right knee. Narrative 02/28/2021 10:41 AM EDT Weightbearing view of both knees as well as lateral, tunnel and sunrise views of the right knee. Comparison made to MRI from February 18. The weightbearing views of the knees demonstrates some early fjok-xm-kzjc contact with sclerosis and medial compartment the [...] views of the knees demonstrates some early mnrc-jq-mhfsblfjbec with sclerosis and medial compartment the right knee. Nochondrocalcinosis. Minor joint space loss medial compartment left knee. Afew vascular clips noted over the left tibia. Right knee: No definite effusion. Minimal enthesopathy upper pole thepatella. Patellofemoral joint space preserved. No bony lesions. Minordemineralization. IMPRESSION: Early dlaa-fo-rzll contact consistent with advanced medial compartmentosteoarthritis right [...] documented as of this encounter Care Teams Insulation Applicator Relationship Specialty Start Date End Date Qamar Garcia MD [address] [place] [address] PCP - General Internal Medicine 10/14/18 03/26/22 Unknown, Emely, PCP - General 04/08/22 07/22/22 Qamar Garcia MD [address] [place] [address] PCP - General Internal Medicine 07/23/22 Qamar Garcia MD [address] [place] [address] Primary Care Physician 05/06/17 Malachi Maloney MD [address] [place] [address], [facility] 301 [place] [address] [email or web address] Historical LMR Provider 04/23/17 07/13/21 Sammie Govea MD [address] [place] [address] Orthopedics & Sports Medicine, [place] [address] [email or web address] Historical LMR Provider 04/23/17 07/13/21 Avinash Chong MD [address] [place] [address] [email or web address] Historical LMR Provider 04/23/17 Sofia Amaya MD, MPH [address] [place] [address] [email or web address] Primary Oncologist Radiation Oncology 08/19/19 Neal Sultana MD, MS [address] [place] [address] [email or web address] Primary Oncologist Surgical Oncology 08/19/19 Tere Keita, [address] [address] Tanya@[facility] Tow Car Driver Oncology 09/19/19 03/13/25 Mirela Barnhart MD [address] [place] [address] [email or web address] Medical Oncology 12/05/19 Andrei Dixon MD [address] [place] [address], [address] [place] [address] [email or web address] Orthopedic Surgery 03/27/22 Denise Black PA-C [address] [place] [address] [email or web address]. simone Physician Assistant Professor Of English 03/27/22 documented as of this encounter Additional Source Comments The information contained in this document represents components of the legal health record. It is not the complete legal health record.[facility]
--- OUTSIDE RECORDS SUMMARY | 2025-04-19 11:37 | XMS_ITS | Encounter Summary ---
Author Organization [facility] Address [address] [place] [address] Phone Care Team Providers Care Placement Director Name Role Phone Qamar Garcia MD Unavailable [phone] Malachi Maloney MD Unavailable [phone] Sammie Govea MD Unavailable [phone] Avinash Chong MD Unavailable [phone] Qamar Garcia MD Primary Care Provider Miguelangel Reynoso MD Primary Care Provider Qamar Garcia MD Primary Care Provider Sofia Amaya MD, MPH Unavailable Karely Ansari MD Unavailable Neal Sultana MD, MS Unavailable Tere Keita Unavailable [phone] Mirela Barnhart MD Unavailable [phone] Andrei Dixon MD Unavailable [phone] Denise Black PA-C Unavailable Unknown, Unknown Primary Care Provider Qamar Escamilla MD Primary Care Provider Encounter Details Date Type Department Care Team (Late st Contact Info) Description 11/25/2017 Procedure Pass [facility], [place] 2 [address] [facility], 2nd [place] [address] Social History Tobacco Use Types Packs/Day Years [...] st Contact Info) Description 09/07/2024 Procedure Pass [address] [address] 09/07/2024 Procedure Pass [facility], [address] [address] 05/10/2025 11:05 AM EST Appointment [facility], [address] [address] Mirela Barnhart MD [address] [place] [address] [email or web address] 05/10/2025 12:10 PM EST Appointment [address] [address] Mirela Barnhart MD [address] [place] [address] [email or web address] [email or web address] 05/10/2025 3:00 PM EST Office Visit [facility], [facility] [address] [facility], 6th [place] [address] Mirela Barnhart MD 450 [place] [address] [email or web address] 12/07/2025 11:00 AM EDT Office Visit [address] [address] Arlene Hernandez MD [address] [place] [address] [email or web address] 04/06/2026 10:20 AM EDT Office Visit [facility] [address] [place] [address] 3rd Floor, [address] [place] [address] Margarito Walker MD 22 [facility] [address] [place] [address] [email or web address] documented as of this encounter Visit Diagnoses Not on filedocumented in this encounter Additional Health Concerns Infection Onset Date Last Indicated Resolved Time CoV-Risk 01/13/2020 01/13/2020 01/13/2020 4:17 PM EDT CoV-Presumed 05/27/2022 05/27/2022 06/17/2022 3:51 AM EST CoV-Risk 09/22/2023 09/22/2023 09/22/2023 4:53 PM EDT COVID-19 09/22/2023 09/22/2023 10/13/2023 1:21 AM EDT documented as of this encounter Care Teams Placement Director Relationship Specialty Start Date End Date Qamar Garcia MD [address] [place] [address] PCP - General Internal Medicine 4/9/18 2/18/19 Miguelangel Reynoso MD [address] [place] [address] 800 [place] [address] [email or web address] PCP - General Cardiology 08/24/18 10/13/18 Qamar Garcia MD [address] [place] [address] PCP - General Internal Medicine 10/14/18 03/26/22 Unknown, Emely, MD PCP - General 04/08/22 07/22/22 Qamar Garcia MD [address] [place] [address] PCP - General Internal Medicine 07/23/22 Qamar Garcia MD [address] [place] [address] Primary Care Physician 05/06/17 Malachi Maloney MD [address] [place] [address] Historical LMR Provider 04/23/17 07/13/21 Sammie Govea MD [address] [place] [address] Orthopedics & Sports Medicine, [place] [address] Historical LMR Provider 04/23/17 07/13/21 Avinash Chong MD [address] [place] [address] [email or web address] Historical LMR Provider 04/23/17 Sofia Amaya MD, MPH [address] [place] [address] [email or web address] Primary Oncologist Radiation Oncology 08/19/19 Karely Ansari MD [address] [place] [address] Primary Oncologist Medical Oncology 08/19/19 12/04/19 Neal Sultana MD, MS [address] [place] [address] [email or web address] Primary Oncologist Surgical Oncology 08/19/[address] [address] Tanya@[email or web address] Fire Equipment Inspector Oncology 09/19/19 03/13/25 Mirela Barnhart MD [address] [place] [address] [email or web address] Medical Oncology 12/05/19 Andrei Dixon MD [address] [place] [address], [address] [place] [address] [email or web address] Orthopedic Surgery 03/27/22 Denise Black PA-C [address] [place] [address] [email or web address] Physician Dean Of Women 03/27/22 documented as of this encounter Additional Source Comments The information contained in this document represents components of the legal health record. It is not the complete legal health record.[facility]
--- OUTSIDE RECORDS SUMMARY | 2025-04-19 11:37 | XMS_ITS | Encounter Summary ---
Author Organization [facility] Address [address] [place] [address] Phone Care Team Providers Care Water Taxi Driver Name Role Phone Qamar Garcia MD Unavailable [phone] Malachi Maloney MD Unavailable [phone] Sammie Govea MD Unavailable Avinash Chong MD Unavailable Qamar Garcia MD Primary Care Provider [phone] Sofia Amaya MD, MPH Unavailable + [phone] Neal Sultana MD, MS Unavailable Tere Keita Unavailable [phone] Mirela Barnhart MD Unavailable [phone] Andrei Dixon MD Unavailable [phone] Denise Black PA-C Unavailable [phone] Unknown, Unknown Primary Care Provider Qamar Escamilla MD Primary Care Provider + [phone] Encounter Details Date Type Department Care Team (Late st Contact Info) Description 11/13/2020 Procedure Pass [facility], [facility], MRI [address] [address] Social History Tobacco Use Types Packs/Day Years [...] st Contact Info) Description 09/07/2024 Procedure Pass [facility], [place] [address] [address] 09/07/2024 Procedure Pass [facility], [facility] [address] [address] 05/10/2025 11:05 AM EST Appointment [facility], [address] [address] Mirela Barnhart MD [address] [place] [address] [email or web address] 05/10/2025 12:10 PM EST Appointment [facility], [place] [address] [address] Mirela Barnhart MD [address] [place] [address] [email or web address] 05/10/2025 3:00 PM EST Office Visit [facility], [address], [address]th [place] [address] Mirela Barnhart MD 450 [place] [address] [email or web address] [email or web address] 12/07/2025 11:00 AM EDT Office Visit [facility] 234 [place] [address] Arlene Hernandez MD 234 [facility] 7 [place] [address] THERESA@[email or web address] 04/06/2026 10:20 AM EDT Office Visit [facility] [address] [place] [address] 3rd Floor, [address] [place] [address] Margarito Walker MD 22 [facility] [address] [place] [address] [email or web address] documented as of this encounter Visit Diagnoses Not on filedocumented in this encounter Additional Health Concerns Infection Onset Date Last Indicated Resolved Time CoV-Presumed 05/27/2022 05/27/2022 06/17/2022 3:51 AM EST CoV-Risk 09/22/2023 09/22/2023 09/22/2023 4:53 PM EDT COVID-19 09/22/2023 09/22/2023 10/13/2023 1:21 AM EDT documented as of this encounter Care Teams Water Taxi Driver Relationship Specialty Start Date End Date Qamar Garcia MD [address] [place] [address] PCP - General Internal Medicine 10/14/18 03/26/22 Unknown, Unknown, MD PCP - General 04/08/22 07/22/22 Qamar Garcia MD [address] [place] [address] PCP - General Internal Medicine 07/23/22 Qamar Garcia MD [address] [place] [address] Primary Care Physician 05/06/17 Malachi Maloney MD [address] [place] [address], [address] [place] [address] [email or web address] Historical LMR Provider 04/23/17 07/13/21 Sammie Govea MD [address] [place] [address] Orthopedics & Sports Medicine, [place] [address] [email or web address] Historical LMR Provider 04/23/17 07/13/21 Avinash Chong MD [address] [place] [address] [email or web address] Historical LMR Provider 04/23/17 Sofia Amaya MD, MPH [address] [place] [address] [email or web address] Primary Oncologist Radiation Oncology 08/19/19 Neal Sultana MD, MS [address] [place] [address] [email or web address]@[facility] Primary Oncologist Surgical Oncology 08/19/19 Tere Keita, [address] [address] Tanya@[email or web address] Exhibit Preparator Oncology 09/19/19 03/13/25 Mirela Barnhart MD [address] [place] [address] [email or web address] .[facility] Medical Oncology 12/05/19 Andrei Dixon MD [address] [place] [address], [address] [place] [address] [email or web address] Orthopedic Surgery 03/27/22 Denise Black PA-C [address] [place] [address] [email or web address] Physician Press And Blow Machine Tender 03/27/22 documented as of this encounter Additional Source Comments The information contained in this document represents components of the legal health record. It is not the complete legal health record.[facility]
--- OUTSIDE RECORDS SUMMARY | 2025-04-19 11:38 | XMS_ITS | Encounter Summary ---
Author Organization [facility] Address [address] [place] [address] Phone Care Team Providers Care Composition Molder Name Role Phone Qamar Garcia MD Unavailable Malachi Maloney MD Unavailable [phone] Sammie Govea MD Unavailable [phone] Avinash Chong MD Unavailable [phone] Qamar Garcia MD Primary Care Provider + [phone] Sofia Amaya MD, MPH Unavailable +[phone] Neal Sultana MD, MS Unavailable Tere Keita Unavailable [phone] Mirela Barnhart MD Unavailable [phone] Andrei Dixon MD Unavailable [phone] Denise Black PA-C Unavailable [phone] Unknown, Unknown Primary Care Provider Qamar Escamilla MD Primary Care Provider + [phone] Encounter Details Date Type Department Care Team (Late st Contact Info) Description 05/02/2021 Ancillary Orders Virtual Department 30 [place] [address] Qamar Garcia MD [address] [place] [address] Thyroid nodule Social History Tobacco Use Types [...] st Contact Info) Description 09/07/2024 Procedure Pass [facility], [address] [address] 09/07/2024 Procedure Pass [facility], [address] [address] 05/10/2025 11:05 AM EST Appointment [facility], [address] [address] Mirela Barnhart MD [address] [place] [address] [email or web address] 05/10/2025 12:10 PM EST Appointment [address] [address] Mirela Barnhart MD [address] [place] [address] [email or web address] 05/10/2025 3:00 PM EST Office Visit [facility], [facility] [place] [address] [facility], 6th [place] [address] Mirela Barnhart MD 450 [place] [address] [email or web address] [email or web address] 12/07/2025 11:00 AM EDT Office Visit [address] [address] Arlene Hernandez MD [address] [place] [address] 7 [place], [place] [id number] [email or web address]@[email or web address] 04/06/2026 10:20 AM EDT Office Visit [facility] [address] [place] [address] 3rd Floor, [address] [place] [address] Margarito Walker MD [address] [place] [address] [place] [address] [email or web address] documented as of this encounter Results [...] recommended in one year. Qamar Garcia MD [facility] THYROID Final Result documented in this encounter Visit Diagnoses Diagnosis Thyroid nodule Nontoxic uninodular goiter Thyroid nodule Nontoxic uninodular goiter documented in this encounter Additional Health Concerns Infection Onset Date Last Indicated Resolved Time CoV-Presumed 05/27/2022 05/27/2022 06/17/2022 3:51 AM EST CoV-Risk 09/22/2023 09/22/2023 09/22/2023 4:53 PM EDT COVID-19 09/22/2023 09/22/2023 10/13/2023 1:21 AM EDT documented as of this encounter Care Teams Composition Molder Relationship Specialty Start Date End Date Qamar Garcia MD [address] [place] [address] PCP - General Internal Medicine 10/14/18 03/26/22 Unknown, Unknown, PCP - General 04/08/22 07/22/22 Qamar Garcia MD [address] [place] [address] PCP - General Internal Medicine 07/23/22 Qamar Garcia MD [address] [place] [address] Primary Care Physician 05/06/17 Malachi Maloney MD [address] [place] [address] 301 [place] [address] [email or web address] Historical LMR Provider 04/23/17 07/13/21 Sammie Govea MD [address] [place] [address] Orthopedics & Sports Medicine, [place] [address] [email or web address] Historical LMR Provider 04/23/17 07/13/21 Avinash Chong MD [address] [place] [address] [email or web address] Historical LMR Provider 04/23/17 Sofia Amaya MD, MPH [address] [place] [address] [email or web address] .[facility] Primary Oncologist Radiation Oncology 08/19/19 Neal Sultana MD, MS [address] [place] [address] [email or web address] Primary Oncologist Surgical Oncology 08/19/19 Tere Keita, [address] [address] [email or web address] Instructional Materials Director Oncology 09/19/19 03/13/25 Mirela Barnhart MD [address] [place] [address] Kati@[email or web address] .[email or web address] Medical Oncology 12/05/19 Andrei Dixon MD [address] [place] [address] [email or web address] Orthopedic Surgery 03/27/22 Denise Black PA-C [address] [place] [address] [email or web address] Physician Family Member Caretaker 03/27/22 documented as of this encounter Additional Source Comments The information contained in this document represents components of the legal health record. It is not the complete legal health record.[facility]
--- OUTSIDE RECORDS SUMMARY | 2025-04-19 11:39 | XMS_ITS | Encounter Summary ---
Author Organization [facility] Address [address] [place] [address] [place] [address] Phone Care Team Providers Care Abattoir Manager Name Role Phone Qamar Garcia MD Unavailable [phone] Avinash Chong MD Unavailable [phone] Sofia Amaya MD, MPH Unavailable + [phone] Neal Sultana MD, MS Unavailable Tere KeitaSW Unavailable [phone] Mirela Barnhart MD Unavailable [phone] Andrei Dixon MD Unavailable [phone] Denise Black PA-C Unavailable [phone] Qamar Garcia MD Primary Care Provider [phone] Encounter Details Date Type Department Care Team (Late st Contact Info) Description 03/09/2024 Procedure Pass [facility], [facility] [place], MRI 450 [facility], Floor L1 [place] [address] Social History Tobacco Use Types Packs/Day Years [...] st Contact Info) Description 09/07/2024 Procedure Pass [facility], [place] [address] [address] 09/07/2024 Procedure Pass [facility], [facility] [address] [address] 05/10/2025 11:05 AM EST Appointment [facility], [facility] [address] [address] Mirela Barnhart MD [address] [place] [address] [email or web address] 05/10/2025 12:10 PM EST Appointment [place], [place] 300 [facility] 3rd [place] [address] Mirela Barnhart MD [address] [place] [address] [email or web address]@d [email or web address] 05/10/2025 3:00 PM EST Office Visit [facility], [address], 6th [place] [address] Mirela Barnhart MD [address] [place] [address] [email or web address] [email or web address] 12/07/2025 11:00 AM EDT Office Visit [facility] Medical [address] [address] Arlene Hernandez MD [address] [place] [address] 7 [place] [address] THERESA@[facility] 04/06/2026 10:20 AM EDT Office Visit [facility] [address] [place] [address] 3rd [facility], [address] [place] [address] Margarito Walker MD [address] [place] [address] [id number] [email or web address] documented as of this encounter Visit Diagnoses Not on filedocumented in this encounter Care Teams Abattoir Manager Relationship Specialty Start Date End Date Qamar Garcia MD [address] [place] [address] PCP - General Internal Medicine 07/23/22 Qamar Garcia MD [address] [place] [address] Primary Care Physician 05/06/17 Avinash Chong MD [address] [place] [address] [email or web address] Historical LMR Provider 04/23/17 Sofia Amaya MD, MPH [address] [place] [address] [email or web address] Primary Oncologist Radiation Oncology 08/19/19 Neal Sultana MD, MS [address] [place] [address] [email or web address] Primary Oncologist Surgical Oncology 08/19/19 Tere Keita, [address] [address] [email or web address] Supervisor Type Bar And Segment Oncology 09/19/19 03/13/25 Mirela Barnhart MD [address] [place] [address] [email or web address] Medical Oncology 12/05/19 Andrei Dixon MD [address] [place] [address], [address] [place] [address] [email or web address] Orthopedic Surgery 03/27/22 Denise Black PA-C [address] [place] [address] [address] [place] [address] [email or web address]. simone Physician Stationary Engineer Supervisor 03/27/22 documented as of this encounter Additional Source Comments The information contained in this document represents components of the legal health record. It is not the complete legal health record.[facility]
--- OUTSIDE RECORDS SUMMARY | 2025-04-19 11:39 | XMS_ITS | Encounter Summary ---
Author Organization [facility] Address [address] [place] [address] [place] [address] Phone Care Team Providers Care Agronomy Research Manager Name Role Phone Qamar Garcia MD Unavailable [phone] Avinash Chong MD Unavailable [phone] Sofia Amaya MD, MPH Unavailable [phone] eNal Sultana MD, MS Unavailable Tere Keita [facility] Unavailable [phone] Mirela Barnhart MD Unavailable [phone] Andrei Dixon MD Unavailable [phone] Denise Black-C Unavailable [phone] Qamar Garcia MD Primary Care Provider [phone] Encounter Details Date Type Department Care Team (Late st Contact Info) Description 09/01/2023 Procedure Pass [facility] [place] [address] [address] Social History Tobacco Use Types [...] st Contact Info) Description 09/07/2024 Procedure Pass [facility] 300 [facility] 3rd [place] [address] 09/07/2024 Procedure Pass [facility], [facility] [address] [address] 05/10/2025 11:05 AM EST Appointment [facility], [facility] [address] [address] Mirela Barnhart MD [address] [place] [address] [email or web address] 05/10/2025 12:10 PM EST Appointment [facility] [place] 300 [facility] 3rd [place] [address] Mirela Barnhart MD [address] [place] [address] [email or web address]@d [email or web address] 05/10/2025 3:00 PM EST Office Visit [facility], [address], 6th [place] [address] Mirela Barnhart MD [address] [place] [address] [email or web address] [email or web address] 12/07/2025 11:00 AM EDT Office Visit [facility] [address] [address] Arlene Hernandez MD [address] [place] [address] [email or web address] 04/06/2026 10:20 AM EDT Office Visit [facility] [address] [place] [address] 3rd [facility], [address] [place] [address] Margarito Walker MD [address] [place] [address] [place] [address] [email or web address] documented as of this encounter Visit Diagnoses Not on filedocumented in this encounter Additional Health Concerns Infection Onset Date Last Indicated Resolved Time CoV-Risk 09/22/2023 09/22/2023 09/22/2023 4:53 PM EDT COVID-19 09/22/2023 09/22/2023 10/13/2023 1:21 AM EDT documented as of this encounter Care Teams Agronomy Research Manager Relationship Specialty Start Date End Date Qamar Garcia MD [address] [place] [address] PCP - General Internal Medicine 07/23/22 Qamar Garcia MD [address] [place] [address] Primary Care Physician 05/06/17 Avinash Chong MD [address] [place] [address] [email or web address] Historical LMR Provider 04/23/17 Sofia Amaya MD, MPH [address] [place] [address] [email or web address] Primary Oncologist Radiation Oncology 08/19/19 Neal Sultana MD, MS [address] [place] [address] [email or web address] Primary Oncologist Surgical Oncology 08/19/19 Tere Keita, [address] [address] [email or web address] Licensing Manager Oncology 09/19/19 03/13/25 Mirela Barnhart MD [address] [place] [address] [email or web address] Medical Oncology 12/05/19 Andrei Dixon MD [address] [place] [address] [place] [address] [email or web address] Orthopedic Surgery 03/27/22 Denise Black PA-C [address] [place] [address] [place] [address] [email or web address]. simone Physician Vice President Sales And Marketing 03/27/22 documented as of this encounter Additional Source Comments The information contained in this document represents components of the legal health record. It is not the complete legal health record.[facility]
--- OUTSIDE RECORDS SUMMARY | 2025-04-19 11:39 | XMS_ITS | Clinical Summary ---
Author Organization [facility] Address 100 [facility] 20 0 [place] [address] Phone Care Team Providers Care Data Management Name Role Phone Qamar Garcia MD Primary Care Provider [phone] Allergies Active Allergy Reactions Criticality Noted Date [...] of neck of femur 09/16/2021 Overview (09/16/2021): [facility] Irritable bowel syndrome 09/16/2021 Palpitations 09/16/2021 [...] of Phone Billing Address Personal/Family Self 1940 [phone] (Home) [address] [place] [address] Medicare [facility] Medicare Care Teams Data Management Relationship Specialty Start Date End Date Qamar Garcia MD [address] [place] [address] PCP - General Internal Medicine 09/11/21
--- OUTSIDE RECORDS SUMMARY | 2025-04-19 11:39 | XMS_ITS | Encounter Summary ---
Author Organization [facility] Address [address] [place] [address] Phone Care Team Providers Care Manager Radio Name Role Phone Qamar Garcia MD Unavailable Malachi Maloney MD Unavailable [phone] Sammie Govea MD Unavailable [phone] Avinash Chong MD Unavailable [phone] Qamar Garcia MD Primary Care Provider [phone] Sofia Amaya MD, MPH Unavailable [phone] Karely Ansari MD Unavailable Neal Sultana MD, MS Unavailable Tere Keita Unavailable Mirela Barnhart MD Unavailable [phone] Andrei Dixon MD Unavailable [phone] Denise Black PA-C Unavailable [phone] Unknown, Unknown Primary Care Provider Qamar Escamilla MD Primary Care Provider Encounter Details Date Type Department Care Team (Late st Contact Info) Description 03/28/2019 Ancillary Orders [facility],Outside Imaging 30 [place] [address] System, Provider Not In, [facility] [address] [address] Social History Tobacco Use Types Packs/Day Years [...] Procedure Pass [facility], [place] [address] [address] 09/07/2024 Procedure Pass [facility], [address] [address] 05/10/2025 11:05 AM EST Appointment [facility], [address] [address] Mirela Barnhart MD [address] [place] [address] [email or web address] 05/10/2025 12:10 PM EST Appointment [address] [address] Mirela Barnhart MD [address] [place] [address] [email or web address] 05/10/2025 3:00 PM EST Office Visit [facility], [facility] [place] 450 [facility], 6th [place] [address] Mirela Barnhart MD 450 [place] [address] [email or web address] [email or web address] 12/07/2025 11:00 AM EDT Office Visit [address] [address] Arlene Hernandez MD 234 [facility] 7 [place] [address] [email or web address]@[email or web address] 04/06/2026 10:20 AM EDT Office Visit [facility] [address] [place] [address] 3rd Floor, [address] [place] [address] Margarito Walker MD [address] [place] [address] [address] [place] [address] [email or web address] documented as of this [...] 3:51 AM EST CoV-Risk 09/22/2023 09/22/2023 09/22/2023 4:5 3 PM EDT COVID-19 09/22/2023 09/22/2023 10/13/2023 1:21 AM EDT documented as of this encounter Care Teams Manager Radio Relationship Specialty Start Date End Date Qamar Garcia MD [address] [place] [address] PCP - General Internal Medicine 10/14/18 03/26/22 Unknown, Unknown, MD PCP - General 04/08/22 07/22/22 Qamar Garcia MD [address] [place] [address] PCP - General Internal Medicine 07/23/22 Qamar Garcia MD [address] [place] [address] Primary Care Physician 05/06/17 Malachi Maloney MD [address] [place] [address] Historical LMR Provider 04/23/17 07/13/21 Sammie Govea MD [address] [place] [address] Orthopedics & Sports Medicine, [facility] [place] [address] Historical LMR Provider 04/23/17 07/13/21 Avinash Chong MD [address] [place] [address] [email or web address] Historical LMR Provider 04/23/17 Sofia Amaya MD, MPH [address] [place] [address] [email or web address] Primary Oncologist Radiation Oncology 2/14/20 Karely Ansari MD [address] [place] [address] Primary Oncologist Medical Oncology 08/19/19 12/04/19 Neal Sultana MD, MS [address] [place] [address] [email or web address] Primary Oncologist Surgical Oncology 08/19/19 Tere Keita, [address] [address] [email or web address] Director Of Public Works Oncology 09/19/19 03/13/25 Mirela Barnhart MD [address] [place] [address] [email or web address] .[email or web address] Medical Oncology 12/05/19 Andrei Dixon MD [address] [place] [address] [email or web address] Orthopedic Surgery 03/27/22 Denise Black PA-C [address] [place] [address] [email or web address]. simone Physician Psychology Professor 03/27/22 documented as of this encounter Additional Source Comments The information contained in this document represents components of the legal health record. It is not the complete legal health record.[facility]
--- OUTSIDE RECORDS SUMMARY | 2025-04-19 11:39 | XMS_ITS | Encounter Summary ---
Author Organization [facility] Address [address] [place] [address] Phone Care Team Providers Care Family Member Caretaker Name Role Phone Qamar Garcia MD Unavailable [phone] Malachi Maloney MD Unavailable [phone] Sammie Govea MD Unavailable Avinash Chong MD Unavailable [phone] Qamar Garcia MD Primary Care Provider [phone] Miguelangel Reynoso MD Primary Care Provider Qamar Garcia MD Primary Care Provider Sofia Amaya MD, MPH Unavailable Karely Ansari MD Unavailable [phone] Neal Sultana MD, MS Unavailable Tere Keita Unavailable [phone] Mirela Barnhart MD Unavailable [phone] Andrei Dixon MD Unavailable [phone] Denise Black PA-C Unavailable Unknown, Unknown Primary Care Provider Qamar Escamilla MD Primary Care Provider [phone] Encounter Details Date Type Department Care Team (Late Contact Info) Description 11/26/2017 Procedure Pass [facility] 55 [place] [address] Social History Tobacco Use Types Packs/Day Years [...] (Late Contact Info) Description 09/07/2024 Procedure Pass [facility], [address] [address] 09/07/2024 Procedure Pass [facility], [address] [address] 05/10/2025 11:05 AM EST Appointment [facility], [address] [address] Mirela Barnhart MD [address] [place] [address] [email or web address] 05/10/2025 12:10 PM EST Appointment [address] [address] Mirela Barnhart MD [address] [place] [address] [email or web address] 05/10/2025 3:00 PM EST Office Visit [facility], [facility] [place] [address] [facility], 6th [place] [address] Mirela Barnhart MD 450 [place] [address] [email or web address] [email or web address] 12/07/2025 11:00 AM EDT Office Visit [facility] 234 [place] [address] Arlene Hernandez MD [address] [place] [address] 7 [place] [address] [email or web address]@[email or web address] 04/06/2026 10:20 AM EDT Office Visit [facility] [address] [place] [address] 3rd Floor, [address] [place] [address] Margarito Walker MD [address] [place] [address], [address] [place] [address] [email or web address] documented as of this encounter Visit Diagnoses Not on filedocumented in this encounter Additional Health Concerns Infection Onset Date Last Indicated Resolved Time CoV-Risk 01/13/2020 01/13/2020 01/13/2020 4:17 PM EDT CoV-Presumed 05/27/2022 05/27/2022 06/17/2022 3:51 AM EST CoV-Risk 09/22/2023 09/22/2023 09/22/2023 4:53 PM EDT COVID-19 09/22/2023 09/22/2023 10/13/2023 1:21 AM EDT documented as of this encounter Care Teams Family Member Caretaker Relationship Specialty Start Date End Date Qamar Garcia MD [address] [place] [address] PCP - General Internal Medicine 10/12/17 08/23/18 Miguelangel Reynoso MD [address] [place] [address] 800 [place] [address] [email or web address] PCP - General Cardiology 08/24/18 10/13/18 Qamar Garcia MD [address] [place] [address] PCP - General Internal Medicine 10/14/18 03/26/22 Unknown, Unknown, MD PCP - General 04/08/22 07/22/22 Qamar Garcia MD [address] [place] [address] PCP - General Internal Medicine 07/23/22 Qamar Garcia MD [address] [place] [address] Primary Care Physician 05/06/17 Malachi Maloney MD [address] [place] [address] [email or web address] Historical LMR Provider 04/23/17 07/13/21 Sammie Govea MD [address] [place] [address] [facility] [place] [address] [email or web address] Historical LMR Provider 04/23/17 07/13/21 Avinash Chong MD [address] [place] [address] [email or web address] Historical LMR Provider 04/23/17 Sofia Amaya MD, MPH [address] [place] [address] [email or web address] .[facility] Primary Oncologist Radiation Oncology 08/19/19 Karely Ansari MD [address] [place] [address] Primary Oncologist Medical Oncology 08/19/19 12/04/19 Neal Sultana MD, MS [address] [place] [address] [email or web address] Primary Oncologist Surgical Oncology 08/19/19 Tere Keita, [address] [address] [email or web address]@[email or web address] Sales Ledger Administrator Oncology 09/19/19 03/13/25 Mirela Barnhart MD [address] [place] [address] [email or web address] Medical Oncology 12/05/19 Andrei Dixon MD [address] [place] [address] [email or web address] Orthopedic Surgery 03/27/22 Denise Black PA-C [address] [place] [address] [email or web address] Physician Wharf Helper 03/27/22 documented as of this encounter Additional Source Comments The information contained in this document represents components of the legal health record. It is not the complete legal health record.[facility]
--- OUTSIDE RECORDS SUMMARY | 2025-04-19 11:39 | XMS_ITS | Clinical Summary ---
Author Organization [facility] Address 800 [facility] 520 [place] [address] Care Team Providers Care Damage Adjuster Name Role Phone Qamar Garcia MD Primary [...] Description 06/06/2025 1:00 PM EST Office Visit [address] [address] Chelsi Martell MD 800 [place] [address] Health Maintenance Due Date Last [...] AND B [employer] Care Teams Damage Adjuster Relationship Specialty Start Date End Date Qamar Garcia MD [address] [place] [address] PCP - General Insurance Special Agent 12/30/21
--- OUTSIDE RECORDS SUMMARY | 2025-04-19 11:39 | XMS_ITS | Encounter Summary ---
Author Organization [facility] Address [address] [place] [address] [place] [address] Phone Care Team Providers Care Manager Case Management Name Role Phone Qamar Garcia MD Unavailable [phone] Avinash Chong MD Unavailable [phone] Sofia Amaya MD, MPH Unavailable [phone] Neal Sultana MD, MS Unavailable Tere Keita [facility] Unavailable [phone] Mirela Barnhart MD Unavailable [phone] Andrei Dixon MD Unavailable [phone] Denise Black-C Unavailable [phone] Qamar Garcia MD Primary Care Provider [phone] Encounter Details Date Type Department Care Team (Late st Contact Info) Description 09/01/2023 Procedure Pass [facility], MRI [address] [address] Social History Tobacco Use Types [...] Info) Description 09/07/2024 Procedure Pass [facility] [place] 300 [facility] 3rd [place] [address] 09/07/2024 Procedure Pass [facility], [facility] [address] [address] 05/10/2025 11:05 AM EST Appointment [facility], [facility] [address] [address] Mirela Barnhart MD [address] [place] [address] [email or web address] [email or web address] 05/10/2025 12:10 PM EST Appointment [facility] [place] [place] 300 [facility] 3rd [place] [address] Mirela Barnhart MD [address] [place] [address] [email or web address] [email or web address] 05/10/2025 3:00 PM EST Office Visit [facility], [address], 6th [place] [address] Mirela Barnhart MD [address] [place] [address] [email or web address] [email or web address] 12/07/2025 11:00 AM EDT Office Visit [facility] [address] [address] Arlene Hernandez MD [address] [place] [address] THERESA@[facility] 04/06/2026 10:20 AM EDT Office Visit [facility] [address] [place] [address] 3rd [facility], [address] [place] [address] Margarito Walker MD [address] [place] [address] [place] [address] [email or web address] documented as of this encounter Visit Diagnoses Not on filedocumented in this encounter Additional Health Concerns Infection Onset Date Last Indicated Resolved Time CoV-Risk 09/22/2023 09/22/2023 09/22/2023 4:53 PM EDT COVID-19 09/22/2023 09/22/2023 10/13/2023 1:21 AM EDT documented as of this encounter Care Teams Manager Case Management Relationship Specialty Start Date End Date Qamar Garcia MD [address] [place] [address] PCP - General Internal Medicine 07/23/22 Qamar Garcia MD [address] [place] [address] Primary Care Physician 05/06/17 Avinash Chong MD [address] [place] [address] [email or web address] Historical LMR Provider 04/23/17 Sofia Amaya MD, MPH [address] [place] [address] [email or web address] Primary Oncologist Radiation Oncology 08/19/19 Neal Sultana MD, MS [address] [place] [address] [email or web address]@[email or web address] Primary Oncologist Surgical Oncology 08/19/19 Tere Keita, [address] [address] [email or web address]@[email or web address] 3D Specialist Oncology 09/19/19 03/13/25 Mirela Barnhart MD [address] [place] [address] Kati@[email or web address] .[email or web address] Medical Oncology 12/05/19 Andrei Dixon MD [address] [place] [address] [place] [address] [email or web address] Orthopedic Surgery 03/27/22 Denise Black PA-C [address] [place] [address] [place] [address] [email or web address] Physician Meat Market Manager 03/27/22 documented as of this encounter Additional Source Comments The information contained in this document represents components of the legal health record. It is not the complete legal health record.[facility]
--- OUTSIDE RECORDS SUMMARY | 2025-04-19 11:39 | XMS_ITS | Encounter Summary ---
Author Organization [facility] Address [address] [place] [address] Phone Care Team Providers Care Marine Consultant Name Role Phone Qamar Cook MD Unavailable [phone] Avinash Chong MD Unavailable [phone] Sofia Amaya MD, MPH Unavailable +- [phone] Neal Sultana MD, MS Unavailable Tere Keita SYNTHETIC FILAMENT SPINNER Unavailable [phone] Mirela Barnhart MD Unavailable [phone] Andrei Dixon MD Unavailable [phone] Denise Black-C Unavailable [phone] Qamar Cook MD Primary Care Provider [phone] Encounter Details Date Type Department Care Team (Latest Contact Info) Description 03/24/2024 Transcribe Orders [facility] Department [address] [place] [address] Qamar Cook MD [address] [place] [address] Screening for osteoporosis (Primary Dx) Social History [...] st Contact Info) Description 09/07/2024 Procedure Pass [facility] [place] [address] [address] 09/07/2024 Procedure Pass [facility], [facility] 300 [facility] 4th [place] [address] 05/10/2025 11:05 AM EST Appointment [facility], MRI 300 [facility] [address] [place] [address] Mirela Barnhart MD [address] [place] [address] [email or web address] 05/10/2025 12:10 PM EST Appointment [facility] [place] 300 [facility] 3rd [place] [address] Mirela Barnhart MD [address] [place] [address] [email or web address] 05/10/2025 3:00 PM EST Office Visit [facility], [address], 6th [place] [address] Mirela Barnhart MD [address] [place] [address] [email or web address]@[email or web address] 12/07/2025 11:00 AM EDT Office Visit [address] [address] Arlene Hernandez MD [address] [place] [address] [place] [address] THERESA@[facility] 04/06/2026 10:20 AM EDT Office Visit [facility] [address] [place] [address] [facility], [address] [place] [address] Margarito Walker MD [address] [place] [address] [address] [place] [address] documented as of this encounter Results * BD DXA AXIAL (SPINE) WITH HIP (09/13/2024 9:00 AM EDT) Anatomical Region Laterality Modality Bone Density Bone Density 09/13/2024 8:56 AM EDT Impressions 09/14/2024 8:17 AM EDT Interpretation: Osteoporosis. Narrative 09/14/2024 8:17 AM EDT Referred By: QAMAR COOK Indications: Osteoporosis Scanner: [employer] A with serial# of [id number] located at [facility] Bone Density Scan (DXA) 09/13/24 Details of [...] -2.5), or Osteoporosis (T-score <= -2.5). At [facility], T-scores are compared to peak bone density [...] Referred By: QAMAR COOK Indications: Osteoporosis Scanner: [employer] A with serial# of [id number] located at [facility] Bone Density Scan (DXA) 09/13/24 Details [...] -2.5), or Osteoporosis (T-score <= -2.5). At [facility], T-scores are compared to peak bone density [...] prior bone density results. IMPRESSION: Interpretation: Osteoporosis. us Qamar Cook MD IMG BD BONE DENSITY DEXA Fin al Result documented in this encounter Visit Diagnoses Diagnosis Screening for osteoporosis- Primary Special screening for osteoporosis Screening for osteoporosis Special screening for osteoporosis documented in this encounter Care Teams Marine Consultant Relationship Specialty Start Date End Date Qamar Cook MD [address] [place] [address] PCP - General Internal Medicine 07/23/22 Qamar Cook MD [address] [place] [address] Primary Care Physician 05/06/17 Avinash Chong MD [address] [place] [address] [email or web address] Historical LMR Provider 04/23/17 Sofia Amaya MD, MPH [address] [place] [address] [email or web address] Primary Oncologist Radiation Oncology 08/19/19 Neal Sultana MD, MS [address] [place] [address] [email or web address] Primary Oncologist Surgical Oncology 08/19/19 Tere Keita, [facility] [address] [place] [address] [email or web address]@[email or web address] Industrial Hygiene Technician Oncology 09/19/19 03/13/25 Mirela Barnhart MD [address] [place] [address] [email or web address] .[facility] Medical Oncology 12/05/19 Andrei Dixon MD [address] [place] [address] [place] [address] [email or web address] Orthopedic Surgery 03/27/22 Denise Black PA-C [address] [place] [address] [place] [address] [email or web address]. simone Physician Personal Fitness Manager 03/27/22 documented as of this encounter Additional Source Comments The information contained in this document represents components of the legal health record. It is not the complete legal health record.[facility]
--- OUTSIDE RECORDS SUMMARY | 2025-04-19 11:39 | XMS_ITS | Encounter Summary ---
Author Organization [facility] Address [address] [place] [address] [place] [address] Phone Care Team Providers Care Veterinary Virus Serum Inspector Name Role Phone Qamar Garcia MD Unavailable [phone] Avinash Chong MD Unavailable [phone] Sofia Amaya MD, MPH Unavailable [phone] Neal Sultana MD, MS Unavailable Tere KeitaSW Unavailable [phone] Mirela Barnhart MD Unavailable [phone] Andrei Dixon MD Unavailable [phone] Denise Black PA-C Unavailable [phone] Qamar Garcia MD Primary Care Provider [phone] Encounter Details Date Type Department Care Team (Late st Contact Info) Description 03/09/2024 Procedure Pass [facility], [facility] [place] 450 [facility], Floor L1 [place] [address] Social History Tobacco Use Types Packs/Day Years [...] Description 09/07/2024 Procedure Pass [facility], [place] [address] [address] 09/07/2024 Procedure Pass [facility], [facility] [address] [address] 05/10/2025 11:05 AM EST Appointment [facility], [facility] [address] [address] Mirela Barnhart MD [address] [place] [address] [email or web address] 05/10/2025 12:10 PM EST Appointment [place], [place] 300 [facility] 3rd [place] [address] Mirela Barnhart MD [address] [place] [address] [email or web address] 05/10/2025 3:00 PM EST Office Visit [facility], [address] [place] [address], [address]th [place] [address] Mirela Barnhart MD [address] [place] [address] [email or web address]@[email or web address] 12/07/2025 11:00 AM EDT Office Visit [facility] [address] [address] Arlene Hernandez MD [address] [place] [address] 7 [place] [address] THERESA@[facility] 04/06/2026 10:20 AM EDT Office Visit [facility] [address] [place] [address] 3rd [facility], [address] [place] [address] Margarito Walker MD [address] [place] [phone] [email or web address] documented as of this encounter Visit Diagnoses Not on filedocumented in this encounter Care Teams Veterinary Virus Serum Inspector Relationship Specialty Start Date End Date Qamar Garcia MD [address] [place] [address] PCP - General Internal Medicine 07/23/22 Qamar Garcia MD [address] [place] [address] Primary Care Physician 05/06/17 Avinash Chong MD [address] [place] [address] [email or web address] Historical LMR Provider 04/23/17 Sofia Amaya MD, MPH [address] [place] [address] [email or web address] Primary Oncologist Radiation Oncology 08/19/19 Neal Sultana MD, MS [address] [place] [address] [email or web address] Primary Oncologist Surgical Oncology 08/19/19 Tere Keita, [address] [address] [email or web address] Display Coordinator Oncology 09/19/19 03/13/25 Mirela Barnhart MD [address] [place] [address] Kati@[email or web address] .[facility] Medical Oncology 12/05/19 Andrei Dixon MD [address] [place] [address], [address] [place] [address] [email or web address] Orthopedic Surgery 03/27/22 Denise Black PA-C [address] [place] [address] [address] [place] [address] [email or web address] Physician Python Engineer 03/27/22 documented as of this encounter Additional Source Comments The information contained in this document represents components of the legal health record. It is not the complete legal health record.[facility]
--- OUTSIDE RECORDS SUMMARY | 2025-04-19 11:39 | XMS_ITS | Encounter Summary ---
Author Organization [facility] Address [address] [place] [address] Phone Care Team Providers Care Public Health Advisor Name Role Phone Qamar Garcia MD Unavailable Malachi Maloney MD Unavailable [phone] Sammie Govea MD Unavailable Avinash Chong MD Unavailable [phone] Qamar Garcia MD Primary Care Provider [phone] Sofia Amaya MD, MPH Unavailable [phone] Karely Ansari MD Unavailable Neal Sultana MD, MS Unavailable Tere Keita Unavailable Mirela Barnhart MD Unavailable [phone] Andrei Dixon MD Unavailable [phone] Denise Black PA-C Unavailable [phone] Unknown, Unknown Primary Care Provider Qamar Escamilla MD Primary Care Provider Encounter Details Date Type Department Care Team (Late st Contact Info) Description 03/23/2019 Ancillary Orders Virtual Department [address] [place] [address] Qamar Garcia MD [address] [place] [address] Pain Social History Tobacco Use Types Packs/Day [...] (Late Contact Info) Description 09/07/2024 Procedure Pass [facility], [address] [address] 09/07/2024 Procedure Pass [facility], [address] [address] 05/10/2025 11:05 AM EST Appointment [facility], [address] [address] Mirela Barnhart MD [address] [place] [address] [email or web address] 05/10/2025 12:10 PM EST Appointment [address] [address] Mirela Barnhart MD [address] [place] [address] [email or web address] 05/10/2025 3:00 PM EST Office Visit [facility], [facility] [place] 450 [facility], 6th [place] [address] Mirela Barnhart MD 450 [place] [address] [email or web address] 12/07/2025 11:00 AM EDT Office Visit [address] [address] Arlene Hernandez MD [address] [place] [address] 7 [place], [place] [phone] [email or web address]@[email or web address] 04/06/2026 10:20 AM EDT Office Visit [facility] [address] [place] [address] 3rd Floor, [address] [place] [address] Margarito Walker MD 22 [facility], [address] [place] [address] [email or web address] documented as of this encounter Results * [...] pain, history of right breast carcinoma POS [id number] Narrative 04/01/2019 2:40 PM EDT Full field [...] pain, history of right breast carcinoma POS [id number] Qamar Garcia MD [facility] US BREAST Final Result * BI MAMMOGRAM [...] pain, history of right breast carcinoma POS [id number] Narrative 04/01/2019 2:40 PM EDT Full field [...] down towards the nipple is also unremarkable. us Qamar Garcia MD IMG MG EXAMS Final [...] documented as of this encounter Care Teams Public Health Advisor Relationship Specialty Start Date End Date Qamar Garcia MD [address] [place] [address] PCP - General Internal Medicine 10/14/18 03/26/22 Unknown, Unknown, PCP - General 04/08/22 07/22/22 Qamar Garcia MD [address] [place] [address] PCP - General Internal Medicine 07/23/22 Qamar Garcia MD [address] [place] [address] Primary Care Physician 05/06/17 Malachi Maloney MD [address] [place] [address], [address] [address] [email or web address] Historical LMR Provider 04/23/17 07/13/21 Sammie Govea MD [address] [place] [address] Orthopedics & Sports Medicine, [place] [address] [email or web address] Historical LMR Provider 04/23/17 07/13/21 Avinash Chong MD [address] [place] [address] [email or web address] Historical LMR Provider 04/23/17 Sofia Amaya MD, MPH [address] [place] [address] [email or web address] Primary Oncologist Radiation Oncology 08/19/19 Karely Ansari MD [address] [place] [address] Primary Oncologist Medical Oncology 08/19/19 12/04/19 Neal Sultana MD, MS [address] [place] [address] [email or web address] Primary Oncologist Surgical Oncology 08/19/19 Tree Keita, [address] [address] [email or web address]@[email or web address] Egg Gatherer Oncology 09/19/19 03/13/25 Mirela Barnhart MD [address] [place] [address] Kati@[email or web address] .[facility] Medical Oncology 12/05/19 Andrie Dixon MD [address] [place] [address], [address] [address] [email or web address] Orthopedic Surgery 03/27/22 Denise Black PA-C [address] [place] [address] [email or web address] Physician Joy Loading Machine Operator 03/27/22 documented as of this encounter Additional Source Comments The information contained in this document represents components of the legal health record. It is not the complete legal health record.[facility]
--- OUTSIDE RECORDS SUMMARY | 2025-04-19 11:39 | XMS_ITS | Encounter Summary ---
Author Organization [facility] Address [address] [place] [address] Phone Care Team Providers Care Safety Scientist Name Role Phone Qamar Garcia MD Unavailable [phone] Malachi Maloney MD Unavailable [phone] Sammie Govea MD Unavailable Avinash Chong MD Unavailable [phone] Qamar Garcia MD Primary Care Provider [phone] Sofia Amaya MD, MPH Unavailable [phone] Karely Ansari MD Unavailable Neal Sultana MD, MS Unavailable Tere Keita Unavailable Mirela Barnhart MD Unavailable [phone] Andrei Dixon MD Unavailable [phone] Denise Black PA-C Unavailable [phone] Unknown, Unknown Primary Care Provider Qamar Escamilla MD Primary Care Provider Encounter Details Date Type Department Care Team (Late st Contact Info) Description 03/23/2019 Ancillary Orders [facility], [address] [address] Qamar Garcia MD [address] [place] [address] Social History Tobacco Use Types Packs/Day Years [...] Info) Description 09/07/2024 Procedure Pass [facility], [address] [address] 09/07/2024 Procedure Pass [facility], [address] [address] 05/10/2025 11:05 AM EST Appointment [facility], [address] [address] Mirela Barnhart MD [address] [place] [address] [email or web address] 05/10/2025 12:10 PM EST Appointment [address] [address] Mirela Barnhart MD [address] [place] [address] [email or web address] 05/10/2025 3:00 PM EST Office Visit [facility], [facility] [place] 450 [facility], 6th [place] [address] Mirela Barnhart MD 450 [place] [address] [email or web address] 12/07/2025 11:00 AM EDT Office Visit [address] [address] Arlene Hernandez MD [address] [place] [address] [email or web address] 04/06/2026 10:20 AM EDT Office Visit [facility] [address] [place] [address] 3rd Floor, [address] [place] [address] Margarito Walker MD 22 [facility], [address] [place] [address] [email or web address] documented as of this encounter Visit Diagnoses Not on filedocumented in this encounter Additional Health Concerns Infection Onset Date Last Indicated Resolved Time CoV-Risk 01/13/2020 01/13/2020 01/13/2020 4:17 PM EDT CoV-Presumed 05/27/2022 05/27/2022 06/17/2022 3:51 AM EST CoV-Risk 09/22/2023 09/22/2023 09/22/2023 4:53 PM EDT COVID-19 09/22/2023 09/22/2023 10/13/2023 1:21 AM EDT documented as of this encounter Care Teams Safety Scientist Relationship Specialty Start Date End Date Qamar Garcia MD [address] [place] [address] PCP - General Internal Medicine 10/14/18 03/26/22 Unknown, Unknown, MD PCP - General 04/08/22 07/22/22 Qamar Garcia MD [address] [place] [address] PCP - General Internal Medicine 07/23/22 Qamar Garcia MD [address] [place] [address] Primary Care Physician 05/06/17 Malachi Maloney MD [address] [place] [address] [email or web address] Historical LMR Provider 04/23/17 07/13/21 Sammie Govea MD [address] [place] [address] Orthopedics [facility] Sports Medicine, [place] [address] [email or web address] Historical LMR Provider 04/23/17 07/13/21 Avinash Chong MD [address] [place] [address] [email or web address] Historical LMR Provider 04/23/17 Sofia Amaya MD, MPH [address] [place] [address] [email or web address] Primary Oncologist Radiation Oncology 08/19/19 Karely Ansari MD [address] [place] [address] Primary Oncologist Medical Oncology 08/19/19 12/04/19 Neal Sultana MD, MS [address] [place] [address] [email or web address]@[email or web address] Primary Oncologist Surgical Oncology 08/19/19 Tere Keita, [facility] 35 [place] [address] [email or web address] Nuclear Fuels Research Engineer Oncology 09/19/19 03/13/25 Mirela Barnhart MD [address] [place] [address] Kati@[email or web address] .[facility] Medical Oncology 12/05/19 Andrei Dixon MD [address] [place] [address] [email or web address] Orthopedic Surgery 03/27/22 Denise Black PA-C [address] [place] [address] [email or web address] simone Physician Supervisor Coating 03/27/22 documented as of this encounter Additional Source Comments The information contained in this document represents components of the legal health record. It is not the complete legal health record.[facility]
--- OUTSIDE RECORDS SUMMARY | 2025-04-19 11:40 | XMS_ITS | Encounter Summary ---
Author Organization [facility] Address [address] [place] [address] Phone Care Team Providers Care Medical Office Worker Name Role Phone Qamar Garcia MD Unavailable [phone] Avinash Chong MD Unavailable [phone] Qamar Garcia MD Primary Care Provider [phone] Sofia Amaya MD, MPH Unavailable + [phone] Neal Sultana MD, MS Unavailable Tere Keita Unavailable [phone] Mirela Barnhart MD Unavailable [phone] Andrei Dixon MD Unavailable [phone] Denise Black PA-C Unavailable [phone] Unknown, Unknown Primary Care Provider Qamar Escamilla MD Primary Care Provider [phone] Encounter Details Date Type Department Care Team (Late st Contact Info) Description 12/18/2021 Procedure Pass [facility], [address] [phone] Social History Tobacco Use Types Packs/Day Years [...] st Contact Info) Description 09/07/2024 Procedure Pass [place] [address] [address] 09/07/2024 Procedure [facility], [address] [address] 05/10/2025 11:05 AM EST Appointment [facility], [address] [address] Mirela Barnhart MD [address] [place] [address] [email or web address] 05/10/2025 12:10 PM EST Appointment [place] [address] [address] Mirela Barnhart MD [address] [place] [address] [email or web address] 05/10/2025 3:00 PM EST Office [facility], [address], [address] [place] [address] Mirela Barnhart MD [address] [place] [address] [email or web address] 12/07/2025 11:00 AM EDT Office Visit [facility] [address] [place] [address] Arlene Hernandez MD 234 [facility] [address] [place] [address] [email or web address]@[facility] 04/06/2026 10:20 AM EDT Office Visit [facility] [address] [place] [address] 3rd Floor, [address] [place] [address] Margarito Walker MD 22 [facility] [address] [place] [address] [email or web address] documented as of this encounter Visit Diagnoses Not on filedocumented in this encounter Additional Health Concerns Infection Onset Date Last Indicated Resolved Time CoV-Presumed 05/27/2022 05/27/2022 06/17/2022 3:51 AM EST CoV-Risk 09/22/2023 09/22/2023 09/22/2023 4:53 PM EDT COVID-19 09/22/2023 09/22/2023 10/13/2023 1:21 AM EDT documented as of this encounter Care Teams Medical Office Worker Relationship Specialty Start Date End Date Qamar Garcia MD [address] [place] [address] PCP - General Internal Medicine 10/14/18 03/26/22 Unknown, Unknown, PCP - General 04/08/22 07/22/22 Qamar Garcia MD [address] [place] [address] PCP - General Internal Medicine 07/23/22 Qamar Garcia MD [address] [place] [address] Primary Care Physician 05/06/17 Avinash Chong MD [address] [place] [address] [email or web address] Historical LMR Provider 04/23/17 Sofia Amaya MD, MPH [address] [place] [address] [email or web address] Primary Oncologist Radiation Oncology 08/19/19 Neal Sultana MD, MS [address] [place] [address] [email or web address]@[email or web address] Primary Oncologist Surgical Oncology 08/19/19 Tere Keita, [address] [address] Tanya@[facility] Plastic Outfitter Oncology 09/19/19 03/13/25 Mirela Barnhart MD [address] [place] [address] [email or web address] .[facility] Medical Oncology 12/05/19 Andrei Dixon MD [address] [place] [address], [address] [place] [address] [email or web address] Orthopedic Surgery 03/27/22 Denise Black PA-C [address] [place] [address] [email or web address] Physician Supervisor [place] 03/27/22 documented as of this encounter Additional Source Comments The information contained in this document represents components of the legal health record. It is not the complete legal health record.[facility]
--- OUTSIDE RECORDS SUMMARY | 2025-04-19 11:40 | XMS_ITS | Encounter Summary ---
Author Organization [facility] Address [address] [place] [address] Phone Care Team Providers Care Antique Finisher Name Role Phone Qamar Garcia MD Unavailable [phone] Avinash Chong MD Unavailable [phone] Qamar Garcia MD Primary Care Provider + [phone] Sofia Amaya MD, MPH Unavailable + [phone] Neal Sultana MD, MS Unavailable Tere Keita Unavailable +[phone] Mirela Barnhart MD Unavailable +[phone] Andrei Dixon MD Unavailable [phone] Denise Black PA-C Unavailable [phone] Unknown, Unknown Primary Care Provider Qamar Escamilla MD Primary Care Provider + [phone] Encounter Details Date Type Department Care Team (Latest Contact Info) Description 12/18/2021 Transcribe Orders [facility] Department [address] [place] [address] Qamar Garcia MD [address] [place] [address] Breast screening (Primary Dx) Social History Tobacco [...] st Contact Info) Description 09/07/2024 Procedure Pass [address] [address] 09/07/2024 Procedure Pass [facility], [address] [address] 05/10/2025 11:05 AM EST Appointment [facility], [address] [address] Mirela Barnhart MD [address] [place] [address] [email or web address] 05/10/2025 12:10 PM EST Appointment [address] [address] Mirela Barnhart MD [address] [place] [address] [email or web address] 05/10/2025 3:00 PM EST Office Visit [facility], [address], [address] [place] [address] Mirela Barnhart MD [address] [place] [address] [email or web address] [email or web address] 12/07/2025 11:00 AM EDT Office Visit [facility] [address] [place] [address] Arlene Hernandez MD 234 [facility] [address] [place] [address] THERESA@[facility] 04/06/2026 10:20 AM EDT Office Visit [facility] [address] [place] [address] 3rd Floor, [address] [place] [address] Margarito Walker MD 22 [facility], [address] [place] [address] [email or web address] documented as of this encounter Results * [...] documented as of this encounter Care Teams Antique Finisher Relationship Specialty Start Date End Date Qamar Garcia MD [address] [place] [address] PCP - General Internal Medicine 10/14/18 03/26/22 Unknown, Unknown, PCP - General 04/08/22 07/22/22 Qamar Garcia MD [address] [place] [address] PCP - General Internal Medicine 07/23/22 Qamar Garcia MD [address] [place] [address] Primary Care Physician 05/06/17 Avinash Chong MD [address] [place] [address] [email or web address] Historical LMR Provider 04/23/17 Sofia Amaya MD, MPH [address] [place] [address] [email or web address] Primary Oncologist Radiation Oncology 08/19/19 Neal Sultana MD, MS [address] [place] [address] FAIZAN@[email or web address] Primary Oncologist Surgical Oncology 08/19/19 Tere Keita, [address] [address] Tanay@[facility] Manager Internship Oncology 09/19/19 03/13/25 Mirela Barnhart MD [address] [place] [address] [email or web address] Medical Oncology 12/05/19 Andrei Dixon MD [address] [place] [address], [address] [place] [address] [email or web address] Orthopedic Surgery 03/27/22 Denise Black PA-C [address] [place] [address] [email or web address] Physician Head Animal Trainer 03/27/22 documented as of this encounter Additional Source Comments The information contained in this document represents components of the legal health record. It is not the complete legal health record.[facility]
--- OUTSIDE RECORDS SUMMARY | 2025-04-19 11:40 | XMS_ITS | Encounter Summary ---
Author Organization [facility] Address [address] [place] [address] Phone Care Team Providers Care Body Recall Instructor Name Role Phone Qamar Garcia MD Unavailable [phone] Avinash Chong MD Unavailable [phone] Sofia Amaya MD, MPH Unavailable + [phone] Neal Sultana MD, MS Unavailable Tere Keita [facility] Unavailable +[phone] Mirela Barnhart MD Unavailable [phone] Andrei Dixon MD Unavailable [phone] Denise Black PA-C Unavailable [phone] Qamar Garcia MD Primary Care Provider [phone] Encounter Details Date Type Department Care Team (Late st Contact Info) Description 03/05/2025 Ancillary Orders [facility], X-Ray [address] [address] Qamar Garcia MD [address] [place] [address] Buttock pain (Primary Dx) Social History Tobacco [...] st Contact Info) Description 09/07/2024 Procedure Pass [facility] [place] [address] [address] 09/07/2024 Procedure Pass [facility], [facility] [address] [address] 05/10/2025 11:05 AM EST Appointment [facility], [facility] 300 [facility] [address]th [place] [address] Mirela Barnhart MD [address] [place] [address] Kati@d [facility] 05/10/2025 12:10 PM EST Appointment [facility], [place] 300 [facility] [address]rd [place] [address] Mirela Barnhart MD [address] [place] [address] Kati@d [facility] 05/10/2025 3:00 PM EST Office Visit [facility], [address], [address] [place] [address] Mirela Barnhart MD [address] [place] [address] Kati@d [facility] 12/07/2025 11:00 AM EDT Office Visit [address] [address] Arlene Hernandez MD [address] [place] [address] 7 [place] [address] THERESA@[email or web address] 04/06/2026 10:20 AM EDT Office Visit [facility] [address] [place] [address] 3rd Floor, [address] [place] [address] Margarito Walker MD 22 [facility], [address] [place] [address] documented as of this encounter Results * [...] myositis documented in this encounter Care Teams Body Recall Instructor Relationship Specialty Start Date End Date Qamar Garcia MD [address] [place] [address] PCP - General Internal Medicine 07/23/22 Qamar Garcia MD [address] [place] [address] Primary Care Physician 05/06/17 Avinash Chong MD [address] [place] [address] [email or web address] Historical LMR Provider 04/23/17 Sofia Amaya MD, MPH [address] [place] [address] [email or web address]@[email or web address] Primary Oncologist Radiation Oncology 08/19/19 Neal Sultana MD, MS [address] [place] [address] [email or web address] Primary Oncologist Surgical Oncology 08/19/[address] [address] Tanya@[facility] Senior Javascript Engineer Oncology 09/19/19 03/13/25 Mirela Barnhart MD [address] [place] [address] Kati@[email or web address] Medical Oncology 12/05/19 Andrei Dixon MD [address] [place] [address] [email or web address] Orthopedic Surgery 03/27/22 Denise Black PA-C [address] [place] [address] [email or web address]. simone Physician Cold Rolling Machine Setter 03/27/22 documented as of this encounter Additional Source Comments The information contained in this document represents components of the legal health record. It is not the complete legal health record.[facility]
--- OUTSIDE RECORDS SUMMARY | 2025-04-19 11:40 | XMS_ITS | Encounter Summary ---
Author Organization [facility] Address [address] [place] [address] Phone Care Team Providers Care Furnace Builder Name Role Phone Qamar Garcia MD Unavailable [phone] Avinash Chong MD Unavailable [phone] Sofia Amaya MD, MPH Unavailable + [phone] Neal Sultana MD, MS Unavailable Tere Keita [facility] Unavailable +[phone] Mirela Barnhart MD Unavailable [phone] Andrei Dixon MD Unavailable [phone] Denise Black-C Unavailable [phone] Qamar Garcia MD Primary Care Provider [phone] Encounter Details Date Type Department Care Team (Latest Contact Info) Description 03/03/2025 Transcribe Orders [facility] Department [address] [place] [address] Qamar Garcia MD [address] [place] [address] Right buttock pain (Primary Dx) Social History [...] Description 09/07/2024 Procedure Pass [facility] [place] [address] [address] 09/07/2024 Procedure Pass [facility], [facility] [address] [address] 05/10/2025 11:05 AM EST Appointment [facility], MRI 300 [facility] 4th [place] [address] Mirela Barnhart MD [address] [place] [address] [email or web address] [email or web address] 05/10/2025 12:10 PM EST Appointment [facility] [place] 300 [facility] [address] [place] [address] Mirela Barnhart MD [address] [place] [address] [email or web address]@d [email or web address] 05/10/2025 3:00 PM EST Office Visit [facility], [address], [address]th [place] [address] Mirela Barnhart MD [address] [place] [address] [email or web address]@d [email or web address] 12/07/2025 11:00 AM EDT Office Visit [address] [address] Arlene Hernandez MD [address] [place] [address] 7 [place] [address] THERESA@[email or web address] 04/06/2026 10:20 AM EDT Office Visit [facility] [address] [place] [address] 3rd Floor, [address] [place] [address] Margarito Walker MD 22 [facility], [address] [place] [address] documented as of this encounter [...] MD IMG US EXTREMITY Final Resul t documented in this encounter Visit Diagnoses Diagnosis Right buttock pain- Primary Unspecified myalgia and myositis Right buttock pain Unspecified myalgia and myositis documented in this encounter Care Teams Furnace Builder Relationship Specialty Start Date End Date Qamar Garcia MD [address] [place] [address] PCP - General Internal Medicine 07/23/22 Qamar Garcia MD [address] [place] [address] Primary Care Physician 05/06/17 Avinash Chong MD [address] [place] [address] [email or web address] Historical LMR Provider 04/23/17 Sofia Amaya MD, MPH [address] [place] [address] [email or web address]@[email or web address] Primary Oncologist Radiation Oncology 08/19/19 Neal Sultana MD, MS [address] [place] [address] FAIZAN@[email or web address] Primary Oncologist Surgical Oncology 08/19/19 Tere Keita, [address] [address] [email or web address]@[facility] Deckhand Crab Boat Oncology 09/19/19 03/13/25 Mirela Barnhart MD [address] [place] [address] Kati@[email or web address] Medical Oncology 12/05/19 Andrei Dixon MD [address] [place] [address] [email or web address] Orthopedic Surgery 03/27/22 Denise Black PA-C [address] [place] [address] [email or web address]. simone Physician Oral And Maxillofacial Surgery Resident 03/27/22 documented as of this encounter Additional Source Comments The information contained in this document represents components of the legal health record. It is not the complete legal health record.[facility]
--- OUTSIDE RECORDS SUMMARY | 2025-04-19 11:40 | XMS_ITS | Encounter Summary ---
Author Organization [facility] Address [address] [place] [address] Phone Care Team Providers Care 3Rd Mate Name Role Phone Qamar Garcia MD Unavailable [phone] Avinash Chong MD Unavailable [phone] Sofia Amaya MD, MPH Unavailable + [phone] Neal Sultana MD, MS Unavailable Tere Keita [facility] Unavailable [phone] Mirela Barnhart MD Unavailable [phone] Andrei Dixon MD Unavailable [phone] Denise Black PA-C Unavailable [phone] Qamar Garcia MD Primary Care Provider [phone] Encounter Details Date Type Department Care Team (Late st Contact Info) Description 03/05/2025 Ancillary Orders [facility], X-Ray [address] [address] Qamar Garcia MD [address] [place] [address] Pain in buttock (Primary Dx) Social History [...] st Contact Info) Description 09/07/2024 Procedure Pass [facility] [address] [address] 09/07/2024 Procedure Pass [facility], [facility] [address] [address] 05/10/2025 11:05 AM EST Appointment [facility], [facility] 300 [facility] [address]th [place] [address] Mirela Barnhart MD [address] [place] [address] [email or web address] [email or web address] 05/10/2025 12:10 PM EST Appointment [facility], [place] 300 [facility] [address]rd [place] [address] Mirela Barnhart MD [address] [place] [address] [email or web address]@d [email or web address] 05/10/2025 3:00 PM EST Office Visit [facility], [address], [address] [place] [address] Mirela Barnhart MD [address] [place] [address] Kati@d [email or web address] 12/07/2025 11:00 AM EDT Office Visit [address] [address] Arlene Hernandez MD [address] [place] [address] 7 [place] [address] THERESA@[email or web address] 04/06/2026 10:20 AM EDT Office Visit [facility] [address] [place] [address] 3rd Floor, [address] [place] [address] Margarito Walker MD 22 [facility], [address] [place] [address] documented as of this encounter Results * XR HIP 2 VW RIGHT PLUS PELVIS (03/05/2025 11:49 AM EDT) Anatomical Region Laterality Modality Hip Right Computed Radiogr aphy 03/06/2025 10:1 0 AM EDT Impressions 03/06/2025 10:12 AM EDT Mild hip degenerative changes. Narrative 03/06/2025 10:12 AM EDT XR HIP 2 VW RIGHT PLUS PELVIS Referring clinician's provided indication for this examination in [facility]: Pain COMPARISON: XR PELVIS 1-2 VIEW FINDINGS: [...] indication for this examination in Epic:Pain COMPARISON: XR PELVIS 1-2 VIEW FINDINGS: No acute fracture or dislocation. Mild hip degenerative changes. Frontal evaluation of the opposite hip demonstrates normal hip joint spaceand postoperative changes of the femur. Degenerative changes of the lowerlumbar spine. IMPRESSION: Mild hip degenerative changes. Qamar Garcia MD IM XR PELVIS Final Result documented in this encounter Visit Diagnoses Diagnosis Pain in buttock- Primary Unspecified myalgia and myositis Pain in buttock Unspecified myalgia and myositis documented in this encounter Care Teams 3Rd Mate Relationship Specialty Start Date End Date Qamar Garcia MD [address] [place] [address] PCP - General Internal Medicine 07/23/22 Qamar Garcia MD [address] [place] [address] Primary Care Physician 05/06/17 Avinash Chong MD [address] [place] [address] [email or web address] Historical LMR Provider 04/23/17 Sofia Amaya MD, MPH [address] [place] [address] [email or web address]@[email or web address] Primary Oncologist Radiation Oncology 08/19/19 Neal Sultana MD, MS [address] [place] [address] FAIZAN@[facility] Primary Oncologist Surgical Oncology 08/19/[address] [address] Tanya@[email or web address] Drapery Rod Assembler Oncology 09/19/19 03/13/25 Mirela Barnhart MD [address] [place] [address] [email or web address] .[email or web address] Medical Oncology 12/05/19 Andrei Dixon MD [address] [place] [address] [email or web address] Orthopedic Surgery 03/27/22 Denise Black PA-C [address] [place] [address] [email or web address]. simone Physician Clinical Dietitian 9/22/22 documented as of this encounter Additional Source Comments The information contained in this document represents components of the legal health record. It is not the complete legal health record.[facility]
--- OUTSIDE RECORDS SUMMARY | 2025-04-19 11:40 | XMS_ITS | Encounter Summary ---
Author Organization [facility] Address [address] [place] [address] Phone Care Team Providers Care Field Clerk Name Role Phone Qamar Garcia MD Unavailable [phone] Avinash Chong MD Unavailable [phone] Qamar Garcia MD Primary Care Provider [phone] Sofia Amaya MD, MPH Unavailable + [phone] Neal Sultana MD, MS Unavailable Tere Keita Unavailable +[phone] Mirela Barnhart MD Unavailable [phone] Andrei Dixon MD Unavailable [phone] Denise Black PA-C Unavailable [phone] Unknown, Unknown Primary Care Provider Qamar Escamilla MD Primary Care Provider + [phone] Encounter Details Date Type Department Care Team (Late st Contact Info) Description 03/13/2022 Procedure Pass [facility] [address] [place] [address] Social History Tobacco Use Types Packs/Day Years [...] st Contact Info) Description 09/07/2024 Procedure Pass [facility], [place] [address] [address] 09/07/2024 Procedure Pass [facility], [address] [address] 05/10/2025 11:05 AM EST Appointment [facility], [facility] [address] [address] Mirela Barnhart MD [address] [place] [address] [email or web address] [email or web address] 05/10/2025 12:10 PM EST Appointment [facility], [place] [address] [address] Mirela Barnhart MD [address] [place] [address] [email or web address] 05/10/2025 3:00 PM EST Office Visit [facility], [address], [address] [place] [address] Mirela Barnhart MD [address] [place] [address] [email or web address] [email or web address] 12/07/2025 11:00 AM EDT Office Visit [facility] [address] [place] [address] Arlene Hernandez MD 234 [facility], [address] [place] [address] THERESA@[facility] 04/06/2026 10:20 AM EDT Office Visit [facility] 22 [facility] 3rd Floor, [address] [place] [address] Margarito Walker MD 22 [facility], [address] [place] [address] [email or web address] documented as of this encounter Visit Diagnoses Not on filedocumented in this encounter Additional Health Concerns Infection Onset Date Last Indicated Resolved Time CoV-Presumed 05/27/2022 05/27/2022 06/17/2022 3:51 AM EST CoV-Risk 09/22/2023 09/22/2023 09/22/2023 4:53 PM EDT COVID-19 09/22/2023 09/22/2023 10/13/2023 1:21 AM EDT documented as of this encounter Care Teams Field Clerk Relationship Specialty Start Date End Date Qamar Garcia MD [address] [place] [address] PCP - General Internal Medicine 10/14/18 03/26/22 Unknown, Unknown, PCP - General 04/08/22 07/22/22 Qamar Garcia MD [address] [place] [address] PCP - General Internal Medicine 07/23/22 Qamar Garcia MD [address] [place], [place] [address] Primary Care Physician 05/06/17 Avinash Chong MD [address] [place] [address] [email or web address] Historical LMR Provider 04/23/17 Sofia Amaya MD, MPH [address] [place] [address] [email or web address]@[email or web address] Primary Oncologist Radiation Oncology 08/19/19 Neal Sultana MD, MS [address] [place] [address] FAIZAN@[email or web address] Primary Oncologist Surgical Oncology 08/19/19 Tere Keita, [address] [address] Tanya@[facility] Operators Teacher Oncology 09/19/19 03/13/25 Mirela Barnhart MD [address] [place] [address] Kati@[email or web address] .[facility] Medical Oncology 12/05/19 Andrei Dixon MD [address] [place] [address] [email or web address] Orthopedic Surgery 03/27/22 Denise Black PA-C [address] [place] [address] [email or web address]. simone Physician Relations Director 03/27/22 documented as of this encounter Additional Source Comments The information contained in this document represents components of the legal health record. It is not the complete legal health record.[facility]
--- OUTSIDE RECORDS SUMMARY | 2025-04-19 11:40 | XMS_ITS | Encounter Summary ---
Author Organization [facility] Address [address] [place] [address] Phone Care Team Providers Care Official Court Interpreter Name Role Phone Qamar Garcia MD Unavailable [phone] Avinash Chong MD Unavailable [phone] Qamar Garcia MD Primary Care Provider + [phone] Sofia Amaya MD, MPH Unavailable + [phone] Neal Sultana MD, MS Unavailable Tere Keita Unavailable [phone] Mirela Barnhart MD Unavailable [phone] Andrei Dixon MD Unavailable [phone] Denise Black PA-C Unavailable [phone] Unknown, Unknown Primary Care Provider Qamar Escamilla MD Primary Care Provider + [phone] Encounter Details Date Type Department Care Team (Late st Contact Info) Description 08/13/2021 Procedure Pass [facility] [place] [address] [address] Social History Tobacco Use Types [...] st Contact Info) Description 09/07/2024 Procedure Pass [facility], [place] [address] [address] 09/07/2024 Procedure Pass [facility], [address] [address] 05/10/2025 11:05 AM EST Appointment [facility], [facility] [address] [address] Mirela Barnhart MD [address] [place] [phone] [email or web address] 05/10/2025 12:10 PM EST Appointment [facility], [place] [address] [address] Mirela Barnhart MD [address] [place] [address] [email or web address] 05/10/2025 3:00 PM EST Office Visit [facility], [address], [address] [place] [address] Mirela Barnhart MD [address] [place] [address] [email or web address] 12/07/2025 11:00 AM EDT Office Visit [facility], [facility] [address] [address] Arlene Hernandez MD [address] [facility], [address] [place] [address] [email or web address] 04/06/2026 10:20 AM EDT Office Visit [facility] [address] [place] [address] 3rd Floor, [address] [place] [address] Margarito Walker MD [address] [facility] [address] [place] [address] [email or web address] documented as of this encounter Visit Diagnoses Not on filedocumented in this encounter Additional Health Concerns Infection Onset Date Last Indicated Resolved Time CoV-Presumed 05/27/2022 05/27/2022 06/17/2022 3:51 AM EST CoV-Risk 09/22/2023 09/22/2023 09/22/2023 4:53 PM EDT COVID-19 09/22/2023 09/22/2023 10/13/2023 1:21 AM EDT documented as of this encounter Care Teams Official Court Interpreter Relationship Specialty Start Date End Date Qamar Garcia MD [address] [place] [address] PCP - General Internal Medicine 10/14/18 03/26/22 Unknown, Unknown, MD PCP - General 04/08/22 07/22/22 Qamar Garcia MD [address] [place] [address] PCP - General Internal Medicine 07/23/22 Qamar Garcia MD [address] [place] [address] Primary Care Physician 05/06/17 Avinash Chong MD [address] [place] [address] [email or web address] LMR Provider 04/23/17 Sofia Amaya MD, MPH [address] [place] [address] [email or web address] Primary Oncologist Radiation Oncology 08/19/19 Neal Sultana MD, MS [address] [place] [address] [email or web address] Primary Oncologist Surgical Oncology 08/19/19 Tere Keita, [address] [address] [email or web address] Operations And Maintenance Specialist Oncology 09/19/19 03/13/25 Mirela Barnhart MD [address] [place] [address] [email or web address] Medical Oncology 12/05/19 Andrei Dixon MD [address] [place] [address] [email or web address] Orthopedic Surgery 03/27/22 Denise Black PA-C [address] [place] [address] [email or web address] Physician Asphalt Patcher 03/27/22 documented as of this encounter Additional Source Comments The information contained in this document represents components of the legal health record. It is not the complete legal health record.[facility]
--- OUTSIDE RECORDS SUMMARY | 2025-04-19 11:41 | XMS_ITS | Encounter Summary ---
Author Organization [facility] Address [address] [place] [address] Phone Care Team Providers Care Truck Farmer Name Role Phone Qamar Garcia MD Unavailable [phone] Avinash Chong MD Unavailable [phone] Qamar Garcia MD Primary Care Provider + [phone] Sofia Amaya MD, MPH Unavailable + [phone] Neal Sultana MD, MS Unavailable Tere Keita Unavailable [phone] Mirela Barnhart MD Unavailable [phone] Andrei Dixon MD Unavailable [phone] Denise Black PA-C Unavailable [phone] Unknown, Unknown Primary Care Provider Qamar Escamilla MD Primary Care Provider + [phone] Encounter Details Date Type Department Care Team (Late st Contact Info) Description 01/09/2022 Procedure Pass Non-Invasive Cardiology [address] [place] [address] Social History Tobacco Use Types Packs/Day Years [...] st Contact Info) Description 09/07/2024 Procedure Pass [facility], [place] [address] [address] 09/07/2024 Procedure Pass [facility], [address] [address] 05/10/2025 11:05 AM EST Appointment [facility], [facility] [address] [address] Mirela Barnhart MD [address] [place] [address] [email or web address] 05/10/2025 12:10 PM EST Appointment [facility], [place] [address] [address] Mirela Barnhart MD [address] [place] [address] [email or web address] 05/10/2025 3:00 PM EST Office Visit [facility], [address] [place] [address] Mirela Barnhart MD [address] [place] [address] [email or web address] 12/07/2025 11:00 AM EDT Office Visit [facility] [address] [place] [address] Arlene Hernandez MD 234 [facility], [address] [place] [address] [email or web address] 04/06/2026 10:20 AM EDT Office Visit [facility] [address] [facility] 3rd Floor, [address] [place] [address] Margarito Walker MD [address] [facility], [address] [place] [address] [email or web address] documented as of this encounter Visit Diagnoses Not on filedocumented in this encounter Additional Health Concerns Infection Onset Date Last Indicated Resolved Time CoV-Presumed 05/27/2022 05/27/2022 06/17/2022 3:51 AM EST CoV-Risk 09/22/2023 09/22/2023 09/22/2023 4:53 PM EDT COVID-19 09/22/2023 09/22/2023 10/13/2023 1:21 AM EDT documented as of this encounter Care Teams Truck Farmer Relationship Specialty Start Date End Date Qamar Garcia MD [address] [place] [address] PCP - General Internal Medicine 10/14/18 03/26/22 Unknown, Unknown, PCP - General 04/08/22 07/22/22 Qamar Garcia MD [address] [place] [address] PCP - General Internal Medicine 07/23/22 Qamar Garcia MD [address] [place], [place] [id number] Primary Care Physician 05/06/17 Avinash Chong MD [address] [place] [address] [email or web address] Historical LMR Provider 04/23/17 Sofia Amaya MD, MPH [address] [place] [address] [email or web address] Primary Oncologist Radiation Oncology 08/19/19 Neal Sultana MD, MS [address] [place] [phone] [email or web address] Primary Oncologist Surgical Oncology 08/19/19 Tere Keita, [address] [address] [email or web address] Brine Tank Separator Operator Oncology 09/19/19 03/13/25 Mirela Barnhart MD [address] [place] [address] [email or web address] Medical Oncology 12/05/19 Andrei Dixon MD [address] [place] [address] [email or web address] Orthopedic Surgery 03/27/22 Denise Black PA-C [address] [place] [address] [email or web address] Physician Student Support Advisor 03/27/22 documented as of this encounter Additional Source Comments The information contained in this document represents components of the legal health record. It is not the complete legal health record.[facility]
--- OUTSIDE RECORDS SUMMARY | 2025-04-19 11:41 | XMS_ITS | Clinical Summary ---
Author Organization [facility] Address [address] [place] [address] Phone Care Team Providers Care Landscaping Manager Name Role Phone Qamar Garcia MD Unavailable [phone] Avinash Chong MD Unavailable Sofia Amaya MD, MPH Unavailable [phone] Neal Sultana MD, MS Unavailable Mirela Barnhart MD Unavailable [phone] Andrei Dixon MD Unavailable [phone] Denise Black-Carlo Unavailable [phone] Qamar Garcia MD Primary Care Provider Allergies Active Allergy Reactions Criticality Noted Date Comments Finasteride 10/14/2018 gynecomastia Gluten Protein 07/14/2021 Iodinated Contrast Media Erythema Multiforme 01/13/2020 Metoprolol Succinate 07/21/2017 Insomnia, fog, depression Milk Containing Products (Dairy) 07/14/2021 Alirocumab Rash High 08/24/2019 Medications ascorbic acid (VITAMIN C ORAL) Take by mouth. Active LUTEIN ORAL Take by mouth daily. Active aspirin 81 MG EC tablet Take 1 tablet (81 mg total) by mouth 2 (two) times a day for 41 doses. 41 tablet 09/11/19 Active lisinopril (PRINIVIL,ZEST RIL) 10 MG tablet Take 12.5 mg by mouth daily. 12.5mg in the morning and 20mg at night 06/24/20 Active coenzyme Q10 (CO Q-10) 100 mg capsule Take 100 mg by mouth daily. Active pravastatin (PRAVACHOL) 40 MG tablet Take 1 tablet by mouth every morning. 03/28/20 Active methylPREDNISo lone (MEDROL DOSEPACK) 4 mg tablet follow package directions 21 tablet 1 04/06/20 Active LORazepam (ATIVAN) 0.5 MG tablet Take 0.5 mg by mouth 2 (two) times a day as needed. 09/08/19 025 Discontinued pravastatin (PRAVACHOL) 10 MG tablet Take 10 mg by mouth daily. 025 Discontinued cholecalcifero l, vitamin D3, (VITAMIN D3 ORAL) Take by mouth. 025 Discontinued(No longer taking) polyethylene glycol (MIRALAX) 17 gram packet Take 17 g by mouth 2 (two) times a day for 7 days. 14 packet 03/14/20 025 Discontinued senna (SENOKOT) 8.6 mg tablet Take 1 tablet by mouth 2 (two) times a day for 7 days. 14 tablet 03/14/20 025 Discontinued docusate sodium (COLACE) 100 MG capsule Take 1 capsule (100 mg total) by mouth 2 (two) times a day for 7 days. 14 capsule 03/14/20 25 025 Active Problems Problem Noted Date Diagnosed Date [...] notes he had lipids drawn recently at [facility] on 06/2020 that I reviewed that showed [...] medium-sized D1, mild RCA...LAD JESSIE [uploaded to [employer]]. 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) 04/05/2025 11:00 AM EDT Office Visit [facility] [address] [facility] 3rd Floor, [address] [place] [address] Margarito Walker MD Atherosclerotic cardiovascular disease (Primary Dx); Nonrheumatic aortic valve insufficiency; Dyslipidemia 04/04/2025 Ancillary Orders [facility] Radiology [address] [place] [address] Brayden Hamilton MD, MPH 04/04/2025 Ancillary Orders [facility] and [facility] Radiology [address] [place] [address] Brayden Hamilton MD, MPH 03/18/2025 2:30 AM EDT Ancillary Procedure [facility] [address] [place] [address] Madyson Bloom MD 03/18/2025 2:03 AM EDT - 03/18/2025 5:56 AM EDT Emergency [facility] [address] [place] [address] Madyson Bloom MD Discharge Disposition: Home or Self Care 03/17/2025 Ancillary Procedure [facility] Radiology [address] [place] [address] Brayden Hamilton MD, MPH 03/14/2025 3:04 AM EDT - 03/14/2025 6:15 AM EDT Emergency [facility] [address] [place] [address] Madyson Bloom MD Savage, Justin G, DO Discharge Disposition: Home or Self Care 03/12/2025 Ancillary Procedure [facility] Radiology [address] [place] [address] Brayden Hamilton MD, MPH 03/07/2025 5:19 PM EDT - 03/07/2025 11:59 PM EDT Hospital Encounter [address] [address] Qamar Garcia MD Discharge Disposition: Home or Self Care 03/05/2025 11:18 AM EDT - 03/05/2025 11:59 PM EDT Hospital Encounter [address] [address] Qamar Garcia MD Discharge Disposition: Home or Self Care 03/05/2025 11:17 AM EDT Hospital Encounter [address] [address] Qamar Garcia MD Discharge Disposition: Home or Self Care 03/05/2025 Ancillary Orders [address] [address] Qamar Garcia MD Pain in buttock (Primary Dx) 03/05/2025 Ancillary Orders [address] [address] Qamar Garcia MD Buttock pain (Primary Dx) 03/03/2025 Transcribe Orders [facility] Department [address] [place] [address] Qamar Garcia MD Right buttock pain (Primary Dx) 01/18/2025 1:00 PM EDT Telemedicine [facility] Plastic Surgery [address] [address] Primo Siegel PA-C Primary myxofibrosarcoma (Primary Dx) from Last 3 Months Immunizations Immunization Administration [...] Sign Reading Time Taken Comments Blood Pressure 136/74 04/05/2025 10:42 AM EDT Pulse 62 04/05/2025 10:42 AM EDT Temperature 36.7 C (98 F) 03/18/2025 5:45 AM EDT Respiratory Rate 16 03/18/2025 5:45 AM EDT Oxygen Saturation 98% 04/05/2025 10:42 AM EDT Inhaled Oxygen Concentration - - Weight 64 kg (141 lb) 04/05/2025 10:42 AM EDT Height 167.6 cm (5' 6 ) 04/05/2025 10:42 AM EDT Body Mass Index 22.76 04/05/2025 10:42 AM EDT Plan of Treatment Upcoming Encounters Date Type Department Care Team (Late st Contact Info) Description 09/07/2024 Procedure [facility] [address] [facility] 3rd [place] [address] 09/07/2024 Procedure [facility], MRI [address] [facility] 4th [place] [address] 05/10/2025 11:05 AM EST Appointment [facility], MRI [address] [address] Mirela Barnhart MD [address] [place] [address] [email or web address] 05/10/2025 12:10 PM EST Appointment [facility], [place] [address] [address] Mirela Barnhart MD [address] [place] [address] [email or web address] 05/10/2025 3:00 PM EST Office Visit [facility], [address], [address] [place] [address] Mirela Barnhart MD [address] [place] [phone] [email or web address] 12/07/2025 11:00 AM EDT Office Visit [facility] [address] [place] [address] Arlene Hernandez MD [address] [facility], [address] [place] [address] [email or web address] 04/06/2026 10:20 AM EDT Office Visit [facility] [address] [place] [address] 3rd Floor, [address] [place] [address] Margarito Walker MD [address] [facility], [address] [place] [address] [email or web address] Health Maintenance Due Date Last Done Comments RSV VACCINE (1 - 1-dose 75+ series) 2017 Adult Td,Tdap Booster 12/21/2021 12/22/2011 DEPRESSION SCREENING 08/06/2023 08/06/2022 INFLUENZA VACCINE (#1) 2025 , 03/31/2023, 04/28/2022, Additional history exists COVID-19 VACCINE (2024- season) 2025 03/16/2024, 03/31/2023, 11/26/2022, Additional history exists LIPID PANEL 10/03/2025 10/03/2024, 07/0 07/2019, 08/15/2019, Additional history exists BLOOD PRESSURE 10/04/2025 04/05/2025 CREATININE LEVEL 03/18/2026 03/18/2025, , 10/03/2024, Additional [...] this topic Medical Devices Implanted Type Area Corn Grower Device Identifier Shelf Expiration Date Model / Serial / Lot Left Hip Hardware Cardiac Stent Knee Insert Itotal Identity Cr 2pc Ipoly - [id number] Implanted:Qty: 1 on 09/09/2022 by Andrei Dixon MD at [facility] Right: Knee CONFORMIS 09/03/2023 ITCR-STD-2P C / [id number] / Palacos Mv Pro80 - [id number] Implanted:Qty: 1 on 09/09/2022 by Andrei Dixon MD at [facility] Right: Knee kingsky 09/02/2024 [id number] / / [id number] Knee Implant 38mmx8.5 Patella Itotal Ipoly 06 - [id number] Implanted:Qty: 1 on 09/09/2022 by Andrei Dixon MD at [facility] Right: Knee CONFORMIS 07/05/2024 [id number] / / [id number] Procedures Procedure Name Priority Date/Time Associated Diagnosis [...] ECG 12-LEAD STAT 03/18/2025 2:12 AM EDT MRI SPINE NEUROLOGIC FOCUS OUTSIDE (NO INTERPRETATION) Routine 03/17/2025 12:00 AM EDT XR ABDOMEN 1 VIEW Routine 03/14/2025 3:0 7 AM EDT MRI LOWER EXTREMITY OUTSIDE (NO INTERPRETATION) Routine 03/12/2025 12:00 AM EDT US LOWER EXTREMITY NON-VASCULAR LIMITED [...] (03/18/2025 5:00 AM EDT) COLOR Yellow Yellow [facility] CLARITY Clear [facility] GLUCOSE Negative Negative [facility] BILI Negative Negative [facility] KETONES Negative Negative [facility] SPECIFIC GRAVITY 1.010 1.005 - 1.030 [facility] BLOOD Negative Negative [facility] PH 7.0 5.0 - 8.0 [facility] Protein-UA Trace(A) Negative [facility] NITRITE Negative Negative [facility] Leukocyte esterase, ur Negative Negative [facility] Urine (Urine) 03/18/2025 5:0 0 AM EDT 03/18/2025 5:34 AM EDT us Madyson Bloom MD URINE ORDERABLES Final Resul t Performing Organization Address [facility]/ZIP Co de Phone Number [address] [address] * Urea nitrogen, random urine (03/18/2025 5:00 AM EDT) URINE UREA NITROGEN 268 mg/dL [facility] Urine (Urine) 03/18/2025 5:0 0 AM EDT 03/18/2025 5:35 AM EDT Madyson Bloom MD URINE ORDERABLES Final Resul t Performing Organization Address [facility] Co de Phone Number [address] [address] * Sodium, random urine (03/18/2025 5:00 AM EDT) URINE SODIUM 34 mmol/L [facility] Urine (Urine) 03/18/2025 5:0 0 AM EDT 03/18/2025 5:35 AM EDT us Madyson Bloom MD URINE ORDERABLES Final Resul t Performing Organization Address [facility] Co de Phone Number [address] [address] * Osmolality, Random Urine (03/18/2025 5:00 AM EDT) URINE OSMOLALITY 261 mOsm/kg water [facility] Urine (Urine) 03/18/2025 5:0 0 AM EDT 03/18/2025 5:35 AM EDT us Madyson Bloom MD URINE ORDERABLES Final Resul t Performing Organization Address [facility] Co de Phone Number [address] [address] * Creatinine, random urine (03/18/2025 5:00 AM EDT) URINE CREATININE 36 mg/dL [facility] Urine (Urine) 03/18/2025 5:0 0 AM EDT 03/18/2025 5:35 AM EDT Madyson Bloom MD URINE ORDERABLES Final Resul t Performing Organization Address [facility] de Phone Number [address] [address] * Chloride, random urine (03/18/2025 5:00 AM EDT) URINE CHLORIDE 34 mmol/L [facility] Urine (Urine) 03/18/2025 5:0 0 AM EDT 03/18/2025 5:35 AM EDT Madyson Bloom MD URINE ORDERABLES Final Resul t Performing Organization Address [facility] de Phone Number [address] [address] * (ABNORMAL) Troponin (03/18/2025 4:00 AM EDT) Only the most recent of2 resultswithin the time period is included. Troponin-T, HS Gen5 24(H) 0 - 14 ng/L [facility] Blood 03/18/2025 4:00 AM EDT 03/18/2025 4:04 AM EDT Madyson Bloom MD LAB BLOOD ORDERABLES Final R esult Performing Organization Address [facility] de Phone Number [address] [address] * (ABNORMAL) CBC and differential (03/18/2025 2:50 AM EDT) WBC 6.18 4.00 - 11.00 K/uL [facility] RBC 3.32(L) 4.50 - 5.90 M/uL [facility] HGB 10.3(L) 13.5 - 17.5 g/dL [facility] HCT 29.6(L) 41.0 - 53.0 % [facility] PLT 266 150 - 450 K/uL [facility] MCV 89.2 80.0 - 100.0 fL [facility] MCH 31.0 27.0 - 31.0 pg [facility] MCHC 34.8 32.0 - 36.0 g/dL [facility] RDW 12.1 11.5 - 14.5 % [facility] MPV 9.3 8.4 - 12.0 fL [facility] NRBC 0.00 0.00 /100 WBCs [facility] ABSOLUTE NRBC 0.00 0.00 K/uL [facility] DIFF METHOD Auto [facility] NEUTS 64.6 48.0 - 76.0 % [facility] LYMPHS 17.6(L) 18.0 - 41.0 % [facility] MONOS 13.4(H) 4.0 - 11.0 % [facility] EOS 2.3 0.0 - 5.0 % [facility] BASOS 1.0 0.0 - 1.5 % [facility] Granulocytes, immature (%) 1.1(H) 0.0 - 0.9 % [facility] ABSOLUTE NEUTS 3.99 1.92 - 7.60 K/uL [facility] ABSOLUTE LYMPHS 1.09 0.72 - 4.10 K/uL [facility] ABSOLUTE MONOS 0.83 0.16 - 1.10 K/uL [facility] ABSOLUTE EOS 0.14 0.00 - 0.50 K/uL [facility] ABSOLUTE BASOS 0.06 0.00 - 0.15 K/uL [facility] Granulocytes, immature 0.07 0.00 - 0.09 K/uL [facility] Blood 03/18/2025 2:50 AM EDT 03/18/2025 3:02 AM EDT us Madyson Bloom MD LAB BLOOD ORDERABLES Final R esult [facility] [address] [place] [address] * (ABNORMAL) Basic metabolic panel (03/18/2025 2:50 AM EDT) SODIUM 124(L) 133 - 146 mmol/L [facility] CHLORIDE 92(L) 96 - 108 mmol/L [facility] POTASSIUM 4.5 3.3 - 5.1 mmol/L [facility] CO2 23 21 - 35 mmol/L [facility] BUN 18 6 - 19 mg/dL [facility] CREATININE 1.20 0.5 - 1.5 mg/dL [facility] GLUCOSE 96 70 - 99 mg/dL [facility] CALCIUM 9.1 8.4 - 10.3 mg/dL [facility] EGFR 60 >59 mL/min/1.7 3m2 [facility] Comment:Estimated glomerular filtration rate calculated using the CKD-EPI refit equation. ANION GAP 14 10 - 20 mmol/L [facility] Blood 03/18/2025 2:50 AM EDT 03/18/2025 3:02 AM EDT us Madyson Bloom MD LAB BLOOD ORDERABLES Final R esult Performing Organization Address City/State/[facility] Co de Phone Number [facility] [address] [place] [address] * US BEDSIDE (03/18/2025 2:28 AM EDT) [...] negative Images: Images Saved: Yes Accession Number: [id number] Madyson Bloom MD IMG POINT OF CARE EXAMS Vilma l Result * ECG 12-LEAD (03/18/2025 2:12 AM EDT) Ventricular Rate EKG/MIN 64 BPM [facility] Atrial Rate 64 BPM [facility] UT Interval 182 ms [facility] QRS Duration 74 ms [facility] QT Interval 426 ms [facility] QTC Interval 439 ms [facility] P [place] 62 degrees [facility] R Wave [place] 31 degrees [facility] T Wave [place] 50 degrees [facility] 03/18/2025 2:12 AM EDT [...] Margarito Walker ([id number]) on 03/18/2025 11:24:33 AM Madyson Bloom MD ECG ORDERABLES Final Result Performing Organization Address City/[facility]/ZIP Co de Phone Number [facility] * MRI Spine (Neuro) Outside (No Interpretation) (03/17/2025 12:00 AM EDT) Narrative [facility] - 04/04/2025 2:32 PM EDT This study is for PACS storage only and not for interpretation. Brayden Pino Chi, MD, MPH IMG OUTSIDE IMAGING W/OUT INT ERPRETATION Final Result [facility] * XR ABDOMEN 1 VIEW (03/14/2025 3:07 [...] No pneumoperitoneum. IMPRESSION: 1. No acute abnormality. Elida Lowe PA-C IMG XR ABDOMEN Final Resul t * MRI Lower Extremity Outside (No Interpretation) (03/12/2025 12:00 AM EDT) Narrative [facility] - 04/04/2025 2:32 PM EDT This study is for PACS storage only and not for interpretation. us Brayden Pino Chi, MD, MPH IMG OUTSIDE IMAGING W/OUT INT ERPRETATION Final Result [facility] * LOWER EXTREMITY NON-VASCULAR LIMITED (RIGHT) (03/07/2025 5:47 [...] be further evaluated with MRI ifclinically indicated. us Qamar RAMIREZ US EXTREMITY Final Resul t * XR [...] clinician's provided indication for this examination in [facility]: Pain COMPARISON: XR PELVIS 1-2 VIEW [...] in Epic:Pain COMPARISON: XR PELVIS 1-2 VIEW 2024- FINDINGS: No acute fracture or dislocation. Mild hip degenerative changes. Frontal evaluation of the opposite hip demonstrates normal hip joint spaceand postoperative changes of the femur. Degenerative changes of the lowerlumbar spine. IMPRESSION: Mild hip degenerative changes. Qamar Garcia MD IMG XR PELVIS Final Result * (ABNORMAL) Lipid panel (10/03/2024 9:06 AM EDT) HDL 63 mg/dL [facility] Comment: Interpretation <40 mg/dL: Low HDL cholesterol (major risk factor for CHD) Greater than or equal to 60 mg/dL: High HDL cholesterol ( negative risk factor for CHD) HDL - cholesterol is affected by a number of factors, e.g. smoking, excerise, hormones, sex and age. CHOLESTEROL 162 0 - 240 mg/dL [facility] TRIGLYCERIDES 71 30 - 160 mg/dL [facility] LDL 85 50 - 129 mg/dL [facility] Comment: LDL levels in terms of risk for coronary heart disease: <100 mg/dL: Optimal 100-129 mg/dL: Near or above optimal 130-159 mg/dL: Borderline high 160-189 mg/dL: High >190 mg/dL: Very High CARDIAC RISK RATIO 2.6(L) 3.4 - 5.0 [facility] Blood 10/03/2024 9:06 AM EDT 10/03/2024 9:10 AM EDT us Margarito Walker MD LAB BLOOD ORDERABLES Final Result [facility] [address] [place] [address] from Last 3 Months or Most Recently Relevant to Health Maintenance Insurance BLUE [employer]OSS MEDEX SUPPLEMENT MEDICARE PART A & B [employer] MED[employer] SUPPLEMENT MEDICARE PART A & B [employer] CROSS MEDEX SUPPLEMENT MEDICARE PART A & B [employer] SUPPLEMENT MEDICARE PART A & B [employer] MEDEX SUPPLEMENT MEDICARE PART A & B [employer] MEDEX SUPPLEMENT MEDICARE PART A & B [employer] [place] [address] [employer] MEDEX SUPPLEMENT MEDICARE PART A & [place] [address] MEDICARE PART A & B BLUE [employer]OSS MEDEX SUPPLEMENT [employer] CROSS MEDEX SUPPLEMENT MEDICARE PART A & B [employer] SUPPLEMENT MEDICARE PART A & B Advance Directives For more information, please contact: [phone] (9AM - 5PM [facility], Thursday-Thursday) Documents on File Type Date Recorded 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 Healthcare Proxy 11/22/2019 * Full [...] Health Care Agent (Proxy form on file) Care Teams Landscaping Manager Relationship Specialty Start Date End Date Qamar Garcia MD [address] [place] [address] PCP - General Internal Medicine 07/23/22 Qamar Garcia MD [address] [place] [address] Primary Care Physician 05/06/17 Avinash Chong MD [address] [place] [address] [email or web address] Historical LMR Provider 04/23/17 Sofia Amaya MD, MPH [address] [place] [phone] [email or web address] Primary Oncologist Radiation Oncology 08/19/19 Neal Sultana MD, MS [address] [place] [phone] [email or web address] Primary Oncologist Surgical Oncology 08/19/19 Mirela Barnhart MD [address] [place] [phone] [email or web address] Medical Oncology 12/05/19 Andrei Dixon MD [address] [place] [address] [email or web address] 03/27/22 Denise Black PA-C [address] [place] [phone] [email or web address]. [email or web address] Physician Torque Tester 03/27/22 Additional Source Comments The information contained in this document represents components of the legal health record. It is not the complete legal health record.[facility]
== END 2025-04-19 10:41 | disposition home or self-care (01) ==
LOC: HO.HKA 09:55
PROVIDERS: PCP Internal Medicine; Visit Provider Internal Medicine Nephrology
DX: E87.1 Hypo-osmolality and hyponatremia (principal); R80.9 Proteinuria, unspecified; I10 Essential (primary) hypertension; N18.31 Chronic kidney disease, stage 3a
CPT/HCPCS: 99214

== ENCOUNTER → 2025-04-19 09:54 | Outpatient (BNVA) | payer MEDICARE, SELFPAY | PROVIDERS: PCP Internal Medicine; Visit Provider Internal Medicine Nephrology | DX: I12.9 Hypertensive chronic kidney disease with stage 1 through stage 4 chronic kidney disease, or unspecified chronic kidney disease (principal); N18.31 Chronic kidney disease, stage 3a; E87.1 Hypo-osmolality and hyponatremia; R80.9 Proteinuria, unspecified | CPT/HCPCS: 99212 ==